=== PATIENT | male | born 1955 | race Caucasian/White ===

== ENCOUNTER 2016-03-06 17:35 | Emergency (ER) | payer MEDICAID ==
[~2016-03-06] VITALS: Ht 172.7 cm; Wt 59.0 kg
[2016-03-06 17:36] VITALS: BP 147/91
== END 2016-03-06 22:10 | disposition left against medical advice (07) ==
LOC: EDBD 17:35 → ER 17:44
DX: M79.605 Pain in left leg (principal); S80.812A Abrasion, left lower leg, initial encounter; S80.811A Abrasion, right lower leg, initial encounter; Y93.39 Activity, other involving climbing, rappelling and jumping off; Y93.89 Activity, other specified; Y99.9 Unspecified external cause status; Y92.89 Other specified places as the place of occurrence of the external cause

== ENCOUNTER 2017-12-16 10:04 | Emergency (ER) | payer MEDICAID ==
[~2017-12-16] VITALS: Ht 170.2 cm; Wt 56.7 kg
[2017-12-16 10:16] VITALS: BP 133/72
[2017-12-16] MEDS ORDERED: LIDOCAINE 1%HCL (LOCAL ANESTH) 10 ML MDV ONE (12:15)
[2017-12-16] MEDS ORDERED: LIDOCAINE 1% HCL (LOCAL ANESTH.) INJ 20ML MDV IJ ONE (12:15)
[2017-12-16] MEDS ORDERED: BACITRACIN TOP OINT 1 UD PKG TOP ONE (12:15)
== END 2017-12-16 12:26 | disposition home or self-care (01) ==
LOC: ER 10:04
DX: L02.414 Cutaneous abscess of left upper limb (principal); F17.210 Nicotine dependence, cigarettes, uncomplicated; F15.90 Other stimulant use, unspecified, uncomplicated; Z59.0 Homelessness
CPT/HCPCS: 10060; 99283; C1887; J2001

== ENCOUNTER 2018-04-11 23:24 | Emergency (ER) | payer MEDICAID ==
[~2018-04-11] VITALS: Ht 170.2 cm; Wt 54.4 kg
[2018-04-12 00:08] VITALS: BP 125/85
== END 2018-04-12 01:37 | disposition left against medical advice (07) ==
LOC: ER 23:24
DX: M79.642 Pain in left hand (principal); M79.641 Pain in right hand; Z53.21 Procedure and treatment not carried out due to patient leaving prior to being seen by health care provider

== ENCOUNTER 2019-06-19 16:41 | Emergency (ER) | payer MEDICAID ==
[~2019-06-19] VITALS: Ht 170.2 cm; Wt 63.5 kg
[2019-06-19 18:02] LABS: Hematocrit 44.1 % (41.0-53.0); Hemoglobin 14.7 g/dL (13.5-17.5); Mean Corpuscular Hemoglobin 29.1 pg (28.0-32.0); Mean Corpuscular Hgb Conc. 33.4 g/dL (32.0-36.0); Mean Corpuscular Volume 87.1 fL (80.0-100.0); Platelet Count (auto) 220 10^3/uL (140-450); Red Blood Cells 5.07 10^6/uL (4.5-5.90); Red Cell Distribution Width 14.8 % (11.8-14.3); White Blood Cell 6.7 10^3/uL (4.4-10.8)
[2019-06-19 18:04] LABS: Band Neutrophils % (manual) 0; Basophils % (manual) 0 (0.0-2.0); Blast Cells 0; Metamyelocytes % 0; Myelocytes % 0; Promyelocytes % 0; Reactive Lymphocytes 0
[2019-06-19 18:14] LABS: Albumin 3.4 g/dL (3.4-5.0); Calcium 8.8 mg/dL (8.5-10.1)
[2019-06-19 18:17] LABS: BUN/Creatinine Ratio 21.7; Bilirubin, Total 0.9 mg/dL (0.2-1.0); Total Protein 7.5 g/dL (6.4-8.2)
[2019-06-19] MEDS ORDERED: SODIUM CHLORIDE 0.9% 1,000 ML IVB ONE (18:27)
[2019-06-19 18:50] LABS: Eosinophils % (manual) 33 (0-7); Lymphocytes % (manual) 22 (10.0-50.0); Monocytes % (manual) 5 (0-12)
[2019-06-19 19:38] LABS: Magnesium 1.9 mg/dL (1.6-2.6)
[2019-06-19 21:00] VITALS: BP 130/80
[2019-06-19 21:18] LABS: Urine Bacteria NONE SEEN /hpf (None Seen); Urine Blood Negative /uL (Negative); Urine Specific Gravity 1.006 (1.001-1.035); Urine WBC 1 /hpf (0 - 3)
== END 2019-06-19 21:35 | disposition home or self-care (01) ==
LOC: ER 16:41
DX: R10.84 Generalized abdominal pain (principal); R19.7 Diarrhea, unspecified; F17.210 Nicotine dependence, cigarettes, uncomplicated
CPT/HCPCS: 36415; 71045; 74176; 80053; 81001; 83690; 83735; 85007; 85027; 93005; 96360; 99285; J7030

== ENCOUNTER 2019-07-28 16:54 | Emergency (ER) | payer MEDICAID ==
[~2019-07-28] VITALS: Ht 172.7 cm; Wt 54.4 kg
[2019-07-28 17:08] VITALS: BP 120/70
== END 2019-07-28 19:01 | disposition home or self-care (01) ==
LOC: ER 16:54 → EDBD 16:54 → ER 19:01
DX: L55.9 Sunburn, unspecified (principal); R51 Headache; M19.90 Unspecified osteoarthritis, unspecified site; F17.210 Nicotine dependence, cigarettes, uncomplicated

== ENCOUNTER 2020-08-10 17:42 | Emergency (ER) | payer MEDICARE, MEDICAID ==
[~2020-08-10] VITALS: Ht 170.2 cm; Wt 51.3 kg
[2020-08-10 17:59] VITALS: BP 154/94
[2020-08-10 18:54] LABS: Basophils # (auto) 0.1 10 ^3/uL (0-0.2); Basophils % (auto) 1.3 % (0.0-2.0); Eosinophils # (auto) 0.1 10 ^3/uL (0-0.8); Eosinophils % (auto) 2.5 % (0.0-7.0); Hematocrit 41.5 % (41.0-53.0); Hemoglobin 14.7 g/dL (13.5-17.5); Lymphocytes # (auto) 1.2 10 ^3/uL (0.4-5.4); Lymphocytes % (auto) 24.8 % (10.0-50.0); Mean Corpuscular Hemoglobin 31.1 pg (28.0-32.0); Mean Corpuscular Hgb Conc. 35.4 g/dL (32.0-36.0); Mean Corpuscular Volume 87.9 fL (80.0-100.0); Monocytes # (auto) 0.4 10 ^3/uL (0-1.3); Monocytes % (auto) 8.6 % (0.0-12.0); Neutrophils # (auto) 2.9 10 ^3/uL (1.6-8.6); Neutrophils % (auto) 62.8 % (37.0-80.0); Nucleated Red Blood Cells % 0.1 %; Platelet Count (auto) 271 10^3/uL (140-450); Red Blood Cells 4.72 10^6/uL (4.5-5.90); Red Cell Distribution Width 13.5 % (11.8-14.3); White Blood Cell 4.7 10^3/uL (4.4-10.8)
[2020-08-10 19:08] LABS: Albumin 3.2 g/dL (3.4-5.0); BUN/Creatinine Ratio 13.1
[2020-08-10 19:10] LABS: Bilirubin, Total 0.9 mg/dL (0.2-1.0); Total Protein 7.2 g/dL (6.4-8.2)
== END 2020-08-10 20:36 | disposition home or self-care (01) ==
LOC: ER 17:42 → EDUNIT# 17:42 → EDBD 17:42 → ER 20:36
DX: R10.84 Generalized abdominal pain (principal); F15.10 Other stimulant abuse, uncomplicated; F17.210 Nicotine dependence, cigarettes, uncomplicated; Z59.0 Homelessness
CPT/HCPCS: 36415; 80053; 83690; 85025; 93005

== ENCOUNTER → 2021-01-21 | Emergency (ER) | payer MEDICARE, MEDICAID ==
[~2021-01-21] VITALS: Ht 170.2 cm; Wt 54.0 kg
[2021-01-21 23:53] VITALS: BP 160/94
[2021-01-22 02:26] LABS: Basophils # (auto) 0.1 10 ^3/uL (0-0.2); Eosinophils # (auto) 0.1 10 ^3/uL (0-0.8); Hematocrit 47.5 % (41.0-53.0); Hemoglobin 16.2 g/dL (13.5-17.5); Lymphocytes # (auto) 1.1 10 ^3/uL (0.4-5.4); Lymphocytes % (auto) 16.3 % (10.0-50.0); Mean Corpuscular Hemoglobin 30.7 pg (28.0-32.0); Mean Corpuscular Hgb Conc. 34.2 g/dL (32.0-36.0); Mean Corpuscular Volume 89.8 fL (80.0-100.0); Monocytes # (auto) 0.6 10 ^3/uL (0-1.3); Monocytes % (auto) 9.1 % (0.0-12.0); Neutrophils # (auto) 4.9 10 ^3/uL (1.6-8.6); Neutrophils % (auto) 72.6 % (37.0-80.0); Nucleated Red Blood Cells % 0.5 %; Red Blood Cells 5.29 10^6/uL (4.5-5.90); Red Cell Distribution Width 13.3 % (11.8-14.3); White Blood Cell 6.7 10^3/uL (4.4-10.8)
[2021-01-22 02:38] LABS: INR 0.98 (0.9-1.15); Partial Thromboplastin Time 21.7 sec (23.6-33.0)
== END | disposition left against medical advice (07) ==
LOC: EDUNIT# 23:38 → ER 23:50 → EDBD 23:50
DX: R07.89 Other chest pain (principal); Z53.21 Procedure and treatment not carried out due to patient leaving prior to being seen by health care provider
CPT/HCPCS: 36415; 80053; 83735; 83880; 84443; 84484; 85025; 85610; 85730; 93005

== ENCOUNTER 2021-02-02 14:44 | Emergency (ER) | payer MEDICARE, MEDICAID ==
[~2021-02-02] VITALS: Ht 170.2 cm; Wt 53.5 kg
[2021-02-02 14:50] VITALS: BP 168/89
[2021-02-03] MEDS ORDERED: AMOX500C2 PO (08:37)
[2021-02-03] MEDS ORDERED: ACET-1080 PO (08:38)
== END 2021-02-02 18:20 | disposition home or self-care (01) ==
LOC: ER 14:44
DX: R51.9 Headache, unspecified (principal); F17.210 Nicotine dependence, cigarettes, uncomplicated; Z88.5 Allergy status to narcotic agent
CPT/HCPCS: 70450

== ENCOUNTER 2021-02-03 07:17 | Emergency (ER) | payer MEDICARE, MEDICAID ==
[~2021-02-03] VITALS: Ht 170.2 cm; Wt 53.5 kg
[2021-02-03 07:55] VITALS: BP 116/70
[2021-02-03] MEDS ORDERED: AMOX500C2 PO (08:37)
[2021-02-03] MEDS ORDERED: ACET-1080 PO (08:38)
== END 2021-02-03 09:07 | disposition home or self-care (01) ==
LOC: ER 07:17
DX: H61.21 Impacted cerumen, right ear (principal); H66.91 Otitis media, unspecified, right ear; F17.210 Nicotine dependence, cigarettes, uncomplicated; Z59.00 Homelessness unspecified; Z79.2 Long term (current) use of antibiotics; Z79.899 Other long term (current) drug therapy; Z88.5 Allergy status to narcotic agent
CPT/HCPCS: 69209

== ENCOUNTER 2021-11-22 06:00 | Emergency (ER) | payer MEDICARE, MEDICAID ==
[~2021-11-22] VITALS: Ht 177.8 cm; Wt 56.0 kg
[2021-11-22 06:00] VITALS: BP 148/93
[~2021-11-22 06:00] MED LIST: ACET-1080 PO; AMOX500C2 PO
[2021-11-22] MEDS ORDERED: METR500T PO (09:15)
== END 2021-11-22 22:00 | disposition home or self-care (01) ==
LOC: ER 06:00
DX: K52.9 Noninfective gastroenteritis and colitis, unspecified (principal); F17.210 Nicotine dependence, cigarettes, uncomplicated; F12.10 Cannabis abuse, uncomplicated; F15.10 Other stimulant abuse, uncomplicated; Z59.00 Homelessness unspecified; Z88.6 Allergy status to analgesic agent

== ENCOUNTER 2024-03-03 02:34 | Emergency (ER) | payer MEDICARE, MEDICAID ==
[~2024-03-03] VITALS: Ht 170.2 cm; Wt 61.6 kg
[~2024-03-03 02:34] MED LIST changes: +METR500T PO
[2024-03-03 02:46] VITALS: BP 161/105; PULSE 106; RESP 16; O2SAT 97
--- NOTE | 2024-03-03 03:42 | ED.PDOC ---
History of Present Illness HPI Comments 69-year-old male came to emergency room due to sore throat. Patient is homeless and has history of methamphetamine abuse. States that for the past few months he has been having difficulty swallowing, pain in swallowing solid food. Feels like something is blocking throat makes him like throwing up. Denies any abdominal pain Chief Complaint: Sore Throat Time Seen by MD: 03:41 Primary Care Provider: DENIES Reviewed Notes: Nurses Notes Allergies: Coded Allergies: Codeine (Verified Allergy, Severe, 02/02/21) Home Meds Active Scripts Metronidazole (Flagyl) 500 Mg Tab, 500 MG PO TID for 7 Days, #21 TAB Prov:KADY TORRE MD 11/22/21 Acetaminophen (Tylenol 8 Hour Arthritis) 650 Mg Tab, 650 MG PO TID for 8 Days, #24 TAB Prov:DIMITRI SOLOMON 02/03/21 Amoxicillin Trihydrate (Amoxicillin) 500 Mg Cap, 500 MG PO TID for 10 Days, #30 CAP Prov:DIMITRI SOLOMON 02/03/21 Information Source: Patient Mode of Arrival: Ambulatory Severity: Moderate Timing: Months Duration: Intermittent Prehospital treatment: None Review of Systems REVIEW OF SYSTEMS: No fever, no chills, or fatigue HEENT: (+) sore throat, no earache, no congestion, no neck pain. Cardiac: No chest pain. No palpitations. Lungs: No shortness of breath, no cough. GI: No nausea, no vomiting, no diarrhea, no constipation, no abdominal pain : No dysuria, frequency, or urgency. No hematuria. Musculoskeletal: No joint pain , no joint swelling, no extremity edema. Skin: No rash, no itching. Neuro: No headache, no dizziness, no weakness Vital Signs Vital Signs Date Time Temp Pulse Resp B/P (MAP) Pulse Ox O2 Delivery O2 Flow Rate FiO2 03/03/24 02:46 97.9 106 16 161/105 (123) 97 Physical Exam General: Awake, alert and oriented. No acute distress. Skin: Skin in warm, dry and intact. Appropriate color for ethnicity. Nailbeds pink with no cyanosis. HEENT: The head is normocephalic and atraumatic. Conjunctivae are clear without exudates or hemorrhage. Sclera is non-icteric. EOM are intact. No signs of nystagmus. Eyelids are normal in appearance without swelling or lesions. Oral mucosa is pink and moist Neck: The neck is supple with normal range of motion. No JVD. Cardiac: Heart rate and rhythm are normal. No murmurs, gallops, or rubs are auscultated. Respiratory: No signs of respiratory distress. Lung sounds are clear in all lobes bilaterally without rales, ronchi, or wheezes. Abdominal: Abdomen is soft, non-tender without distention. Bowel sounds are present and normoactive in all four quadrants. Extremities: Upper and lower extremities are atraumatic in appearance without deformity or edema. Neurological: The patient is awake, alert and oriented to person, place, and time with normal speech. Speech is clear. There is no facial asymmetry. Psychiatric: Appropriate mood and affect. Good judgement and insight. No visual or auditory hallucinations. Past Medical History PAST MEDICAL HISTORY: Anxiety, Arthritis Surgical History: Denies all surgeries Family History Family History: Family hx of Cancer Social History Smoker: Cigarettes, Greater Than 1 Pack/Day Alcohol: Occasionally Drugs: Methamphetamine Lives In: Homeless Was a procedure done? Was a procedure done?: No Differential Dx Considerations may include: Pharyngitis. Laryngitis. Epiglottitis. Dehydration. Substance abuse X-Ray, Labs, Meds, VS Vital Signs Date Time Temp Pulse Resp B/P (MAP) Pulse Ox O2 Delivery O2 Flow Rate FiO2 03/03/24 02:46 97.9 106 16 161/105 (123) 97 Lab Test 03/03/24 03:52 Range/Units White Blood Count 6.6 4.4-10.8 10^3/uL Red Blood Count 4.65 4.5-5.90 10^6/uL Hemoglobin 14.2 13.5-17.5 g/dL Hematocrit 41.3 41.0-53.0 % Mean Corpuscular Volume 88.8 80.0-100.0 fL Mean Corpuscular Hemoglobin 30.6 28.0-32.0 pg Mean Corpuscular Hemoglobin Concent 34.5 32.0-36.0 g/dL Red Cell Distribution Width 13.2 11.8-14.3 % Platelet Count 343 140-450 10^3/uL Mean Platelet Volume 7.4 6.9-10.8 fL Neutrophils (%) (Auto) 65.0 37.0-80.0 % Lymphocytes (%) (Auto) 23.6 10.0-50.0 % Monocytes (%) (Auto) 8.4 0.0-12.0 % Eosinophils (%) (Auto) 2.0 0.0-7.0 % Basophils (%) (Auto) 1.0 0.0-2.0 % Neutrophils # (Auto) 4.3 1.6-8.6 10 ^3/uL Lymphocytes # (Auto) 1.6 0.4-5.4 10 ^3/uL Monocytes # (Auto) 0.6 0-1.3 10 ^3/uL Eosinophils # (Auto) 0.1 0-0.8 10 ^3/uL Basophils # (Auto) 0.1 0-0.2 10 ^3/uL Nucleated Red Blood Cells 0.2 % Sodium Level 139 136-145 mmol/L Potassium Level 4.3 3.5-5.1 mmol/L Chloride Level 106 98-107 mmol/L Carbon Dioxide Level 26 20-31 mmol/L Anion Gap 7 5-15 Blood Urea Nitrogen 18 9-23 mg/dL Creatinine 1.42 H 0.700-1.30 mg/dL Glomerular Filtration Rate Calc 53 >90 mL/min BUN/Creatinine Ratio 12.7 10.0-20.0 Serum Glucose 115 H 74-106 mg/dL Calcium Level 13.6 *H 8.7-10.4 mg/dL Magnesium Level 2.1 1.6-2.6 mg/dL Total Bilirubin 1.0 0.2-1.0 mg/dL Aspartate Amino Transferase (AST) 41 H 13-40 U/L Alanine Aminotransferase (ALT) 41 H 7-40 U/L Alkaline Phosphatase 89 46-116 U/L Total Protein 7.4 5.7-8.2 g/dL Albumin 4.3 3.2-4.8 g/dL Time of 1ST Reevaluation: 03:36 Reevaluation 1ST: Unchanged Patient Education/Counseling: Diagnosis, Treatment Family Education/Counseling: No Family Present Departure 1 Departure Time of Disposition: 04:49 Impression: Primary Impression: Dysphagia Disposition: 09 ADMITTED INPATIENT Condition: Stable Comments 69-year-old male with dysphagia to solids ongoing times 10 months, worsening. Patient admitted for further treatment, GI evaluation, and monitoring. Critical Care Note Critical Care Time?: No Stability Stability form required: No Heart Score Heart Score: Heart Score Response (Comments) Value History N/A 0 EKG N/A 0 Age N/A 0 Risk Factors N/A 0 Troponin N/A 0 Total 0 I personally scribed for MARVEL MANN MD ([email or web address]) on 03/03/24 at 03:42. Electronically submitted by Dank Florez ([employer]). I personally scribed for MARVEL MANN MD ([email or web address]) on 03/03/24 at 03:43. Electronically submitted by Dank Florez ([employer]). MARVEL MANN MD Mar 03, 2024 03:42
[2024-03-03 04:23] LABS: Basophils # (auto) 0.1 10 ^3/uL (0-0.2); Eosinophils # (auto) 0.1 10 ^3/uL (0-0.8); Hematocrit 41.3 % (41.0-53.0); Hemoglobin 14.2 g/dL (13.5-17.5); Lymphocytes # (auto) 1.6 10 ^3/uL (0.4-5.4); Lymphocytes % (auto) 23.6 % (10.0-50.0); Mean Corpuscular Hemoglobin 30.6 pg (28.0-32.0); Mean Corpuscular Hgb Conc. 34.5 g/dL (32.0-36.0); Mean Corpuscular Volume 88.8 fL (80.0-100.0); Monocytes # (auto) 0.6 10 ^3/uL (0-1.3); Monocytes % (auto) 8.4 % (0.0-12.0); Neutrophils # (auto) 4.3 10 ^3/uL (1.6-8.6); Nucleated Red Blood Cells % 0.2 %; Platelet Count (auto) 343 10^3/uL (140-450); Red Blood Cells 4.65 10^6/uL (4.5-5.90); Red Cell Distribution Width 13.2 % (11.8-14.3); White Blood Cell 6.6 10^3/uL (4.4-10.8)
[2024-03-03 04:49] LABS: Albumin 4.3 g/dL (3.2-4.8); Alkaline Phosphatase 89 U/L (46-116); Anion Gap 7 (5-15); BUN/Creatinine Ratio 12.7 (10.0-20.0); Blood Urea Nitrogen 18 mg/dL (9-23); Carbon Dioxide 26 mmol/L (20-31); Chloride 106 mmol/L (98-107); Magnesium 2.1 mg/dL (1.6-2.6); Potassium 4.3 mmol/L (3.5-5.1); Sodium 139 mmol/L (136-145)
[2024-03-03 04:50] LABS: Total Protein 7.4 g/dL (5.7-8.2)
[2024-03-03 04:51] LABS: Alanine Aminotransferase 41 U/L (7-40); Aspartate Aminotransferase 41 U/L (13-40); Glucose 115 mg/dL (74-106)
[2024-03-03 04:54] LABS: Calcium 13.6 mg/dL (8.7-10.4)
[2024-03-03] MEDS: IOHEXOL 300 MG/ML 100ML BOTTLE IJ ONE (05:11)
--- NOTE | 2024-03-03 05:23 | DVH ---
EXAM: XY CHEST XRAY 1 VIEW Indication: Dysphagia Technique: Single frontal view of the chest was obtained Comparison: CHEST PORTABLE on DOS: 06/19/19, CHEST PORTABLE on DOS: 04/01/19 FINDINGS: Lines and Tubes: None Lungs: No focal consolidation. Pleura: No effusion. No pneumothorax. Cardiomediastinal contours: Unremarkable Bones: No acute osseous abnormality. IMPRESSION: No acute cardiopulmonary disease.
--- NOTE | 2024-03-03 05:52 | DVH ---
Exam: CT CT AB PEL WITH IV CON ONLY History: Abdominal pain, dysphagia Comparison Study: None available at time of dictation. TECHNIQUE: Multidetector CT of the abdomen was performed from lung bases to pubic symphysis. Imaging was performed without IV contrast. Axial, coronal and sagittal multiplanar reformats were obtained fr om the axial data set by the technologist. Radiation Dose : 1. Abdomen/Pelvis: CTDIvol 5.3 mGy, DLP 309.9 mGy*cm. FINDINGS: Evaluation of solid organs is limited due to lack of intravenous contrast use. Findings: Lung Bases: No acute or significant lung base finding. Normal heart size. No pleural or pericardial effusion. Liver: The liver is normal in size. No focal lesions. Gallbladder and Biliary Tree: Unremarkable Spleen: Unremarkable Pancreas: The pancreas is grossly normal in appearance. Adrenal Glands: Unremarkable Kidneys: Kidneys are grossly normal without calculi or hydronephrosis. Bladder: Grossly unremarkable for degree of distention. Bowel: Large hiatal hernia. Gastric collateral vessels are visualized. Gastric wall thickening. Promi nent perigastric /paraesophageal lymph nodes and nodularity. For example there is a 8 mm prominent pa raesophageal lymph node. Small bowel and colon are normal in caliber and distribution. The appendix is not visualized; however, no secondary findings of acute appendicitis identified. Ascites: Absent Lymphadenopathy: No mesenteric, retroperitoneal or periportal lymphadenopathy. Abdominal Wall and Mesentery: Unremarkable. Vasculature: The visualized abdominal aorta is normal in size and caliber. Evaluation of abdominal a nd pelvic vessels is limited due to lack of intravenous contrast. Pelvic Organs: Unremarkable Musculoskeletal: No aggressive focal bony lesions, acute fractures or dislocation. Soft tissues: Unremarkable IMPRESSION: Large hiatal hernia with irregular proximal gastric wall thickening. Prominent perigastric lymph node s and nodularity. Recommend correlation with endoscopy as findings are concerning for malignancy. Radiation optimization: All CT scans at this facility use at least one of these dose optimization lyndsay hniques: automated exposure control mA and/or kV adjustment per patient size (includes targeted exam s where dose is matched to clinical indication) or iterative reconstruction.
== END 2024-03-03 06:35 | disposition left against medical advice (07) ==
LOC: ER 02:34
DX: R13.10 Dysphagia, unspecified (principal); F17.210 Nicotine dependence, cigarettes, uncomplicated; M19.90 Unspecified osteoarthritis, unspecified site; F41.9 Anxiety disorder, unspecified; Z59.00 Homelessness unspecified; Z88.5 Allergy status to narcotic agent
CPT/HCPCS: 36415; 71045; 74177; 80053; 83735; 85025

== ENCOUNTER 2024-03-05 16:51 | Inpatient (IN) | payer MEDICARE, MEDICAID ==
[~2024-03-05] VITALS: Ht 170.2 cm; Wt 61.7 kg
--- NOTE | 2024-03-05 18:41 | ED.PDOC ---
Eye-HPI HPI Comments 69-year-old male presents to ER with complaints of difficulty swallowing x 10 months. Patient is homeless with PMH of hiatal hernia and methamphetamine use reporting that he has been experiencing difficult and painful swallowing x 10 months. Patient was going to be admitted here 2 days ago for need for GI consult/need for endoscopy but signed out AMA. He reports 9/10 pain with swallowing, denying any other pain. Reports he does experience intermittent episodes of nausea/vomiting when attempting to swallow solid foods. Denies fever, night sweats, fatigue, weight loss, abdominal pain or any further symptoms/complaints Chief Complaint: Sore Throat Time Seen by MD: 18:10 Primary Care Provider: NONE Reviewed Notes: Nurses Notes, Medications, Allergies Allergies: Coded Allergies: Codeine (Verified Allergy, Severe, 02/02/21) Home Meds Active Scripts Metronidazole (Flagyl) 500 Mg Tab, 500 MG PO TID for 7 Days, #21 TAB Prov:KADY TORRE MD 11/22/21 Acetaminophen (Tylenol 8 Hour Arthritis) 650 Mg Tab, 650 MG PO TID for 8 Days, #24 TAB Prov:DIMITRI SOLOMON 02/03/21 Amoxicillin Trihydrate (Amoxicillin) 500 Mg Cap, 500 MG PO TID for 10 Days, #30 CAP Prov:DIMITRI SOLOMON 02/03/21 Information Source: Patient Mode of Arrival: Wheelchair Past Medical History Past Medical History (Other): Hital Hernia Surgical History: Denies all surgeries Family History Family History: Unknown Social History Smoker: Cigarettes, Greater Than 1 Pack/Day Alcohol: Occasionally Drugs: Methamphetamine Lives In: Homeless Constitutional: denies: chills, diaphoresis, fatigue, fever, malaise, sweats, weakness, others EENTM: reports: others ( STATED IN HPI) Respiratory: denies: cough, hemoptysis, orthopnea, SOB at rest, shortness of breath, SOB with excertion, stridor, wheezing, others Cardiovascular: denies: chest pain, dizzy spells, diaphoresis, Dyspnea on exertion, edema, irregular heart beat, left arm pain, lightheadedness, palpitations, PND, syncope, others Gastrointestinal: denies: abdomen distended, abdominal pain, blood streaked bowels, constipated, diarrhea, dysphagia, difficulty swallowing, hematemesis, melena, nausea, poor appetite, poor fluid intake, rectal bleeding, rectal pain, vomiting, others Genitourinary: denies: burning, dysuria, flank pain, frequency, hematuria, incontinence, penile discharge, penile sore, pain, testicle pain, testicle swelling, urgency, others Neurological: denies: dizziness, fainting, headache, left sided numbness, left sided weakness, numbness, paresthesia, pre-existing deficit, right sided numbn ess, right sided weakness, seizure, speech problems, tingling, tremors, weakness, others Musculoskeletal: denies: back pain, gout, joint pain, joint swelling, muscle pain, muscle stiffness, neck pain, others Integumetry: denies: bruises, change in color, change in hair/nails, dryness, laceration, lesions, lumps, rash, wounds, others Allergic/Immunocompromised: denies: Difficulty Healing, Frequent Infections, Hives, Itching, others Hematologic/Lymphatic: denies: anemia, blood clots, easy bleeding, easy bruising, swollen glands, others Endocrine: denies: excessive hunger, excessive sweating, excessive thirst, excessive urination, flushing, intolerance to cold, intolerance to heat, unexplained weight gain, unexplained weight loss, others Psychiatric: denies: anxiety, bipolar disorder, depression, hopeless, panic disorder, schizophrenia, sleepless, suicidal, others Physical Exam General Appearance: No Apparent Distress HEENT: Normal ENT Inspection, PERRL/EOMI, Pharynx Normal, TMs Normal Neck: Full Range of Motion, Non-Tender, Normal Respiratory: Chest Non-Tender, Lungs Clear, No Accessory Muscle Use, No Respiratory Distress, Normal Breath Sounds Cardiovascular: No Murmur, No Gallop, Regular Rate/Rhythm Breast Exam: Deferred Gastrointestinal: Epigastric (TTP to epigastric region noted), No Organomegaly, No Pulsatile Mass, Normal Bowel Sounds, Soft Genitalia: Deferred Pelvic: Deferred Rectal: Deferred Extremities: Normal capillary refill, Normal range of motion Neurologic: Alert, No Motor Deficits, Normal Affect, Normal Mood, No Sensory Deficits Cerebellar Function: Normal Reflexes: Normal Skin: Dry, Normal Color, Warm Lymphatic: No Adenopathy Was a procedure done? Was a procedure done?: No EENT DIFF Eye: N/A Sore Throat: Epiglottitis, Peritonsillar Abscess, Other (mass) X-Ray, Labs, Meds, VS Vital Signs Date Time Temp Pulse Resp B/P (MAP) Pulse Ox O2 Delivery O2 Flow Rate FiO2 03/05/24 18:33 88 18 98 Room Air 03/05/24 18:33 98.0 88 18 133/88 (103) 98 98.0 03/05/24 17:25 97.9 84 18 130/81 (97) 97 Lab Test 03/05/24 19:07 Range/Units White Blood Count 5.3 4.4-10.8 10^3/uL Red Blood Count 4.84 4.5-5.90 10^6/uL Hemoglobin 14.5 13.5-17.5 g/dL Hematocrit 43.2 41.0-53.0 % Mean Corpuscular Volume 89.1 80.0-100.0 fL Mean Corpuscular Hemoglobin 30.0 28.0-32.0 pg Mean Corpuscular Hemoglobin Concent 33.6 32.0-36.0 g/dL Red Cell Distribution Width 13.4 11.8-14.3 % Platelet Count 338 140-450 10^3/uL Mean Platelet Volume 7.3 6.9-10.8 fL Neutrophils (%) (Auto) 65.9 37.0-80.0 % Lymphocytes (%) (Auto) 21.2 10.0-50.0 % Monocytes (%) (Auto) 9.5 0.0-12.0 % Eosinophils (%) (Auto) 2.7 0.0-7.0 % Basophils (%) (Auto) 0.7 0.0-2.0 % Neutrophils # (Auto) 3.5 1.6-8.6 10 ^3/uL Lymphocytes # (Auto) 1.1 0.4-5.4 10 ^3/uL Monocytes # (Auto) 0.5 0-1.3 10 ^3/uL Eosinophils # (Auto) 0.1 0-0.8 10 ^3/uL Basophils # (Auto) 0 0-0.2 10 ^3/uL Nucleated Red Blood Cells 0.1 % Sodium Level 138 136-145 mmol/L Potassium Level 4.3 3.5-5.1 mmol/L Chloride Level 105 98-107 mmol/L Carbon Dioxide Level 28 20-31 mmol/L Anion Gap 5 5-15 Blood Urea Nitrogen 15 9-23 mg/dL Creatinine 1.07 0.700-1.30 mg/dL Glomerular Filtration Rate Calc 75 >90 mL/min BUN/Creatinine Ratio 14.0 10.0-20.0 Serum Glucose 107 H 74-106 mg/dL Calcium Level 10.7 H 8.7-10.4 mg/dL Total Bilirubin 0.7 0.2-1.0 mg/dL Direct Bilirubin 0.2 <0.3 mg/dL Aspartate Amino Transferase (AST) 43 H 13-40 U/L Alanine Aminotransferase (ALT) 45 H 7-40 U/L Alkaline Phosphatase 91 46-116 U/L Total Protein 6.9 5.7-8.2 g/dL Albumin 4.1 3.2-4.8 g/dL Current Medications Medications (Trade) Dose Ordered Sig/Sarah Route Start Time Stop Time Status Last Admin Pantoprazole Sodium (Protonix) 40 mg ONCE ONCE IV 03/05/24 19:15 03/05/24 19:16 DC 03/06/24 02:08 PATIENT: DAMION BOWMAN ACCT: [id number] UNIT: [id number] : 1955 LOC: ER ROOM / BED: / AGE / SEX: 69 / M ADM STATUS: REG ER SERVICE [id number] ORDERING PHYSICIAN: MARVEL MANN MD PROCEDURE(s): ABPLIV - CT AB PEL WITH IV CON ONLY REASON: Abdominal pain, dysphagia ORDER NUMBER(s): [id number], ACCESSION NUMBER(s): [id number] Exam: CT CT AB PEL WITH IV CON ONLY History: Abdominal pain, dysphagia Comparison Study: None available at time of dictation. TECHNIQUE: Multidetector CT of the abdomen was performed from lung bases to pubic symphysis. Imaging was performed without IV contrast. Axial, coronal and sagittal multiplanar reformats were obtained from the axial data set by the technologist. Radiation Dose : 1. Abdomen/Pelvis: CTDIvol 5.3 mGy, DLP 309.9 mGy*cm. FINDINGS: Evaluation of solid organs is limited due to lack of intravenous contrast use. Findings: Lung Bases: No acute or significant lung base finding. Normal heart size. No pleural or pericardial effusion. Liver: The liver is normal in size. No focal lesions. Gallbladder and Biliary Tree: Unremarkable Spleen: Unremarkable Pancreas: The pancreas is grossly normal in appearance. Adrenal Glands: Unremarkable Kidneys: Kidneys are grossly normal without calculi or hydronephrosis. Bladder: Grossly unremarkable for degree of distention. Bowel: Large hiatal hernia. Gastric collateral vessels are visualized. Gastric wall thickening. Prominent perigastric /paraesophageal lymph nodes and nodularity. For example there is a 8 mm prominent paraesophageal lymph node. Small bowel and colon are normal in caliber and distribution. The appendix is not visualized; however, no secondary findings of acute appendicitis identified. Ascites: Absent Lymphadenopathy: No mesenteric, retroperitoneal or periportal lymphadenopathy. Abdominal Wall and Mesentery: Unremarkable. Vasculature: The visualized abdominal aorta is normal in size and caliber. Evaluation of abdominal and pelvic vessels is limited due to lack of intravenous contrast. Pelvic Organs: Unremarkable Musculoskeletal: No aggressive focal bony lesions, acute fractures or dislocati on. Soft tissues: Unremarkable IMPRESSION: Large hiatal hernia with irregular proximal gastric wall thickening. Prominent perigastric lymph nodes and nodularity. Recommend correlation with endoscopy as findings are concerning for malignancy. Radiation optimization: All CT scans at this facility use at least one of these dose optimization techniques: automated exposure control mA and/or kV adjustment per patient size (includes targeted exams where dose is matched to clinical indication) or iterative reconstruction. ATED BY: JENNY ASHBY MD DICTATED DATE/TIME: 03/03/24 0550 SIGNED BY: JENNY ASHBY MD SIGNED DATE/TIME: 03/03/24 0550 CC: PATIENT: DAMION BOWMAN ACCT: [id number] UNIT: [id number] : 1955 LOC: ER ROOM / BED: / AGE / SEX: 69 / M ADM STATUS: REG ER SERVICE 4 ORDERING PHYSICIAN: MARVEL MANN MD PROCEDURE(s): CXR1 - CHEST XRAY 1 VIEW REASON: Dysphagia ORDER NUMBER(s): [id number], ACCESSION NUMBER(s): [id number] EXAM: XY CHEST XRAY 1 VIEW Indication: Dysphagia Technique: Single frontal view of the chest was obtained Comparison: CHEST PORTABLE on DOS: 06/19/19, CHEST PORTABLE on DOS: 04/01/19 FINDINGS: Lines and Tubes: None Lungs: No focal consolidation. Pleura: No effusion. No pneumothorax. Cardiomediastinal contours: Unremarkable Bones: No acute osseous abnormality. IMPRESSION: No acute cardiopulmonary disease. ATED BY: JENNY ASHBY MD DICTATED DATE/TIME: 03/03/24519 SIGNED BY: JENNY ASHBY MD SIGNED DATE/TIME: 03/03/24519 CC: PATIENT: DAMION BOWMAN ACCT: [id number] UNIT: [id number] : 1955 LOC: ER ROOM / BED: / AGE / SEX: 69 / M ADM STATUS: REG ER SERVICE 52 ORDERING PHYSICIAN: MARYAN GUILLEN PROCEDURE(s): CS2 - CERVICAL WITHOUT CONTRAST REASON: DYSPHAGIA X 10 MONTHS ORDER NUMBER(s): [id number], ACCESSION NUMBER(s): [id number] EXAM: CT CERVICAL WITHOUT CONTRAST INDICATION: DYSPHAGIA X 10 MONTHS EXAM DATE: 03/05/2024 08:29 PM COMPARISON: None TECHNIQUE: Multiple axial CT images of the cervical spine were obtained using bone algorithm. Axial and coronal reformatting was done. Bone and soft tissue windows were reviewed. Radiation Dose Information: CT Dose: CTDI volume is 19.64 mGy. Dose-length product is 498.24 mGy*cm FINDINGS: The cervical alignment is intact. No acute cervical spine fracture is identified. The vertebral body heights are intact. No suspicious osseous lesions are identified. Mucosal thickening of the right maxillary sinus. Grade 1 retrolisthesis of C3 at C4 is noted with a grade 1 anterior spondylolisthesis at C4-5 and C5-6. Bony spondylosis and degenerative disc changes are noted at C6-7. No significant degenerative changes are identified. There is no prevertebral soft tissue swelling. IMPRESSION: 1. No evidence of acute cervical spine fracture or traumatic malalignment. 2. Grade 1 retrolisthesis at C3-4 3. Grade 1 anterior spondylolisthesis at C4-5 and C5-6. 4. Bony spondylosis and degenerative disc changes at C6-7. All CT scans at this medical facility are performed using dose modulation techniques as appropriate to a performed exam including the following: Automated exposure control was utilized; adjustment of the MA and/or KV according to patient size; and use of iterative reconstruction technique. HS:Y ATED BY: NATHALIE RAMÍREZ Jr., DO DICTATED DATE/TIME: 03/05/242055 SIGNED BY: NATHALIE RAMÍREZ Jr., SIGNED DATE/TIME: 03/05/242055 CC: CBC and BMP reviewed without any significant abnormalities Neck x-ray reviewed CT cervical without contrast reviewed CT abdomen/pelvis w/o contrast reviewed from 03/03/23 Chest x-ray reviewed from 03/03/23 HEP LOCK IV ordered NS 1 L IV ordered Protonix 40 mg IV ordered Previous ER chart reviewed Patient verbalized understanding and agreeable with current plan of care. Stating he is not going to sign out AMA Patient put up for admission orders for dysphagia/need for GI consult Time of 1ST Reevaluation: 18:12 Reevaluation 1ST: N/A Patient Education/Counseling: Diagnosis, Treatment, Prognosis, Need For Follow Up Family Education/Counseling: No Family Present Departure 1 Departure Time of Disposition: 18:32 Impression: Primary Impression: Dysphagia Qualified Codes: R13.10 - Dysphagia, unspecified Additional Impressions: Hiatal hernia Methamphetamine abuse Disposition: ADMITTED INPATIENT Condition: Stable Critical Care Note Critical Care Time?: No Stability Stability form required: No Heart Score Heart Score: Heart Score Response (Comments) Value History N/A 0 EKG N/A 0 Age N/A 0 Risk Factors N/A 0 Troponin N/A 0 Total 0 MARYAN GUILLEN Mar 05, 2024 18:41
--- NOTE | 2024-03-05 19:36 | DVH ---
CLINICAL INDICATION: dysphagia TECHNIQUE: 2 radiographic views of the cervical spine were obtained. Comparison: None FINDINGS/IMPRESSION: There is increased cervical lordotic curve with mild compression posterior aspect of C4. Degenerative disc changes are noted throughout. Prevertebral soft tissues are within normal limits. The visualized joint space is well maintained. The alignment is anatomical. There is no radiopaque foreign body. HS:Y
[2024-03-05 19:45] LABS: Basophils # (auto) 0 10 ^3/uL (0-0.2); Basophils % (auto) 0.7 % (0.0-2.0); Eosinophils # (auto) 0.1 10 ^3/uL (0-0.8); Eosinophils % (auto) 2.7 % (0.0-7.0); Hematocrit 43.2 % (41.0-53.0); Hemoglobin 14.5 g/dL (13.5-17.5); Lymphocytes # (auto) 1.1 10 ^3/uL (0.4-5.4); Lymphocytes % (auto) 21.2 % (10.0-50.0); Mean Corpuscular Hgb Conc. 33.6 g/dL (32.0-36.0); Mean Corpuscular Volume 89.1 fL (80.0-100.0); Monocytes # (auto) 0.5 10 ^3/uL (0-1.3); Monocytes % (auto) 9.5 % (0.0-12.0); Neutrophils # (auto) 3.5 10 ^3/uL (1.6-8.6); Neutrophils % (auto) 65.9 % (37.0-80.0); Nucleated Red Blood Cells % 0.1 %; Platelet Count (auto) 338 10^3/uL (140-450); Red Blood Cells 4.84 10^6/uL (4.5-5.90); Red Cell Distribution Width 13.4 % (11.8-14.3); White Blood Cell 5.3 10^3/uL (4.4-10.8)
[2024-03-05 20:07] LABS: Chloride 105 mmol/L (98-107); Potassium 4.3 mmol/L (3.5-5.1); Sodium 138 mmol/L (136-145)
[2024-03-05 20:08] LABS: Anion Gap 5 (5-15); Carbon Dioxide 28 mmol/L (20-31)
[2024-03-05 20:13] LABS: Blood Urea Nitrogen 15 mg/dL (9-23)
[2024-03-05 20:25] LABS: Calcium 10.7 mg/dL (8.7-10.4); Glucose 107 mg/dL (74-106)
--- NOTE | 2024-03-05 20:59 | DVH ---
EXAM: CT CERVICAL WITHOUT CONTRAST INDICATION: DYSPHAGIA X 10 MONTHS EXAM DATE: 03/05/2024 08:29 PM COMPARISON: None TECHNIQUE: Multiple axial CT images of the cervical spine were obtained using bone algorithm. Axial a nd coronal reformatting was done. Bone and soft tissue windows were reviewed. Radiation Dose Information: CT Dose: CTDI volume is 19.64 mGy. Dose-length product is 498.24 mGy*cm FINDINGS: The cervical alignment is intact. No acute cervical spine fracture is identified. The vertebral body heights are intact. No suspicious osseous lesions are identified. Mucosal thickening of the right maxillary sinus. Grade 1 retrolisthesis of C3 at C4 is noted with a grade 1 anterior spondylolisthesis at C4-5 and C5- 6. Bony spondylosis and degenerative disc changes are noted at C6-7. No significant degenerative changes are identified. There is no prevertebral soft tissue swelling. IMPRESSION: 1. No evidence of acute cervical spine fracture or traumatic malalignment. 2. Grade 1 retrolisthesis at C3-4 3. Grade 1 anterior spondylolisthesis at C4-5 and C5-6. 4. Bony spondylosis and degenerative disc changes at C6-7. All CT scans at this medical facility are performed using dose modulation techniques as appropriate t o a performed exam including the following: Automated exposure control was utilized; adjustment of th e MA and/or KV according to patient size; and use of iterative reconstruction technique. HS:Y
[2024-03-05] MEDS ORDERED: ACETAMINOPHEN 325 MG TAB PO PRN (23:30)
--- NOTE | 2024-03-05 23:30 | DVHHPRES ---
History of Present Illness Resident Creating Document: ADRIAN MOFFETT RESDIENT History of Present Illness This is a 69-year-old male with history of hepatitis-C, came to the hospital because of difficulty swallowing. Patient states that he has difficulty swallowing solid food since 10 months which has gradually worsened, but he can take fluid without any problem.. He also complained of mild epigastric discomfort, weakness, cough and shortness of breaths. Patient denies nausea, vomiting, chest pain, fever, night sweats or any recent changes in bowel and bladder habits. The patient was came to the hospital on 03/03/2024 because of dysphagia, CT scan was performed and showed, large hiatal hernia with irregular proximal gastric wall thickening. Prominent perigastric lymph nodes and nodularity. EGD was planned, but patient left AMA. PMHx: Hepatitis-C PSHx: Noncontributory Family history: Not significant Social history: Per patient, he lives with his friend, current smoker (150 pack year history), drank alcohol, uses methamphetamine. Home medication: Taking no medication at home Allergic history: Codeine Review of Systems Review of Systems General: Reports weakness, decreased oral intake and recent weight loss HEENT: No headaches, visiual changes, hearing loss, tinnitus, nasal congestion and discharge, and sore throat. Cardiovascular: Denies chest pain, palpitations, dyspnea on exertion, orthopnea, or claudication. Respiratory: Reports mild cough and shortness of Breath Gastrointestinal: Reports difficulty swallowing and abdominal pain Genitourinary: No dysuria, hematuria, discharge, frequency, urgency, nocturia, incontinence, and urinary retention. Endocrine: No heat or cold intolerance, polydipsia, polyuria, and polyphagia. Neurological: No dizziness, extremity weakness and numbness, tremors, gait disturbance, seizures, and memory impairment. Psychiatric: Denies depression, anxiety,or insomnia. Musculoskeletal: Denies neck pain, stiffness and swelling, back pain, muscle weakness, joint pain, stiffness, swelling, or limited range of motion. Skin: No rashes, itching, skin lesion, changes in hair, nail, skin texture and breast. Hematologic/Lymphatic: Denies easy bruising, bleeding tendencies, or lymph node enlargement. Allergies: Coded Allergies: Codeine (Verified Allergy, Severe, 02/02/21) Exam Vital Signs Vital Signs Date Time Temp Pulse Resp B/P (MAP) Pulse Ox O2 Delivery O2 Flow Rate FiO2 03/05/24 18:33 88 18 98 Room Air 03/05/24 18:33 98.0 133/88 (103) 98.0 Exam General Appearance: Alert, Oriented X3, Cooperative, No acute distress HEENT: Atraumatic, PERRLA, EOMI, Mucous membrane moist/pink Respiratory: Clear to auscultation, Normal air movement Cardiovascular: Regular rate, Normal S1, Normal S2, No murmurs, no chest wall tenderness Abdominal: Normal bowel sounds, Soft, No tenderness, No hepatospenomegaly, No masses Extremities: No clubbing, No cyanosis, No edema, Normal pulses, No tenderness/swelling Skin: No rashes, No breakdown, No significant lesion Neuro: Normal gait, Normal speech, Strength at 5/5 X4 ext, Normal tone, Sensation intact, Cranial nerves 3-12 NL, Reflexes 2+ Psych/Mental Status: Mental status NL, Mood NL Labs/Xrays Labs Test 03/05/24 19:07 Range/Units White Blood Count 5.3 4.4-10.8 10^3/uL Red Blood Count 4.84 4.5-5.90 10^6/uL Hemoglobin 14.5 13.5-17.5 g/dL Hematocrit 43.2 41.0-53.0 % Mean Corpuscular Volume 89.1 80.0-100.0 fL Mean Corpuscular Hemoglobin 30.0 28.0-32.0 pg Mean Corpuscular Hemoglobin Concent 33.6 32.0-36.0 g/dL Red Cell Distribution Width 13.4 11.8-14.3 % Platelet Count 338 140-450 10^3/uL Mean Platelet Volume 7.3 6.9-10.8 fL Neutrophils (%) (Auto) 65.9 37.0-80.0 % Lymphocytes (%) (Auto) 21.2 10.0-50.0 % Monocytes (%) (Auto) 9.5 0.0-12.0 % Eosinophils (%) (Auto) 2.7 0.0-7.0 % Basophils (%) (Auto) 0.7 0.0-2.0 % Neutrophils # (Auto) 3.5 1.6-8.6 10 ^3/uL Lymphocytes # (Auto) 1.1 0.4-5.4 10 ^3/uL Monocytes # (Auto) 0.5 0-1.3 10 ^3/uL Eosinophils # (Auto) 0.1 0-0.8 10 ^3/uL Basophils # (Auto) 0 0-0.2 10 ^3/uL Nucleated Red Blood Cells 0.1 % Sodium Level 138 136-145 mmol/L Potassium Level 4.3 3.5-5.1 mmol/L Chloride Level 105 98-107 mmol/L Carbon Dioxide Level 28 20-31 mmol/L Anion Gap 5 5-15 Blood Urea Nitrogen 15 9-23 mg/dL Creatinine 1.07 0.700-1.30 mg/dL Glomerular Filtration Rate Calc 75 >90 mL/min BUN/Creatinine Ratio 14.0 10.0-20.0 Serum Glucose 107 H 74-106 mg/dL Calcium Level 10.7 H 8.7-10.4 mg/dL Assessment/Plan Assessment/Plan Possible stomach cancer Possible gastritis Hiatal hernia Abdominal CT scan from 03/03/2024, shows, large hiatal hernia with irregular proximal gastric wall thickening. Prominent perigastric lymph nodes and nodularity. Consulted GI NPO Protonix 40 mg b.i.d. [place] p.r.n. IV fluid Cervical spine spondylosis Cervical spine spondylolisthesis Neck is CT scan shows, grade 1 retrolisthesis at C3-4, grade 1 anterior spondylolisthesis at C4-5 and C5-6 and bony spondylosis and degenerative disc changes at C6-7 Friend p.r.n. Follow up on outpatient basis Methamphetamine use disorder Check UDS Patient consulted for methamphetamine cessation for more than 18 minutes Current smoker Patient consulted for smoking cessation for more than 23 minutes History of hepatitis-C Alcohol use disorder Transaminitis, likely due to alcohol use disorder Patient was consulted for alcohol cessation for more than 18 minutes Asymptomatic hypercalcemia Monitoring DIET: NPO, for possible EGD DVT PROPHYLAXIS: Patient is mobile, no indication for anticoagulant GI PROPHYLAXIS:: Protonix DISPOSITION: Med/surge Patient's status discussed with the patient. Case discussed with Dr. Flaherty Plan discussed with: Patient, Other (RN) My Orders Orders - ADRIAN MOFFETT RESDIENT Procedure Category Date Status Time Admit ADMIT 03/05/24 Transmitted 23:20 Notify Of Changes HANSA 03/05/24 In Process From Base 23:20 * Gi Dvh Map Drafter CONS 03/05/24 Verified 23:26 Npo After Midnight DIET 03/06/24 Verified Breakfast Urinalysis LAB 03/05/24 Verified 23:26 Drug Screen LAB 03/05/24 Verified 23:26 Hepatic Panel LAB 03/05/24 Verified 23:26 Hydrocodone-Acet PHA 03/05/24 Verified 5/325mg Tab (Friend 23:30 Hydrocodone-Acet PHA 03/05/24 Verified 5/325mg Tab (Friend 23:30 Acetaminophen Tablet PHA 03/05/24 Verified (Tylenol Tablet) 23:30 D5w/Sod Chlo 0.9% Ns PHA 03/05/24 Verified 23:30 Date of Service: Mar 05, 2024 Billing Provider: SHAYLEE FLAHERTY MD Common Visit Codes: [id number] INP/OBS CARE (HIGH) ADRIAN MOFFETT RESDIENT Mar 05, 2024 23:30 SHAYLEE FLAHERTY MD Mar 06, 2024 08:24
[2024-03-05 23:59] LABS: Albumin 4.1 g/dL (3.2-4.8); Bilirubin, Direct 0.2 mg/dL (<0.3); Bilirubin, Total 0.7 mg/dL (0.2-1.0); Total Protein 6.9 g/dL (5.7-8.2)
[2024-03-06] VITALS (9 sets, daily range): BP systolic 134–166; BP diastolic 74–93; PULSE 71–82; RESP 16–20; TEMP 97.5–98.5; O2SAT 71–100
[2024-03-06] MEDS: SODIUM CHLORIDE 0.9% 1,000 ML IV ONE (01:58)
[2024-03-06] MEDS: HYDROcodone-ACET 5/325MG TAB PO ONE (02:06)
[2024-03-06] MEDS: PANTOPRAZOLE 40 MG/10 ML VIAL INJ IV ONE (02:08)
[2024-03-06] MEDS: D5W/SOD CHLO 0.9% 1,000 ML IV ONE (02:12)
[2024-03-06 09:45] LABS: Basophils # (auto) 0 10 ^3/uL (0-0.2); Basophils % (auto) 0.9 % (0.0-2.0); Eosinophils # (auto) 0.2 10 ^3/uL (0-0.8); Eosinophils % (auto) 3.4 % (0.0-7.0); Hematocrit 43.1 % (41.0-53.0); Hemoglobin 14.4 g/dL (13.5-17.5); Lymphocytes # (auto) 1.7 10 ^3/uL (0.4-5.4); Lymphocytes % (auto) 35.7 % (10.0-50.0); Mean Corpuscular Hemoglobin 30.3 pg (28.0-32.0); Mean Corpuscular Hgb Conc. 33.4 g/dL (32.0-36.0); Mean Corpuscular Volume 90.5 fL (80.0-100.0); Monocytes # (auto) 0.6 10 ^3/uL (0-1.3); Monocytes % (auto) 13.1 % (0.0-12.0); Neutrophils # (auto) 2.2 10 ^3/uL (1.6-8.6); Neutrophils % (auto) 46.9 % (37.0-80.0); Nucleated Red Blood Cells % 0.1 %; Platelet Count (auto) 286 10^3/uL (140-450); Red Blood Cells 4.76 10^6/uL (4.5-5.90); Red Cell Distribution Width 13.4 % (11.8-14.3); White Blood Cell 4.7 10^3/uL (4.4-10.8)
--- NOTE | 2024-03-06 09:58 | DVHINCON2 ---
GI Consult Consult Note GI consult note Date of Consultation: 03/06/2024 Chief Complaint: irregular proximal gastric wall thickening Referring Physician: Dr. Willard H&P: 69-year-old male presented to ER with symptoms of difficulty swallowing Patient admits to symptoms on and off for the past 10 months, mostly with solid foods and sandwiches. No problem swallowing with liquids Patient admits to GERD symptoms. Mild epigastric abdominal pain No nausea or vomiting. No hematemesis. No melena or red blood in stool No weight loss. No EGD or colonoscopy in past Patient has history of Hepatitis-C has not been treated for this per patient Past Medical History: Hepatitis-C Past Surgical History: Denies Social History: Per patient, he lives with his friend, current smoker (150 pack year history), drank alcohol, uses methamphetamine. Family History: Noncontributory Review of Systems: Constitutional: no fever, chill, weight loss HEENT: no eye pain, no hearing loss, no oral lesion, no scleral icterus Heart: no chest pain, no chest pressure Lung: no cough, no dyspnea with exertion Abdomen: see HPI Physical exam: General: NAD, AAOX3 Chest: lung rae clear to auscultation Heart: RRR, no murmur Abdomen: non-distended, no tenderness to palpation, +BS Labs: Labs Test 03/06/24 09:04 03/05/24 19:07 Range/Units Eosinophils (%) (Auto) 2.7 0.0-7.0 % Eosinophils # (Auto) 0.1 0-0.8 10 ^3/uL Basophils # (Auto) 0 0-0.2 10 ^3/uL Nucleated Red Blood Cells 0.1 % Direct Bilirubin 0.2 <0.3 mg/dL Labs Test 03/05/24 19:07 Range/Units White Blood Count 5.3 4.4-10.8 10^3/uL Red Blood Count 4.84 4.5-5.90 10^6/uL Hemoglobin 14.5 13.5-17.5 g/dL Hematocrit 43.2 41.0-53.0 % Mean Corpuscular Volume 89.1 80.0-100.0 fL Mean Corpuscular Hemoglobin 30.0 28.0-32.0 pg Mean Corpuscular Hemoglobin Concent 33.6 32.0-36.0 g/dL Red Cell Distribution Width 13.4 11.8-14.3 % Platelet Count 338 140-450 10^3/uL Mean Platelet Volume 7.3 6.9-10.8 fL Neutrophils (%) (Auto) 65.9 37.0-80.0 % Lymphocytes (%) (Auto) 21.2 10.0-50.0 % Monocytes (%) (Auto) 9.5 0.0-12.0 % Eosinophils (%) (Auto) 2.7 0.0-7.0 % Basophils (%) (Auto) 0.7 0.0-2.0 % Neutrophils # (Auto) 3.5 1.6-8.6 10 ^3/uL Lymphocytes # (Auto) 1.1 0.4-5.4 10 ^3/uL Monocytes # (Auto) 0.5 0-1.3 10 ^3/uL Eosinophils # (Auto) 0.1 0-0.8 10 ^3/uL Basophils # (Auto) 0 0-0.2 10 ^3/uL Nucleated Red Blood Cells 0.1 % Sodium Level 138 136-145 mmol/L Potassium Level 4.3 3.5-5.1 mmol/L Chloride Level 105 98-107 mmol/L Carbon Dioxide Level 28 20-31 mmol/L Anion Gap 5 5-15 Blood Urea Nitrogen 15 9-23 mg/dL Creatinine 1.07 0.700-1.30 mg/dL Glomerular Filtration Rate Calc 75 >90 mL/min BUN/Creatinine Ratio 14.0 10.0-20.0 Serum Glucose 107 H 74-106 mg/dL Calcium Level 10.7 H 8.7-10.4 mg/dL Imaging: CT abdomen pelvis 03/03/2024 IMPRESSION: Large hiatal hernia with irregular proximal gastric wall thickening. Prominent perigastric lymph nodes and nodularity. Recommend correlation with endoscopy as findings are concerning for malignancy. Assessment: Dysphagia GERD Hiatal hernia Abnormal CT results Methamphetamine use History of Hepatitis-C Plan: Discussed with Dr. Giles - Pt will be scheduled for an EGD on Monday03/08/2024. Pt was informed of the risks (bleeding, infection, perforation, reaction to sedation medications and cardiopulmonary arrest) and benefit and is agreeable to undergo the procedures. Clear liquid diet, advance to full liquid if tolerating Protonix Monitor labs Discussed plan with patient and RN Thank you for this consult Date of Service: Mar 06, 2024 Billing Provider: ADELINA AUSTIN Common Visit Codes: CONSULT ONLY Consultation Codes: [id number] CONSULT <45MIN ADELINA AUSTIN Mar 06, 2024 09:58
[2024-03-06 09:59] LABS: Alanine Aminotransferase 39 U/L (7-40); Albumin 3.9 g/dL (3.2-4.8); Alkaline Phosphatase 86 U/L (46-116); Anion Gap 6 (5-15); Aspartate Aminotransferase 34 U/L (13-40); BUN/Creatinine Ratio 13.3 (10.0-20.0); Blood Urea Nitrogen 15 mg/dL (9-23); Calcium 9.9 mg/dL (8.7-10.4); Carbon Dioxide 25 mmol/L (20-31); Glucose 90 mg/dL (74-106); Potassium 4.1 mmol/L (3.5-5.1); Sodium 138 mmol/L (136-145)
[2024-03-06 10:00] LABS: Total Protein 6.6 g/dL (5.7-8.2)
[2024-03-06 10:10] LABS: Chloride 107 mmol/L (98-107)
[2024-03-06] MEDS: PANTOPRAZOLE 40 MG/10 ML VIAL INJ IV SCH (12:30)
[2024-03-06] MEDS: HYDROcodone-ACET 5/325MG TAB PO PRN (15:46)
--- NOTE | 2024-03-06 17:10 | DVHPNRES ---
Progress Note Date Seen: Mar 06, 2024 Resident Creating Document: JOEY CHEUNG RESIDENT Medical Necessity Reason Pt with a Central, PICC or Fol: No Medical Necessity Reason Dysphagia to solids food Subjective Review of Systems This is a 69-year-old male with history of hepatitis-C, methamphetamine abuse presented ED with the chief complaints of swallowing difficulties. Patient states that he has difficulty swallowing solid food since 10 months which has gradually worsened, but he can take fluid without any problem.. He also complained of mild epigastric discomfort, weakness, cough and shortness of breaths. Patient denies nausea, vomiting, chest pain, fever, night sweats or any recent changes in bowel and bladder habits. Vital shows Temp: 97.7 BP: 130/93, HR: 79, RR:16. Lab work was grossly unremarkable. CT of the neck revealved an increased cervical lordotic curve with mild compression posterior aspect of C4. Degenerative disc changes are noted throughout. Prevertebral soft tissues are within normal limits. The visualized joint space is well maintained. The alignment is anatomical.There is no radiopaque foreign body. Of note patient was came to the hospital on 03/03/2024 because of dysphagia, CT scan was performed and showed, large hiatal hernia with irregular proximal gastric wall thickening. Prominent perigastric lymph nodes and nodularity. EGD was planned, but patient left AMA. PMHx: Hepatitis-C PSHx: Noncontributory Family history: Not significant Social history: Per patient, he lives with his friend, current smoker (150 pack year history), drank alcohol, uses methamphetamine. Home medication: Taking no medication at home Allergic history: Codeine Constitutional: Denies fever no chills no feeling of malaise HEENT: Denies headache, ear pain, ear discharges, conjunctivitis, nasal discharge throat pain Cardiovascular: Denies chest pain, palpitation, orthopnea, PND, or pedal edema Respiratory: Denies shortness of breath, cough cough, sputum production, hemoptysis, GI: Denies abdominal pain, nausea, vomiting, diarrhea, hematemesis, hematochezia, : Denies frequency, urgency, hematuria, Endocrine: Denies unintentional weight gain or weight loss, feeling of hot flashes, Pablo: Denies easy bruising, bleeding disorders, epistaxis Musculoskeletal: Denies joint pains, muscle aches Psych: No evidence of depression, rene, suicidal ideation Objective vital signs Vital Sign Date Time Temp Pulse Resp B/P (MAP) Pulse Ox O2 Delivery O2 Flow Rate FiO2 03/06/24 15:01 97.9 75 17 143/85 (104) 98 97.9 03/06/24 02:17 Room Air* 0 21 medications Current Medications Medications Dose Ordered Sig/Sarah Route Start Time Stop Time Status Last Admin Dose Admin Acetaminophen/ Hydrocodone Bitart 1 tab Q4HPRN PRN PO 03/05/24 23:30 03/06/24 15:46 1 TAB Acetaminophen 650 mg Q6HP PRN PO 03/05/24 23:30 Pantoprazole Sodium 40 mg BID IV 03/06/24 10:00 03/06/24 12:30 40 MG Examination General Appearance: Alert, Oriented X3, Cooperative, No acute distress, smallish in structure, very poor dentition HEENT: Atraumatic, PERRLA, EOMI, Mucous membrane moist/pink Respiratory: Clear to auscultation, Normal air movement Cardiovascular: Regular rate, Normal S1, Normal S2, No murmurs, no chest wall tenderness Abdominal: NO distention, no tenderness, bowel sounds present, no scars noted Extremities: No clubbing, No cyanosis, No edema, Normal pulses, No tenderness/swelling Skin: No rashes, No breakdown, No significant lesion Neuro: Normal gait, Normal speech, Strength at 5/5 X4 ext, Normal tone, Sensation intact, Cranial nerves 3-12 NL, Reflexes 2+ Psych/Mental Status: Mental status NL, Mood NL laboratory and microbiology Laboratory Tests 03/06/24 09:04 Test 03/06/24 09:04 Range/Units Serum Glucose 90 74-106 mg/dL Problem List/Assessment/Plan Problem List/Assessment/Plan Dysphagia rule out Esophageal cancer Possible stomach cancer, Possible gastritis Hiatal hernia --> Abdominal CT scan from 03/03/2024, shows, large hiatal hernia with irregular proximal gastric wall thickening. Prominent perigastric lymph nodes and nodularity. --> GI following --> full liquid diet --> Protonix 40 mg b.i.d. --> [place] p.r.n. --> IV fluid Cervical spine spondylosis Cervical spine spondylolisthesis --> Neck is CT scan shows, grade 1 retrolisthesis at C3-4, grade 1 anterior spondylolisthesis at C4-5 and C5-6 and bony spondylosis and degenerative disc changes at C6-7 --> [place] p.r.n. --> Orthopedic outpatient follow up Methamphetamine use disorder --> Check UDS --> pending --> Patient counseled for methamphetamine cessation for more than 18 minutes Alcohol use disorder Transaminitis, likely due to alcohol use disorder Patient was counseled for alcohol cessation for more than 18 minutes Asymptomatic hypercalcemia Monitoring Copd exacerbation --> Current smoker -->Patient counseled about smoking cessation for more than 23 minutes --> CT lung with contrast Malnutrition History of hepatitis-C DIET: NPO on midnight, for possible EGD on DVT PROPHYLAXIS: Patient is mobile, no indication for anticoagulant GI PROPHYLAXIS: Protonix DISPOSITION: Med/surge Care discussed for more than 35 minute Case and plan discussed with Dr. Cuadra Plan discussed with: Patient My Orders My Orders Orders - JOEY CHEUNG Procedure Category Date Status Time Communication Order ORDERS 03/06/24 Transmitted 10:51 Drug Screen LAB 03/06/24 Logged 10:51 Full Liq Diet DIET 03/06/24 Transmitted Lunch Date of Service: Mar 06, 2024 Billing Provider: ELINA CUADRA MD Common Visit Codes: [id number] INP/OBS CARE(HIGH) JOEY CHEUNG Mar 06, 2024 17:10 ELINA CUADRA MD Mar 06, 2024 22:03
[2024-03-06] MEDS ORDERED: IOHEXOL 300 MG/ML 100ML BOTTLE IJ ONE (17:14)
--- NOTE | 2024-03-06 18:02 | DVH ---
EXAM: CT CHEST WITH CONTRAST History: rule out lung malignancy Comparison Study: None available TECHNIQUE: A digital warp preparer image was obtained. During the uneventful, intravenous administration of c ontrast material, multislice data acquisition was obtained through the chest. The data set was subseq uently reconstructed into axial, coronal, and sagittal images. Radiation Dose : CTDI vol 7.33 mGy, DLP 294.28 mGy*cm. Findings: Lungs: The lungs are clear. Pleura: Unremarkable Heart/Great vessels: The visualized heart is unremarkable. No cardiomegaly or pericardial effusion. Mediastinum: Unremarkable Soft tissues/Bones: Unremarkable No abnormal enhancement. The partially visualized upper abdomen is within normal limits. Impression: 1. No acute cardiopulmonary disease. 2. No mass or abnormal enhancement.
[2024-03-07] VITALS (9 sets, daily range): BP systolic 109–166; BP diastolic 50–94; PULSE 69–100; RESP 15–20; TEMP 97.9–99.4; O2SAT 95–98
[2024-03-07] MEDS: amLODIPine BESYLATE 5 MG TAB PO ONE (00:16)
[2024-03-07] MEDS: amLODIPine BESYLATE 5 MG TAB PO SCH (10:00)
[2024-03-07 13:45] LABS: INR 0.96 (0.9-1.15); Prothrombin Time 10.2 sec (9.3-11.8)
--- NOTE | 2024-03-07 21:21 | DVHPNRES ---
Progress Note Date Seen: Mar 07, 2024 Resident Creating Document: JOEY CHEUNG RESIDENT Medical Necessity Reason Pt with a Central, PICC or Fol: No Medical Necessity Reason Dysphagia to solids rule out esophageal malignancy Subjective Review of Systems Patient is seen and examined today in bed. Initially patient went to smoke his smokes to leave AMA. Saw patient not in any distress waiting for the EGD tomorrow to be done he has no new complaint. He is currently on soft diet/puree diet. Patient made NPO tonight for EGD tomorrow. Objective vital signs Vital Sign Date Time Temp Pulse Resp B/P (MAP) Pulse Ox O2 Delivery O2 Flow Rate FiO2 03/07/24 21:00 97.9 84 17 109/50 (69) 95 97.9 03/07/24 07:30 Room Air* 0 21 Total Intake and Output 03/06/24 03/06/24 03/07/24 15:00 23:00 07:00 Intake Total 900 ml 0 ml Output Total 0 ml Balance 900 ml 0 ml medications Current Medications Medications Dose Ordered Sig/Sarah Route Start Time Stop Time Status Last Admin Dose Admin Acetaminophen/ Hydrocodone Bitart 1 tab Q4HPRN PRN PO 03/05/24 23:30 03/07/24 17:45 1 TAB Acetaminophen 650 mg Q6HP PRN PO 03/05/24 23:30 Pantoprazole Sodium 40 mg BID IV 03/06/24 10:00 03/06/24 21:10 40 MG Amlodipine Besylate 5 mg DAILY PO 03/07/24 10:00 Examination General Appearance: Alert, Oriented X3, Cooperative, No acute distress, smallish in structure, very poor dentition HEENT: Atraumatic, PERRLA, EOMI, Mucous membrane moist/pink Respiratory: Clear to auscultation, Normal air movement Cardiovascular: Regular rate, Normal S1, Normal S2, No murmurs, no chest wall tenderness Abdominal: NO distention, no tenderness, bowel sounds present, no scars noted Extremities: No clubbing, No cyanosis, No edema, Normal pulses, No tenderness/swelling Skin: No rashes, No breakdown, No significant lesion Neuro: Normal gait, Normal speech, Strength at 5/5 X4 ext, Normal tone, Sensation intact, Cranial nerves 3-12 NL, Reflexes 2+ Psych/Mental Status: Mental status NL, Mood NL laboratory and microbiology Laboratory Tests 03/06/24 09:04 Test 03/06/24 09:04 Range/Units Serum Glucose 90 74-106 mg/dL Problem List/Assessment/Plan Problem List/Assessment/Plan Dysphagia rule out Esophageal cancer Possible stomach cancer, Possible gastritis Hiatal hernia --> Abdominal CT scan from 03/03/2024, shows, large hiatal hernia with irregular proximal gastric wall thickening. Prominent perigastric lymph nodes and nodularity. --> GI following --> full liquid diet --> Protonix 40 mg b.i.d. --> [place] p.r.n. -->For EGD tomorrow, NPO tonight Cervical spine spondylosis Cervical spine spondylolisthesis --> Neck is CT scan shows, grade 1 retrolisthesis at C3-4, grade 1 anterior spondylolisthesis at C4-5 and C5-6 and bony spondylosis and degenerative disc changes at C6-7 --> [place] p.r.n. --> Orthopedic outpatient follow up Methamphetamine use disorder --> Check UDS --> pending --> Patient counseled for methamphetamine cessation for more than 18 minutes Alcohol use disorder Transaminitis, likely due to alcohol use disorder Patient was counseled for alcohol cessation for more than 18 minutes Asymptomatic hypercalcemia Monitoring Copd exacerbation --> Current smoker -->Patient counseled about smoking cessation for more than 23 minutes --> CT lung with contrast Malnutrition History of hepatitis-C DIET: NPO on midnight, for possible EGD on 03/08/2024 DVT PROPHYLAXIS: Patient is mobile, no indication for anticoagulant GI PROPHYLAXIS: Protonix DISPOSITION: Med/surge Care discussed for more than 25 minute Case and plan discussed with Dr. Cuadra Plan discussed with: Patient Date of Service: Mar 07, 2024 Billing Provider: ELINA CUADRA MD Common Visit Codes: [id number] INP/OBS CARE(HIGH) JOEY CHEUNG RESIDENT Mar 07, 2024 21:21 ELINA CUADRA MD Mar 07, 2024 21:38
--- NOTE | 2024-03-07 22:04 | DVHPN2 ---
Progress Note - Dictate Date Seen: Mar 07, 2024 Medical Necessity Reason Pt with a Central, PICC or Fol: No Subjective Patient seen at bedside Patient is tolerating a diet and asking for a 2nd tray I was asked to evaluate him for possible endoscopy because of abnormal finding GI tract imaging and dysphagia Patient states both his parents diet from lung cancer in his father from throat cancer, they were smokers vital signs Vital Sign Date Time Temp Pulse Resp B/P (MAP) Pulse Ox O2 Delivery O2 Flow Rate FiO2 03/07/24 21:00 97.9 84 17 109/50 (69) 95 97.9 03/07/24 07:30 Room Air* 0 21 Total Intake and Output 03/06/24 03/06/24 03/07/24 15:00 23:00 07:00 Intake Total 900 ml 0 ml Output Total 0 ml Balance 900 ml 0 ml medications Current Medications Medications Dose Ordered Sig/Sarah Route Start Time Stop Time Status Last Admin Dose Admin Acetaminophen/ Hydrocodone Bitart 1 tab Q4HPRN PRN PO 03/05/24 23:30 03/07/24 17:45 1 TAB Acetaminophen 650 mg Q6HP PRN PO 03/05/24 23:30 Pantoprazole Sodium 40 mg BID IV 03/06/24 10:00 03/07/24 21:56 40 MG Amlodipine Besylate 5 mg DAILY PO 03/07/24 10:00 objective General: NAD, AAOX3 Chest: lung rae clear to auscultation Heart: RRR, no murmur Abdomen: non-distended, no tenderness to palpation, +BS laboratory and microbiology Laboratory Tests 03/06/24 09:04 Test 03/06/24 09:04 Range/Units Serum Glucose 90 74-106 mg/dL Problems(with codes): (1) Methamphetamine abuse (2) Dysphagia (3) Hiatal hernia (4) Abdominal pain Prognosis Plan IV Protonix 40 mg q.12 hours Carafate suspension 1 g 4 times a day Patient will be scheduled for an endoscopy on 03/08/2024 Further recommendations will be made after the above Patient was encouraged to be compliant with his treatment Plan discussed with: Patient, Other (Litzy Manzano) SATYA ALMEIDA MD Mar 07, 2024 22:04
[2024-03-07 22:36] LABS: Basophils # (auto) 0 10 ^3/uL (0-0.2); Basophils % (auto) 0.8 % (0.0-2.0); Eosinophils # (auto) 0.1 10 ^3/uL (0-0.8); Eosinophils % (auto) 3.7 % (0.0-7.0); Hemoglobin 13.7 g/dL (13.5-17.5); Lymphocytes # (auto) 0.9 10 ^3/uL (0.4-5.4); Lymphocytes % (auto) 27.6 % (10.0-50.0); Mean Corpuscular Hemoglobin 30.1 pg (28.0-32.0); Mean Corpuscular Hgb Conc. 33.5 g/dL (32.0-36.0); Mean Corpuscular Volume 89.7 fL (80.0-100.0); Monocytes # (auto) 0.5 10 ^3/uL (0-1.3); Monocytes % (auto) 15.3 % (0.0-12.0); Neutrophils # (auto) 1.7 10 ^3/uL (1.6-8.6); Neutrophils % (auto) 52.6 % (37.0-80.0); Nucleated Red Blood Cells % 0.2 %; Platelet Count (auto) 258 10^3/uL (140-450); Red Blood Cells 4.57 10^6/uL (4.5-5.90); Red Cell Distribution Width 13.2 % (11.8-14.3); White Blood Cell 3.2 10^3/uL (4.4-10.8)
[2024-03-07 22:43] LABS: Potassium 4.2 mmol/L (3.5-5.1); Sodium 139 mmol/L (136-145)
[2024-03-07 22:44] LABS: Anion Gap 3 (5-15); Carbon Dioxide 26 mmol/L (20-31)
[2024-03-07 22:45] LABS: Calcium 9.8 mg/dL (8.7-10.4)
[2024-03-07 22:49] LABS: BUN/Creatinine Ratio 11.6 (10.0-20.0); Blood Urea Nitrogen 13 mg/dL (9-23); Glucose 100 mg/dL (74-106)
[2024-03-07 22:54] LABS: Chloride 110 mmol/L (98-107)
[2024-03-08] VITALS (8 sets, daily range): BP systolic 130–146; BP diastolic 68–83; PULSE 64–83; RESP 11–18; TEMP 97.7–98.4; O2SAT 94–100
[2024-03-08] MEDS ORDERED: LIDOCAINE 2% (LOCAL ANESTH.) PF 5ml SDV ONE (09:20)
[2024-03-08] MEDS ORDERED: PROPOFOL 10 MG/ML 20 ML IV ONE (09:20)
--- NOTE | 2024-03-08 10:04 | DVHOP2 ---
Operative Report DATE OF OPERATION: 03/08/24 PROCEDURE: Upper Endoscopy with biopsy. PREOPERATIVE INDICATION: The patient is a 69 -year-old male undergoing endoscopy for oropharyngeal dysphagia and abnormal finding GI tract imaging POSTOPERATIVE DIAGNOSES: 1. 3-4 cm sliding-type hiatal hernia with grade B erosive esophagitis at the GE junction 2. Mild tertiary contractions of the distal esophagus 3. Mild gastritis PROCEDURE PERFORMED BY: Satya Giles GI NURSE: Neda SCOPE: Olympus videoendoscope. ASA CLASS: 2. PREOPERATIVE MEDICATIONS: Mac sedation, Lionel Kate PROCEDURE IN DETAIL: After obtaining an informed consent, the patient was placed on left lateral decubitus position. The patient was then sedated with the above medications. A bite block was placed between his teeth. The endoscope was then passed through the oropharynx, into the esophagus, and through the stomach and pylorus up to the second and third part of the duodenum. The endoscope was then withdrawn. The 2nd and 3rd part of the duodenum and the duodenal bulb were normal. Duodenal biopsies were obtained. The pre-pyloric area antrum and body showed mild gastritis with minimal hyperem ia and linear inflammatory changes. Gastric biopsies were obtained. On retroflexion the fundus and cardia and angularis were normal. A hiatal hernia was noted. The endoscope was then withdrawn into the distal esophagus where the patient had a 3-4 cm sliding-type hiatal hernia There was acute grade a to B erosive esophagitis at the GE junction from which biopsies were obtained. There was no obstruction or masses. Patient had slight tortuosity of the distal esophagus due to the hiatal hernia and tertiary contractions of the esophagus. The patient tolerated the procedure well without difficulty. COMPLICATIONS : None SPECIMENS: Duodenal biopsies Gastric biopsies GE junction biopsies DISPOSITION: Transfer back to the floor Stable PLAN: 1. Await for biopsy result 2. Will place pt on Protonix 40 mg bid 3. Carafate 1 g p.o. twice a day 4. Soft mechanical diet, chew food well and drink warm liquids with his meals 5. Patient is stable for discharge from GI point of view, outpatient follow up with me in 4-6 weeks or as needed SATYA GILES MD Mar 08, 2024 10:04
--- NOTE | 2024-03-08 14:42 | DVHDSRES ---
Discharge Summary Date of Admission Resident Creating Document: JOEY CHEUNG RESIDENT Mar 05, 2024 at 23:20 Date of Discharge: Mar 08, 2024 Admitting Diagnosis Dysphagia Labs/Diagnostic Data: PATIENT: DAMION BOWMAN ACCT: [id number] UNIT: [id number] : 1955 LOC: OVERFLOW ROOM / BED: 1032-ER / A AGE / SEX: 69 / M ADM STATUS: ADM IN SERVICE 1706 ORDERING PHYSICIAN: JOEY CHEUNG PROCEDURE(s): CXICT - CHEST WITH CONTRAST REASON: rule out lung malignancy ORDER NUMBER(s): [id number], ACCESSION NUMBER(s): [id number] EXAM: CT CHEST WITH CONTRAST History: rule out lung malignancy Comparison Study: None available TECHNIQUE: A digital promotion writer image was obtained. During the uneventful, intravenous administration of contrast material, multislice data acquisition was obtained through the chest. The data set was subsequently reconstructed into axial, coronal, and sagittal images. Radiation Dose : CTDI vol 7.33 mGy, DLP 294.28 mGy*cm. Findings: Lungs: The lungs are clear. Pleura: Unremarkable Heart/Great vessels: The visualized heart is unremarkable. No cardiomegaly or pericardial effusion. Mediastinum: Unremarkable Soft tissues/Bones: Unremarkable No abnormal enhancement. The partially visualized upper abdomen is within normal limits. Impression: 1. No acute cardiopulmonary disease. 2. No mass or abnormal enhancement. ATED BY: PRISCILLA MANNING DO DICTATED DATE/TIME: 03/06/24 1800 PATIENT: DAMION BOWMAN ACCT: [id number] UNIT: [id number] : 1955 LOC: ER ROOM / BED: / AGE / SEX: 69 / M ADM STATUS: REG ER SERVICE 52 ORDERING PHYSICIAN: MARYAN GUILLEN PROCEDURE(s): CS2 - CERVICAL WITHOUT CONTRAST REASON: DYSPHAGIA X 10 MONTHS ORDER NUMBER(s): [id number], ACCESSION NUMBER(s): [id number] EXAM: CT CERVICAL WITHOUT CONTRAST INDICATION: DYSPHAGIA X 10 MONTHS EXAM DATE: 03/05/2024 08:29 PM COMPARISON: None TECHNIQUE: Multiple axial CT images of the cervical spine were obtained using bone algorithm. Axial and coronal reformatting was done. Bone and soft tissue windows were reviewed. Radiation Dose Information: CT Dose: CTDI volume is 19.64 mGy. Dose-length product is 498.24 mGy*cm FINDINGS: The cervical alignment is intact. No acute cervical spine fracture is identified. The vertebral body heights are intact. No suspicious osseous lesions are identified. Mucosal thickening of the right maxillary sinus. Grade 1 retrolisthesis of C3 at C4 is noted with a grade 1 anterior spondylolisthesis at C4-5 and C5-6. Bony spondylosis and degenerative disc changes are noted at C6-7. No significant degenerative changes are identified. There is no prevertebral soft tissue swelling. IMPRESSION: 1. No evidence of acute cervical spine fracture or traumatic malalignment. 2. Grade 1 retrolisthesis at C3-4 3. Grade 1 anterior spondylolisthesis at C4-5 and C5-6. 4. Bony spondylosis and degenerative disc changes at C6-7. All CT scans at this medical facility are performed using dose modulation techniques as appropriate to a performed exam including the following: Automated exposure control was utilized; adjustment of the MA and/or KV according to patient size; and use of iterative reconstruction technique. HS:Y ENT: DAMION BOWMAN ACCT: [id number] UNIT: [id number] : 1955 LOC: ER ROOM / BED: / AGE / SEX: 69 / M ADM STATUS: REG ER SERVICE 23 ORDERING PHYSICIAN: MARYAN GUILLEN PROCEDURE(s): NECK - NECK FOR SOFT TISSUE REASON: dysphagia ORDER NUMBER(s): [id number], ACCESSION NUMBER(s): [id number] CLINICAL INDICATION: dysphagia TECHNIQUE: 2 radiographic views of the cervical spine were obtained. Comparison: None FINDINGS/IMPRESSION: There is increased cervical lordotic curve with mild compression posterior aspect of C4. Degenerative disc changes are noted throughout. Prevertebral soft tissues are within normal limits. The visualized joint space is well maintained. The alignment is anatomical. There is no radiopaque foreign body. HS:Y ATED BY: NATHALIE RAMÍREZ Jr., DO DICTATED DATE/TIME: 03/05/241932 Laboratory Results Test 03/07/24 22:23 03/07/24 13:10 03/06/24 09:04 03/05/24 19:07 White Blood Count 3.2 10^3/uL (4.4-10.8) Red Blood Count 4.57 10^6/uL (4.5-5.90) Hemoglobin 13.7 g/dL (13.5-17.5) Hematocrit 41.0 % (41.0-53.0) Mean Corpuscular Volume 89.7 fL (80.0-100.0) Mean Corpuscular Hemoglobin 30.1 pg (28.0-32.0) Mean Corpuscular Hemoglobin Concent 33.5 g/dL (32.0-36.0) Red Cell Distribution Width 13.2 % (11.8-14.3) Platelet Count 258 10^3/uL (140-450) Mean Platelet Volume 7.1 fL (6.9-10.8) Neutrophils (%) (Auto) 52.6 % (37.0-80.0) Lymphocytes (%) (Auto) 27.6 % (10.0-50.0) Monocytes (%) (Auto) 15.3 % (0.0-12.0) Eosinophils (%) (Auto) 3.7 % (0.0-7.0) Basophils (%) (Auto) 0.8 % (0.0-2.0) Neutrophils # (Auto) 1.7 10 ^3/uL (1.6-8.6) Lymphocytes # (Auto) 0.9 10 ^3/uL (0.4-5.4) Monocytes # (Auto) 0.5 10 ^3/uL (0-1.3) Eosinophils # (Auto) 0.1 10 ^3/uL (0-0.8) Basophils # (Auto) 0 10 ^3/uL (0-0.2) Nucleated Red Blood Cells 0.2 % Sodium Level 139 mmol/L (136-145) Potassium Level 4.2 mmol/L (3.5-5.1) Chloride Level 110 mmol/L (98-107) Carbon Dioxide Level 26 mmol/L (20-31) Anion Gap 3 (5-15) Blood Urea Nitrogen 13 mg/dL (9-23) Creatinine 1.12 mg/dL (0.700-1.30) Glomerular Filtration Rate Calc 71 mL/min (>90) BUN/Creatinine Ratio 11.6 (10.0-20.0) Serum Glucose 100 mg/dL (74-106) Calcium Level 9.8 mg/dL (8.7-10.4) Prothrombin Time 10.2 sec (9.3-11.8) Prothrombin Time INR 0.96 (0.9-1.15) Total Bilirubin 1.0 mg/dL (0.2-1.0) Aspartate Amino Transferase (AST) 34 U/L (13-40) Alanine Aminotransferase (ALT) 39 U/L (7-40) Alkaline Phosphatase 86 U/L (46-116) Total Protein 6.6 g/dL (5.7-8.2) Albumin 3.9 g/dL (3.2-4.8) Direct Bilirubin 0.2 mg/dL (<0.3) Other Laboratory Tests 03/07/24 22:23 Brief Hx & Hospital Course: Hospital course This is a 69-year-old male with history of hepatitis-C, methamphetamine abuse, hypertension and 20 pack years presented ED with a chief complaints of swallowing difficulties. Patient stated that he has difficulty swallowing solid food since for the past 10 months and has been gradual. He is able to drink taking puree anything liquid however anything solid patient has difficulty with it. He said food gets stuck in his throat and he has to cough it out or drink water to make it soft in order to swallow. He also complained of mild epigastric discomfort, weakness, persistent cough with shortness of breaths. Patient denies nausea, vomiting, chest pain, fever, night sweats or any recent changes in bowel and bladder habits. Initial vital showed Temp: 97.7 BP: 130/93, HR: 79, RR:16. Lab work was grossly unremarkable. CT of the neck revealed an increased cervical lordotic curve with mild compression posterior aspect of C4. Degenerative disc changes are noted throughout. Of note, patient came to the hospital on 03/03/2024 because of same issue. CT scan was performed and showed, large hiatal hernia with irregular proximal gastric wall thickening. Prominent perigastric lymph nodes and nodularity. GI consulted and patient had EGD today. EGD report revealed 3-4 cm sliding-type hiatal hernia with grade B erosive esophagitis at the GE junction, Mild tertiary contractions of the distal esophagus and Mild gastritis. Biopsies were taken during EGD and sent for pathology. Patient is asked to follow up at the GI clinic to go over the pathology report and for any further management. While in the hospital, patient was noted to have elevated blood pressure. He started on antihypertensive medication which controlled his blood pressure. Overall patient is stable and cleared for discharge. We advised the patient to follow up in 7 days at the discharge Clinic and also follow up GI for further plans. We will discharge the patient home with medications listed under discharge plans. Examination General Appearance: Alert, Oriented X3, Cooperative, No acute distress, smallish in structure, very poor dentition HEENT: Atraumatic, PERRLA, EOMI, Mucous membrane moist/pink Respiratory: Clear to auscultation, Normal air movement Cardiovascular: Regular rate, Normal S1, Normal S2, No murmurs, no chest wall tenderness Abdominal: NO distention, no tenderness, bowel sounds present, no scars noted Extremities: No clubbing, No cyanosis, No edema, Normal pulses, No tenderness/swelling Skin: No rashes, No breakdown, No significant lesion Neuro: Normal gait, Normal speech, Strength at 5/5 X4 ext, Normal tone, Sensation intact, Cranial nerves 3-12 NL, Reflexes 2+ Psych/Mental Status: Mental status NL, Mood NL Diagnoses Hiatal hernia Dysphagia secondary to Mild tertiary contractions of the distal esophagus Possible gastritis Abdominal pain Cervical spine spondylosis Cervical spine spondylolisthesis Methamphetamine use disorder Alcohol use disorder Transaminitis, likely due to alcohol use disorder Asymptomatic hypercalcemia Copd exacerbation Mild Malnutrition History of hepatitis-C Discharge plans Protonix 40 mg bid Carafate 1 g p.o. twice a day Soft mechanical diet, chew food well and drink warm liquids with his meals Continue antihypertensive medication Discharge follow up in 7 days Follow with GI for biopsy report and further management Follow up with pulmonology advised to return to the ER if he does not feel any better Case and discharge plan discussed with Dr. Gonzalez Consults/Reason for consult GI: Dysphagia Operations or Procedures Patient: DAMION BOWMAN Acct: [id number] : 1955 Loc: [facility] Age/Sex: 69/M Room: 0276 / Bed: B Attending Phy: JOEY CHEUNG RESIDENT Operative Report DATE OF OPERATION: 03/08/24 PROCEDURE: Upper Endoscopy with biopsy. PREOPERATIVE INDICATION: The patient is a 69 -year-old male undergoing endoscopy for oropharyngeal dysphagia and abnormal finding GI tract imaging POSTOPERATIVE DIAGNOSES: 1. 3-4 cm sliding-type hiatal hernia with grade B erosive esophagitis at the GE junction 2. Mild tertiary contractions of the distal esophagus 3. Mild gastritis PROCEDURE PERFORMED BY: Satya Almeida GI NURSE: Neda SCOPE: Olympus videoendoscope. ASA CLASS: 2. PREOPERATIVE MEDICATIONS: Mac sedation, Lionel Kate PROCEDURE IN DETAIL: After obtaining an informed consent, the patient was placed on left lateral decubitus position. The patient was then sedated with the above medications. A bite block was placed between his teeth. The endoscope was then passed through the oropharynx, into the esophagus, and through the stomach and pylorus up to the second and third part of the duodenum. The endoscope was then withdrawn. The 2nd and 3rd part of the duodenum and the duodenal bulb were normal. Duodenal biopsies were obtained. The pre-pyloric area antrum and body showed mild gastritis with minimal hyperemia and linear inflammatory changes. Gastric biopsies were obtained. On retroflexion the fundus and cardia and angularis were normal. A hiatal hernia was noted. The endoscope was then withdrawn into the distal esophagus where the patient had a 3-4 cm sliding-type hiatal hernia There was acute grade a to B erosive esophagitis at the GE junction from which biopsies were obtained. There was no obstruction or masses. Patient had slight tortuosity of the distal esophagus due to the hiatal hernia and tertiary contractions of the esophagus. The patient tolerated the procedure well without difficulty. COMPLICATIONS : None SPECIMENS: Duodenal biopsies Gastric biopsies GE junction biopsies DISPOSITION: Transfer back to the floor Stable PLAN: 1. Await for biopsy result 2. Will place pt on Protonix 40 mg bid 3. Carafate 1 g p.o. twice a day 4. Soft mechanical diet, chew food well and drink warm liquids with his meals 5. Patient is stable for discharge from GI point of view, outpatient follow up with me in 4-6 weeks or as needed SATYA ALMEIDA MD Mar 08, 2024 10:04 Condition at Discharge: Good Final Diagnosis/Problems List Hiatal hernia Dysphagia Possible gastritis Abdominal pain Cervical spine spondylosis Cervical spine spondylolisthesis Methamphetamine use disorder Alcohol use disorder Transaminitis, likely due to alcohol use disorder Asymptomatic hypercalcemia Copd exacerbation Malnutrition History of hepatitis-C Discharge Disposition: Home Discharge Instruct/Medications Diet: See Comment Activity: No Restrictions, As Tolerated Discharge Statement: "Patient was advised to return to the ER or call 911 if any headaches, dizziness, shortness of breath, chest pain, abdominal pain, bleeding, fevers, or worsening of medical condition. Patient was counseled about treatment plan, medications, possible side effects, patientverbalized understanding. All questions were answered to the best of my ability. This discharge took greater then 30 minutes in planning, reviewing documentation, counseling the patient, and discussing with other team members." ASSESSMENT ASSESSMENT Assessment cleared for discharge per Dr. Almeida Date of Service: Mar 08, 2024 Billing Provider: JD GONZALEZ MD Common Visit Codes: 08361-FRN/OBS DISCH DAY >30min JOEY CHEUNG RESIDENT Mar 08, 2024 14:42 JD GONZALEZ MD Mar 08, 2024 18:26
[2024-03-08] MEDS ORDERED: SUCR1SUS26 PO (15:22)
[2024-03-08] MEDS ORDERED: ACET-1882 PO (15:22)
[2024-03-08] MEDS ORDERED: AML5T PO (15:22)
[2024-03-08] MEDS ORDERED: PANT40TA2 PO (15:22)
== END 2024-03-08 16:40 | disposition home or self-care (01) | DRG 381 ==
LOC: ER 16:51 → OVERFLOW 23:20 → WEST WING 03-07 03:46
PROVIDERS: ADMIT Internal Medicine Geriatric Medicine; ATTEND Internal Medicine Geriatric Medicine
PROC: 0DB68ZX Excision of Stomach, Via Natural or Artificial Opening Endoscopic, Diagnostic (ICD-10-PCS; 2024-03-08)
PROC: 0DB48ZX Excision of Esophagogastric Junction, Via Natural or Artificial Opening Endoscopic, Diagnostic (ICD-10-PCS; 2024-03-08)
PROC: 0DB98ZX Excision of Duodenum, Via Natural or Artificial Opening Endoscopic, Diagnostic (ICD-10-PCS; principal; 2024-03-08 09:23)
DX: K22.10 Ulcer of esophagus without bleeding (principal); E44.1 Mild protein-calorie malnutrition; Z59.00 Homelessness unspecified; J44.1 Chronic obstructive pulmonary disease with (acute) exacerbation; K29.70 Gastritis, unspecified, without bleeding; K21.9 Gastro-esophageal reflux disease without esophagitis; F15.10 Other stimulant abuse, uncomplicated; F17.210 Nicotine dependence, cigarettes, uncomplicated; K44.9 Diaphragmatic hernia without obstruction or gangrene; M43.12 Spondylolisthesis, cervical region; M47.812 Spondylosis without myelopathy or radiculopathy, cervical region; E83.52 Hypercalcemia; I10 Essential (primary) hypertension; R13.12 Dysphagia, oropharyngeal phase; Z68.21 Body mass index [BMI] 21.0-21.9, adult; Z88.5 Allergy status to narcotic agent; Z80.1 Family history of malignant neoplasm of trachea, bronchus and lung; Z80.8 Family history of malignant neoplasm of other organs or systems; Z79.899 Other long term (current) drug therapy
CPT/HCPCS: 36415; 70360; 71045; 71260; 72125; 74177; 80048; 80053; 80076; 83735; 85025; 85610; G0378; J2003; J2470; J2704

== ENCOUNTER 2024-03-17 23:45 | Inpatient (IN) | payer MEDICARE, MEDICAID ==
[~2024-03-17] VITALS: Ht 170.2 cm; Wt 63.9 kg
[~2024-03-17 23:45] MED LIST changes: +ACET-1882 PO; +AML5T PO; +PANT40TA2 PO; +SUCR1SUS26 PO
[2024-03-18] VITALS (7 sets, daily range): BP systolic 96–130; BP diastolic 60–72; PULSE 70–96; RESP 16–19; TEMP 98–98.8; O2SAT 96–99
--- NOTE | 2024-03-18 00:08 | ED.PDOC ---
History of Present Illness HPI Comments 69 y/o M is BIBA for c/o epigastric and bilateral upper quadrant abdominal pain and nausea for 1x day, today. Patient is a poor historian and endorses on unprovoked onset onset symptoms that has been progressively worsening since yesterday. He comments on being evaluated and diagnosed with a hiatal hernia se veral days ago at an unknown facility. Patient reports no recent sick contact, spoiled food intake, or other relevant or pertinent information. He denies having any vomiting, diarrhea, chills, fever, or other associated symptoms or modifiers at this time. Vital signs were stable at arrival. Chief Complaint: Abdominal Pain Time Seen by MD: 23:55 Primary Care Provider: NONE Reviewed Notes: Nurses Notes, Foreign Languages Professor Notes, Medications, Allergies Allergies: Coded Allergies: Codeine (Verified Allergy, Severe, 02/02/21) Home Meds Active Scripts Pantoprazole Sodium Sesquihydr (Protonix) 40 Mg Tab, 40 MG PO BID for 30 Days, #60 TAB Prov:JOEY CHEUNG 03/08/24 Sucralfate (CARAFATE SUSP) 1 Gm/10 Ml Ss, 10 ML PO BID for 30 Days, #600 ML 1 Refill Prov:JOEY CHEUNG 03/08/24 Amlodipine Besylate (NORVASC TABLET) 5 Mg Tb, 5 MG PO DAILY for 30 Days, #30 TAB Prov:JOEY CHEUNG 03/08/24 Acetaminophen (Acetaminophen) 325 Mg Tab, 650 MG PO Q6HP PRN for 30 Days, #240 TAB Prov:JOEY CHEUNG 03/08/24 Metronidazole (Flagyl) 500 Mg Tab, 500 MG PO TID for 7 Days, #21 TAB Prov:KADY TORRE MD 11/22/21 Acetaminophen (Tylenol 8 Hour Arthritis) 650 Mg Tab, 650 MG PO TID for 8 Days, #24 TAB Prov:DIMITRI SOLOMON 02/03/21 Amoxicillin Trihydrate (Amoxicillin) 500 Mg Cap, 500 MG PO TID for 10 Days, #30 CAP Prov:DIMITRI SOLOMON 02/03/21 Information Source: Patient, Emergency Med Personnel Mode of Arrival: EMS Severity: Moderate Timing: Days Duration: Since onset Prehospital treatment: 12 Lead EKG, [facility] [place] Past Medical History PAST MEDICAL HISTORY: Denies Past Medical History (Other): hiatal hernia Surgical History: Denies all surgeries Family History Family History: Unknown Social History Smoker: Cigarettes, Greater Than 1 Pack/Day Alcohol: Occasionally Drugs: Methamphetamine Lives In: Homeless Constitutional: denies: chills, diaphoresis, fatigue, fever, malaise, sweats, weakness, others EENTM: denies: blurred vision, double vision, ear bleeding, ear discharge, ear drainage, ear pain, ear ringing, eye pain, eye redness, hearing loss, mouth pain, mouth swelling, nasal discharge, nose bleeding, nose congestion, nose pain, photophobia, tearing, throat pain, throat swelling, voice changes, others Respiratory: denies: cough, hemoptysis, orthopnea, SOB at rest, shortness of breath, SOB with excertion, stridor, wheezing, others Cardiovascular: denies: chest pain, dizzy spells, diaphoresis, Dyspnea on exertion, edema, irregular heart beat, left arm pain, lightheadedness, palpitations, PND, syncope, others Gastrointestinal: reports: abdominal pain, nausea; denies: abdomen distended, blood streaked bowels, constipated, diarrhea, dysphagia, difficulty swallowing, hematemesis, melena, poor appetite, poor fluid intake, rectal bleeding, rectal pain, vomiting, others Genitourinary: denies: burning, dysuria, flank pain, frequency, hematuria, incontinence, penile discharge, penile sore, pain, testicle pain, testicle swelling, urgency, others Neurological: denies: dizziness, fainting, headache, left sided numbness, left sided weakness, numbness, paresthesia, pre-existing deficit, right sided numbnes s, right sided weakness, seizure, speech problems, tingling, tremors, weakness, others Musculoskeletal: denies: back pain, gout, joint pain, joint swelling, muscle pain, muscle stiffness, neck pain, others Integumetry: denies: bruises, change in color, change in hair/nails, dryness, laceration, lesions, lumps, rash, wounds, others Allergic/Immunocompromised: denies: Difficulty Healing, Frequent Infections, Hives, Itching, others Hematologic/Lymphatic: denies: anemia, blood clots, easy bleeding, easy bruising, swollen glands, others Endocrine: denies: excessive hunger, excessive sweating, excessive thirst, excessive urination, flushing, intolerance to cold, intolerance to heat, unexplained weight gain, unexplained weight loss, others Psychiatric: denies: anxiety, bipolar disorder, depression, hopeless, panic disorder, schizophrenia, sleepless, suicidal, others All Other Systems: Reviewed and Negative (negative unless otherwise stated above or in HPI) Physical Exam Exam Comments Patient appears much older than his chronology. Patient may be on an illicit drug. General Appearance: Moderate Distress (Due to abdominal pain concerns.), Normal HEENT: Normal ENT Inspection, Pharynx Normal, TMs Normal Neck: Full Range of Motion, Non-Tender, Normal, Normal Inspection Respiratory: Chest Non-Tender, Lungs Clear, No Accessory Muscle Use, No Respiratory Distress, Normal Breath Sounds Cardiovascular: No Edema, No JVD, No Murmur, No Gallop, Normal Peripheral Pulses, Regular Rate/Rhythm Breast Exam: Deferred Gastrointestinal: Other (Diffuse epigastric tenderness to palpation. No pulsatile masses. Abdomen was mildly rigid. No signs of trauma.) Genitalia: Deferred Pelvic: Deferred Rectal: Deferred Extremities: No calf tenderness, Normal capillary refill, Normal inspection, Normal range of motion, Non-tender, No pedal edema Neurologic: Alert, No Motor Deficits, No Sensory Deficits Cerebellar Function: Normal Reflexes: Normal Skin: Dry, Normal Color, Warm Lymphatic: No Adenopathy Was a procedure done? Was a procedure done?: No Differential Dx Considerations may include: gastritis, gastroenteritis, spoiled food, acute abdomen, GERD, PUD, hernia , sepsis, pancreatitis, hepatic steatosis X-Ray, Labs, Meds, VS Vital Signs Date Time Temp Pulse Resp B/P (MAP) Pulse Ox O2 Delivery O2 Flow Rate FiO2 03/17/24 23:58 70 03/17/24 23:50 98.3 73 14 122/78 (93) 98 Lab Test 03/18/24 01:07 03/18/24 00:09 Range/Units Troponin I High Sensitivity Pending < 3 L </=54 ng/L White Blood Count 13.3 H 4.4-10.8 10^3/uL Red Blood Count 4.90 4.5-5.90 10^6/uL Hemoglobin 14.4 13.5-17.5 g/dL Hematocrit 43.9 41.0-53.0 % Mean Corpuscular Volume 89.5 80.0-100.0 fL Mean Corpuscular Hemoglobin 29.4 28.0-32.0 pg Mean Corpuscular Hemoglobin Concent 32.9 32.0-36.0 g/dL Red Cell Distribution Width 13.0 11.8-14.3 % Platelet Count 347 140-450 10^3/uL Mean Platelet Volume 6.9 6.9-10.8 fL Neutrophils (%) (Auto) 85.7 H 37.0-80.0 % Lymphocytes (%) (Auto) 5.5 L 10.0-50.0 % Monocytes (%) (Auto) 7.8 0.0-12.0 % Eosinophils (%) (Auto) 0.9 0.0-7.0 % Basophils (%) (Auto) 0.1 0.0-2.0 % Neutrophils # (Auto) 11.4 H 1.6-8.6 10 ^3/uL Lymphocytes # (Auto) 0.7 0.4-5.4 10 ^3/uL Monocytes # (Auto) 1.0 0-1.3 10 ^3/uL Eosinophils # (Auto) 0.1 0-0.8 10 ^3/uL Basophils # (Auto) 0 0-0.2 10 ^3/uL Nucleated Red Blood Cells 0.0 % Sodium Level 138 136-145 mmol/L Potassium Level 3.8 3.5-5.1 mmol/L Chloride Level 105 98-107 mmol/L Carbon Dioxide Level 22 20-31 mmol/L Anion Gap 11 5-15 Blood Urea Nitrogen 14 9-23 mg/dL Creatinine 0.78 0.700-1.30 mg/dL Glomerular Filtration Rate Calc 97 >90 mL/min BUN/Creatinine Ratio 17.9 10.0-20.0 Serum Glucose 118 H 74-106 mg/dL Lactic Acid Level 1.0 0.4-2.0 mmol/L Calcium Level 9.1 8.7-10.4 mg/dL Total Bilirubin 0.5 0.2-1.0 mg/dL Aspartate Amino Transferase (AST) 22 13-40 U/L Alanine Aminotransferase (ALT) 27 7-40 U/L Alkaline Phosphatase 84 46-116 U/L Total Protein 6.2 5.7-8.2 g/dL Albumin 3.8 3.2-4.8 g/dL Lipase 31 12-53 U/L X-Ray, Labs, Meds, VS Comment All studies performed the ED were evaluated by me personally. Laboratories were remarkable for a mild leukocytosis without signs of pancreatitis. 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 [place] interval and 138 and a QT interval of 386. CT of the abdomen and pelvis revealed diffuse wall thickening of the distal esophagus concerning for an acute and possibly infectious esophagitis. Patient will be admitted for GI evaluation and possible endoscopy. Patient will be started empirically on antibiotics to address his mild leukocytosis and additionally, patient will require pain management for his intractable abdominal pain concerns. Time of 1ST Reevaluation: :51 Reevaluation 1ST: Improved Consultation: PCP, GI Patient Education/Counseling: Diagnosis, Treatment Family Education/Counseling: Diagnosis, Treatment, No Family Present Departure 1 Departure Time of Disposition: :51 Impression: Primary Impression: Infective esophagitis Disposition: ADMITTED INPATIENT Condition: Stable Discharged With: Self Critical Care Note Critical Care Time?: No Stability Stability form required: No Heart Score Heart Score: Heart Score Response (Comments) Value History Slightly Suspicious 0 EKG Normal 0 Age >65 2 Risk Factors 1 or 2 risk factors 1 Troponin Normal limit 0 Total 3 I personally scribed for NEHEMIAS MARADIAGA PAC ([email or web address]) on 03/18/24 at 00:08. Electronically submitted by Richie Matthews ([email or web address]). NEHEMIAS MARADIAGA PAC Mar 18, 2024 00:08
[2024-03-18 00:21] LABS: Basophils # (auto) 0 10 ^3/uL (0-0.2); Basophils % (auto) 0.1 % (0.0-2.0); Eosinophils # (auto) 0.1 10 ^3/uL (0-0.8); Eosinophils % (auto) 0.9 % (0.0-7.0); Hematocrit 43.9 % (41.0-53.0); Hemoglobin 14.4 g/dL (13.5-17.5); Lymphocytes # (auto) 0.7 10 ^3/uL (0.4-5.4); Lymphocytes % (auto) 5.5 % (10.0-50.0); Mean Corpuscular Hemoglobin 29.4 pg (28.0-32.0); Mean Corpuscular Hgb Conc. 32.9 g/dL (32.0-36.0); Mean Corpuscular Volume 89.5 fL (80.0-100.0); Monocytes % (auto) 7.8 % (0.0-12.0); Neutrophils # (auto) 11.4 10 ^3/uL (1.6-8.6); Neutrophils % (auto) 85.7 % (37.0-80.0); Platelet Count (auto) 347 10^3/uL (140-450); White Blood Cell 13.3 10^3/uL (4.4-10.8)
[2024-03-18 00:39] LABS: Alanine Aminotransferase 27 U/L (7-40); Albumin 3.8 g/dL (3.2-4.8); Alkaline Phosphatase 84 U/L (46-116); Anion Gap 11 (5-15); Aspartate Aminotransferase 22 U/L (13-40); BUN/Creatinine Ratio 17.9 (10.0-20.0); Bilirubin, Total 0.5 mg/dL (0.2-1.0); Blood Urea Nitrogen 14 mg/dL (9-23); Calcium 9.1 mg/dL (8.7-10.4); Carbon Dioxide 22 mmol/L (20-31); Chloride 105 mmol/L (98-107); Lipase 31 U/L (12-53); Potassium 3.8 mmol/L (3.5-5.1); Sodium 138 mmol/L (136-145); Total Protein 6.2 g/dL (5.7-8.2)
[2024-03-18 00:40] LABS: Glucose 118 mg/dL (74-106)
--- NOTE | 2024-03-18 01:51 | DVH ---
Exam: CT CT AB PEL WO CON-NO ORAL OR IV History: Diffuse epigastric pain Comparison Study: None available at time of dictation. Technique: Multidetector spiral CT of the abdomen was performed from lung bases to pubic symphysis. Imaging was performed without IV contrast. Axial, coronal and sagittal multiplanar reformats were ob tained from the axial data set by the technologist. Radiation Dose : 1. Abdomen/Pelvis: CTDIvol 5 mGy, DLP 254 mGy*cm. Findings: Evaluation of solid organs is limited due to lack of intravenous contrast use. Lung Bases: No acute or significant lung base finding. Normal heart size. No pleural or pericardial effusion. Diffuse wall thickening of the distal esophagus. Liver: The liver is normal in size. Subcentimeter hypodensity in the right hepatic lobe. Gallbladder and Biliary Tree: Unremarkable Spleen: Unremarkable Pancreas: The pancreas is grossly normal in appearance. Adrenal Glands: Unremarkable Kidneys: Kidneys are grossly normal without calculi or hydronephrosis. Bladder: Grossly unremarkable for degree of distention. Bowel: The stomach is grossly normal in appearance. Moderate fecal retention throughout the colon. N ormal appendix is visualized in the right lower quadrant without findings of appendicitis. Ascites: Absent Lymphadenopathy: No mesenteric, retroperitoneal or periportal lymphadenopathy. Abdominal Wall and Mesentery: Unremarkable. Vasculature: The visualized abdominal aorta is normal in size and caliber. Evaluation of abdominal a nd pelvic vessels is limited due to lack of intravenous contrast. Pelvic Organs: Unremarkable Musculoskeletal: No aggressive focal bony lesions, acute fractures or dislocation. IMPRESSION: Diffuse wall thickening of the distal esophagus concerning for acute infectious/ inflammatory esophag itis. Ancillary findings as described above. END IMPRESSION:
[2024-03-18] MEDS ORDERED: ZOFR4T PO (01:53)
[2024-03-18] MEDS ORDERED: DICY10CA PO (01:53)
[2024-03-18] MEDS: PANTOPRAZOLE 40 MG/10 ML VIAL INJ IV ONE (03:11)
[2024-03-18] MEDS: ONDANSETRON ODT 4 MG TAB PO ONE (03:12)
[2024-03-18] MEDS: HYDROmorphone HCL 2 MG/ML VL/or syr IM ONE (03:12)
[2024-03-18] MEDS ORDERED: HYDROcodone-ACET 5/325MG TAB PO PRN (03:15)
[2024-03-18] MEDS ORDERED: MORPHINE SULFATE INJ 2 MG/ml SYRG IV PRN (03:15)
[2024-03-18] MEDS: metroNIDAZOLE 500MG/100ML 100 ML IV ONE (03:15)
[2024-03-18] MEDS ORDERED: ONDANSETRON HCL 4 MG/2 ML VIAL IV PRN (03:15)
--- NOTE | 2024-03-18 04:51 | DVHHP2 ---
History of Present Illness Reason for Visit: Abdominal pain History of Present Illness 69-year-old male presents for evaluation of abdominal pain. Patient presents with a one day history of epigastric abdominal pain. He describes the pain as sharp with associated nausea. Denies fever or chills. No diarrhea or constipation. Denies cardiac or respiratory complaints. Past Medical History Hypertension Past Surgical History Denies Family History Noncontributory Smoke: <1 pack per day ALCOHOL: occassional Drugs: Other (Methamphetamine) Review of Systems Review of Systems Review of systems are currently negative otherwise addressed in HPI. Allergies: Coded Allergies: Codeine (Verified Allergy, Severe, 02/02/21) Medications Current Medications Medications Dose Ordered Sig/Sarah Route Start Time Stop Time Status Last Admin Dose Admin Ceftriaxone Sodium 50 ml @ 100 mls/hr DAILY@09 IV 03/18/24 09:00 Metronidazole 100 ml @ 100 mls/hr Q8HR IV 03/18/24 14:00 Pantoprazole Sodium 40 mg DAILY IV 03/18/24 10:00 Acetaminophen/ Hydrocodone Bitart 1 tab Q4HP PRN PO 03/18/24 03:15 Ondansetron HCl 4 mg Q4HP PRN IV 03/18/24 03:15 Morphine Sulfate 2 mg Q6HPRN PRN IV 03/18/24 03:15 Amlodipine Besylate 5 mg DAILY PO 03/18/24 10:00 Exam Vital Signs Vital Signs Date Time Temp Pulse Resp B/P (MAP) Pulse Ox O2 Delivery O2 Flow Rate FiO2 03/18/24 03:42 88 14 132/71 03/18/24 03:21 97 Room Air* 0 21 03/17/24 23:50 98.3 Exam Gen: 69-year-old male in mild distress Skin: Warm, dry, normal color and texture, no rash. HEENT: Normocephalic atraumatic, mucous membranes moist and pink. Neck: Cervical and supraclavicular nodes normal without enlargement, trachea is midline, thyroid gland is normal without masses. Pulmonary: Clear to auscultation and percussion bilaterally. Cardiac: Regular rate and rhythm. No murmur Abdomen: Soft, nontender, nondistended, bowel sounds present all 4 quadrants, no guarding, no rigidity, no organomegaly. Extremities: No cyanosis, clubbing, no edema Neuro: Cranial nerves II through XII grossly intact, normal affect and speech, no focal motor deficits. Labs/Xrays ORDERING PHYSICIAN: NEHEMIAS MARADIAGA PAC PROCEDURE(s): ABPL - CT AB PEL WO CON-NO ORAL OR IV REASON: Diffuse epigastric pain ORDER NUMBER(s): [id number], ACCESSION NUMBER(s): [id number] Exam: CT CT AB PEL WO CON-NO ORAL OR IV History: Diffuse epigastric pain Comparison Study: None available at time of dictation. Technique: Multidetector spiral CT of the abdomen was performed from lung bases to pubic symphysis. Imaging was performed without IV contrast. Axial, coronal and sagittal multiplanar reformats were obtained from the axial data set by the technologist. Radiation Dose : 1. Abdomen/Pelvis: CTDIvol 5 mGy, DLP 254 mGy*cm. Findings: Evaluation of solid organs is limited due to lack of intravenous contrast use. Lung Bases: No acute or significant lung base finding. Normal heart size. No pleural or pericardial effusion. Diffuse wall thickening of the distal esophagus. Liver: The liver is normal in size. Subcentimeter hypodensity in the right hepatic lobe. Gallbladder and Biliary Tree: Unremarkable Spleen: Unremarkable Pancreas: The pancreas is grossly normal in appearance. Adrenal Glands: Unremarkable Kidneys: Kidneys are grossly normal without calculi or hydronephrosis. Bladder: Grossly unremarkable for degree of distention. Bowel: The stomach is grossly normal in appearance. Moderate fecal retention throughout the colon. Normal appendix is visualized in the right lower quadrant without findings of appendicitis. Ascites: Absent Lymphadenopathy: No mesenteric, retroperitoneal or periportal lymphadenopathy. Abdominal Wall and Mesentery: Unremarkable. Vasculature: The visualized abdominal aorta is normal in size and caliber. Evaluation of abdominal and pelvic vessels is limited due to lack of intravenous contrast. Pelvic Organs: Unremarkable Musculoskeletal: No aggressive focal bony lesions, acute fractures or dislocation. IMPRESSION: Diffuse wall thickening of the distal esophagus concerning for acute infectious/ inflammatory esophagitis. Ancillary findings as described above. END IMPRESSION: Labs Test 03/18/24 01:07 03/18/24 00:09 Range/Units Troponin I High Sensitivity 3 L </=54 ng/L White Blood Count 13.3 H 4.4-10.8 10^3/uL Red Blood Count 4.90 4.5-5.90 10^6/uL Hemoglobin 14.4 13.5-17.5 g/dL Hematocrit 43.9 41.0-53.0 % Mean Corpuscular Volume 89.5 80.0-100.0 fL Mean Corpuscular Hemoglobin 29.4 28.0-32.0 pg Mean Corpuscular Hemoglobin Concent 32.9 32.0-36.0 g/dL Red Cell Distribution Width 13.0 11.8-14.3 % Platelet Count 347 140-450 10^3/uL Mean Platelet Volume 6.9 6.9-10.8 fL Neutrophils (%) (Auto) 85.7 H 37.0-80.0 % Lymphocytes (%) (Auto) 5.5 L 10.0-50.0 % Monocytes (%) (Auto) 7.8 0.0-12.0 % Eosinophils (%) (Auto) 0.9 0.0-7.0 % Basophils (%) (Auto) 0.1 0.0-2.0 % Neutrophils # (Auto) 11.4 H 1.6-8.6 10 ^3/uL Lymphocytes # (Auto) 0.7 0.4-5.4 10 ^3/uL Monocytes # (Auto) 1.0 0-1.3 10 ^3/uL Eosinophils # (Auto) 0.1 0-0.8 10 ^3/uL Basophils # (Auto) 0 0-0.2 10 ^3/uL Nucleated Red Blood Cells 0.0 % Sodium Level 138 136-145 mmol/L Potassium Level 3.8 3.5-5.1 mmol/L Chloride Level 105 98-107 mmol/L Carbon Dioxide Level 22 20-31 mmol/L Anion Gap 11 5-15 Blood Urea Nitrogen 14 9-23 mg/dL Creatinine 0.78 0.700-1.30 mg/dL Glomerular Filtration Rate Calc 97 >90 mL/min BUN/Creatinine Ratio 17.9 10.0-20.0 Serum Glucose 118 H 74-106 mg/dL Lactic Acid Level 1.0 0.4-2.0 mmol/L Calcium Level 9.1 8.7-10.4 mg/dL Total Bilirubin 0.5 0.2-1.0 mg/dL Aspartate Amino Transferase (AST) 22 13-40 U/L Alanine Aminotransferase (ALT) 27 7-40 U/L Alkaline Phosphatase 84 46-116 U/L Total Protein 6.2 5.7-8.2 g/dL Albumin 3.8 3.2-4.8 g/dL Lipase 31 12-53 U/L Assessment/Plan Assessment/Plan Assessment Acute abdominal pain Acute esophagitis Leukocytosis Hypertension Plan Admit the patient to Med surge to the hospitalist Rocephin/Flagyl Clear liquid diet GI consultation Continue treatment per orders Plan discussed with: Patient My Orders Orders - MARÍA ELENA ORDOÑEZ Procedure Category Date Status Time Ceftriaxone 1gm/50ml PHA 03/18/24 In Process D5w (Rocephin) 09:00 Metronidazole PHA 03/18/24 In Process 500mg/100ml (Flagyl 14:00 Pantoprazole PHA 03/18/24 In Process (Protonix) 10:00 * Gi Dvh Twister Hand CONS 03/18/24 Transmitted 03:09 Basic Metabolic Panel LAB 03/19/24 Verified 04:00 Admit ADMIT 03/18/24 Transmitted 03:09 Hydrocodone-Acet PHA 03/18/24 In Process 5/325mg Tab ([place] 03:15 Ondansetron Hcl PHA 03/18/24 In Process (Zofran) 03:15 Complete Blood Count LAB 03/19/24 Verified 04:00 Condition: Stable HANSA 03/18/24 In Process 03:09 Clear Liq Diet DIET 03/18/24 Transmitted Breakfast Bedrest With Bathroom HANSA 03/18/24 In Process Privileg 03:09 Morphine Sulfate PHA 03/18/24 In Process Injection 03:15 Amlodipine Tablet PHA 03/18/24 In Process (Norvasc Tablet) 10:00 Date of Service: Mar 18, 2024 Billing Provider: MARÍA ELENA ORDOÑEZ Common Visit Codes: [id number] INP/OBS CARE (MOD) MARÍA ELENA ORDOÑEZ Mar 18, 2024 04:51
[2024-03-18] MEDS: amLODIPine BESYLATE 5 MG TAB PO SCH (09:41)
[2024-03-18] MEDS: PANTOPRAZOLE 40 MG/10 ML VIAL INJ IV SCH (09:41)
[2024-03-18] MEDS: cefTRIAXone 1GM/50ML D5W 50 ML IV SCH (09:41)
--- NOTE | 2024-03-18 10:26 | DVHCONRES ---
Date Seen: Mar 18, 2024 Resident Creating Document: EJSSI JACK RESIDENT History of Present Illness This is a 69-year-old male patient who presented to the ER with a chief complaint of epigastric pain. Patient was admitted in this facility for the same complaint and underwent EGD which showed sliding hiatal hernia and gastritis for which he was prescribed pantoprazole and Carafate. According to patient, he never received his prescription or followed up with GI outpatient. He came back to the ER with the same complaints. Patient seen and examined in the holding area. Reports feeling better. Pain resolving. Family History: FH: lung cancer G8 MOTHER FH: throat cancer G8 FATHER Allergies: Coded Allergies: Codeine (Verified Allergy, Severe, 02/02/21) Home Meds Active Scripts Amlodipine Besylate (NORVASC TABLET) 5 Mg Tb, 5 MG PO DAILY for 30 Days, #30 TAB Prov:JOEY CHEUNG RESIDENT 03/08/24 Current Medications Current Medications Medications (Trade) Dose Ordered Sig/Sarah Route PRN Reason Start Time Stop Time Status Last Admin Ceftriaxone Sodium 50 ml @ 100 mls/hr DAILY@09 IV 03/18/24 09:00 03/18/24 09:41 Metronidazole 100 ml @ 100 mls/hr Q8HR IV 03/18/24 14:00 Pantoprazole Sodium (Protonix) 40 mg DAILY IV 03/18/24 10:00 03/18/24 09:41 Acetaminophen/ Hydrocodone Bitart ([place] 5/325MG Tab) 1 tab Q4HP PRN PO MODERATE PAIN (4-6 PAIN SCALE) 03/18/24 03:15 Ondansetron HCl (Zofran) 4 mg Q4HP PRN IV NAUSEA / VOMITING 03/18/24 03:15 Morphine Sulfate 2 mg Q6HPRN PRN IV SEVERE PAIN (7-10 PAIN SCALE) 03/18/24 03:15 Amlodipine Besylate (Norvasc Tablet) 5 mg DAILY PO 03/18/24 10:00 Review of Systems Eyes: No Pain, No Vision change, No Conjunctivae inflammation, No Eyelid inflammation, No Other, No Redness ENT: No Ear pain, No Ear discharge, No Nose pain, No Nose discharge, No Nose congestion, No Mouth pain, No Mouth swelling, No Throat pain, No Throat swelling, No Other Cardiovascular: No Chest Pain, No Palpitations, No Orthopnea, No PND, No Edema, No Lt Headedness, No Other Respiratory: No Cough, No Dry, No Shortness of breath, No SOB with exertion, No Wheezing, No Hemoptysis, No Pleuritic Pain, No Sputum, No Other Gastrointestinal: Epigastric abdominal pain, No Nausea, No Vomiting, No Diarrhea,Constipation, No Hematochezia, No Other Genitourinary: No Dysuria, No Frequency, No Incontinence, No Hematuria, No Retention, No Other Musculoskeletal: No other, No neck pain, No shoulder pain, No arm pain, No back pain, No hand pain, No leg pain, No foot pain Skin: No Rash, No Lesions, No Jaundice, No Bruising, No Other Vital Signs Vital Signs Date Time Temp Pulse Resp B/P (MAP) Pulse Ox O2 Delivery O2 Flow Rate FiO2 03/18/24 09:41 97/60 03/18/24 09:26 98.0 96 16 96 98.0 03/18/24 07:40 Room Air* 0 21 Labs/Diagnostic Data Labs Test 03/18/24 01:07 03/18/24 00:09 Range/Units Troponin I High Sensitivity 3 L </=54 ng/L White Blood Count 13.3 H 4.4-10.8 10^3/uL Red Blood Count 4.90 4.5-5.90 10^6/uL Hemoglobin 14.4 13.5-17.5 g/dL Hematocrit 43.9 41.0-53.0 % Mean Corpuscular Volume 89.5 80.0-100.0 fL Mean Corpuscular Hemoglobin 29.4 28.0-32.0 pg Mean Corpuscular Hemoglobin Concent 32.9 32.0-36.0 g/dL Red Cell Distribution Width 13.0 11.8-14.3 % Platelet Count 347 140-450 10^3/uL Mean Platelet Volume 6.9 6.9-10.8 fL Neutrophils (%) (Auto) 85.7 H 37.0-80.0 % Lymphocytes (%) (Auto) 5.5 L 10.0-50.0 % Monocytes (%) (Auto) 7.8 0.0-12.0 % Eosinophils (%) (Auto) 0.9 0.0-7.0 % Basophils (%) (Auto) 0.1 0.0-2.0 % Neutrophils # (Auto) 11.4 H 1.6-8.6 10 ^3/uL Lymphocytes # (Auto) 0.7 0.4-5.4 10 ^3/uL Monocytes # (Auto) 1.0 0-1.3 10 ^3/uL Eosinophils # (Auto) 0.1 0-0.8 10 ^3/uL Basophils # (Auto) 0 0-0.2 10 ^3/uL Nucleated Red Blood Cells 0.0 % Sodium Level 138 136-145 mmol/L Potassium Level 3.8 3.5-5.1 mmol/L Chloride Level 105 98-107 mmol/L Carbon Dioxide Level 22 20-31 mmol/L Anion Gap 11 5-15 Blood Urea Nitrogen 14 9-23 mg/dL Creatinine 0.78 0.700-1.30 mg/dL Glomerular Filtration Rate Calc 97 >90 mL/min BUN/Creatinine Ratio 17.9 10.0-20.0 Serum Glucose 118 H 74-106 mg/dL Lactic Acid Level 1.0 0.4-2.0 mmol/L Calcium Level 9.1 8.7-10.4 mg/dL Total Bilirubin 0.5 0.2-1.0 mg/dL Aspartate Amino Transferase (AST) 22 13-40 U/L Alanine Aminotransferase (ALT) 27 7-40 U/L Alkaline Phosphatase 84 46-116 U/L Total Protein 6.2 5.7-8.2 g/dL Albumin 3.8 3.2-4.8 g/dL Lipase 31 12-53 U/L Assessment Assessment: Abdominal pain secondary to Acute esophagitis with focal epithelial atypia Sliding hiatal hernia Grade B erosive esophagitis Mild gastritis History of hep C Nicotine dependence Methamphetamine use dependence Plan: EGD 03/08/2024 Continue pantoprazole 40 mg b.i.d. Continue Carafate 1 g q.i.d. MiraLax 17 g p.o. daily Advanced diet as tolerated Continue antibiotics as per primary team Follow up outpatient with GI Counseled patient regarding medication compliance and the need of continuous outpatient follow up. Plan discussed with Dr. Giles. Plan discussed with: Patient, Other (Nurse) JESSI JACK RESIDENT Mar 18, 2024 10:26
[2024-03-18] MEDS: SUCRALFATE 1 GM TAB PO SCH (11:34)
[2024-03-18] MEDS: metroNIDAZOLE 500MG/100ML 100 ML IV SCH (13:25)
[2024-03-18] MEDS ORDERED: POLYETHYLENE GLYCOL 17 GM PWDR PO PRN (14:30)
[2024-03-18] MEDS: PANTOPRAZOLE 40 MG TAB PO SCH (17:04)
[2024-03-18] MEDS: POLYETHYLENE GLYCOL 17 GM PWDR PO ONE (17:04)
[2024-03-18] MEDS: MAALOX PLUS or MAALOX 30 ML PO SCH (17:04)
[2024-03-18 17:05] LABS: Amphetamine Screen, Urine Pos (NEGATIVE)
[2024-03-18 17:06] LABS: Cannabinoid Screen, Urine Pos (NEGATIVE); Opiate Scree,Urine Neg (NEGATIVE)
[2024-03-18 17:11] LABS: Barbiturate Scree,Urine Neg (NEGATIVE); Benzodiazephine Screen, Urine Neg (NEGATIVE); Cocaine Screen, Urine Neg (NEGATIVE); Phencyclidine Screen, Urine Neg (NEGATIVE)
--- NOTE | 2024-03-18 17:14 | ECG ---
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
--- NOTE | 2024-03-18 17:39 | DVHPNRES ---
Progress Note Date Seen: Mar 18, 2024 Resident Creating Document: ELDON IGNACIOPARISH RESIDENT Medical Necessity Reason Pt with a Central, PICC or Fol: No Subjective Review of Systems Patient is a 69-year-old male with a past medical history of hepatitis-C came to the ED with a chief complaint of abdominal pain and vomiting. Patient was admitted to the hospital about 2 weeks ago when he came with a chief complaint of difficulty swallowing and abdominal pain following with GI was consulted and the patient underwent EGD showing 3-4 cm sliding-type hiatal hernia with esophagitis of the GE junction and the patient was advised to continue on soft mechanical diet and prescribed Protonix 40 mg b.i.d., Carafate 1 g p.o. b.i.d.. Patient reports that he was out of money and was only able to get 1 with the medications from the pharmacy which she took but a few days after being discharged his abdominal pain started to come back and he was not feeling well. Patient reported he had an episode of vomiting yesterday before coming to the hospital. CT abdomen pelvis was done which showed diffuse wall thickening of the distal esophagus. On admission patient had elevated WBC count with left shift. Patient denied chest pain, shortness of breath, palpitation. Past medical history: Hepatitis-C Past surgical history: None Social history: Patient lives in [facility], methamphetamine smoker but currently denies smoking, alcohol or other drug usage Review of Systems At present patient denied abdominal pain. Reports that the last bowel movement was 4-5 days ago. Patient was tolerating clear liquid diet well without nausea or vomiting Objective vital signs Vital Sign Date Time Temp Pulse Resp B/P (MAP) Pulse Ox O2 Delivery O2 Flow Rate FiO2 03/18/24 12:30 98.3 76 18 96/65 (75) 97 98.3 03/18/24 07:40 Room Air* 0 21 Total Intake and Output 03/17/24 03/17/24 03/18/24 14:59 22:59 06:59 Intake Total 100 ml Balance 100 ml medications Current Medications Medications Dose Ordered Sig/Sarah Route Start Time Stop Time Status Last Admin Dose Admin Ceftriaxone Sodium 50 ml @ 100 mls/hr DAILY@09 IV 03/18/24 09:00 Future Hold 03/18/24 09:41 100 MLS/HR Metronidazole 100 ml @ 100 mls/hr Q8HR IV 03/18/24 14:00 Future Hold 03/18/24 13:25 100 MLS/HR Acetaminophen/ Hydrocodone Bitart 1 tab Q4HP PRN PO 03/18/24 03:15 Ondansetron HCl 4 mg Q4HP PRN IV 03/18/24 03:15 Morphine Sulfate 2 mg Q6HPRN PRN IV 03/18/24 03:15 Amlodipine Besylate 5 mg DAILY PO 03/18/24 10:00 Sucralfate 1 gm QIDACHS PO 03/18/24 11:30 03/18/24 17:04 1 GM Polyethylene Glycol 17 gm DAILYPRN PRN PO 03/18/24 14:30 Al Hydrox/Mg Hydrox/Simethicone 30 ml Q6HR PO 03/18/24 18:00 03/18/24 17:04 30 ML Pantoprazole Sodium 40 mg BID@0600,1700 PO 03/18/24 17:00 03/18/24 17:04 40 MG Examination Physical Examination Constitutional: Patient was alert and oriented to time, place and person, is agitated and denies to be in acute distress. Gen - no pallor, no icterus, no cyanosis, no clubbing, no LAD, no edema . Skin - Patients skin is warm and dry. HEENT - normocephalic, atraumatic, moist mucous membranes. Neck - full ROM, no LAD, no JVD Pulmonary - B/L vesicular breath sounds. no crackles , no wheezing cardiovascular - normal S1,S2 heard. no murmurs heard. GI - soft abdomen without tenderness to palpation. no hepatospleenomegaly. Bowel sounds normoactive Neurological - Bilateral upper extremity strength 5/5, bilateral lower extremity strength 5/5, no facial droop, normal speech, no tremor, no sensory deficiets. laboratory and microbiology Laboratory Tests 03/18/24 00:09 Test 03/18/24 00:09 Range/Units Serum Glucose 118 H 74-106 mg/dL Problem List/Assessment/Plan Problem List/Assessment/Plan Assessment Acute abdominal pain likely due to esophagitis, gastritis Sliding hiatal hernia Dyspepsia Constipation Methamphetamine dependence H/o Hepatitis C CT abdomen pelvis without contrast showed diffuse wall thickening of the distal esophagus acute infection/ inflammatory esophagitis. Upper endoscopy with biopsy done 03/08/24 shows 1. 3-4 cm sliding-type hiatal hernia with grade B erosive esophagitis at the GE junction 2. Mild tertiary contractions of the distal esophagus 3. Mild gastritis Plan - patient tolerating clear liquid diet well, diet advanced to full liquids, we will advanced to mechanical soft in the morning. - Protonix 40 mg p.o. b.i.d. - sucralfate 1 g p.o. q.i.d. - Maalox 30 mL p.o. q.6 hours - MiraLax for constipation - IV antibiotics held Goals of care discussed with the patient for over 21 minutes. Full code Plan discussed with Plan discussed with: Patient My Orders My Orders Orders - LUIS IGNACIO Procedure Category Date Status Time Pantoprazole Tablet PHA 03/18/24 In Process (Protonix Tablet) 17:00 Date of Service: Mar 18, 2024 Billing Provider: EZE MCKENZIE MD Common Visit Codes: [id number] INP/OBS CARE(MOD) LUIS IGNACIO Mar 18, 2024 17:39 EZE MCKENZIE MD Mar 20, 2024 09:52
[2024-03-18] MEDS ORDERED: MAALOX PLUS or MAALOX 30 ML PO SCH (18:00)
[2024-03-18] MEDS ORDERED: PANTOPRAZOLE 40 MG/10 ML VIAL INJ IV SCH (22:00)
[2024-03-19] VITALS (7 sets, daily range): BP systolic 105–122; BP diastolic 62–71; PULSE 67–95; RESP 18–20; TEMP 97.8–99.1; O2SAT 94–99
[2024-03-19 08:23] LABS: Basophils # (auto) 0 10 ^3/uL (0-0.2); Basophils % (auto) 0.4 % (0.0-2.0); Eosinophils # (auto) 0.3 10 ^3/uL (0-0.8); Eosinophils % (auto) 4.5 % (0.0-7.0); Hematocrit 35.8 % (41.0-53.0); Hemoglobin 12.2 g/dL (13.5-17.5); Lymphocytes # (auto) 1.6 10 ^3/uL (0.4-5.4); Lymphocytes % (auto) 22.5 % (10.0-50.0); Mean Corpuscular Hemoglobin 29.7 pg (28.0-32.0); Mean Corpuscular Hgb Conc. 34.2 g/dL (32.0-36.0); Mean Corpuscular Volume 86.8 fL (80.0-100.0); Monocytes # (auto) 0.5 10 ^3/uL (0-1.3); Monocytes % (auto) 7.2 % (0.0-12.0); Neutrophils # (auto) 4.7 10 ^3/uL (1.6-8.6); Neutrophils % (auto) 65.4 % (37.0-80.0); Platelet Count (auto) 351 10^3/uL (140-450); Red Blood Cells 4.12 10^6/uL (4.5-5.90); Red Cell Distribution Width 13.2 % (11.8-14.3); White Blood Cell 7.2 10^3/uL (4.4-10.8)
--- NOTE | 2024-03-19 10:14 | DVHPN2 ---
Progress Note Date Seen: Mar 19, 2024 Resident Creating Document: JESSI JAKC Medical Necessity Reason Pt with a Central, PICC or Fol: No Objective vital signs Vital Sign Date Time Temp Pulse Resp B/P (MAP) Pulse Ox O2 Delivery O2 Flow Rate FiO2 03/19/24 09:17 121/62 03/19/24 09:00 97.8 69 20 94 97.8 03/18/24 20:00 Room Air* 0 21 Total Intake and Output 03/18/24 03/18/24 03/19/24 15:00 23:00 07:00 Intake Total 50 ml 350 ml 300 ml Balance 50 ml 350 ml 300 ml medications Current Medications Medications Dose Ordered Sig/Sarah Route Start Time Stop Time Status Last Admin Dose Admin Acetaminophen/ Hydrocodone Bitart 1 tab Q4HP PRN PO 03/18/24 03:15 Ondansetron HCl 4 mg Q4HP PRN IV 03/18/24 03:15 Morphine Sulfate 2 mg Q6HPRN PRN IV 03/18/24 03:15 Amlodipine Besylate 5 mg DAILY PO 03/18/24 10:00 03/19/24 09:17 5 MG Sucralfate 1 gm QIDACHS PO 03/18/24 11:30 03/19/24 07:05 1 GM Polyethylene Glycol 17 gm DAILYPRN PRN PO 03/18/24 14:30 Al Hydrox/Mg Hydrox/Simethicone 30 ml Q6HR PO 03/18/24 18:00 03/19/24 05:06 30 ML Pantoprazole Sodium 40 mg BID@0600,1700 PO 03/18/24 17:00 03/19/24 05:06 40 MG laboratory and microbiology Laboratory Tests 03/19/24 07:35 03/18/24 00:09 Test 03/18/24 00:09 Range/Units Serum Glucose 118 H 74-106 mg/dL My Orders My Orders Orders - JESSI JACK Procedure Category Date Status Time Kate; Direct LAB 03/18/24 In Process 10:16 Sucralfate Tab PHA 03/18/24 In Process (Carafate Tab) 11:30 Polyethylene Glycol PHA 03/18/24 In Process 17g Powder (Miralax 14:30 Advance Diet As HANSA 03/18/24 In Process Tolerated 14:32 JESSI JACK Mar 19, 2024 10:14
[2024-03-19] MEDS ORDERED: PANT40TA2 PO (15:06)
[2024-03-19] MEDS ORDERED: SUCR1SUS5 PO (15:06)
--- NOTE | 2024-03-19 17:23 | DVHPN2 ---
Progress Note Date Seen: Mar 19, 2024 Resident Creating Document: JESSI JACK RESIDENT Medical Necessity Reason Pt with a Central, PICC or Fol: No Subjective Review of Systems This is a 69-year-old male patient who presented to the ER with a chief complaint of epigastric pain. Patient was admitted in this facility for the same complaint and underwent EGD which showed sliding hiatal hernia and gastritis for which he was prescribed pantoprazole and Carafate. According to patient, he never received his prescription or followed up with GI outpatient. He came back to the ER with the same complaints. Patient seen and examined in the holding area. Reports feeling better. No acute complaint. Objective vital signs Vital Sign Date Time Temp Pulse Resp B/P (MAP) Pulse Ox O2 Delivery O2 Flow Rate FiO2 03/19/24 09:17 121/62 03/19/24 09:00 97.8 69 20 94 97.8 03/19/24 08:00 Room Air* 0 21 Total Intake and Output 03/18/24 03/18/24 03/19/24 15:00 23:00 07:00 Intake Total 50 ml 350 ml 300 ml Balance 50 ml 350 ml 300 ml medications Current Medications Medications Dose Ordered Sig/Sarah Route Start Time Stop Time Status Last Admin Dose Admin Ondansetron HCl 4 mg Q4HP PRN IV 03/18/24 03:15 Amlodipine Besylate 5 mg DAILY PO 03/18/24 10:00 03/19/24 09:17 5 MG Sucralfate 1 gm QIDACHS PO 03/18/24 11:30 03/19/24 16:16 1 GM Polyethylene Glycol 17 gm DAILYPRN PRN PO 03/18/24 14:30 Al Hydrox/Mg Hydrox/Simethicone 30 ml Q6HR PO 03/18/24 18:00 03/19/24 11:46 30 ML Pantoprazole Sodium 40 mg BID@0600,1700 PO 03/18/24 17:00 03/19/24 16:16 40 MG Examination Patient lying in bed, in no acute distress General: Well-built, afebrile, palor, mucosae are moist Cardiovascular: Regular S1 and S2. No murmurs, gallops or rubs. No JVD elevation. No pedal edema Respiratory: Normal B/L air entry on room air. Clear lung sounds on auscultation Abdomen: Soft, nontender, nondistended, normoactive bowel sounds, no rebound tenderness, no organomegaly, no masses Genitourinary: Deferred MSK/skin: Mobilizes 4 limbs. Skin is dry and warm Neurological: No motor, no sensitive deficits, normal speech. Pupils are isocoric and reactive. Psych/Mental Status: A/Ox3 laboratory and microbiology Laboratory Tests 03/19/24 07:35 03/18/24 00:09 Test 03/18/24 00:09 Range/Units Serum Glucose 118 H 74-106 mg/dL Microbiology Date/Time Source Procedure Growth Status 03/18/24 09:50 Nose MRSA Screen - Final Complete Labs and/or images reviewed: Labs reviewed by me, Image(s) reviewed by me Problem List/Assessment/Plan Problem List/Assessment/Plan Assessment: Abdominal pain secondary to Acute esophagitis with focal epithelial atypia Sliding hiatal hernia Grade B erosive esophagitis Mild gastritis History of hep C Nicotine dependence Methamphetamine use dependence Plan: EGD 03/08/2024 Continue pantoprazole 40 mg b.i.d., 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 MiraLax 17 g p.o. daily Started lactulose 30 mL b.i.d. Advanced diet as tolerated Counseled patient regarding the need of outpatient GI follow up and medication compliance, patient agreed to the plan. Plan discussed with Dr. Giles. Plan discussed with: Patient JESSI JACK RESIDENT Mar 19, 2024 17:23
[2024-03-19] MEDS: LACTULOSE 20Gm/30ML SOLN PO SCH (17:50)
--- NOTE | 2024-03-19 19:29 | DVHPNRES ---
Progress Note Date Seen: Mar 19, 2024 Resident Creating Document: ELDON IGNACIOPARISH RESIDENT Medical Necessity Reason Pt with a Central, PICC or Fol: No Subjective Review of Systems At present patient denied abdominal pain. still has not had a bowel movement, will be started on 2 laxatives. Patient was tolerating mechanical soft diet without nausea or vomiting Objective vital signs Vital Sign Date Time Temp Pulse Resp B/P (MAP) Pulse Ox O2 Delivery O2 Flow Rate FiO2 03/19/24 17:00 99.1 77 20 109/65 (80) 97 99.1 03/19/24 08:00 Room Air* 0 21 Total Intake and Output 03/18/24 03/18/24 03/19/24 14:59 22:59 06:59 Intake Total 50 ml 350 ml 300 ml Balance 50 ml 350 ml 300 ml medications Current Medications Medications Dose Ordered Sig/Sarah Route Start Time Stop Time Status Last Admin Dose Admin Ondansetron HCl 4 mg Q4HP PRN IV 03/18/24 03:15 Amlodipine Besylate 5 mg DAILY PO 03/18/24 10:00 03/19/24 09:17 5 MG Sucralfate 1 gm QIDACHS PO 03/18/24 11:30 03/19/24 16:16 1 GM Polyethylene Glycol 17 gm DAILYPRN PRN PO 03/18/24 14:30 Al Hydrox/Mg Hydrox/Simethicone 30 ml Q6HR PO 03/18/24 18:00 03/19/24 17:50 30 ML Pantoprazole Sodium 40 mg BID@0600,1700 PO 03/18/24 17:00 03/19/24 16:16 40 MG Lactulose 30 ml BID PO 03/19/24 17:30 03/19/24 17:50 30 ML Examination Constitutional: Patient was alert and oriented to time, place and person, is agitated and denies to be in acute distress. Gen - no pallor, no icterus, no cyanosis, no clubbing, no LAD, no edema . Skin - Patients skin is warm and dry. HEENT - normocephalic, atraumatic, moist mucous membranes. Neck - full ROM, no LAD, no JVD Pulmonary - B/L vesicular breath sounds. no crackles , no wheezing cardiovascular - normal S1,S2 heard. no murmurs heard. GI - soft abdomen without tenderness to palpation. no hepatospleenomegaly. Bowel sounds normoactive Neurological - Bilateral upper extremity strength 5/5, bilateral lower extremity strength 5/5, no facial droop, normal speech, no tremor, no sensory deficiets. laboratory and microbiology Laboratory Tests 03/19/24 07:35 03/18/24 00:09 Test 03/18/24 00:09 Range/Units Serum Glucose 118 H 74-106 mg/dL Microbiology Date/Time Source Procedure Growth Status 03/18/24 09:50 Nose MRSA Screen - Final Complete Problem List/Assessment/Plan Problem List/Assessment/Plan Assessment Acute abdominal pain likely due to esophagitis, gastritis Sliding hiatal hernia Dyspepsia Constipation Methamphetamine dependence H/o Hepatitis C CT abdomen pelvis without contrast showed diffuse wall thickening of the distal esophagus acute infection/ inflammatory esophagitis. Upper endoscopy with biopsy done 03/08/24 shows 1. 3-4 cm sliding-type hiatal hernia with grade B erosive esophagitis at the GE junction 2. Mild tertiary contractions of the distal esophagus 3. Mild gastritis Plan - patient tolerating clear liquid diet well, diet advanced to full liquids, we will advanced to mechanical soft in the morning. - Protonix 40 mg p.o. b.i.d. - sucralfate 1 g p.o. q.i.d. - Maalox 30 mL p.o. q.6 hours - MiraLax and lactulose for constipation - IV antibiotics held Goals of care discussed with the patient for over 21 minutes. Full code Plan discussed with Plan discussed with: Patient My Orders My Orders Orders - LUIS IGNACIO Procedure Category Date Status Time Mechanical Soft Diet DIET 03/19/24 Transmitted Breakfast Date of Service: Mar 19, 2024 Billing Provider: EZE MCKENZIE MD Common Visit Codes: [id number] INP/OBS CARE(MOD) LUIS IGNACIO RESIDENT Mar 19, 2024 19:29 EZE MCKENZIE MD Mar 20, 2024 09:53
[2024-03-20 01:00] VITALS: BP 112/68; PULSE 69; RESP 20; TEMP 97.9; O2SAT 90
[2024-03-20 06:40] LABS: Basophils # (auto) 0.1 10 ^3/uL (0-0.2); Basophils % (auto) 1.1 % (0.0-2.0); Eosinophils # (auto) 0.3 10 ^3/uL (0-0.8); Eosinophils % (auto) 4.3 % (0.0-7.0); Hematocrit 37.3 % (41.0-53.0); Hemoglobin 12.8 g/dL (13.5-17.5); Lymphocytes # (auto) 2.1 10 ^3/uL (0.4-5.4); Lymphocytes % (auto) 30.5 % (10.0-50.0); Mean Corpuscular Hemoglobin 29.8 pg (28.0-32.0); Mean Corpuscular Hgb Conc. 34.2 g/dL (32.0-36.0); Mean Corpuscular Volume 87.2 fL (80.0-100.0); Monocytes # (auto) 0.6 10 ^3/uL (0-1.3); Monocytes % (auto) 9.3 % (0.0-12.0); Neutrophils # (auto) 3.8 10 ^3/uL (1.6-8.6); Neutrophils % (auto) 54.8 % (37.0-80.0); Platelet Count (auto) 373 10^3/uL (140-450); Red Blood Cells 4.28 10^6/uL (4.5-5.90); Red Cell Distribution Width 13.1 % (11.8-14.3); White Blood Cell 6.9 10^3/uL (4.4-10.8)
[2024-03-20 08:00] VITALS: PULSE 69; RESP 16; O2SAT 98
[2024-03-20 09:00] VITALS: BP 132/93; PULSE 69; RESP 16; TEMP 98.1; O2SAT 98
[2024-03-20 14:00] VITALS: BP 110/68; PULSE 66; RESP 16; TEMP 97.8; O2SAT 96
[2024-03-20 14:33] VITALS: BP 132/93; PULSE 88; RESP 20; TEMP 98.3; O2SAT 98
--- NOTE | 2024-03-20 20:01 | DVHDSRES ---
Discharge Summary Date of Admission Resident Creating Document: LUIS IGNACIO RESIDENT Mar 18, 2024 at 03:09 Date of Discharge: Mar 20, 2024 Admitting Diagnosis Acute abdominal pain Acute esophagitis Leukocytosis Hypertension Wounds: none Labs/Diagnostic Data: Laboratory Results Test 03/20/24 06:10 03/18/24 15:44 03/18/24 11:34 03/18/24 01:07 White Blood Count 6.9 10^3/uL (4.4-10.8) Red Blood Count 4.28 10^6/uL (4.5-5.90) Hemoglobin 12.8 g/dL (13.5-17.5) Hematocrit 37.3 % (41.0-53.0) Mean Corpuscular Volume 87.2 fL (80.0-100.0) Mean Corpuscular Hemoglobin 29.8 pg (28.0-32.0) Mean Corpuscular Hemoglobin Concent 34.2 g/dL (32.0-36.0) Red Cell Distribution Width 13.1 % (11.8-14.3) Platelet Count 373 10^3/uL (140-450) Mean Platelet Volume 7.2 fL (6.9-10.8) Neutrophils (%) (Auto) 54.8 % (37.0-80.0) Lymphocytes (%) (Auto) 30.5 % (10.0-50.0) Monocytes (%) (Auto) 9.3 % (0.0-12.0) Eosinophils (%) (Auto) 4.3 % (0.0-7.0) Basophils (%) (Auto) 1.1 % (0.0-2.0) Neutrophils # (Auto) 3.8 10 ^3/uL (1.6-8.6) Lymphocytes # (Auto) 2.1 10 ^3/uL (0.4-5.4) Monocytes # (Auto) 0.6 10 ^3/uL (0-1.3) Eosinophils # (Auto) 0.3 10 ^3/uL (0-0.8) Basophils # (Auto) 0.1 10 ^3/uL (0-0.2) Nucleated Red Blood Cells 0.0 % Urine Opiates Screen Neg (NEGATIVE) Urine Fentanyl Screen Neg (NEGATIVE) Urine Barbiturates Screen Neg (NEGATIVE) Urine Phencyclidine Screen Neg (NEGATIVE) Urine Amphetamines Screen Pos (NEGATIVE) Urine Benzodiazepines Screen Neg (NEGATIVE) Urine Cocaine Screen Neg (NEGATIVE) Urine Cannabinoids Screen Pos (NEGATIVE) Anti-Nuclear Antibody Screen Negative (Negative) HIV (1&2) Antibody Negative (Negative) Troponin I High Sensitivity 3 ng/L (</=54) Test 03/18/24 00:09 Sodium Level 138 mmol/L (136-145) Potassium Level 3.8 mmol/L (3.5-5.1) Chloride Level 105 mmol/L (98-107) Carbon Dioxide Level 22 mmol/L (20-31) Anion Gap 11 (5-15) Blood Urea Nitrogen 14 mg/dL (9-23) Creatinine 0.78 mg/dL (0.700-1.30) Glomerular Filtration Rate Calc 97 mL/min (>90) BUN/Creatinine Ratio 17.9 (10.0-20.0) Serum Glucose 118 mg/dL (74-106) Lactic Acid Level 1.0 mmol/L (0.4-2.0) Calcium Level 9.1 mg/dL (8.7-10.4) Total Bilirubin 0.5 mg/dL (0.2-1.0) Aspartate Amino Transferase (AST) 22 U/L (13-40) Alanine Aminotransferase (ALT) 27 U/L (7-40) Alkaline Phosphatase 84 U/L (46-116) Total Protein 6.2 g/dL (5.7-8.2) Albumin 3.8 g/dL (3.2-4.8) Lipase 31 U/L (12-53) Other Laboratory Tests 03/20/24 06:10 03/18/24 00:09 Brief Hx & Hospital Course: Patient is a 69-year-old male with a past medical history of hepatitis-C came to the ED with a chief complaint of abdominal pain and vomiting. Patient was admitted to the hospital about 2 weeks ago when he came with a chief complaint of difficulty swallowing and abdominal pain following with GI was consulted and the patient underwent EGD showing 3-4 cm sliding-type hiatal hernia with esophagitis of the GE junction and the patient was advised to continue on soft mechanical diet and prescribed Protonix 40 mg b.i.d., Carafate 1 g p.o. b.i.d.. Patient reports that he was out of money and was only able to get 1 with the medications from the pharmacy which she took but a few days after being discharged his abdominal pain started to come back and he was not feeling well. Patient reported he had an episode of vomiting yesterday before coming to the hospital. CT abdomen pelvis was done which showed diffuse wall thickening of the distal esophagus. On admission patient had elevated WBC count with left shift. Patient denied chest pain, shortness of breath, palpitation. Past medical history: Hepatitis-C Past surgical history: None Social history: Patient lives in [facility], methamphetamine smoker but currently denies smoking, alcohol or other drug usage Brief hospital course Patient was admitted to the hospital with the abdominal pain and vomiting. On reviewing the records patient had undergone EGD about 10 days ago which showed esophagitis and hiatal hernia. Patient reported that he was not able to get his medications and thus when eating food he started to have abdominal pain and had episodes of vomiting following which she came to the hospital. While in the hospital CT abdomen pelvis without contrast was done which showed diffuse esophageal wall thickening of the distal esophagus. Patient was initially started on clear liquid diet which she tolerated well and gradually progressed to mechanical soft diet which he tolerated without nausea or vomiting. Simultaneously patient was started on Protonix b.i.d. along with Carafate b.i.d.. Patient reported of constipation for which laxatives were given. Patient discharged in stable condition to home. Discharge plan Follow up in the discharge clinic in 1 week. Medications: Prescription sent to 6 pharmacy and medication delivered to bedside before patient left the hospital. On Protonix 40 mg b.i.d. and Carafate 1 g b.i.d. Diet: Patient was advised to continue on mechanical soft diet. Consults/Reason for consult GI consultation for abdominal pain and difficulty swallowing Operations or Procedures CT abd/pelvis without IV contrast Findings: Evaluation of solid organs is limited due to lack of intravenous contrast use. Lung Bases: No acute or significant lung base finding. Normal heart size. No pleural or pericardial effusion. Diffuse wall thickening of the distal esophagus. Liver: The liver is normal in size. Subcentimeter hypodensity in the right hepatic lobe. Gallbladder and Biliary Tree: Unremarkable Spleen: Unremarkable Pancreas: The pancreas is grossly normal in appearance. Adrenal Glands: Unremarkable Kidneys: Kidneys are grossly normal without calculi or hydronephrosis. Bladder: Grossly unremarkable for degree of distention Bowel: The stomach is grossly normal in appearance. Moderate fecal retention throughout the colon. Normal appendix is visualized in the right lower quadrant without findings of appendicitis. Ascites: Absent Lymphadenopathy: No mesenteric, retroperitoneal or periportal lymphadenopathy. Abdominal Wall and Mesentery: Unremarkable. Vasculature: The visualized abdominal aorta is normal in size and caliber. Evaluation of abdominal and pelvic vessels is limited due to lack of intravenous contrast. Pelvic Organs: Unremarkable Musculoskeletal: No aggressive focal bony lesions, acute fractures or dislocation. IMPRESSION: Diffuse wall thickening of the distal esophagus concerning for acute infectious/ inflammatory esophagitis. Ancillary findings as described above. Condition at Discharge: Good Final Diagnosis/Problems List Acute abdominal pain likely due to esophagitis, gastritis Sliding hiatal hernia Dyspepsia Constipation Methamphetamine dependence H/o Hepatitis C Discharge Disposition: Home Discharge Instruct/Medications Diet: See Comment Diet comment: mechanical soft diet avoid caffiene, smoking, NSAIDs, spicy foods Activity: No Restrictions, As Tolerated Follow Up/Referral: Follow up in the discharge clinic in one week Medications: as per EMR Discharge Statement: "Patient was advised to return to the ER or call 911 if any headaches, dizziness, shortness of breath, chest pain, abdominal pain, bleeding, fevers, or worsening of medical condition. Patient was counseled about treatment plan, medications, possible side effects, patientverbalized understanding. All questions were answered to the best of my ability. This discharge took greater then 30 minutes in planning, reviewing documentation, counseling the patient, and discussing with other team members." ASSESSMENT ASSESSMENT Assessment Acute abdominal pain likely due to esophagitis, gastritis Sliding hiatal hernia Dyspepsia Constipation Methamphetamine dependence H/o Hepatitis C Date of Service: Mar 20, 2024 Billing Provider: EZE MCKENZIE MD Common Visit Codes: [id number] DISCH DAY >30min LUIS IGNACIO RESIDENT Mar 20, 2024 20:01 EZE MCKENZIE MD Mar 25, 2024 08:31
== END 2024-03-20 15:30 | disposition home or self-care (01) | DRG 381 ==
LOC: ER 23:45 → EDBD 23:45 → OVERFLOW 03-18 03:09 → EAST 03-18 16:13
PROVIDERS: ADMIT Student in an Organized Health Care Education/Training Program; ATTEND Student in an Organized Health Care Education/Training Program
DX: K22.10 Ulcer of esophagus without bleeding (principal); F15.20 Other stimulant dependence, uncomplicated; Z59.00 Homelessness unspecified; K29.70 Gastritis, unspecified, without bleeding; K44.9 Diaphragmatic hernia without obstruction or gangrene; D72.829 Elevated white blood cell count, unspecified; I10 Essential (primary) hypertension; F17.210 Nicotine dependence, cigarettes, uncomplicated; K59.00 Constipation, unspecified; Z88.5 Allergy status to narcotic agent
CPT/HCPCS: 36415; 74176; 80053; 80307; 83605; 83690; 84484; 85025; 86038; 86703; 87081; 93005; G0378; J2470; J3490; Q0162

== ENCOUNTER 2024-06-29 15:56 | Inpatient (IN) | payer MEDICARE, MEDICAID ==
[~2024-06-29] VITALS: Ht 167.6 cm; Wt 63.2 kg
[~2024-06-29 15:56] MED LIST changes: -ACET-1080 PO; -ACET-1882 PO; -AMOX500C2 PO; -METR500T PO; -SUCR1SUS26 PO; +SUCR1SUS5 PO
--- NOTE | 2024-06-29 16:18 | ECG ---
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
[2024-06-29 16:45] VITALS: PULSE 105; RESP 18; O2SAT 96
[2024-06-29 16:46] LABS: Basophils # (auto) 0 10 ^3/uL (0-0.2); Basophils % (auto) 0.7 % (0.0-2.0); Eosinophils # (auto) 0.1 10 ^3/uL (0-0.8); Eosinophils % (auto) 1.6 % (0.0-7.0); Hematocrit 41.9 % (41.0-53.0); Hemoglobin 14.2 g/dL (13.5-17.5); Lymphocytes # (auto) 0.2 10 ^3/uL (0.4-5.4); Mean Corpuscular Hemoglobin 28.3 pg (28.0-32.0); Mean Corpuscular Hgb Conc. 33.8 g/dL (32.0-36.0); Mean Corpuscular Volume 83.5 fL (80.0-100.0); Monocytes # (auto) 0.2 10 ^3/uL (0-1.3); Monocytes % (auto) 5.9 % (0.0-12.0); Neutrophils # (auto) 2.9 10 ^3/uL (1.6-8.6); Neutrophils % (auto) 85.8 % (37.0-80.0); Platelet Count (auto) 249 10^3/uL (140-450); Red Blood Cells 5.01 10^6/uL (4.5-5.90); Red Cell Distribution Width 14.3 % (11.8-14.3); White Blood Cell 3.4 10^3/uL (4.4-10.8)
[2024-06-29] MEDS: ACETAMINOPHEN 325 MG TAB PO ONE (16:53)
--- NOTE | 2024-06-29 16:55 | ED.PDOC ---
History of Present Illness HPI Comments This patient is a homeless 69-year-old male who arrives the ED today for evaluation of generalized weakness and falls for the past few weeks. Patient states that because of weakness he has been falling multiple times. Patient appears to be in poor overall health and not well kempt. Patient states possible subjective fever. At arrival, patient was febrile, tachycardic and hypertensive. Chief Complaint: General Weakness Time Seen by MD: 16:15 Primary Care Provider: NONE Reviewed Notes: Nurses Notes, Medications, Allergies Allergies: Coded Allergies: Codeine (Verified Allergy, Severe, 02/02/21) Home Meds Active Scripts Sucralfate (Carafate) 1 Gm/10 Ml Loli, 1 GM PO BID for 30 Days, #600 ML 0 Refills Prov:LUIS IGNACIO RESIDENT 03/19/24 Pantoprazole Sodium Sesquihydr (Protonix) 40 Mg Tab, 40 MG PO BID for 30 Days, #60 TAB 0 Refills Prov:LUIS IGNACIO RESIDENT 03/19/24 Amlodipine Besylate (NORVASC TABLET) 5 Mg Tb, 5 MG PO DAILY for 30 Days, #30 TAB Prov:JOEY CHEUNG RESIDENT 03/08/24 Information Source: Patient Mode of Arrival: Ambulatory Severity: Moderate Timing: Weeks Duration: Since onset Prehospital treatment: None Past Medical History PAST MEDICAL HISTORY: Denies Past Medical History (Other): Umbilical Hernia Surgical History: Denies all surgeries Family History Family History: Reviewed,noncontributory to illness, Unknown Social History Smoker: Non-Smoker Alcohol: Denies ETOH Use Drugs: Denies Drug Use Lives In: Homeless Constitutional: reports: fatigue, malaise, weakness; denies: chills, diaphoresis, fever, sweats, others EENTM: denies: blurred vision, double vision, ear bleeding, ear discharge, ear drainage, ear pain, ear ringing, eye pain, eye redness, hearing loss, mouth pain , mouth swelling, nasal discharge, nose bleeding, nose congestion, nose pain, photophobia, tearing, throat pain, throat swelling, voice changes, others Respiratory: reports: cough; denies: hemoptysis, orthopnea, SOB at rest, shortness of breath, SOB with excertion, stridor, wheezing, others Cardiovascular: denies: chest pain, dizzy spells, diaphoresis, Dyspnea on exertion, edema, irregular heart beat, left arm pain, lightheadedness, palpitations, PND, syncope, others Gastrointestinal: reports: vomiting; denies: abdomen distended, abdominal pain, blood streaked bowels, constipated, diarrhea, dysphagia, difficulty swallowing, hematemesis, melena, nausea, poor appetite, poor fluid intake, rectal bleeding, rectal pain, others Genitourinary: denies: burning, dysuria, flank pain, frequency, hematuria, incontinence, penile discharge, penile sore, pain, testicle pain, testicle swelling, urgency, others Neurological: denies: dizziness, fainting, headache, left sided numbness, left sided weakness, numbness, paresthesia, pre-existing deficit, right sided numbness, right sided weakness, seizure, speech problems, tingling, tremors, weakness, others Musculoskeletal: denies: back pain, gout, joint pain, joint swelling, muscle pain, muscle stiffness, neck pain, others Integumetry: denies: bruises, change in color, change in hair/nails, dryness, laceration, lesions, lumps, rash, wounds, others Allergic/Immunocompromised: denies: Difficulty Healing, Frequent Infections, Hives, Itching, others Hematologic/Lymphatic: denies: anemia, blood clots, easy bleeding, easy bruising, swollen glands, others Endocrine: denies: excessive hunger, excessive sweating, excessive thirst, excessive urination, flushing, intolerance to cold, intolerance to heat, unexplained weight gain, unexplained weight loss, others Psychiatric: denies: anxiety, bipolar disorder, depression, hopeless, panic disorder, schizophrenia, sleepless, suicidal, others All Other Systems: Reviewed and Negative Physical Exam General Appearance: Moderate Distress (Patient is in [id number] distress due to his fall and general weakness complaints. Patient appears to be in poor overall health.), Normal HEENT: Normal ENT Inspection, Pharynx Normal, TMs Normal Neck: Full Range of Motion, Non-Tender, Normal, Normal Inspection Respiratory: Chest Non-Tender, No Accessory Muscle Use, No Respiratory Distress, Wheezing (Mild wheeze appreciated right middle and right lower lobe. No accessory muscle use.) Cardiovascular: No Edema, No JVD, No Murmur, No Gallop, Normal Peripheral Pulses, Regular Rate/Rhythm Breast Exam: Deferred Gastrointestinal: No Organomegaly, Non Tender, No Pulsatile Mass, Normal Bowel Sounds, Soft Genitalia: Deferred Pelvic: Deferred Rectal: Deferred Extremities: No calf tenderness, Normal capillary refill, Normal inspection, Normal range of motion, Non-tender, No pedal edema Musculoskeletal : Apperance: Normal Neurologic: Alert, No Motor Deficits, Normal Affect, Normal Mood, No Sensory Deficits Cerebellar Function: Normal Reflexes: Normal Skin: Dry, Normal Color, Warm Lymphatic: No Adenopathy Was a procedure done? Was a procedure done?: No Differential Dx Considerations may include: Sepsis, electrolyte abnormality, pneumonia, viral upper respiratory illness, viral illness, COVID, influenza X-Ray, Labs, Meds, VS Vital Signs Date Time Temp Pulse Resp B/P (MAP) Pulse Ox O2 Delivery O2 Flow Rate FiO2 06/29/24 16:45 98.0 105 20 148/70 (96) 98 98.0 06/29/24 16:45 105 18 96 Room Air* 0 21 06/29/24 16:38 102.1 116 18 143/87 (105) 96 102.1 06/29/24 16:14 111 Lab Test 06/29/24 17:29 06/29/24 17:05 06/29/24 16:39 Range/Units Troponin I High Sensitivity 3 L 3 L </=54 ng/L Influenza Type A Antigen Negative Negative Influenza Type B Antigen Negative Negative SARS-CoV-2 Antigen (Rapid) Positive *A NEGATIVE White Blood Count 3.4 L 4.4-10.8 10^3/uL Red Blood Count 5.01 4.5-5.90 10^6/uL Hemoglobin 14.2 13.5-17.5 g/dL Hematocrit 41.9 41.0-53.0 % Mean Corpuscular Volume 83.5 80.0-100.0 fL Mean Corpuscular Hemoglobin 28.3 28.0-32.0 pg Mean Corpuscular Hemoglobin Concent 33.8 32.0-36.0 g/dL Red Cell Distribution Width 14.3 11.8-14.3 % Platelet Count 249 140-450 10^3/uL Mean Platelet Volume 7.5 6.9-10.8 fL Neutrophils (%) (Auto) 85.8 H 37.0-80.0 % Lymphocytes (%) (Auto) 6.0 L 10.0-50.0 % Monocytes (%) (Auto) 5.9 0.0-12.0 % Eosinophils (%) (Auto) 1.6 0.0-7.0 % Basophils (%) (Auto) 0.7 0.0-2.0 % Neutrophils # (Auto) 2.9 1.6-8.6 10 ^3/uL Lymphocytes # (Auto) 0.2 L 0.4-5.4 10 ^3/uL Monocytes # (Auto) 0.2 0-1.3 10 ^3/uL Eosinophils # (Auto) 0.1 0-0.8 10 ^3/uL Basophils # (Auto) 0 0-0.2 10 ^3/uL Nucleated Red Blood Cells 0.0 % Sodium Level 136 136-145 mmol/L Potassium Level 3.9 3.5-5.1 mmol/L Chloride Level 103 98-107 mmol/L Carbon Dioxide Level 23 20-31 mmol/L Anion Gap 10 5-15 Blood Urea Nitrogen 11 9-23 mg/dL Creatinine 0.88 0.700-1.30 mg/dL Glomerular Filtration Rate Calc 93 >90 mL/min BUN/Creatinine Ratio 12.5 10.0-20.0 Serum Glucose 100 74-106 mg/dL Lactic Acid Level 1.2 0.4-2.0 mmol/L Calcium Level 9.1 8.7-10.4 mg/dL Total Bilirubin 0.8 0.2-1.0 mg/dL Aspartate Amino Transferase (AST) 17 13-40 U/L Alanine Aminotransferase (ALT) 20 7-40 U/L Alkaline Phosphatase 98 46-116 U/L Total Protein 6.8 5.7-8.2 g/dL Albumin 4.2 3.2-4.8 g/dL Lipase 24 12-53 U/L Current Medications Medications (Trade) Dose Ordered Sig/Sarah Route Start Time Stop Time Status Last Admin Acetaminophen (Tylenol Tablet) 1,000 mg ONCE ONCE PO 06/29/24 16:30 06/29/24 16:31 DC 06/29/24 16:53 X-Ray, Labs, Meds, VS Comment All studies performed the ED were evaluated by me personally. Serum laboratories were relatively unremarkable, but swabs studies confirmed a COVID- 19 diagnosis. Chest x-ray was remarkable for some pulmonary vascular congestion which may be related to his COVID diagnosis. This patient is homeless and will not be able to manage himself on the street nor can he secure limiting transmission and therefore, patient will be admitted for management. Time of 1ST Reevaluation: 18:52 Reevaluation 1ST: Improved Consultation: PCP Patient Education/Counseling: Diagnosis, Treatment, Prognosis Family Education/Counseling: Diagnosis, Treatment, No Family Present Departure 1 Departure Time of Disposition: 18:53 Impression: Primary Impression: COVID-19 Disposition: 09 ADMITTED INPATIENT Condition: Fair Discharged With: Self Critical Care Note Critical Care Time?: No Stability Stability form required: No Heart Score Heart Score: Heart Score Response (Comments) Value History Slightly Suspicious 0 EKG Repolarization Disturb 1 Age >65 2 Risk Factors 1 or 2 risk factors 1 Troponin Normal limit 0 Total 4 I personally scribed for NEHEMIAS MARADIAGA PAC ([email or web address]) on 06/29/24 at 16:55. Electronically submitted by Joni Cristina ([email or web address]). NEHEMIAS MARADIAGA PAC June 29, 2024 16:55
--- NOTE | 2024-06-29 17:02 | DVH ---
CHEST RADIOGRAPH Indication: Cough Technique: Single frontal view of the chest was obtained COMPARISON: XY CHEST PORTABLE on DOS: 06/08/24, XY CHEST XRAY 1 VIEW on DOS: 03/03/24, CHEST PORTABLE o n DOS: 06/19/19, CHEST PORTABLE on DOS: 04/01/19 FINDINGS: Lines and Tubes: None Lungs: Increased interstitial prominence Pleura: No effusion. No pneumothorax. Cardiomediastinal contours: Unremarkable Bones: Unremarkable IMPRESSION: Pulmonary vascular congestion or viral pneumonias
[2024-06-29 17:05] LABS: Albumin 4.2 g/dL (3.2-4.8); Alkaline Phosphatase 98 U/L (46-116); Anion Gap 10 (5-15); BUN/Creatinine Ratio 12.5 (10.0-20.0); Blood Urea Nitrogen 11 mg/dL (9-23); Calcium 9.1 mg/dL (8.7-10.4); Carbon Dioxide 23 mmol/L (20-31); Chloride 103 mmol/L (98-107); Glucose 100 mg/dL (74-106); Lipase 24 U/L (12-53); Potassium 3.9 mmol/L (3.5-5.1); Sodium 136 mmol/L (136-145); Total Protein 6.8 g/dL (5.7-8.2)
[2024-06-29 17:06] LABS: Bilirubin, Total 0.8 mg/dL (0.2-1.0)
--- NOTE | 2024-06-29 17:18 | DVH ---
EXAM: CT HEAD WITHOUT CONTRAST INDICATION: Falling events TECHNIQUE: CT of the head without intravenous contrast. Radiation Dose : 1. Head: CT Dose: CTDI volume is 53.89 mGy. Dose-length product is 971.88 mGy*cm The dose indicators for CT are the volume Computed Tomography (CT) Dose Index (CTDIvol) and the Dose Length Product (DLP), and are measured in units of mGy and mGy-cm, respectively. These indicators are not patient dose, but values generated from the CT scanner acquisition factors. The report includes radiation exposure data for exposures received during this examination. COMPARISON: HEAD WITHOUT CONTRAST on DOS: 02/02/21 FINDINGS: There is no evidence of acute intracranial hemorrhage, extra-axial collection, mass effect, midline s hift, herniation or hydrocephalus. Right cerebellar encephalomalacia. The ventricles, sulci and cisterns are age appropriate. The delacruz-white differentiation is intact. Patchy periventricular and subcortical white matter hypoattenuation is nonspecific but may be related to small vessel ischemic disease. The visualized paranasal sinuses and mastoid air cells are clear. The surrounding soft tissues and osseous structures are unremarkable. IMPRESSION: No acute intracranial abnormality. Radiation optimization: All CT scans at this facility use at least one of these dose optimization lyndsay hniques: automated exposure control mA and/or kV adjustment per patient size (includes targeted exam s where dose is matched to clinical indication) or iterative reconstruction.
[2024-06-29 17:19] LABS: Alanine Aminotransferase 20 U/L (7-40); Aspartate Aminotransferase 17 U/L (13-40)
[2024-06-29 18:09] LABS: Rapid Influenza A Negative (Negative); Rapid Influenza B Negative (Negative)
[2024-06-29 18:12] LABS: COVID19 ANTIGEN SOFIA FIA POSITIVE (NEGATIVE)
[2024-06-29] MEDS ORDERED: SODIUM CHLORIDE 0.9% 1,000 ML IV ONE (19:00)
[2024-06-29 19:30] VITALS: PULSE 86; RESP 15; O2SAT 94
[2024-06-29] MEDS ORDERED: ACETAMINOPHEN 500 MG TAB or CAP PO PRN (20:15)
[2024-06-29] MEDS ORDERED: NITROGLYCERIN 0.4 MG SL TAB SL PRN (20:15)
[2024-06-29] MEDS ORDERED: MORPHINE SULFATE INJ 2 MG/ml SYRG IV PRN (20:15)
[2024-06-29] MEDS ORDERED: ONDANSETRON HCL 4 MG/2 ML VIAL IV PRN (20:15)
[2024-06-29] MEDS ORDERED: DOCUSATE SOD 100 MG CAP PO PRN (20:15)
[2024-06-29] MEDS: SODIUM CHLORIDE 0.9% 1,000 ML IV SCH (20:45)
--- NOTE | 2024-06-29 20:45 | DVHHP2 ---
History of Present Illness Reason for Visit: weakness History of Present Illness 69-year-old male with no known past medical history and a remote history of hernia surgery who presents from the street reporting progressive bilateral leg pain, generalized weakness, and recurrent falls over the past few weeks. He is unhoused and states that his worsening lower extremity pain has made it increasingly difficult for him to ambulate. He also reports chills but denies any chest pain or shortness of breath. On ED evaluation, he was found to be febrile and tachycardic, prompting infectious workup. COVID-19 testing was positive. Tylenol was administered with symptomatic improvement. CT scan of the brain was unremarkable. Chest X-ray showed perihilar congestion, possibly viral in origin. Labs showed leukopenia (WBC 3.4) and otherwise unremarkable CMP and troponins. will admit for further workup and covid treatment, pt is poor historian not able to get more information Past Medical History see hpi above Past Surgical History see hpi above Family History Reviewed, non-contributory to the management of this case. Past Social History The patient lives at home, denies smoking, alcohol or illicit drugs abuse. Review of Systems Constitutional: Yes: Fever, Weakness, Malaise; No: Chills, Sweats, Other Eyes: No: Pain, Vision change, Conjunctivae inflammation, Eyelid inflammation, Other, Redness ENT: No: Ear pain, Ear discharge, Nose pain, Nose discharge, Nose congestion, Mouth pain, Mouth swelling, Throat pain, Throat swelling, Other Respiratory: No: Cough, Dry, Shortness of breath, SOB with excertion, Wheezing, Hemoptysis, Pleuritic Pain, Sputum, Wheezing, Other Cardiovascular: No: Chest Pain, Palpitations, Orthopnea, Paroxysmal Noc. Dyspnea, Edema, Lt Headedness, Other Gastrointestinal: No: Nausea, Vomiting, Abdominal Pain, Diarrhea, Constipation, Melena, Hematochezia, Other Genitourinary: No Dysuria, No Frequency, No Incontinence, No Hematuria, No Retention, No Other Musculoskeletal: No: other, neck pain, shoulder pain, arm pain, back pain, hand pain, leg pain, foot pain Skin: No: Rash, Lesions, Jaundice, Bruising, Other Neurological: Weakness, Other (Falls); No: Numbness, Incoordination, Change in speech, Confusion, Seizures Allergies: Coded Allergies: Codeine (Verified Allergy, Severe, 12/14/21) Exam Vital Signs Vital Signs Date Time Temp Pulse Resp B/P (MAP) Pulse Ox O2 Delivery O2 Flow Rate FiO2 06/29/24 19:30 86 15 94 Room Air* 0 21 06/29/24 19:30 99.7 107/63 (78) 99.7 General Appearance: Alert, Oriented X3, Cooperative, No acute distress, Other (un kept in appearance) HEENT: Atraumatic, PERRLA, Mucous membr. moist/pink Respiratory: Clear to auscultation Cardiovascular: Regular rate, Normal S1, Normal S2, No murmurs Abdominal: Normal bowel sounds, Soft, No tenderness, No hepatospenomegaly, No masses Extremities: No clubbing, No cyanosis, No edema, Normal pulses, No tenderness/swelling Skin: No rashes, No breakdown, No significant lesion Neuro: Other (Neuro nonfocal) Psych/Mental Status: Mental status NL, Mood NL Labs/Xrays CT scan of the brain unremarkable Chest x-ray shows vascular congestion versus viral illness I reviewed labs, imaging CT scan abdomen pelvis, EKG and all diagnostic studies on this patient from ED records and the medical chart Labs Test 06/29/24 17:29 06/29/24 17:05 06/29/24 16:39 Range/Units Troponin I High Sensitivity 3 L </=54 ng/L Influenza Type A Antigen Negative Negative Influenza Type B Antigen Negative Negative SARS-CoV-2 Antigen (Rapid) Positive *A NEGATIVE White Blood Count 3.4 L 4.4-10.8 10^3/uL Red Blood Count 5.01 4.5-5.90 10^6/uL Hemoglobin 14.2 13.5-17.5 g/dL Hematocrit 41.9 41.0-53.0 % Mean Corpuscular Volume 83.5 80.0-100.0 fL Mean Corpuscular Hemoglobin 28.3 28.0-32.0 pg Mean Corpuscular Hemoglobin Concent 33.8 32.0-36.0 g/dL Red Cell Distribution Width 14.3 11.8-14.3 % Platelet Count 249 140-450 10^3/uL Mean Platelet Volume 7.5 6.9-10.8 fL Neutrophils (%) (Auto) 85.8 H 37.0-80.0 % Lymphocytes (%) (Auto) 6.0 L 10.0-50.0 % Monocytes (%) (Auto) 5.9 0.0-12.0 % Eosinophils (%) (Auto) 1.6 0.0-7.0 % Basophils (%) (Auto) 0.7 0.0-2.0 % Neutrophils # (Auto) 2.9 1.6-8.6 10 ^3/uL Lymphocytes # (Auto) 0.2 L 0.4-5.4 10 ^3/uL Monocytes # (Auto) 0.2 0-1.3 10 ^3/uL Eosinophils # (Auto) 0.1 0-0.8 10 ^3/uL Basophils # (Auto) 0 0-0.2 10 ^3/uL Nucleated Red Blood Cells 0.0 % Sodium Level 136 136-145 mmol/L Potassium Level 3.9 3.5-5.1 mmol/L Chloride Level 103 98-107 mmol/L Carbon Dioxide Level 23 20-31 mmol/L Anion Gap 10 5-15 Blood Urea Nitrogen 11 9-23 mg/dL Creatinine 0.88 0.700-1.30 mg/dL Glomerular Filtration Rate Calc 93 >90 mL/min BUN/Creatinine Ratio 12.5 10.0-20.0 Serum Glucose 100 74-106 mg/dL Lactic Acid Level 1.2 0.4-2.0 mmol/L Calcium Level 9.1 8.7-10.4 mg/dL Total Bilirubin 0.8 0.2-1.0 mg/dL Aspartate Amino Transferase (AST) 17 13-40 U/L Alanine Aminotransferase (ALT) 20 7-40 U/L Alkaline Phosphatase 98 46-116 U/L Total Protein 6.8 5.7-8.2 g/dL Albumin 4.2 3.2-4.8 g/dL Lipase 24 12-53 U/L Assessment/Plan Assessment/Plan 69 yr old male Symptomatic COVID-19 illness in an unhoused patient with generalized weakness, fall risk, and functional decline admitted for medical optimization and discharge planning. ASSESSMENT & PLAN Acute COVID-19 viral illness symptomatic Positive COVID-19 test in ED with fever, chills, weakness Chest X-ray: perihilar congestion without focal infiltrate Leukopenia (WBC 3.4) Plan: Supportive care: Tylenol for fever, monitor respiratory status Monitor oxygen saturation; no oxygen required at this time COVID isolation precautions Consider remdesivir if hypoxia develops Generalized weakness with recurrent falls Functional decline over weeks, unable to ambulate Concerning for deconditioning vs viral myositis vs neuropathy Plan: Physical therapy and occupational therapy evaluation Fall precautions Monitor for further neurological signs ordered CK, TSH can order b 12 if weakness persists Homelessness unsafe discharge environment Unhoused with no access to care or safe recovery setting Plan: Social work consult for placement, recuperative care, or SNF FEN / PPx: Fluids: IV hydration with normal saline Electrolytes: Monitor BMP; replete K+ and Mg++ PRN Nutrition: Regular diet as tolerated; ensure adequate caloric intake DVT Prophylaxis: SCDs while afebrile and ambulatory;heparin GI Prophylaxis: Pantoprazole 40 mg iv daily DISPOSITION: Admit to Med-Surg floor for supportive care and discharge planning. Patient is medically appropriate for inpatient admission based on symptomatic COVID-19 illness with functional decline, inability to ambulate safely, and housing insecurity. Social work to assist with placement or longterm coordination. Plan discussed with: Patient Date of Service: June 29, 2024 Billing Provider: MORENO SINGH DNP Common Visit Codes: [id number] INP/OBS CARE (HIGH) MORENO SINGH DNP June 29, 2024 20:45
[2024-06-29 21:07] LABS: Thyroid Stimulating Hormone 0.41 uIU/mL (0.55-4.78)
[2024-06-29] MEDS: DOXYCYCLINE 100MG/100ML 100 ML IV ONE (21:13)
[2024-06-29 21:27] LABS: Basophils # (auto) 0 10 ^3/uL (0-0.2); Basophils % (auto) 0.6 % (0.0-2.0); Eosinophils # (auto) 0 10 ^3/uL (0-0.8); Eosinophils % (auto) 1.2 % (0.0-7.0); Hematocrit 40.3 % (41.0-53.0); Hemoglobin 13.5 g/dL (13.5-17.5); Lymphocytes # (auto) 0.3 10 ^3/uL (0.4-5.4); Lymphocytes % (auto) 7.3 % (10.0-50.0); Mean Corpuscular Hemoglobin 28.2 pg (28.0-32.0); Mean Corpuscular Hgb Conc. 33.4 g/dL (32.0-36.0); Mean Corpuscular Volume 84.3 fL (80.0-100.0); Monocytes # (auto) 0.5 10 ^3/uL (0-1.3); Monocytes % (auto) 13.2 % (0.0-12.0); Neutrophils # (auto) 2.8 10 ^3/uL (1.6-8.6); Neutrophils % (auto) 77.7 % (37.0-80.0); Nucleated Red Blood Cells % 0.2 %; Platelet Count (auto) 223 10^3/uL (140-450); Red Blood Cells 4.78 10^6/uL (4.5-5.90); Red Cell Distribution Width 14.4 % (11.8-14.3); White Blood Cell 3.6 10^3/uL (4.4-10.8)
[2024-06-29 21:40] LABS: Alanine Aminotransferase 18 U/L (7-40); Alkaline Phosphatase 90 U/L (46-116); Anion Gap 8 (5-15); Aspartate Aminotransferase 16 U/L (13-40); BUN/Creatinine Ratio 10.4 (10.0-20.0); Bilirubin, Total 0.7 mg/dL (0.2-1.0); Blood Urea Nitrogen 11 mg/dL (9-23); CRP High Sensitivity 0.13 mg/dL (<1.0); Calcium 9.6 mg/dL (8.7-10.4); Carbon Dioxide 24 mmol/L (20-31); Chloride 106 mmol/L (98-107); Magnesium 1.8 mg/dL (1.6-2.6); Potassium 3.9 mmol/L (3.5-5.1); Sodium 138 mmol/L (136-145); Total Protein 6.6 g/dL (5.7-8.2)
[2024-06-29 21:42] LABS: Glucose 107 mg/dL (74-106)
[2024-06-29 21:49] LABS: Urine Bacteria FEW /hpf (None Seen); Urine Blood Negative /uL (Negative); Urine Clarity Clear (Clear); Urine Color Light-Yellow (Yellow); Urine Protein, UAD Negative (Negative); Urine Squamous Epithelial Cell FEW /hpf (<5); Urine Urobilinogen Normal (Negative); Urine WBC < 1 /HPF (0-3)
[2024-06-29 22:00] LABS: Cannabinoid Screen, Urine Neg (NEGATIVE)
[2024-06-29 22:09] LABS: Amphetamine Screen, Urine Pos (NEGATIVE); Barbiturate Scree,Urine Neg (NEGATIVE); Benzodiazephine Screen, Urine Neg (NEGATIVE); Cocaine Screen, Urine Neg (NEGATIVE); Opiate Scree,Urine Neg (NEGATIVE); Phencyclidine Screen, Urine Neg (NEGATIVE)
[2024-06-29 22:47] VITALS: BP 152/83; PULSE 67; PULSE 81; RESP 16; RESP 17; RESP 18; TEMP 97.9; TEMP 98.3; O2SAT 97
[2024-06-29 23:16] VITALS: BP 116/67; PULSE 81; RESP 14; TEMP 99.6; O2SAT 97
[2024-06-30] VITALS (11 sets, daily range): BP systolic 125–151; BP diastolic 68–89; PULSE 58–83; RESP 16–20; TEMP 96.4–102; O2SAT 94–98
[2024-06-30 06:46] LABS: Basophils # (auto) 0 10 ^3/uL (0-0.2); Basophils % (auto) 0.5 % (0.0-2.0); Eosinophils # (auto) 0 10 ^3/uL (0-0.8); Eosinophils % (auto) 0.6 % (0.0-7.0); Hematocrit 38.3 % (41.0-53.0); Hemoglobin 12.9 g/dL (13.5-17.5); Lymphocytes # (auto) 0.4 10 ^3/uL (0.4-5.4); Lymphocytes % (auto) 16.2 % (10.0-50.0); Mean Corpuscular Hemoglobin 28.2 pg (28.0-32.0); Mean Corpuscular Hgb Conc. 33.7 g/dL (32.0-36.0); Mean Corpuscular Volume 83.7 fL (80.0-100.0); Monocytes # (auto) 0.5 10 ^3/uL (0-1.3); Monocytes % (auto) 16.8 % (0.0-12.0); Neutrophils # (auto) 1.8 10 ^3/uL (1.6-8.6); Neutrophils % (auto) 65.9 % (37.0-80.0); Nucleated Red Blood Cells % 0.2 %; Platelet Count (auto) 215 10^3/uL (140-450); Red Blood Cells 4.57 10^6/uL (4.5-5.90); Red Cell Distribution Width 14.7 % (11.8-14.3); White Blood Cell 2.8 10^3/uL (4.4-10.8)
[2024-06-30 07:02] LABS: Alanine Aminotransferase 17 U/L (7-40); Albumin 3.9 g/dL (3.2-4.8); Alkaline Phosphatase 82 U/L (46-116); Anion Gap 8 (5-15); Aspartate Aminotransferase 18 U/L (13-40); BUN/Creatinine Ratio 14.1 (10.0-20.0); Bilirubin, Total 0.5 mg/dL (0.2-1.0); Blood Urea Nitrogen 14 mg/dL (9-23); Carbon Dioxide 26 mmol/L (20-31); Chloride 103 mmol/L (98-107); Potassium 3.9 mmol/L (3.5-5.1); Sodium 137 mmol/L (136-145); Total Protein 6.3 g/dL (5.7-8.2)
[2024-06-30 07:04] LABS: Glucose 111 mg/dL (74-106)
[2024-06-30] MEDS: BUDESONIDE (INHALATION) 180 MCG IH IN SCH (09:02)
[2024-06-30] MEDS: ALBUTEROL SULF HFA 90MCG INH 200DOSE IN PRN (09:02)
[2024-06-30] MEDS: ZINC SULFATE 220mg CAP or TAB PO SCH (10:03)
[2024-06-30] MEDS: DOXYCYCLINE 100MG/100ML 100 ML IV SCH (10:04)
[2024-06-30] MEDS: DexAMETHasone SOD PHOS 10MG/1ML VIAL INJ IV SCH (10:04)
[2024-06-30] MEDS: ENOXAPARIN SOD 40 MG/0.4 ML SYRINGE SC SCH (10:05)
[2024-06-30] MEDS ORDERED: ZINC SULFATE 220mg CAP or TAB PO ONE (12:15)
--- NOTE | 2024-06-30 12:20 | DVHPN2 ---
Reviewed: Care Plan, H&P, Labs, Medications, Previous Orders, Radiology Changes from previous H/P or p: No Changes Eyes: No Pain, No Vision change, No Conjunctivae inflammation, No Eyelid inflammation, No Other, No Redness ENT: No Ear pain, No Ear discharge, No Nose pain, No Nose discharge, No Nose congestion, No Mouth pain, No Mouth swelling, No Throat pain, No Throat swelling, No Other Cardiovascular: No Chest Pain, No Palpitations, No Orthopnea, No Paroxysmal Noc. Dyspnea, No Edema, No Lt Headedness, No Other Respiratory: No Cough, No Dry, No Shortness of breath, No SOB with excertion, No Wheezing, No Hemoptysis, No Pleuritic Pain, No Sputum, No Other Gastrointestinal: No Nausea, No Vomiting, No Abdominal Pain, No Diarrhea, No Constipation, No Melena, No Hematochezia, No Other Genitourinary: No Dysuria, No Frequency, No Incontinence, No Hematuria, No Retention, No Other Musculoskeletal: No other, No neck pain, No shoulder pain, No arm pain, No back pain, No hand pain, No leg pain, No foot pain Skin: No Rash, No Lesions, No Jaundice, No Bruising, No Other Objective Vitals Vital Signs Date Time Temp Pulse Resp B/P (MAP) Pulse Ox O2 Delivery O2 Flow Rate FiO2 06/30/24 09:00 98.1 70 17 125/89 (101) 96 98.1 06/29/24 22:47 Room Air* 0 21 Intake/Output Intake and Output 06/30/24 07:00 Intake Total 1196 ml Balance 1196 ml Intake Oral 236 ml IV Total 960 ml # Voids 5 Medications Current Medications Medications Dose Ordered Sig/Sarah Route Start Time Stop Time Status Last Admin Dose Admin Sodium Chloride 1,000 ml @ 120 mls/hr Q8H20M IV 06/29/24 20:15 06/30/24 04:35 120 MLS/HR Ondansetron HCl 4 mg Q4HP PRN IV 06/29/24 20:15 Docusate Sodium 100 mg BIDPRN PRN PO 06/29/24 20:15 Morphine Sulfate 2 mg Q4HPRN PRN IV 06/29/24 20:15 Nitroglycerin 0.4 mg Q5MINP PRN SL 06/29/24 20:15 Acetaminophen 1,000 mg Q8HP PRN PO 06/29/24 20:15 Zinc Sulfate 220 mg DAILY PO 06/30/24 10:00 06/30/24 10:03 220 MG Albuterol 180 mcg TIDPRN PRN IN 06/29/24 20:15 06/30/24 09:02 180 MCG Budesonide 360 mcg BID IN 06/29/24 22:00 Dexamethasone Sodium Phosphate 6 mg DAILY IV 06/30/24 10:00 07/10/24 09:59 06/30/24 10:04 6 MG Enoxaparin Sodium 40 mg DAILY SC 06/30/24 10:00 06/30/24 10:05 40 MG Doxycycline Hyclate 100 ml @ 50 mls/hr Q12H IV 06/30/24 09:00 06/30/24 10:04 50 MLS/HR Ascorbic Acid 500 mg BID PO 06/30/24 22:00 UNV Zinc Sulfate 220 mg DAILY PO 07/01/24 10:00 UNV Cholecalciferol 4,000 unit DAILY PO 07/01/24 10:00 UNV Laboratory Results Laboratory Tests 06/30/24 06:10 Chemistry Test 06/29/24 16:39 06/29/24 20:51 06/30/24 06:10 Albumin 4.2 g/dL (3.2-4.8) 4.0 g/dL (3.2-4.8) 3.9 g/dL (3.2-4.8) Calcium Level 9.1 mg/dL (8.7-10.4) 9.6 mg/dL (8.7-10.4) 9.0 mg/dL (8.7-10.4) Total Protein 6.8 g/dL (5.7-8.2) 6.6 g/dL (5.7-8.2) 6.3 g/dL (5.7-8.2) Magnesium Level 1.8 mg/dL (1.6-2.6) Coagulation Test 06/29/24 16:39 D-Dimer, Quantitative 2.27 mg/L FEU (0.0-0.49) H Lipid panel Test 06/29/24 16:39 Lipase 24 U/L (12-53) LFT Test 06/29/24 16:39 06/29/24 20:51 06/30/24 06:10 Alanine Aminotransferase (ALT) 20 U/L (7-40) 18 U/L (7-40) 17 U/L (7-40) Alkaline Phosphatase 98 U/L (46-116) 90 U/L (46-116) 82 U/L (46-116) Aspartate Amino Transferase (AST) 17 U/L (13-40) 16 U/L (13-40) 18 U/L (13-40) Total Bilirubin 0.8 mg/dL (0.2-1.0) 0.7 mg/dL (0.2-1.0) 0.5 mg/dL (0.2-1.0) HgA1c, TSH Test 06/29/24 16:39 06/29/24 17:29 Hemoglobin A1c 5.3 % A1C (<5.7) Thyroid Stimulating Hormone (TSH) 0.41 uIU/mL (0.55-4.78) L Urinalysis Test 06/29/24 21:30 Urine Color Light-yellow (Yellow) Urine Clarity Clear (Clear) Urine pH 6.0 (5.0-9.0) Urine Specific [place] 1.010 (1.001-1.035) Urine Protein Negative (Negative) Urine Ketones Negative (Negative) Urine Blood Negative /uL (Negative) Urine Nitrite Negative (Negative) Urine Bilirubin Negative (Negative) Urine Urobilinogen Normal mg/dL (Negative) Urine Leukocyte Esterase Negative /uL (Negative) Urine RBC <1 /hpf (0 - 3) Urine Microscopic WBC < 1 /HPF (0-3) Urine Squamous Epithelial Cells Few /hpf (<5) Urine Bacteria Few /hpf (None Seen) H Urine Glucose Normal mg/dL (Normal) Labs and/or images reviewed: Labs reviewed by me, Image(s) reviewed by me Assessment/Plan Assessment/Plan COVID Positive pneumonia: Doxycycline albuterol med nebs, Pulmicort med neb, Decadron, vitamin-C, zinc, vitamin D3 Acute generalized weakness Severe malnutrition: Boost Cachexia Homeless Recurrent falls: CT head neg Amphetamine abuse : Counseled Social service consult Elevated D-dimer 2.[address] chest angiogram Time spent 65 minutes Advanced care planning time 20 minutes Patient is full code Plan discussed with: Patient My Orders Orders - BARB AUSTIN MD Procedure Category Date Status Time Head Without Contrast CT 06/30/24 Logged 11:34 Ascorbic Acid Tablet PHA 06/30/24 Logged (Vitamin C Tablet) 22:00 Zinc Sulfate PHA 06/30/24 Logged 12:15 Zinc Sulfate PHA 07/01/24 Logged 10:00 Cholecalciferol PHA 06/30/24 Logged Tablet (Vitamin D3 12:15 Cholecalciferol PHA 07/01/24 Logged Tablet (Vitamin D3 10:00 Date of Service: June 30, 2024 Billing Provider: BARB AUSTIN MD Common Visit Codes: [id number] CARE 30-74 MIN BARB AUSTIN MD June 30, 2024 12:20
[2024-06-30] MEDS: CHOLECALCIFEROL (VITD3) 1,000UNIT=25mCg TAB PO ONE (13:30)
[2024-06-30] MEDS ORDERED: IOHEXOL 350 MG/ML 100ML IJ ONE (13:57)
--- NOTE | 2024-06-30 14:27 | DVH ---
Bilateral lower extremity venous duplex Clinical History: Rule out DVT , edema Comparison: None Findings: Duplex Doppler evaluation of the deep venous systems of both lower extremities from the common femora l veins to the popliteal veins including color Doppler and spectral/pulsed waveform analysis was perf ormed. RIGHT SIDE: The common femoral vein demonstrates appropriate compressibility and waveform variability. GSV not seen The femoral vein demonstrates appropriate compressibility and waveform variability. The deep femoral vein demonstrates appropriate compressibility and waveform variability. The popliteal vein demonstrates appropriate compressibility and waveform variability. There is normal compressibility at the tibioperoneal trunk. LEFT SIDE: The common femoral vein demonstrates appropriate compressibility and waveform variability. There is compressibility/patency of the great saphenous vein at the proximal thigh. The femoral vein demonstrates appropriate compressibility and waveform variability. The deep femoral vein demonstrates appropriate compressibility and waveform variability. The popliteal vein demonstrates appropriate compressibility and waveform variability. There is normal compressibility at the tibioperoneal trunk. IMPRESSION: No right or left femoropopliteal venous thrombosis. If clinical concern/symptoms persist or worsen, short-interval follow-up study is suggested. END IMPRESSION:
--- NOTE | 2024-06-30 14:33 | DVH ---
EXAM: CT HEAD WITHOUT CONTRAST INDICATION: patient fall, hit head TECHNIQUE: CT of the head without intravenous contrast. Radiation Dose Information: CT Dose: CTDI volume is 60.15 mGy. Dose-length product is 1084.44 mGy*cm The dose indicators for CT are the volume Computed Tomography (CT) Dose Index (CTDIvol) and the Dose Length Product (DLP), and are measured in units of mGy and mGy-cm, respectively. These indicators are not patient dose, but values generated from the CT scanner acquisition factors. The report includes radiation exposure data for exposures received during this examination. COMPARISON: CT HEAD WITHOUT CONTRAST on DOS: 06/29/24, HEAD WITHOUT CONTRAST on DOS: 02/02/21 FINDINGS: There is no evidence of acute intracranial hemorrhage, extra-axial collection, mass effect, midline s hift, herniation or hydrocephalus. The ventricles, sulci and cisterns are age appropriate. The delacruz-white differentiation is intact. Patchy periventricular and subcortical white matter hypoattenuation is nonspecific but may be related to small vessel ischemic disease. The visualized paranasal sinuses and mastoid air cells are clear. The surrounding soft tissues and osseous structures are unremarkable. IMPRESSION: No acute intracranial abnormality.
--- NOTE | 2024-06-30 14:35 | DVH ---
Procedure: CT CT ANGIO CHEST CONTRAST Reason for study/Clinical History: Rule out pulmonary embolism Comparison Study: None Exam Date: 06/30/2024 01:58 PM Radiation Dose Information: CT Dose: CTDI volume is 8.88 mGy. Dose-length product is 421.04 mGy*cm C TECHNIQUE: After the uneventful administration of intravenous contrast intravenously, CT imaging was performed through the chest. Coronal and sagittal reformations were performed by the technologist. FINDINGS: Lower Neck: Visualized portions of the thyroid gland are unremarkable. Aorta and Vasculature: Normal caliber of thoracic aorta. Lymph Nodes: No enlarged intrathoracic lymph nodes. Mediastinum: Heart size is normal. There is no pericardial effusion. The esophagus is unremarkable. Lungs: No focal consolidation, pleural effusion or significant pneumothorax. No suspicious pulmonary nodule or mass. Musculoskeletal: No acute osseous abnormality. Upper abdomen: Limited portions of the upper abdomen are unremarkable. IMPRESSION: No evidence of acute intrathoracic abnormality identified. All CT scans at this medical facility are performed using dose modulation techniques as appropriate t o a performed exam including the following: Automated exposure control was utilized; adjustment of th e MA and/or KV according to patient size; and use of iterative reconstruction technique.
[2024-06-30] MEDS: ASCORBIC ACID 500 MG TAB PO SCH (20:49)
[2024-07-01] VITALS (9 sets, daily range): BP systolic 127–152; BP diastolic 77–85; PULSE 52–94; RESP 15–18; TEMP 97.8–98.7; O2SAT 94–100
--- NOTE | 2024-07-01 08:44 | DVHPN2 ---
Reviewed: Care Plan, H&P, Labs, Medications, Previous Orders, Radiology Changes from previous H/P or p: No Changes Eyes: No Pain, No Vision change, No Conjunctivae inflammation, No Eyelid inflammation, No Other, No Redness ENT: No Ear pain, No Ear discharge, No Nose pain, No Nose discharge, No Nose congestion, No Mouth pain, No Mouth swelling, No Throat pain, No Throat swelling, No Other Cardiovascular: No Chest Pain, No Palpitations, No Orthopnea, No Paroxysmal Noc. Dyspnea, No Edema, No Lt Headedness, No Other Respiratory: No Cough, No Dry, No Shortness of breath, No SOB with excertion, No Wheezing, No Hemoptysis, No Pleuritic Pain, No Sputum, No Other Gastrointestinal: No Nausea, No Vomiting, No Abdominal Pain, No Diarrhea, No Constipation, No Melena, No Hematochezia, No Other Genitourinary: No Dysuria, No Frequency, No Incontinence, No Hematuria, No Retention, No Other Musculoskeletal: No other, No neck pain, No shoulder pain, No arm pain, No back pain, No hand pain, No leg pain, No foot pain Skin: No Rash, No Lesions, No Jaundice, No Bruising, No Other Objective Vitals Vital Signs Date Time Temp Pulse Resp B/P (MAP) Pulse Ox O2 Delivery O2 Flow Rate FiO2 07/01/24 08:05 Room Air* 0 21 07/01/24 05:00 98.0 52 18 146/85 (105) 97 98.0 Intake/Output Intake and Output 07/01/24 07:00 Intake Total 1980 ml Output Total 300 ml Balance 1680 ml Intake Oral 1020 ml IV Total 960 ml Output Urine Total 300 ml # Voids 4 Medications Current Medications Medications Dose Ordered Sig/Sarah Route Start Time Stop Time Status Last Admin Dose Admin Sodium Chloride 1,000 ml @ 120 mls/hr Q8H20M IV 06/29/24 20:15 07/01/24 05:31 120 MLS/HR Ondansetron HCl 4 mg Q4HP PRN IV 06/29/24 20:15 Docusate Sodium 100 mg BIDPRN PRN PO 06/29/24 20:15 Morphine Sulfate 2 mg Q4HPRN PRN IV 06/29/24 20:15 Nitroglycerin 0.4 mg Q5MINP PRN SL 06/29/24 20:15 Acetaminophen 1,000 mg Q8HP PRN PO 06/29/24 20:15 Albuterol 180 mcg TIDPRN PRN IN 06/29/24 20:15 06/30/24 19:38 180 MCG Budesonide 360 mcg BID IN 06/29/24 22:00 06/30/24 19:38 360 MCG Dexamethasone Sodium Phosphate 6 mg DAILY IV 06/30/24 10:00 07/10/24 09:59 06/30/24 10:04 6 MG Enoxaparin Sodium 40 mg DAILY SC 06/30/24 10:00 06/30/24 10:05 40 MG Doxycycline Hyclate 100 ml @ 50 mls/hr Q12H IV 06/30/24 09:00 06/30/24 20:49 50 MLS/HR Ascorbic Acid 500 mg BID PO 06/30/24 22:00 06/30/24 20:49 500 MG Zinc Sulfate 220 mg DAILY PO 07/01/24 10:00 Cholecalciferol 4,000 unit DAILY PO 07/01/24 10:00 Laboratory Results Laboratory Tests 06/30/24 06:10 Urinalysis Test 06/29/24 21:30 Urine Color Light-yellow (Yellow) Urine Clarity Clear (Clear) Urine pH 6.0 (5.0-9.0) Urine Specific [place] 1.010 (1.001-1.035) Urine Protein Negative (Negative) Urine Ketones Negative (Negative) Urine Blood Negative /uL (Negative) Urine Nitrite Negative (Negative) Urine Bilirubin Negative (Negative) Urine Urobilinogen Normal mg/dL (Negative) Urine Leukocyte Esterase Negative /uL (Negative) Urine RBC <1 /hpf (0 - 3) Urine Microscopic WBC < 1 /HPF (0-3) Urine Squamous Epithelial Cells Few /hpf (<5) Urine Bacteria Few /hpf (None Seen) H Urine Glucose Normal mg/dL (Normal) Labs and/or images reviewed: Labs reviewed by me, Image(s) reviewed by me Assessment/Plan Assessment/Plan COVID Positive pneumonia: Doxycycline albuterol med nebs, Pulmicort med neb, Decadron, vitamin-C, zinc, vitamin D3 Acute generalized weakness Recurrent falls Gait instability Severe malnutrition: Boost Cachexia Homeless Recurrent falls: CT head neg Amphetamine abuse : Counseled Social service consult Elevated D-dimer 2.[address] chest angiogram Time spent 45 minutes Advanced care planning time 20 minutes Patient is full code Plan discussed with: Patient My Orders Orders - BARB AUSTIN MD Procedure Category Date Status Time Head Without Contrast CT 06/30/24 Resulted 11:34 Ascorbic Acid Tablet PHA 06/30/24 In Process (Vitamin C Tablet) 22:00 Zinc Sulfate PHA 07/01/24 In Process 10:00 Cholecalciferol PHA 07/01/24 In Process Tablet (Vitamin D3 10:00 Bilat Lower Dvt US 06/30/24 Resulted 12:[address] 06/30/24 Resulted Contrast 12:21 Date of Service: July 01, 2024 Billing Provider: BARB AUSTIN MD Common Visit Codes: [id number] INP/OBS CARE(HIGH) BARB AUSTIN MD July 01, 2024 08:44
[2024-07-01] MEDS: ZINC SULFATE 220mg CAP or TAB PO SCH (09:03)
[2024-07-01] MEDS: CHOLECALCIFEROL (VITD3) 1,000UNIT=25mCg TAB PO SCH (09:04)
[2024-07-01 12:23] LABS: Hepatitis B Surface Antigen Negative (Negative)
[2024-07-01 12:27] LABS: Hepatitis C Antibody Positive (Negative)
[2024-07-01] MEDS: FOLIC ACID 1 MG, MULTIPLE VITAMIN 10 ML, MAGNESIUM SULF SDV 50% 8 MEQ, THIAMINE INJ 100... INJ SCH (18:44)
[2024-07-02] VITALS (10 sets, daily range): BP systolic 120–164; BP diastolic 77–93; PULSE 45–71; RESP 16–17; TEMP 97.8–98.4; O2SAT 94–98
--- NOTE | 2024-07-02 09:17 | DVHPN2 ---
Reviewed: Care Plan, H&P, Labs, Medications, Previous Orders, Radiology Changes from previous H/P or p: No Changes Eyes: No Pain, No Vision change, No Conjunctivae inflammation, No Eyelid inflammation, No Other, No Redness ENT: No Ear pain, No Ear discharge, No Nose pain, No Nose discharge, No Nose congestion, No Mouth pain, No Mouth swelling, No Throat pain, No Throat swelling, No Other Cardiovascular: No Chest Pain, No Palpitations, No Orthopnea, No Paroxysmal Noc. Dyspnea, No Edema, No Lt Headedness, No Other Respiratory: No Cough, No Dry, No Shortness of breath, No SOB with excertion, No Wheezing, No Hemoptysis, No Pleuritic Pain, No Sputum, No Other Gastrointestinal: No Nausea, No Vomiting, No Abdominal Pain, No Diarrhea, No Constipation, No Melena, No Hematochezia, No Other Genitourinary: No Dysuria, No Frequency, No Incontinence, No Hematuria, No Retention, No Other Musculoskeletal: No other, No neck pain, No shoulder pain, No arm pain, No back pain, No hand pain, No leg pain, No foot pain Skin: No Rash, No Lesions, No Jaundice, No Bruising, No Other Objective Vitals Vital Signs Date Time Temp Pulse Resp B/P (MAP) Pulse Ox O2 Delivery O2 Flow Rate FiO2 07/02/24 08:57 98.4 59 16 164/93 (116) 94 98.4 07/01/24 22:19 Room Air 0.0 07/01/24 22:19 21 Intake/Output Intake and Output 07/02/24 07:00 Intake Total 3713.2 ml Output Total 2730 ml Balance 983.2 ml Intake Oral 1600 ml IV Total 2113.2 ml Output Urine Total 2730 ml # Voids 9 Medications Current Medications Medications Dose Ordered Sig/Sarah Route Start Time Stop Time Status Last Admin Dose Admin Sodium Chloride 1,000 ml @ 120 mls/hr Q8H20M IV 06/29/24 20:15 07/02/24 05:25 120 MLS/HR Ondansetron HCl 4 mg Q4HP PRN IV 06/29/24 20:15 Docusate Sodium 100 mg BIDPRN PRN PO 06/29/24 20:15 Morphine Sulfate 2 mg Q4HPRN PRN IV 06/29/24 20:15 Nitroglycerin 0.4 mg Q5MINP PRN SL 06/29/24 20:15 Acetaminophen 1,000 mg Q8HP PRN PO 06/29/24 20:15 Albuterol 180 mcg TIDPRN PRN IN 06/29/24 20:15 07/01/24 10:30 180 MCG Budesonide 360 mcg BID IN 06/29/24 22:00 07/01/24 10:27 360 MCG Dexamethasone Sodium Phosphate 6 mg DAILY IV 06/30/24 10:00 07/10/24 09:59 07/01/24 09:05 6 MG Enoxaparin Sodium 40 mg DAILY SC 06/30/24 10:00 07/01/24 09:05 40 MG Doxycycline Hyclate 100 ml @ 50 mls/hr Q12H IV 06/30/24 09:00 07/01/24 21:47 50 MLS/HR Ascorbic Acid 500 mg BID PO 06/30/24 22:00 07/01/24 21:47 500 MG Zinc Sulfate 220 mg DAILY PO 07/01/24 10:00 07/01/24 09:03 220 MG Cholecalciferol 4,000 unit DAILY PO 07/01/24 10:00 07/01/24 09:04 4,000 UNIT Folic Acid 1 mg/ Multivitamins 10 ml/Magnesium Sulfate 8 meq/ Thiamine HCl 100 mg/Dextrose 1,013.2 ml @ 125.001 mls/hr DAILY@1800 INJ 07/01/24 18:00 07/01/24 18:44 125.001 MLS/HR Laboratory Results Laboratory Tests 06/30/24 06:10 Urinalysis Test 06/29/24 21:30 Urine Color Light-yellow (Yellow) Urine Clarity Clear (Clear) Urine pH 6.0 (5.0-9.0) Urine Specific [place] 1.010 (1.001-1.035) Urine Protein Negative (Negative) Urine Ketones Negative (Negative) Urine Blood Negative /uL (Negative) Urine Nitrite Negative (Negative) Urine Bilirubin Negative (Negative) Urine Urobilinogen Normal mg/dL (Negative) Urine Leukocyte Esterase Negative /uL (Negative) Urine RBC <1 /hpf (0 - 3) Urine Microscopic WBC < 1 /HPF (0-3) Urine Squamous Epithelial Cells Few /hpf (<5) Urine Bacteria Few /hpf (None Seen) H Urine Glucose Normal mg/dL (Normal) Labs and/or images reviewed: Labs reviewed by me, Image(s) reviewed by me Assessment/Plan Assessment/Plan COVID Positive pneumonia: Doxycycline albuterol med nebs, Pulmicort med neb, Decadron, vitamin-C, zinc, vitamin D3 Acute generalized weakness Recurrent falls Gait instability Severe malnutrition: Boost Cachexia Homeless Gait instability secondary to possibly alcohol abuse: Physical therapy Recurrent falls: CT head neg Amphetamine abuse : Counseled Chronic current alcohol abuse: Banana bag Social service consult Elevated D-dimer 2.27 DVT ruled out PE ruled out Time spent 45 minutes Advanced care planning time 20 minutes Patient is full code Plan discussed with: Patient Date of Service: July 02, 2024 Billing Provider: BARB AUSTIN MD Common Visit Codes: [id number] INP/OBS CARE(HIGH) BARB AUSTIN MD July 02, 2024 09:17
--- NOTE | 2024-07-02 10:52 | DVHPN2 ---
Reviewed: Care Plan, H&P, Labs, Medications, Previous Orders, Radiology Changes from previous H/P or p: No Changes Eyes: No Pain, No Vision change, No Conjunctivae inflammation, No Eyelid inflammation, No Other, No Redness ENT: No Ear pain, No Ear discharge, No Nose pain, No Nose discharge, No Nose congestion, No Mouth pain, No Mouth swelling, No Throat pain, No Throat swelling, No Other Cardiovascular: No Chest Pain, No Palpitations, No Orthopnea, No Paroxysmal Noc. Dyspnea, No Edema, No Lt Headedness, No Other Respiratory: No Cough, No Dry, No Shortness of breath, No SOB with excertion, No Wheezing, No Hemoptysis, No Pleuritic Pain, No Sputum, No Other Gastrointestinal: No Nausea, No Vomiting, No Abdominal Pain, No Diarrhea, No Constipation, No Melena, No Hematochezia, No Other Genitourinary: No Dysuria, No Frequency, No Incontinence, No Hematuria, No Retention, No Other Musculoskeletal: No other, No neck pain, No shoulder pain, No arm pain, No back pain, No hand pain, No leg pain, No foot pain Skin: No Rash, No Lesions, No Jaundice, No Bruising, No Other Objective Vitals Vital Signs Date Time Temp Pulse Resp B/P (MAP) Pulse Ox O2 Delivery O2 Flow Rate FiO2 07/02/24 08:57 98.4 59 16 164/93 (116) 94 98.4 07/01/24 22:19 Room Air 0.0 07/01/24 22:19 21 Intake/Output Intake and Output 07/02/24 07:00 Intake Total 3713.2 ml Output Total 2730 ml Balance 983.2 ml Intake Oral 1600 ml IV Total 2113.2 ml Output Urine Total 2730 ml # Voids 9 Medications Current Medications Medications Dose Ordered Sig/Sarah Route Start Time Stop Time Status Last Admin Dose Admin Sodium Chloride 1,000 ml @ 120 mls/hr Q8H20M IV 06/29/24 20:15 07/02/24 05:25 120 MLS/HR Ondansetron HCl 4 mg Q4HP PRN IV 06/29/24 20:15 Docusate Sodium 100 mg BIDPRN PRN PO 06/29/24 20:15 Morphine Sulfate 2 mg Q4HPRN PRN IV 06/29/24 20:15 Nitroglycerin 0.4 mg Q5MINP PRN SL 06/29/24 20:15 Acetaminophen 1,000 mg Q8HP PRN PO 06/29/24 20:15 Albuterol 180 mcg TIDPRN PRN IN 06/29/24 20:15 07/01/24 10:30 180 MCG Budesonide 360 mcg BID IN 06/29/24 22:00 07/01/24 10:27 360 MCG Dexamethasone Sodium Phosphate 6 mg DAILY IV 06/30/24 10:00 07/10/24 09:59 07/01/24 09:05 6 MG Enoxaparin Sodium 40 mg DAILY SC 06/30/24 10:00 07/01/24 09:05 40 MG Doxycycline Hyclate 100 ml @ 50 mls/hr Q12H IV 06/30/24 09:00 07/01/24 21:47 50 MLS/HR Ascorbic Acid 500 mg BID PO 06/30/24 22:00 07/01/24 21:47 500 MG Zinc Sulfate 220 mg DAILY PO 07/01/24 10:00 07/01/24 09:03 220 MG Cholecalciferol 4,000 unit DAILY PO 07/01/24 10:00 07/01/24 09:04 4,000 UNIT Folic Acid 1 mg/ Multivitamins 10 ml/Magnesium Sulfate 8 meq/ Thiamine HCl 100 mg/Dextrose 1,013.2 ml @ 125.001 mls/hr DAILY@1800 INJ 07/01/24 18:00 07/01/24 18:44 125.001 MLS/HR Laboratory Results Laboratory Tests 06/30/24 06:10 Urinalysis Test 06/29/24 21:30 Urine Color Light-yellow (Yellow) Urine Clarity Clear (Clear) Urine pH 6.0 (5.0-9.0) Urine Specific [place] 1.010 (1.001-1.035) Urine Protein Negative (Negative) Urine Ketones Negative (Negative) Urine Blood Negative /uL (Negative) Urine Nitrite Negative (Negative) Urine Bilirubin Negative (Negative) Urine Urobilinogen Normal mg/dL (Negative) Urine Leukocyte Esterase Negative /uL (Negative) Urine RBC <1 /hpf (0 - 3) Urine Microscopic WBC < 1 /HPF (0-3) Urine Squamous Epithelial Cells Few /hpf (<5) Urine Bacteria Few /hpf (None Seen) H Urine Glucose Normal mg/dL (Normal) Labs and/or images reviewed: Labs reviewed by me, Image(s) reviewed by me Assessment/Plan Assessment/Plan COVID Positive pneumonia: Doxycycline albuterol med nebs, Pulmicort med neb, Decadron, vitamin-C, zinc, vitamin D3 Acute generalized weakness Recurrent falls CT head neg Frequent admissions Gait instability Severe malnutrition: Boost Cachexia Homeless Amphetamine abuse : Counseled Social service consult Elevated D-dimer 2.[address] chest angiogram Time spent 45 minutes Advanced care planning time 20 minutes Patient is full code Plan discussed with: Patient Date of Service: July 02, 2024 Billing Provider: BARB AUSTIN MD Common Visit Codes: [id number] INP/OBS CARE(HIGH) BARB AUSTIN MD July 02, 2024 10:52
[2024-07-02] MEDS: Ensure HIGH Protein Chocolate 8oz Bottle PO SCH (12:00)
[2024-07-02] MEDS: FOLIC ACID 1 MG TAB PO ONE (13:42)
[2024-07-02] MEDS: THIAMINE HCL 100 MG TAB PO ONE (13:42)
[2024-07-02] MEDS: MAGNESIUM OXIDE 400 MG TAB PO ONE (13:43)
[2024-07-02] MEDS: MULTIPLE VITAMIN TAB PO ONE (13:43)
[2024-07-03 01:00] VITALS: BP 143/86; PULSE 58; RESP 16; TEMP 97.7; O2SAT 96
[2024-07-03 04:56] VITALS: BP 140/80; PULSE 62; RESP 16; TEMP 97.7; O2SAT 98
[2024-07-03 06:50] VITALS: O2SAT 98
[2024-07-03 08:00] VITALS: PULSE 60; RESP 18; O2SAT 98
--- NOTE | 2024-07-03 08:14 | DVHPN2 ---
Reviewed: Care Plan, H&P, Labs, Medications, Previous Orders, Radiology Changes from previous H/P or p: No Changes Eyes: No Pain, No Vision change, No Conjunctivae inflammation, No Eyelid inflammation, No Other, No Redness ENT: No Ear pain, No Ear discharge, No Nose pain, No Nose discharge, No Nose congestion, No Mouth pain, No Mouth swelling, No Throat pain, No Throat swelling, No Other Cardiovascular: No Chest Pain, No Palpitations, No Orthopnea, No Paroxysmal Noc. Dyspnea, No Edema, No Lt Headedness, No Other Respiratory: No Cough, No Dry, No Shortness of breath, No SOB with excertion, No Wheezing, No Hemoptysis, No Pleuritic Pain, No Sputum, No Other Gastrointestinal: No Nausea, No Vomiting, No Abdominal Pain, No Diarrhea, No Constipation, No Melena, No Hematochezia, No Other Genitourinary: No Dysuria, No Frequency, No Incontinence, No Hematuria, No Retention, No Other Musculoskeletal: No other, No neck pain, No shoulder pain, No arm pain, No back pain, No hand pain, No leg pain, No foot pain Skin: No Rash, No Lesions, No Jaundice, No Bruising, No Other Objective Vitals Vital Signs Date Time Temp Pulse Resp B/P (MAP) Pulse Ox O2 Delivery O2 Flow Rate FiO2 07/03/24 04:56 97.7 62 16 140/80 (100) 98 97.7 07/02/24 22:50 21 07/02/24 20:00 Room Air* 0 Intake/Output Intake and Output 07/03/24 07:00 Intake Total 2050 ml Output Total 300 ml Balance 1750 ml Intake Oral 2050 ml Output Urine Total 300 ml # Voids 8 Medications Current Medications Medications Dose Ordered Sig/Sarah Route Start Time Stop Time Status Last Admin Dose Admin Sodium Chloride 1,000 ml @ 120 mls/hr Q8H20M IV 06/29/24 20:15 07/02/24 14:55 120 MLS/HR Ondansetron HCl 4 mg Q4HP PRN IV 06/29/24 20:15 Docusate Sodium 100 mg BIDPRN PRN PO 06/29/24 20:15 Morphine Sulfate 2 mg Q4HPRN PRN IV 06/29/24 20:15 Nitroglycerin 0.4 mg Q5MINP PRN SL 06/29/24 20:15 Acetaminophen 1,000 mg Q8HP PRN PO 06/29/24 20:15 Albuterol 180 mcg TIDPRN PRN IN 06/29/24 20:15 07/01/24 10:30 180 MCG Budesonide 360 mcg BID IN 06/29/24 22:00 07/01/24 10:27 360 MCG Dexamethasone Sodium Phosphate 6 mg DAILY IV 06/30/24 10:00 07/10/24 09:59 07/02/24 10:08 6 MG Enoxaparin Sodium 40 mg DAILY SC 06/30/24 10:00 07/02/24 10:09 40 MG Doxycycline Hyclate 100 ml @ 50 mls/hr Q12H IV 06/30/24 09:00 07/02/24 10:08 50 MLS/HR Ascorbic Acid 500 mg BID PO 06/30/24 22:00 07/02/24 10:09 500 MG Zinc Sulfate 220 mg DAILY PO 07/01/24 10:00 07/02/24 10:08 220 MG Cholecalciferol 4,000 unit DAILY PO 07/01/24 10:00 07/02/24 10:08 4,000 UNIT Enteral Nutritional Formula 240 ml TIDWM PO 07/02/24 12:00 07/02/24 18:26 240 ML Folic Acid 1 mg DAILY PO 07/03/24 10:00 Multivitamins 1 tab DAILY PO 07/03/24 10:00 Magnesium Oxide 400 mg DAILY PO 07/03/24 10:00 Thiamine HCl 100 mg DAILY PO 07/03/24 10:00 Laboratory Results Laboratory Tests 06/30/24 06:10 Urinalysis Test 06/29/24 21:30 Urine Color Light-yellow (Yellow) Urine Clarity Clear (Clear) Urine pH 6.0 (5.0-9.0) Urine Specific [place] 1.010 (1.001-1.035) Urine Protein Negative (Negative) Urine Ketones Negative (Negative) Urine Blood Negative /uL (Negative) Urine Nitrite Negative (Negative) Urine Bilirubin Negative (Negative) Urine Urobilinogen Normal mg/dL (Negative) Urine Leukocyte Esterase Negative /uL (Negative) Urine RBC <1 /hpf (0 - 3) Urine Microscopic WBC < 1 /HPF (0-3) Urine Squamous Epithelial Cells Few /hpf (<5) Urine Bacteria Few /hpf (None Seen) H Urine Glucose Normal mg/dL (Normal) Labs and/or images reviewed: Labs reviewed by me, Image(s) reviewed by me Assessment/Plan Assessment/Plan COVID Positive pneumonia: Doxycycline albuterol med neb, Pulmicort med neb, Decadron, vitamin-C, zinc, vitamin D3 Acute generalized weakness Recurrent falls CT head neg Frequent admissions Gait instability secondary to alcohol abuse, CT head negative Severe malnutrition: Boost Cachexia Homeless History of hep C for many years, patient not interested in pursuing any treatment Amphetamine abuse : Counseled Social service consult Elevated D-dimer 2.27 DVT ruled out PE ruled out Possible alcoholic withdrawal: Librium Time spent 45 minutes Advanced care planning time 20 minutes Patient is full code Physical therapy ordered Plan discussed with: Patient My Orders Orders - BARB AUSTIN MD Procedure Category Date Status Time Pt Request For Service PT 07/02/24 Logged 09:16 Nutritional PHA 07/02/24 In Process Supplements (Ensure 12:00 Folic Acid Tablet PHA 07/03/24 In Process 10:00 Multiple Vitamin PHA 07/03/24 In Process Tablet (Mvi Tab) 10:00 Magnesium Oxide PHA 07/03/24 In Process Tablet (Mag-Ox Tablet) 10:00 Thiamine Tab PHA 07/03/24 In Process 10:00 Date of Service: July 03, 2024 Billing Provider: BARB AUSTIN MD Common Visit Codes: [id number] INP/OBS CARE(HIGH) BARB AUSTIN MD July 03, 2024 08:14
[2024-07-03] MEDS: MAGNESIUM OXIDE 400 MG TAB PO SCH (08:48)
[2024-07-03] MEDS: THIAMINE HCL 100 MG TAB PO SCH (08:49)
[2024-07-03] MEDS: FOLIC ACID 1 MG TAB PO SCH (08:50)
[2024-07-03] MEDS: MULTIPLE VITAMIN TAB PO SCH (08:50)
[2024-07-03] MEDS: chlordiazePOXIDE HCL 25 MG CAP PO SCH (09:06)
--- NOTE | 2024-07-04 08:04 | DVHDS2 ---
Discharge Summary Date of Admission June 29, 2024 at 20:15 Date of Discharge: July 03, 2024 Admitting Diagnosis Generalized weakness and recurrent falls Wounds: None Labs/Diagnostic Data: Laboratory Results Test 06/30/24 06:10 06/29/24 21:30 06/29/24 20:51 06/29/24 17:29 White Blood Count 2.8 10^3/uL (4.4-10.8) Red Blood Count 4.57 10^6/uL (4.5-5.90) Hemoglobin 12.9 g/dL (13.5-17.5) Hematocrit 38.3 % (41.0-53.0) Mean Corpuscular Volume 83.7 fL (80.0-100.0) Mean Corpuscular Hemoglobin 28.2 pg (28.0-32.0) Mean Corpuscular Hemoglobin Concent 33.7 g/dL (32.0-36.0) Red Cell Distribution Width 14.7 % (11.8-14.3) Platelet Count 215 10^3/uL (140-450) Mean Platelet Volume 7.5 fL (6.9-10.8) Neutrophils (%) (Auto) 65.9 % (37.0-80.0) Lymphocytes (%) (Auto) 16.2 % (10.0-50.0) Monocytes (%) (Auto) 16.8 % (0.0-12.0) Eosinophils (%) (Auto) 0.6 % (0.0-7.0) Basophils (%) (Auto) 0.5 % (0.0-2.0) Neutrophils # (Auto) 1.8 10 ^3/uL (1.6-8.6) Lymphocytes # (Auto) 0.4 10 ^3/uL (0.4-5.4) Monocytes # (Auto) 0.5 10 ^3/uL (0-1.3) Eosinophils # (Auto) 0 10 ^3/uL (0-0.8) Basophils # (Auto) 0 10 ^3/uL (0-0.2) Nucleated Red Blood Cells 0.2 % Sodium Level 137 mmol/L (136-145) Potassium Level 3.9 mmol/L (3.5-5.1) Chloride Level 103 mmol/L (98-107) Carbon Dioxide Level 26 mmol/L (20-31) Anion Gap 8 (5-15) Blood Urea Nitrogen 14 mg/dL (9-23) Creatinine 0.99 mg/dL (0.700-1.30) Glomerular Filtration Rate Calc 82 mL/min (>90) BUN/Creatinine Ratio 14.1 (10.0-20.0) Serum Glucose 111 mg/dL (74-106) Calcium Level 9.0 mg/dL (8.7-10.4) Total Bilirubin 0.5 mg/dL (0.2-1.0) Aspartate Amino Transferase (AST) 18 U/L (13-40) Alanine Aminotransferase (ALT) 17 U/L (7-40) Alkaline Phosphatase 82 U/L (46-116) Total Protein 6.3 g/dL (5.7-8.2) Albumin 3.9 g/dL (3.2-4.8) Hepatitis B Surface Antigen Negative (Negative) Hepatitis C Antibody Positive (Negative) Urine Color Light-yellow (Yellow) Urine Clarity Clear (Clear) Urine pH 6.0 (5.0-9.0) Urine Specific [place] 1.010 (1.001-1.035) Urine Protein Negative (Negative) Urine Ketones Negative (Negative) Urine Blood Negative /uL (Negative) Urine Nitrite Negative (Negative) Urine Bilirubin Negative (Negative) Urine Urobilinogen Normal mg/dL (Negative) Urine Leukocyte Esterase Negative /uL (Negative) Urine RBC <1 /hpf (0 - 3) Urine Microscopic WBC < 1 /HPF (0-3) Urine Squamous Epithelial Cells Few /hpf (<5) Urine Bacteria Few /hpf (None Seen) Urine Glucose Normal mg/dL (Normal) Urine Opiates Screen Neg (NEGATIVE) Urine Fentanyl Screen Neg (NEGATIVE) Urine Barbiturates Screen Neg (NEGATIVE) Urine Phencyclidine Screen Neg (NEGATIVE) Urine Amphetamines Screen Pos (NEGATIVE) Urine Benzodiazepines Screen Neg (NEGATIVE) Urine Cocaine Screen Neg (NEGATIVE) Urine Cannabinoids Screen Neg (NEGATIVE) Lactic Acid Level 1.1 mmol/L (0.4-2.0) Magnesium Level 1.8 mg/dL (1.6-2.6) Ferritin 61.1 ng/mL (22-322) Creatine Kinase 137 U/L (46-171) C-Reactive Protein High Sensitivity 0.13 mg/dL (<1.0) Lactate Dehydrogenase 361 U/L (120-246) Troponin I High Sensitivity 3 ng/L (</=54) Thyroid Stimulating Hormone (TSH) 0.41 uIU/mL (0.55-4.78) Test 06/29/24 17:05 06/29/24 16:39 Influenza Type A Antigen Negative (Negative) Influenza Type B Antigen Negative (Negative) SARS-CoV-2 Antigen (Rapid) Positive (NEGATIVE) D-Dimer, Quantitative 2.27 mg/L FEU (0.0-0.49) Hemoglobin A1c 5.3 % A1C (<5.7) Lipase 24 U/L (12-53) Other Laboratory Tests 06/30/24 06:10 Brief Hx & Hospital Course: 69-year-old male chronic current current alcohol abuse methamphetamine abuse homeless history of hep C for many years not interested in pursuing any treatment amphetamine came in for generalized weakness and recurrent falls. CT head was negative found to have COVID positive pneumonia treated with the doxycycline albuterol med neb Pulmicort med neb Decadron vitamin-C zinc vitamin D3 patient had gait instability physical therapy was ordered patient is severely cachectic boost was ordered. D-dimer was elevated 2.27 DVT ruled out PE ruled out placed on Librium for possible alcohol withdrawal. While awaiting further stabilization patient decided to leave AMA and left AMA. Possible consequences and complications including explained to the patient and he verbalized understanding. General condition satisfactory at the time of leaving AMA per nurse's notes Consults/Reason for consult None Operations or Procedures CT head Condition at Discharge: Fair Final Diagnosis/Problems List COVID Positive pneumonia: Doxycycline albuterol med neb, Pulmicort med neb, Decadron, vitamin-C, zinc, vitamin D3 Acute generalized weakness Recurrent falls CT head neg Frequent admissions Gait instability secondary to alcohol abuse, CT head negative Severe malnutrition: Boost Cachexia Homeless History of hep C for many years, patient not interested in pursuing any treatment Amphetamine abuse : Counseled Social service consult Elevated D-dimer 2.27 DVT ruled out PE ruled out Possible alcoholic withdrawal: Librium Discharge Disposition: AMA Discharge Instruct/Medications Diet comment: Not applicable Patient left AMA Activity comment: Not applicable patient left AMA Follow Up/Referral: Not applicable Patient left AMA Medications: Not applicable Patient left AMA 35 (Time taken for discharge summary 35 minutes) Discharge Statement: "Patient was advised to return to the ER or call 911 if any headaches, dizziness, shortness of breath, chest pain, abdominal pain, bleeding, fevers, or worsening of medical condition. Patient was counseled about treatment plan, medications, possible side effects, patientverbalized understanding. All questions were answered to the best of my ability. This discharge took greater then 30 minutes in planning, reviewing documentation, counseling the patient, and discussing with other team members." ASSESSMENT ASSESSMENT Hospital Course Left AMA Assessment Date of Service: July 04, 2024 Billing Provider: BARB AUSTIN MD Common Visit Codes: 33273-KEG/OBS DISCH DAY >30min BARB AUSTIN MD July 04, 2024 08:04
[2024-07-04] MEDS ORDERED: chlordiazePOXIDE HCL 25 MG CAP PO SCH (10:00)
[2024-07-05] MEDS ORDERED: chlordiazePOXIDE HCL 25 MG CAP PO SCH (10:00)
[2024-07-06] MEDS ORDERED: chlordiazePOXIDE HCL 25 MG CAP PO SCH (07:00)
== END 2024-07-03 11:36 | disposition left against medical advice (07) | DRG 177 ==
LOC: ER 15:56 → OVERFLOW 20:15 → TELE-EAST 22:48
PROVIDERS: ADMIT Family Medicine; ATTEND Family Medicine
DX: U07.1 COVID-19 (principal); E43 Unspecified severe protein-calorie malnutrition; J12.82 Pneumonia due to coronavirus disease 2019; Z59.00 Homelessness unspecified; F10.239 Alcohol dependence with withdrawal, unspecified; R64 Cachexia; F15.10 Other stimulant abuse, uncomplicated; R29.6 Repeated falls; Z53.29 Procedure and treatment not carried out because of patient's decision for other reasons; M79.605 Pain in left leg; M79.604 Pain in right leg; Z86.19 Personal history of other infectious and parasitic diseases; Z68.22 Body mass index [BMI] 22.0-22.9, adult; Z91.81 History of falling; Z88.5 Allergy status to narcotic agent
CPT/HCPCS: 36415; 70450; 71045; 71275; 80053; 80307; 81001; 82550; 82728; 83036; 83605; 83615; 83690; 83735; 84443; 84484; 85025; 85379; 86141; 86803; 87340; 87426; 87804; 93005; 93970; 94640; 96365; 97163; G0378; J1100

== ENCOUNTER 2024-08-08 23:23 | Emergency (ER) | payer MEDICARE, MEDICAID ==
[~2024-08-08] VITALS: Ht 172.7 cm; Wt 59.0 kg
[2024-08-08 23:31] VITALS: BP 164/84; PULSE 72; RESP 20; TEMP 98; O2SAT 95
[2024-08-08] MEDS ORDERED: ONDANSETRON ODT 4 MG TAB PO ONE (23:45)
[2024-08-08] MEDS ORDERED: ACETAMINOPHEN 500 MG TAB or CAP PO ONE (23:45)
[2024-08-08] MEDS ORDERED: KETOROLAC TROMETH 30 MG/ML 1ML VIAL IM ONE (23:45)
--- NOTE | 2024-08-08 23:45 | ED.PDOC ---
GI ASSESSMENT HPI Comments 69-year-old male who came to ER via EMS for abdominal pain. Patient is homeless, has history of hepatitis-C, alcoholism and methamphetamine abuse. Has been seen and admitted here multiple times for abdominal pain. Was at the fast food earlier today, refusing to leave, as the fast food was about to close. Patient became belligerent and aggressive, and police was about to be called. However patient started complaining of epigastric abdominal pain and insisted that he be brought to the ER. Chief Complaint: Abdominal Pain Time Seen by MD: 23:44 Primary Care Provider: NONE Reviewed Notes: Customer Service Analyst Notes Allergies: Coded Allergies: Codeine (Verified Allergy, Severe, 02/02/21) Home Meds Active Scripts Sucralfate (Carafate) 1 Gm/10 Ml Loli, 1 GM PO BID for 30 Days, #600 ML 0 Refills Prov:LUIS IGNACIO RESIDENT 03/19/24 Pantoprazole Sodium Sesquihydr (Protonix) 40 Mg Tab, 40 MG PO BID for 30 Days, #60 TAB 0 Refills Prov:LUIS IGNACIO RESIDENT 03/19/24 Amlodipine Besylate (NORVASC TABLET) 5 Mg Tb, 5 MG PO DAILY for 30 Days, #30 TAB Prov:JOEY CHEUNG RESIDENT 03/08/24 Information Source: Patient, Emergency Med Personnel Mode of Arrival: EMS Timing: Minutes Duration: Since onset Prehospital treatment: None Quality: Sharp Vomitus: None Stool: Normal Severity: Moderate Recent: Ingestion of ETOH Recent Hx of: Liver Disease Pain Location: Epigastric Associated sign and symptoms: Abdominal Pain Review of Systems REVIEW OF SYSTEMS: No fever, no chills, or fatigue HEENT: No sore throat, no earache, no congestion, no neck pain. Cardiac: No chest pain. No palpitations. Lungs: No shortness of breath, no cough. GI: No nausea, no vomiting, no diarrhea, no constipation, (+) abdominal pain : No dysuria, frequency, or urgency. No hematuria. Musculoskeletal: No joint pain , no joint swelling, no extremity edema. Skin: No rash, no itching. Neuro: No headache, no dizziness, no weakness Vital Signs Vital Signs Date Time Temp Pulse Resp B/P (MAP) Pulse Ox O2 Delivery O2 Flow Rate FiO2 6/19/25 23:31 98.0 72 20 164/84 (110) 95 98.0 Physical Exam General: Awake, alert and oriented. No acute distress. Skin: Skin in warm, dry and intact. Appropriate color for ethnicity. Nailbeds pink with no cyanosis. HEENT: The head is normocephalic and atraumatic. Conjunctivae are clear without exudates or hemorrhage. Sclera is non-icteric. EOM are intact. No signs of nystagmus. Eyelids are normal in appearance without swelling or lesions. Oral mucosa is pink and moist Neck: The neck is supple with normal range of motion. No JVD. Cardiac: Heart rate and rhythm are normal. No murmurs, gallops, or rubs are auscultated. Respiratory: No signs of respiratory distress. Lung sounds are clear in all lobes bilaterally without rales, rhonchi, or wheezes. Abdominal: Abdomen is soft, non-tender without distention. Bowel sounds are present and normoactive in all four quadrants. Extremities: Upper and lower extremities are atraumatic in appearance without deformity or edema. Neurological: The patient is awake, alert and oriented to person, place, and time with normal speech. Speech is clear. There is no facial asymmetry. Psychiatric: Appropriate mood and affect. Good judgement and insight. No visual or auditory hallucinations. Past Medical History Past Medical History (Other): Esophagitis, hepatitis-C Surgical History: Denies all surgeries Family History Family History: Reviewed,noncontributory to illness Social History Smoker: Non-Smoker Alcohol: Heavy Drugs: Denies Drug Use, Methamphetamine Lives In: Homeless Was a procedure done? Was a procedure done?: No GI differential Dx Differential Diagnosis: Diverticular disease, Gastritis/PUD, Gastroenteritis, UTI, Urolithiasis X-Ray, Labs, Meds, VS Vital Signs Date Time Temp Pulse Resp B/P (MAP) Pulse Ox O2 Delivery O2 Flow Rate FiO2 08/08/24 23:31 98.0 72 20 164/84 (110) 95 98.0 08/08/24 23:25 63 Time of 1ST Reevaluation: 23:40 Reevaluation 1ST: Unchanged Patient Education/Counseling: Prognosis Family Education/Counseling: No Family Present SEPSIS Sepsis Screen Date sepsis recognized/suspect: Aug 08, 2024 Time Sepsis recognized/suspect: 2325 Recent Procedure: No On Antibiotic Therapy: No Respiratory Rate >20: No Heart Rate >90: No Temp<36 C (96.8 F) or >38.3 C: No SBP <90 or MAP <65 mmHG: No New Acute Mental Status Change: No Is the patient on CPAP, BIPAP,: No Physician Orders Electrocardigram (08/08/24 23:30) Urinalysis (08/08/24 23:32) Drug Screen (08/08/24 23:32) Vital Signs Date Time Temp Pulse Resp B/P (MAP) Pulse Ox O2 Delivery O2 Flow Rate FiO2 08/08/24 23:31 98.0 72 20 164/84 (110) 95 98.0 08/08/24 23:25 63 Departure 1 Departure Time of Disposition: 23:50 Impression: Primary Impression: Abdominal pain of unknown etiology Additional Impression: Left against medical advice Disposition: 07 LEFT AGAINST MEDICAL ADVICE Condition: Stable Additional Instructions: ED DISCHARGE INSTRUCTIONS Instructions: Please read all instructions provided in this packet carefully. YOU DECLINED FURTHER EVALUATION AGAINST MEDICAL ADVICE TODAY. You have been informed of the benefits of further evaluation such as further diagnosis and treatment of possible serious cause of your symptoms, and the risks of leaving such as , chronic pain, permanent disability or other serious adverse events which might be attributed to leaving. You may return here at any time if you change their mind or need to further concerns. It is very important that you follow up with your primary care provider for follow up as soon as possible. Although you have been discharged from the Emergency Department, this does not mean that you have a "clean bill of health". No definitive diagnosis for your symptoms has been made today. It is possible that you are in the process of developing a serious illness. This is why you must return to the ED without fail if any new or worsening symptoms (especially if your symptoms include chest pain, trouble breathing, abdominal pain, fever, headache, confusion, trouble seeing, or trouble walking) It is also very important that you see a primary care doctor within the next 3-5 days to follow up. If you are unable to get an appointment, return to the ED for re-evaluation. Abdominal Pain: Care Instructions Overview Abdominal pain has many possible causes. Some aren't serious and get better on their own in a few days. Others need more testing and treatment. If your pain continues or gets worse, you need to be rechecked and may need more tests to find out what is wrong. You may need surgery to correct the problem. Don't ignore new symptoms, such as fever, nausea and vomiting, urination p roblems, pain that gets worse, and dizziness. These may be signs of a more serious problem. If you are not getting better, you may need more tests or treatment. The doctor has checked you carefully, but problems can develop later. If you notice any problems or new symptoms, get medical treatment right away. Follow-up care is a ness part of your treatment and safety. Be sure to make and go to all appointments, and call your doctor if you are having problems. It's also a good idea to know your test results and keep a list of the medicines you take. How can you care for yourself at home? Rest until you feel better. To prevent dehydration, drink plenty of fluids. Choose water and other clear liquids until you feel better. If you have kidney, heart, or liver disease and have to limit fluids, talk with your doctor before you increase the amount of fluids you drink. When you feel like eating, start with small amounts. Do not have alcohol, caffeine, or spicy, hot, or high-fat foods for a day or two. Avoid anti-inflammatory medicines such as aspirin, ibuprofen (Advil, Motrin), and naproxen (Aleve). These can cause stomach upset. Talk to your doctor if you take daily aspirin for another health problem. When should you call for help? Call 911 anytime you think you may need emergency care. For example, call if: You passed out (lost consciousness). You pass maroon or very bloody stools. You vomit blood or what looks like coffee grounds. You have severe belly pain. Call your doctor now or seek immediate medical care if: Your pain gets worse, especially if it becomes focused in one area of your belly. You have a new or higher fever. Your stools are black and look like tar, or they have streaks of blood. You have unexpected vaginal bleeding. You have symptoms of a urinary tract infection. These may include: Pain when you urinate. Urinating more often than usual. Blood in your urine. You are dizzy or lightheaded, or you feel like you may faint. Watch closely for changes in your health, and be sure to contact your doctor if: You are not getting better as expected. Credits for Abdominal Pain: Care Instructions Current as of: December 08, 2022 Author: [employer] Staff Clinical Review Board All [employer] education is reviewed by a team that includes physicians, nurses, advanced practitioners, registered dieticians, and other healthcare professionals. Comments Patient arrived to the emergency department via EMS, he was seen and evaluated on arrival to the ED. Patient is reporting severe abdominal pain he is refusing all workup, requesting only pain medication. Despite our efforts, patient has decided to refused evaluation against medical advice. The patient has a normal mental status and full decisional capacity. Patient has been informed of the benefits of staying such as further diagnosis and treatment of possible serious etiology of the symptoms, and the risks of leaving such as , chronic pain, permanent disability or other serious adverse events which might be attributed to leaving. The patient displays clear understanding of these benefits and risks and chooses to leave. The patient is been informed also that they may return here at any time if they change their mind or need to further concerns or questions has been referred to their local medical physician for follow up MAYNOR. Critical Care Note Critical Care Time?: No Stability Stability form required: No Heart Score Heart Score: Heart Score Response (Comments) Value History N/A 0 EKG N/A 0 Age N/A 0 Risk Factors N/A 0 Troponin N/A 0 Total 0 I personally scribed for MARVEL MANN MD ([email or web address]) on 08/08/24 at 23:45. Electronically submitted by Dank Florez ([email or web address]). MARVEL MANN MD Aug 08, 2024 23:45
--- NOTE | 2024-08-12 12:16 | ECG ---
[facility] Test Date: 2024-08-08 Test Time: 23:25:21 Pat Name: DAMION BOWMAN Department: ED Room: Gender: M Activities Specialist: : [id number] Requested By: MARVEL MANN Order Number: [id number] Reading MD: Olaf Matute Measurements Intervals [place] Rate: 63 P: 35 ND: 147 QRS: -24 QRSD: 99 T: 46 QT: 437 QTc: 448 Interpretive Statements Sinus rhythm Borderline left axis deviation Electronically Signed On 08-13-2024 22:32:44 PDT by Olaf Matute Please click the below link to view image of tracing.
== END 2024-08-08 23:49 | disposition left against medical advice (07) ==
LOC: ER 23:23 → EDBD 23:23 → ER 23:49
DX: R10.13 Epigastric pain (principal); Z79.899 Other long term (current) drug therapy; Z86.19 Personal history of other infectious and parasitic diseases; Z88.5 Allergy status to narcotic agent
CPT/HCPCS: 93005

== ENCOUNTER 2024-10-04 13:54 | Inpatient (IN) | payer MEDICARE, MEDICAID ==
[~2024-10-04] VITALS: Ht 170.2 cm; Wt 58.0 kg
[2024-10-04 14:10] VITALS: PULSE 68; RESP 12; O2SAT 96
--- NOTE | 2024-10-04 14:33 | ED.PDOC ---
GI ASSESSMENT HPI Comments 69-year-old male with history of esophagitis, Hepatitis C, PNA, recurrent falls, frequent admissions, polysubstance abuse (alcohol and amphetamines), brought in by EMS complaining of abdominal pain, nausea and vomiting for the past 6 days. Patient reports he has been out of his Carafate and Protonix for the past 6 days. He denies any fever, diarrhea, constipation or dysuria. Chief Complaint: Nausea/Vomiting Time Seen by MD: 15:20 Primary Care Provider: NONE Reviewed Notes: Nurses Notes, Event Planning Manager Notes, Medications, Allergies Allergies: Coded Allergies: Codeine (Verified Allergy, Severe, 02/02/21) Home Meds Active Scripts Sucralfate (Carafate) 1 Gm/10 Ml Loli, 1 GM PO BID for 30 Days, #600 ML 0 Refills Prov:LUIS IGNACIO RESIDENT 03/19/24 Pantoprazole Sodium Sesquihydr (Protonix) 40 Mg Tab, 40 MG PO BID for 30 Days, #60 TAB 0 Refills Prov:LUIS IGNACIO RESIDENT 03/19/24 Amlodipine Besylate (NORVASC TABLET) 5 Mg Tb, 5 MG PO DAILY for 30 Days, #30 TAB Prov:JOEY CHEUNG RESIDENT 03/08/24 Information Source: Patient, Emergency Med Personnel Mode of Arrival: EMS Prehospital treatment: 12 Lead EKG, Accucheck, Content Strategy Lead Past Medical History Past Medical History (Other): Esophagitis Hepatitis C Covid19 PNA Recurrent falls Surgical History: Denies all surgeries Family History Family History: Reviewed,noncontributory to illness Social History Smoker: Non-Smoker Alcohol: Heavy Drugs: Methamphetamine Lives In: Homeless All Other Systems: Reviewed and Negative (Comprehensive systems review obtained and negative except for what is stated in the HPI.) Physical Exam General Appearance: Mild Distress HEENT: Other (Pupils and face symmetric. Moist mucous membranes.) Neck: Full Range of Motion, Normal Inspection Respiratory: Lungs Clear, No Accessory Muscle Use, No Respiratory Distress, Normal Breath Sounds Cardiovascular: No Edema, No JVD, Regular Rate/Rhythm Breast Exam: Deferred Gastrointestinal: Epigastric, LUQ, RUQ, Soft, Tenderness Genitalia: Deferred Pelvic: Deferred Rectal: Deferred Extremities: Normal inspection, Normal range of motion, Non-tender, No pedal edema Neurologic: Alert (Oriented x4), Normal Affect, Normal Mood, Other (Ambulatory) Cerebellar Function: NOT DONE Reflexes: NOT DONE Skin: Dry, Normal Color, Warm Lymphatic: NOT DONE EKG EKG : Comments Sinus rhythm, rate 62, normal intervals, left axis deviation, possible old anteroseptal infarct, nonspecific T change. Was a procedure done? Was a procedure done?: No GI differential Dx Differential Diagnosis: Gastritis/PUD, Gastroenteritis, UTI, Dehydration, Drug toxicity, Electrolyte Imbalance, Food Poisoning, Bacterial, Viral, Renal Failure, Stress Ulcer, Other (Esophagitis, among others) X-Ray, Labs, Meds, VS Vital Signs Date Time Temp Pulse Resp B/P (MAP) Pulse Ox O2 Delivery O2 Flow Rate FiO2 10/04/24 21:30 63 16 161/98 10/04/24 16:00 98.8 65 12 145/87 (106) 96 98.8 10/04/24 14:10 68 12 132/71 (91) 96 10/04/24 14:10 68 12 96 Room Air* 0 21 10/04/24 13:56 62 10/04/24 13:55 98.1 73 16 140/83 98 98.1 Lab Test 10/04/24 20:45 10/04/24 18:47 10/04/24 17:49 10/04/24 14:20 Range/Units Sodium Level 139 136-145 mmol/L Potassium Level 4.8 3.5-5.1 mmol/L Chloride Level 102 98-107 mmol/L Carbon Dioxide Level 28 20-31 mmol/L Anion Gap 9 5-15 Blood Urea Nitrogen 18 9-23 mg/dL Creatinine 0.85 0.700-1.30 mg/dL Glomerular Filtration Rate Calc 94 >90 mL/min BUN/Creatinine Ratio 21.2 H 10.0-20.0 Serum Glucose 82 74-106 mg/dL Calcium Level 9.1 8.7-10.4 mg/dL Total Bilirubin 1.2 H 0.2-1.0 mg/dL Aspartate Amino Transferase (AST) 17 13-40 U/L Alanine Aminotransferase (ALT) 15 7-40 U/L Alkaline Phosphatase 90 46-116 U/L Troponin I High Sensitivity < 3 L < 3 L < 3 L </=54 ng/L Total Protein 6.7 5.7-8.2 g/dL Albumin 4.2 3.2-4.8 g/dL Lipase 29 12-53 U/L Lactic Acid Level 1.8 0.4-2.0 mmol/L White Blood Count 9.2 4.4-10.8 10^3/uL Red Blood Count 5.31 4.5-5.90 10^6/uL Hemoglobin 15.5 13.5-17.5 g/dL Hematocrit 45.1 41.0-53.0 % Mean Corpuscular Volume 85.0 80.0-100.0 fL Mean Corpuscular Hemoglobin 29.2 28.0-32.0 pg Mean Corpuscular Hemoglobin Concent 34.3 32.0-36.0 g/dL Red Cell Distribution Width 14.9 H 11.8-14.3 % Platelet Count 282 140-450 10^3/uL Mean Platelet Volume 8.2 6.9-10.8 fL Neutrophils (%) (Auto) 79.8 37.0-80.0 % Lymphocytes (%) (Auto) 13.7 10.0-50.0 % Monocytes (%) (Auto) 5.5 0.0-12.0 % Eosinophils (%) (Auto) 0.7 0.0-7.0 % Basophils (%) (Auto) 0.3 0.0-2.0 % Neutrophils # (Auto) 7.3 1.6-8.6 10 ^3/uL Lymphocytes # (Auto) 1.3 0.4-5.4 10 ^3/uL Monocytes # (Auto) 0.5 0-1.3 10 ^3/uL Eosinophils # (Auto) 0.1 0-0.8 10 ^3/uL Basophils # (Auto) 0 0-0.2 10 ^3/uL Nucleated Red Blood Cells 0.2 % Urine Color Yellow Yellow Urine Clarity Clear Clear Urine pH 6.0 5.0-9.0 Urine Specific [place] 1.026 1.001-1.035 Urine Protein Trace H Negative Urine Ketones Trace Negative Urine Blood Negative Negative /uL Urine Nitrite Negative Negative Urine Bilirubin Negative Negative Urine Urobilinogen 2 H Negative mg/dL Urine Leukocyte Esterase Negative Negative /uL Urine RBC 1 0 - 3 /hpf Urine Microscopic WBC 1 0-3 /HPF Urine Squamous Epithelial Cells Few <5 /hpf Urine Bacteria None seen None Seen /hpf Urine Mucus Few None Seen Urine Glucose Normal Normal mg/dL Current Medications Medications (Trade) Dose Ordered Sig/Sarah Route Start Time Stop Time Status Last Admin Sodium Chloride 1,000 ml @ 1,000 mls/hr Q1H ONCE IV 10/04/24 15:30 10/04/24 16:29 DC 10/04/24 18:05 Sucralfate (Carafate Susp) 1 gm ONCE ONCE PO 10/04/24 17:00 10/04/24 17:01 DC 10/04/24 17:05 Pantoprazole Sodium (Protonix Tablet) 40 mg ONCE ONCE PO 10/04/24 17:00 10/04/24 17:01 DC 10/04/24 17:05 Morphine Sulfate 4 mg ONCE ONCE IV 10/04/24 21:30 10/04/24 21:31 DC 10/04/24 21:30 Ondansetron HCl (Zofran) 4 mg ONCE ONCE IV 10/04/24 21:30 10/04/24 21:31 DC 10/04/24 21:30 [place] [id number] Ph: [phone] DIAGNOSTIC IMAGING Diagnostic Imaging Report : [id number] Signed PATIENT: DAMION BOWMAN ACCT: [id number] UNIT: [id number] : 1955 LOC: ER ROOM / BED: / AGE / SEX: 69 / M ADM STATUS: REG ER SERVICE 1525 ORDERING PHYSICIAN: ALIREZA QUEVEDO MD PROCEDURE(s): ABPL - CT AB PEL WO CON-NO ORAL OR IV REASON: abd pain n/v ORDER NUMBER(s): [id number], ACCESSION NUMBER(s): [id number] Exam: CT CT AB PEL WO CON-NO ORAL OR IV History: abd pain n/v Comparison Study: CT CT AB PEL WO CON-NO ORAL OR IV on DOS: 03/18/24, CT ABD PELVIS WO CONTRAST on DOS: 06/19/19 TECHNIQUE: Multidetector CT of the abdomen was performed from lung bases to pubic symphysis. Imaging was performed without IV contrast. Axial, coronal and sagittal multiplanar reformats were obtained from the axial data set by the technologist. Radiation Dose Information: CT Dose: CTDI volume is 7.51 mGy. Dose-length product is 8.36 mGy*cm FINDINGS: Evaluation of solid organs is limited due to lack of intravenous contrast use. Findings: Lung Bases: No acute or significant lung base finding. Normal heart size. No pleural or pericardial effusion. Liver: The liver is normal in size. No focal lesions. Gallbladder and Biliary Tree: Unremarkable Spleen: Unremarkable Pancreas: The pancreas is grossly normal in appearance. Adrenal Glands: Unremarkable Kidneys: Kidneys are grossly normal without calculi or hydronephrosis. Bladder: Grossly unremarkable for degree of distention. Bowel: The stomach is grossly normal in appearance. Mucosal thickening distal esophagus small hiatal hernia. Small bowel and colon are normal in caliber and distribution. The appendix is not visualized; however, no secondary findings of acute appendicitis identified. Ascites: Absent Lymphadenopathy: No mesenteric, retroperitoneal or periportal lymphadenopathy. Abdominal Wall and Mesentery: Unremarkable. Vasculature: The visualized abdominal aorta is normal in size and caliber. Evaluation of abdominal and pelvic vessels is limited due to lack of intravenous contrast. Pelvic Organs: Unremarkable Musculoskeletal: No aggressive focal bony lesions, acute fractures or dislocation. Soft tissues: Unremarkable IMPRESSION: 1. No findings of bowel obstruction 2. No free air or free fluid. 3. No calcified gallstones 4. No nephrolithiasis or hydronephrosis Radiation optimization: All CT scans at this facility use at least one of these dose optimization techniques: automated exposure control mA and/or kV adjustment per patient size (includes targeted exams where dose is matched to clinical indication) or iterative reconstruction. HS:Y ATED BY: NATHALIE RAMÍREZ Jr., DO DICTATED DATE/TIME: 10/04/241620 SIGNED BY: NATHALIE RAMÍREZ Jr., SIGNED DATE/TIME: 10/04/241620 CC: X-Ray, Labs, Meds, VS Comment 69-year-old male with history of esophagitis, Hepatitis C, PNA, recurrent falls, frequent admissions, polysubstance abuse (alcohol and amphetamines), brought in by EMS complaining of abdominal pain, nausea and vomiting for the past 6 days Vitals unremarkable Exam remarkable for epigastric and bilateral upper quadrant tenderness to palpation Rhythm strip independently interpreted by me: Sinus rhythm, rate 83, no ectopy. CT abdomen and pelvis IMPRESSION: 1. No findings of bowel obstruction 2. No free air or free fluid. 3. No calcified gallstones 4. No nephrolithiasis or hydronephrosis CBC remarkable, CMP and lipase unremarkable, lactate normal, troponin negative, UA pending. Patient treated with the following in the ED: There was difficulty establishing IV access, so patient initially received Carafate 1 g p.o. and Protonix 40 mg p.o. After IV access was established after many tries, patient received 1 L 0.9 normal saline IV bolus, morphine 4 mg IV, Zofran 4 mg IV On re-evaluation, patient states pain has not improved. Second dose of morphine was ordered. Vitals were stable. Plan is to admit the patient for pain control and GI evaluation. Time of 1ST Reevaluation: 15:50 Reevaluation 1ST: Unchanged Patient Education/Counseling: Diagnosis, Treatment Family Education/Counseling: No Family Present SEPSIS Sepsis Screen Physician Orders Troponin-I Hs (10/05/24 00:00) Troponin-I Hs (10/05/24 03:00) Ct Ab Pel Wo Con-No Oral Or Iv (10/04/24 15:25) Pantoprazole (Protonix) (10/04/24 22:00) Hydralazine Injection (Apresoline Inject (10/04/24 21:15) Allergies (10/04/24 21:05) Code Status (10/04/24 21:05) Sodium Chloride 0.9% (10/04/24 21:15) Oxygen Per Hour (10/04/24 21:05) Ondansetron Hcl (Zofran) (10/04/24 21:15) Docusate Sodium Capsule (Colace Capsule) (10/04/24 21:15) Complete Blood Count (10/05/24 04:00) Comprehensive Metabolic Panel (10/05/24 04:00) Condition: Serious (10/04/24 21:05) Acetaminophen Tablet (Tylenol Tablet) (10/04/24 21:15) Clear Liq Diet (10/05/24 Breakfast) Bedrest With Bathroom Privileg (10/04/24 21:05) Morphine Sulfate Injection (10/04/24 21:15) Sequential Compression Device (10/04/24 ) Amlodipine Tablet (Norvasc Tablet) (10/05/24 10:00) Admit (10/04/24 22:03) Nitroglycerin Sublingual (Ntrostat Subli (10/04/24 22:15) Morphine Sulfate Injection (10/04/24 22:15) Notify Of Changes From Base (10/04/24 22:03) Emergency Dysrhythmia Protocol (10/04/24 22:03) Oxygen By Nasal Cannula (10/04/24 22:03) Vital Signs Date Time Temp Pulse Resp B/P (MAP) Pulse Ox O2 Delivery O2 Flow Rate FiO2 10/04/24 21:30 63 16 161/98 10/04/24 16:00 98.8 65 12 145/87 (106) 96 98.8 10/04/24 14:10 68 12 132/71 (91) 96 10/04/24 14:10 68 12 96 Room Air* 0 21 10/04/24 13:56 62 10/04/24 13:55 98.1 73 16 140/83 98 98.1 Laboratory Tests Test 10/04/24 17:49 10/04/24 18:47 White Blood Count 9.2 10^3/uL (4.4-10.8) Lactic Acid Level 1.8 mmol/L (0.4-2.0) Medications Medications Dose Ordered Sig/Sarah Route Start Time Stop Time Status Last Admin Dose Admin Morphine Sulfate 4 mg ONCE ONCE IV 10/04/24 21:30 10/04/24 21:31 DC 10/04/24 21:30 Ondansetron HCl 4 mg ONCE ONCE IV 10/04/24 21:30 10/04/24 21:31 DC 10/04/24 21:30 Pantoprazole Sodium 40 mg ONCE ONCE PO 10/04/24 17:00 10/04/24 17:01 DC 10/04/24 17:05 Sodium Chloride 1,000 ml @ 1,000 mls/hr Q1H ONCE IV 10/04/24 15:30 10/04/24 16:29 DC 10/04/24 18:05 Sucralfate 1 gm ONCE ONCE PO 10/04/24 17:00 10/04/24 17:01 DC 10/04/24 17:05 Departure 1 Departure Time of Disposition: 19:30 Impression: Primary Impression: Intractable abdominal pain Disposition: 09 ADMITTED INPATIENT Admit to: Med Surg Condition: Guarded Critical Care Note Critical Care Time?: No Stability Stability form required: No Heart Score Heart Score: Heart Score Response (Comments) Value History N/A 0 EKG N/A 0 Age N/A 0 Risk Factors N/A 0 Troponin N/A 0 Total 0 I personally scribed for ALIREZA QUEVEDO MD ([email or web address]) on 10/04/24 at 14:33. Electronically submitted by Richie Matthews ([email or web address]). I personally scribed for ALIREZA QUEVEDO MD ([email or web address]) on 10/04/24 at 17:49. Electronically submitted by Richie Matthews [email or web address]). ALIREZA QUEVEDO MD Oct 04, 2024 14:33
--- NOTE | 2024-10-04 16:23 | DVH ---
Exam: CT CT AB PEL WO CON-NO ORAL OR IV History: abd pain n/v Comparison Study: CT CT AB PEL WO CON-NO ORAL OR IV on DOS: 03/18/24, CT ABD PELVIS WO CONTRAST on DOS : 06/19/19 TECHNIQUE: Multidetector CT of the abdomen was performed from lung bases to pubic symphysis. Imaging was performed without IV contrast. Axial, coronal and sagittal multiplanar reformats were obtained fr om the axial data set by the technologist. Radiation Dose Information: CT Dose: CTDI volume is 7.51 mGy. Dose-length product is 8.36 mGy*cm FINDINGS: Evaluation of solid organs is limited due to lack of intravenous contrast use. Findings: Lung Bases: No acute or significant lung base finding. Normal heart size. No pleural or pericardial effusion. Liver: The liver is normal in size. No focal lesions. Gallbladder and Biliary Tree: Unremarkable Spleen: Unremarkable Pancreas: The pancreas is grossly normal in appearance. Adrenal Glands: Unremarkable Kidneys: Kidneys are grossly normal without calculi or hydronephrosis. Bladder: Grossly unremarkable for degree of distention. Bowel: The stomach is grossly normal in appearance. Mucosal thickening distal esophagus small hiatal hernia. Small bowel and colon are normal in caliber and distribution. The appendix is not visualized ; however, no secondary findings of acute appendicitis identified. Ascites: Absent Lymphadenopathy: No mesenteric, retroperitoneal or periportal lymphadenopathy. Abdominal Wall and Mesentery: Unremarkable. Vasculature: The visualized abdominal aorta is normal in size and caliber. Evaluation of abdominal a nd pelvic vessels is limited due to lack of intravenous contrast. Pelvic Organs: Unremarkable Musculoskeletal: No aggressive focal bony lesions, acute fractures or dislocation. Soft tissues: Unremarkable IMPRESSION: 1. No findings of bowel obstruction 2. No free air or free fluid. 3. No calcified gallstones 4. No nephrolithiasis or hydronephrosis Radiation optimization: All CT scans at this facility use at least one of these dose optimization lyndsay hniques: automated exposure control mA and/or kV adjustment per patient size (includes targeted exam s where dose is matched to clinical indication) or iterative reconstruction. HS:Y
[2024-10-04] MEDS: PANTOPRAZOLE 40 MG TAB PO ONE (17:05)
[2024-10-04] MEDS: SUCRALFATE 1 GM/10 ML ORAL SUSP PO ONE (17:05)
[2024-10-04 17:35] LABS: Urine Protein, UAD TRACE (Negative)
[2024-10-04] MEDS: SODIUM CHLORIDE 0.9% 1,000 ML IV ONE (18:05)
[2024-10-04] MEDS: PANTOPRAZOLE 40 MG/10 ML VIAL INJ IV ONE (18:06)
[2024-10-04] MEDS: MORPHINE SULFATE 4 MG/ML SYR/VIAL IV ONE ×2 (18:06→21:30)
[2024-10-04] MEDS: ONDANSETRON HCL 4 MG/2 ML VIAL IV ONE ×2 (18:06→21:30)
[2024-10-04 18:31] LABS: Hematocrit 45.1 % (41.0-53.0); Hemoglobin 15.5 g/dL (13.5-17.5); Mean Corpuscular Hemoglobin 29.2 pg (28.0-32.0); Mean Corpuscular Volume 85.0 fL (80.0-100.0); Nucleated Red Blood Cells % 0.2 %
[2024-10-04 19:30] VITALS: PULSE 84; RESP 14; O2SAT 95
--- NOTE | 2024-10-04 19:44 | ECG ---
[facility] Test Date: 2024-10-04 Test Time: 13:56:26 Pat Name: DAMION BOWMAN Department: ED Room: 0240 Gender: M [employer]: BETSY : 1955 Requested By: ALIREZA SELLERS Order Number: [id number] Reading MD: Olaf Matute Measurements Intervals [place] Rate: 62 P: 50 WV: 134 QRS: -31 QRSD: 99 T: -5 QT: 432 QTc: 439 Interpretive Statements Sinus rhythm Left axis deviation Anterior infarct, old Minimal ST elevation, lateral leads Baseline wander in lead(s) II,III,aVR,aVL,aVF,V4,V5,V6 Electronically Signed On 10-07-2024 22:50:28 PDT by Olaf Matute Please click the below link to view image of tracing.
[2024-10-04] MEDS ORDERED: ONDANSETRON HCL 4 MG/2 ML VIAL IV PRN (21:15)
[2024-10-04] MEDS ORDERED: DOCUSATE SOD 100 MG CAP PO PRN (21:15)
[2024-10-04] MEDS: SODIUM CHLORIDE 0.9% 1,000 ML IV SCH (21:15)
[2024-10-04] MEDS ORDERED: hydrALAZINE HCL 20 MG/ML VL IV PRN (21:15)
[2024-10-04 21:53] LABS: Alanine Aminotransferase 15 U/L (7-40); Albumin 4.2 g/dL (3.2-4.8); Alkaline Phosphatase 90 U/L (46-116); Anion Gap 9 (5-15); BUN/Creatinine Ratio 21.2 (10.0-20.0); Bilirubin, Total 1.2 mg/dL (0.2-1.0); Blood Urea Nitrogen 18 mg/dL (9-23); Calcium 9.1 mg/dL (8.7-10.4); Carbon Dioxide 28 mmol/L (20-31); Chloride 102 mmol/L (98-107); Glucose 82 mg/dL (74-106); Lipase 29 U/L (12-53); Potassium 4.8 mmol/L (3.5-5.1); Sodium 139 mmol/L (136-145); Total Protein 6.7 g/dL (5.7-8.2)
[2024-10-04] MEDS: PANTOPRAZOLE 40 MG/10 ML VIAL INJ IV SCH (22:00)
--- NOTE | 2024-10-04 22:06 | DVHHP2 ---
History of Present Illness Reason for Visit: Intractable abdominal pain History of Present Illness The patient is a 69-year-old male with past medical history of polysubstance abuse, hypertension, esophagitis, hepatitis-C, and recurrent falls who presented to [facility] ED with complaint of abdominal pain. Patient reports he has been experiencing abdominal pain, associated with nausea and vomiting for the past 6 days, getting worse today that prompted this visit. Patient was seen and evaluated in the ED, laboratory data shows WBC 9.2, platelets 282, sodium 139, potassium 4.8, BUN 18, creatinine 0.85, glucose 82, lipase 29, troponin < 3, total bilirubin 1.2, blood pressure 145/87, heart rate 65, temperature 98.8 F, O2 saturation 96% on room air. Abdomen/pelvis CT showed no bowel obstruction, no free free fluid, no calcified gallstones. Please see medication orders section in the computer. On my assessment, patient denied chest pain, no heada barbara, no dizziness, no abdominal pain, diarrhea, nausea or vomiting at this moment, no fever, no chills. Patient was admitted for further evaluation and medical management. Past Medical History Hypertension, Polysubstance abuse, Esophagitis, Hepatitis C Covid19 PNA, Recurrent falls Past Surgical History Denies all surgeries Family History Reviewed, noncontributory to the management of this case. Past Social History The patient is homeless, denies smoking, drinks alcohol heavily, uses methamphetamine. Review of Systems Constitutional: No: Fever, Chills, Sweats, Weakness, Malaise, Other Eyes: No: Pain, Vision change, Conjunctivae inflammation, Eyelid inflammation, Other, Redness ENT: No: Ear pain, Ear discharge, Nose pain, Nose discharge, Nose congestion, Mouth pain, Mouth swelling, Throat pain, Throat swelling, Other Respiratory: No: Cough, Dry, Shortness of breath, SOB with excertion, Wheezing, Hemoptysis, Pleuritic Pain, Sputum, Wheezing, Other Cardiovascular: No: Chest Pain, Palpitations, Orthopnea, Paroxysmal Noc. Dyspnea, Edema, Lt Headedness, Other Gastrointestinal: Nausea, Vomiting, Abdominal Pain, Diarrhea; No: Constipation, Melena, Hematochezia, Other Genitourinary: No Dysuria, No Frequency, No Incontinence, No Hematuria, No Retention, No Other Musculoskeletal: No: other, neck pain, shoulder pain, arm pain, back pain, hand pain, leg pain, foot pain Skin: No: Rash, Lesions, Jaundice, Bruising, Other Neurological: No: Weakness, Numbness, Incoordination, Change in speech, Confusion, Seizures, Other Allergies: Coded Allergies: Codeine (Verified Allergy, Severe, 02/02/21) Medications Current Medications Medications Dose Ordered Sig/Sarah Route Start Time Stop Time Status Last Admin Dose Admin Pantoprazole Sodium 40 mg BID IV 10/04/24 22:00 Amlodipine Besylate 5 mg DAILY PO 10/05/24 10:00 Hydralazine HCl 10 mg Q6HP PRN IV 10/04/24 21:15 Sodium Chloride 1,000 ml @ 60 mls/hr [id number] IV 10/04/24 21:15 Ondansetron HCl 4 mg Q4HP PRN IV 10/04/24 21:15 Docusate Sodium 100 mg BIDPRN PRN PO 10/04/24 21:15 Acetaminophen 650 mg Q6HP PRN PO 10/04/24 21:15 Morphine Sulfate 2 mg Q4HPRN PRN IV 10/04/24 21:15 Exam Vital Signs Vital Signs Date Time Temp Pulse Resp B/P (MAP) Pulse Ox O2 Delivery O2 Flow Rate FiO2 10/04/24 21:30 63 16 161/98 10/04/24 16:00 98.8 96 98.8 10/04/24 14:10 Room Air* 0 21 General Appearance: Alert, Oriented X3, Cooperative, No acute distress HEENT: Atraumatic, PERRLA, EOMI, Mucous membr. moist/pink Respiratory: Clear to auscultation, Normal air movement Cardiovascular: Regular rate, Normal S1, Normal S2, No murmurs Abdominal: Normal bowel sounds, Soft, No hepatospenomegaly, No masses, Other (Reports tenderness) Extremities: No clubbing, No cyanosis, No edema, Normal pulses, No tenderness/swelling Skin: No rashes, No breakdown, No significant lesion Neuro: Normal gait, Normal speech, Strength at 5/5 X4 ext, Normal tone, Sensation intact, Cranial nerves 3-12 NL, Reflexes 2+ Psych/Mental Status: Mental status NL, Mood NL Labs/Xrays Labs Test 10/04/24 20:45 10/04/24 18:47 10/04/24 17:49 10/04/24 14:20 Range/Units Sodium Level 139 136-145 mmol/L Potassium Level 4.8 3.5-5.1 mmol/L Chloride Level 102 98-107 mmol/L Carbon Dioxide Level 28 20-31 mmol/L Anion Gap 9 5-15 Blood Urea Nitrogen 18 9-23 mg/dL Creatinine 0.85 0.700-1.30 mg/dL Glomerular Filtration Rate Calc 94 >90 mL/min BUN/Creatinine Ratio 21.2 H 10.0-20.0 Serum Glucose 82 74-106 mg/dL Calcium Level 9.1 8.7-10.4 mg/dL Total Bilirubin 1.2 H 0.2-1.0 mg/dL Aspartate Amino Transferase (AST) 17 13-40 U/L Alanine Aminotransferase (ALT) 15 7-40 U/L Alkaline Phosphatase 90 46-116 U/L Troponin I High Sensitivity < 3 L </=54 ng/L Total Protein 6.7 5.7-8.2 g/dL Albumin 4.2 3.2-4.8 g/dL Lipase 29 12-53 U/L Lactic Acid Level 1.8 0.4-2.0 mmol/L White Blood Count 9.2 4.4-10.8 10^3/uL Red Blood Count 5.31 4.5-5.90 10^6/uL Hemoglobin 15.5 13.5-17.5 g/dL Hematocrit 45.1 41.0-53.0 % Mean Corpuscular Volume 85.0 80.0-100.0 fL Mean Corpuscular Hemoglobin 29.2 28.0-32.0 pg Mean Corpuscular Hemoglobin Concent 34.3 32.0-36.0 g/dL Red Cell Distribution Width 14.9 H 11.8-14.3 % Platelet Count 282 140-450 10^3/uL Mean Platelet Volume 8.2 6.9-10.8 fL Neutrophils (%) (Auto) 79.8 37.0-80.0 % Lymphocytes (%) (Auto) 13.7 10.0-50.0 % Monocytes (%) (Auto) 5.5 0.0-12.0 % Eosinophils (%) (Auto) 0.7 0.0-7.0 % Basophils (%) (Auto) 0.3 0.0-2.0 % Neutrophils # (Auto) 7.3 1.6-8.6 10 ^3/uL Lymphocytes # (Auto) 1.3 0.4-5.4 10 ^3/uL Monocytes # (Auto) 0.5 0-1.3 10 ^3/uL Eosinophils # (Auto) 0.1 0-0.8 10 ^3/uL Basophils # (Auto) 0 0-0.2 10 ^3/uL Nucleated Red Blood Cells 0.2 % Urine Color Yellow Yellow Urine Clarity Clear Clear Urine pH 6.0 5.0-9.0 Urine Specific [place] 1.026 1.001-1.035 Urine Protein Trace H Negative Urine Ketones Trace Negative Urine Blood Negative Negative /uL Urine Nitrite Negative Negative Urine Bilirubin Negative Negative Urine Urobilinogen 2 H Negative mg/dL Urine Leukocyte Esterase Negative Negative /uL Urine RBC 1 0 - 3 /hpf Urine Microscopic WBC 1 0-3 /HPF Urine Squamous Epithelial Cells Few <5 /hpf Urine Bacteria None seen None Seen /hpf Urine Mucus Few None Seen Urine Glucose Normal Normal mg/dL PATIENT: DAMION BOWMAN ACCT: [id number] UNIT: [id number] : 1955 LOC: ER ROOM / BED: / AGE / SEX: 69 / M ADM STATUS: REG ER SERVICE 1525 ORDERING PHYSICIAN: ALIREZA QUEVEDO MD PROCEDURE(s): ABPL - CT AB PEL WO CON-NO ORAL OR IV REASON: abd pain n/v ORDER NUMBER(s): [id number], ACCESSION NUMBER(s): [id number] Exam: CT CT AB PEL WO CON-NO ORAL OR IV History: abd pain n/v Comparison Study: CT CT AB PEL WO CON-NO ORAL OR IV on DOS: 03/18/24, CT ABD PELVIS WO CONTRAST on DOS: 06/19/19 TECHNIQUE: Multidetector CT of the abdomen was performed from lung bases to pubic symphysis. Imaging was performed without IV contrast. Axial, coronal and sagittal multiplanar reformats were obtained from the axial data set by the technologist. Radiation Dose Information: CT Dose: CTDI volume is 7.51 mGy. Dose-length product is 8.36 mGy*cm FINDINGS: Evaluation of solid organs is limited due to lack of intravenous contrast use. Findings: Lung Bases: No acute or significant lung base finding. Normal heart size. No pleural or pericardial effusion. Liver: The liver is normal in size. No focal lesions. Gallbladder and Biliary Tree: Unremarkable Spleen: Unremarkable Pancreas: The pancreas is grossly normal in appearance. Adrenal Glands: Unremarkable Kidneys: Kidneys are grossly normal without calculi or hydronephrosis. Bladder: Grossly unremarkable for degree of distention. Bowel: The stomach is grossly normal in appearance. Mucosal thickening distal esophagus small hiatal hernia. Small bowel and colon are normal in caliber and distribution. The appendix is not visualized; however, no secondary findings of acute appendicitis identified. Ascites: Absent Lymphadenopathy: No mesenteric, retroperitoneal or periportal lymphadenopathy. Abdominal Wall and Mesentery: Unremarkable. Vasculature: The visualized abdominal aorta is normal in size and caliber. Evaluation of abdominal and pelvic vessels is limited due to lack of intravenous contrast. Pelvic Organs: Unremarkable Musculoskeletal: No aggressive focal bony lesions, acute fractures or dislocation. Soft tissues: Unremarkable IMPRESSION: 1. No findings of bowel obstruction 2. No free air or free fluid. 3. No calcified gallstones 4. No nephrolithiasis or hydronephrosis SEPSIS Sepsis Screen Date sepsis recognized/suspect: Oct 04, 2024 Time Sepsis recognized/suspect: 0 Recent Procedure: No On Antibiotic Therapy: No Respiratory Rate >20: No Heart Rate >90: No Temp<36 C (96.8 F) or >38.3 C: No SBP <90 or MAP <65 mmHG: No New Acute Mental Status Change: No Is the patient on CPAP, BIPAP,: No Physician Orders Troponin-I Hs (10/05/24 00:00) Troponin-I Hs (10/05/24 03:00) Ct Ab Pel Wo Con-No Oral Or Iv (10/04/24 15:25) Pantoprazole (Protonix) (10/04/24 22:00) Hydralazine Injection (Apresoline Inject (10/04/24 21:15) Allergies (10/04/24 21:05) Code Status (10/04/24 21:05) Sodium Chloride 0.9% (10/04/24 21:15) Oxygen Per Hour (10/04/24 21:05) Ondansetron Hcl (Zofran) (10/04/24 21:15) Docusate Sodium Capsule (Colace Capsule) (10/04/24 21:15) Complete Blood Count (10/05/24 04:00) Comprehensive Metabolic Panel (10/05/24 04:00) Condition: Serious (10/04/24 21:05) Acetaminophen Tablet (Tylenol Tablet) (10/04/24 21:15) Clear Liq Diet (10/05/24 Breakfast) Bedrest With Bathroom Privileg (10/04/24 21:05) Morphine Sulfate Injection (10/04/24 21:15) Sequential Compression Device (10/04/24 ) Amlodipine Tablet (Norvasc Tablet) (10/05/24 10:00) Vital Signs Date Time Temp Pulse Resp B/P (MAP) Pulse Ox O2 Delivery O2 Flow Rate FiO2 10/04/24 21:30 63 16 161/98 10/04/24 16:00 98.8 65 12 145/87 (106) 96 98.8 10/04/24 14:10 68 12 132/71 (91) 96 10/04/24 14:10 68 12 96 Room Air* 0 21 Laboratory Tests Test 10/04/24 17:49 10/04/24 18:47 White Blood Count 9.2 10^3/uL (4.4-10.8) Lactic Acid Level 1.8 mmol/L (0.4-2.0) Medications Medications Dose Ordered Sig/Sarah Route Start Time Stop Time Status Last Admin Dose Admin Morphine Sulfate 4 mg ONCE ONCE IV 10/04/24 21:30 10/04/24 21:31 DC 10/04/24 21:30 4 MG Pantoprazole Sodium 40 mg ONCE ONCE PO 10/04/24 17:00 10/04/24 17:01 DC 10/04/24 17:05 40 MG Sodium Chloride 1,000 ml @ 1,000 mls/hr Q1H ONCE IV 10/04/24 15:30 10/04/24 16:29 DC 10/04/24 18:05 1,000 MLS/HR Sucralfate 1 gm ONCE ONCE PO 10/04/24 17:00 10/04/24 17:01 DC 10/04/24 17:05 1 GM Assessment/Plan Assessment/Plan Intractable abdominal pain Methamphetamine abuse Intractable nausea and vomiting Plan 1. Admit to med surge unit 2. Breathing treatment 3. Pain control management 4. Management of fluids and electrolytes 5. Consultation for hospitalist 6. Diagnostic tests abdomen/pelvis CT 7. DVT prophylaxis on SCDs 8. Repeat labs CBC, CMP in a.m. 9. Continue with current medical management 10. Treatment plan discussed with patient and RN. Patient verbalized understanding. Plan discussed with: Patient, Other (RN) My Orders Orders - WILL ALAS DNP Procedure Category Date Status Time Pantoprazole PHA 10/04/24 In Process (Protonix) 22:00 Hydralazine Injection PHA 10/04/24 In Process (Apresoline Inject 21:15 Allergies HANSA 10/04/24 In Process 21:05 Code Status CODE 10/04/24 Transmitted 21:05 Sodium Chloride 0.9% PHA 10/04/24 In Process 21:15 Oxygen Per Hour RT 10/04/24 Transmitted 21:05 Ondansetron Hcl PHA 10/04/24 In Process (Zofran) 21:15 Docusate Sodium PHA 10/04/24 In Process Capsule (Colace 21:15 Complete Blood Count LAB 10/05/24 Verified 04:00 Comprehensive LAB 10/05/24 Verified Metabolic Panel 04:00 Condition: Serious HANSA 10/04/24 In Process 21:05 Acetaminophen Tablet PHA 10/04/24 In Process (Tylenol Tablet) 21:15 Clear Liq Diet DIET 10/05/24 Transmitted Breakfast Bedrest With Bathroom HANSA 10/04/24 In Process Privileg 21:05 Morphine Sulfate PHA 10/04/24 In Process Injection 21:15 Sequential HANSA 10/04/24 In Process Compression Device Amlodipine Tablet PHA 10/05/24 In Process (Norvasc Tablet) 10:00 Problem List: (1) Intractable abdominal pain (2) Methamphetamine abuse (3) Intractable nausea and vomiting Date of Service: Oct 04, 2024 Billing Provider: WILL ALAS DNP Common Visit Codes: [id number] INP/OBS CARE (HIGH) WILL ALAS DNP Oct 04, 2024 22:06
[2024-10-04] MEDS ORDERED: NITROGLYCERIN 0.4 MG SL TAB SL PRN (22:15)
[2024-10-04] MEDS ORDERED: MORPHINE SULFATE INJ 2 MG/ml SYRG IV PRN (22:15)
[2024-10-05] VITALS (7 sets, daily range): BP systolic 120–150; BP diastolic 74–95; PULSE 68–92; RESP 17–20; TEMP 97.8–98.4; O2SAT 95–97
[2024-10-05] MEDS: MORPHINE SULFATE INJ 2 MG/ml SYRG IV PRN (00:08)
[2024-10-05 03:10] LABS: Hematocrit 47.0 % (41.0-53.0); Hemoglobin 16.0 g/dL (13.5-17.5); Mean Corpuscular Hemoglobin 29.0 pg (28.0-32.0); Mean Corpuscular Volume 85.5 fL (80.0-100.0); Nucleated Red Blood Cells % 0.2 %
[2024-10-05 03:30] LABS: Alanine Aminotransferase 18 U/L (7-40); Albumin 3.9 g/dL (3.2-4.8); Alkaline Phosphatase 91 U/L (46-116); Anion Gap 10 (5-15); BUN/Creatinine Ratio 22.2 (10.0-20.0); Blood Urea Nitrogen 20 mg/dL (9-23); Calcium 8.8 mg/dL (8.7-10.4); Carbon Dioxide 21 mmol/L (20-31); Chloride 105 mmol/L (98-107); Glucose 76 mg/dL (74-106); Potassium 4.9 mmol/L (3.5-5.1); Sodium 136 mmol/L (136-145); Total Protein 6.2 g/dL (5.7-8.2)
[2024-10-05 03:33] LABS: Bilirubin, Total 1.6 mg/dL (0.2-1.0)
--- NOTE | 2024-10-05 10:58 | DVHPN2 ---
Reviewed: Care Plan, H&P, Labs, Medications, Previous Orders, Radiology Changes from previous H/P or p: No Changes Eyes: No Pain, No Vision change, No Conjunctivae inflammation, No Eyelid inflammation, No Other, No Redness ENT: No Ear pain, No Ear discharge, No Nose pain, No Nose discharge, No Nose congestion, No Mouth pain, No Mouth swelling, No Throat pain, No Throat swelling, No Other Cardiovascular: No Chest Pain, No Palpitations, No Orthopnea, No Paroxysmal Noc. Dyspnea, No Edema, No Lt Headedness, No Other Respiratory: No Cough, No Dry, No Shortness of breath, No SOB with excertion, No Wheezing, No Hemoptysis, No Pleuritic Pain, No Sputum, No Other Gastrointestinal: Nausea, Vomiting, Abdominal Pain, Diarrhea; No Constipation, No Melena, No Hematochezia, No Other Genitourinary: No Dysuria, No Frequency, No Incontinence, No Hematuria, No Retention, No Other Musculoskeletal: No other, No neck pain, No shoulder pain, No arm pain, No back pain, No hand pain, No leg pain, No foot pain Skin: No Rash, No Lesions, No Jaundice, No Bruising, No Other Objective Vitals Vital Signs Date Time Temp Pulse Resp B/P (MAP) Pulse Ox O2 Delivery O2 Flow Rate FiO2 10/05/24 09:08 130/89 10/05/24 08:30 97.8 75 17 96 97.8 10/05/24 00:43 Room Air* 0 21 Intake/Output Intake and Output 10/05/24 07:00 Intake Total 1000 ml Balance 1000 ml Intake Oral 0 ml IV Total 1000 ml # Voids 1 Medications Current Medications Medications Dose Ordered Sig/Sarah Route Start Time Stop Time Status Last Admin Dose Admin Pantoprazole Sodium 40 mg BID IV 10/04/24 22:00 10/05/24 09:04 40 MG Amlodipine Besylate 5 mg DAILY PO 10/05/24 10:00 10/05/24 09:08 5 MG Hydralazine HCl 10 mg Q6HP PRN IV 10/04/24 21:15 Sodium Chloride 1,000 ml @ 60 mls/hr [id number] IV 10/04/24 21:15 10/04/24 21:15 60 MLS/HR Ondansetron HCl 4 mg Q4HP PRN IV 10/04/24 21:15 Docusate Sodium 100 mg BIDPRN PRN PO 10/04/24 21:15 Acetaminophen 650 mg Q6HP PRN PO 10/04/24 21:15 Morphine Sulfate 2 mg Q4HPRN PRN IV 10/04/24 21:15 10/05/24 00:08 2 MG Nitroglycerin 0.4 mg Q5MINP PRN SL 10/04/24 22:15 Morphine Sulfate 2 mg Q30M PRN IV 10/04/24 22:15 Laboratory Results Laboratory Tests 10/05/24 02:58 Chemistry Test 10/04/24 20:45 10/05/24 02:58 Albumin 4.2 g/dL (3.2-4.8) 3.9 g/dL (3.2-4.8) Calcium Level 9.1 mg/dL (8.7-10.4) 8.8 mg/dL (8.7-10.4) Total Protein 6.7 g/dL (5.7-8.2) 6.2 g/dL (5.7-8.2) Lipid panel Test 10/04/24 20:45 Lipase 29 U/L (12-53) LFT Test 10/04/24 20:45 10/05/24 02:58 Alanine Aminotransferase (ALT) 15 U/L (7-40) 18 U/L (7-40) Alkaline Phosphatase 90 U/L (46-116) 91 U/L (46-116) Aspartate Amino Transferase (AST) 17 U/L (13-40) 30 U/L (13-40) Total Bilirubin 1.2 mg/dL (0.2-1.0) H 1.6 mg/dL (0.2-1.0) H Urinalysis Test 10/04/24 14:20 Urine Color Yellow (Yellow) Urine Clarity Clear (Clear) Urine pH 6.0 (5.0-9.0) Urine Specific [place] 1.026 (1.001-1.035) Urine Protein Trace (Negative) H Urine Ketones Trace (Negative) Urine Blood Negative /uL (Negative) Urine Nitrite Negative (Negative) Urine Bilirubin Negative (Negative) Urine Urobilinogen 2 mg/dL (Negative) H Urine Leukocyte Esterase Negative /uL (Negative) Urine RBC 1 /hpf (0 - 3) Urine Microscopic WBC 1 /HPF (0-3) Urine Squamous Epithelial Cells Few /hpf (<5) Urine Bacteria None seen /hpf (None Seen) Urine Mucus Few (None Seen) Urine Glucose Normal mg/dL (Normal) Labs and/or images reviewed: Labs reviewed by me, Image(s) reviewed by me Assessment/Plan Assessment/Plan Acute abdominal pain: CT abdomen pelvis without contrast negative, we will check lipase Abdominal Pain: CT abdomen pelvis without contrast negative, GI consult by Dr. Osbaldo Giles Acute generalized weakness Recurrent falls Frequent admissions Gait instability secondary to alcohol abuse, Severe malnutrition: Cachexia Homeless History of hep C for many years, patient not interested in pursuing any treatment Amphetamine abuse : Counseled urine drug screen ordered blood alcohol level ordered Time spent 70 minutes Advanced care planning time 20 minutes Patient is full code Plan discussed with: Patient Date of Service: Oct 05, 2024 Billing Provider: BARB AUSTIN MD Common Visit Codes: [id number] INP/OBS CARE(HIGH) BARB AUSTIN MD Oct 05, 2024 10:58
[2024-10-05 14:11] LABS: Lipase 23 U/L (12-53)
[2024-10-06 09:00] VITALS: BP 115/85; PULSE 66; RESP 20; TEMP 97.8; O2SAT 98
--- NOTE | 2024-10-06 10:31 | DVHPN2 ---
Reviewed: Care Plan, H&P, Labs, Medications, Previous Orders, Radiology Changes from previous H/P or p: No Changes Eyes: No Pain, No Vision change, No Conjunctivae inflammation, No Eyelid inflammation, No Other, No Redness ENT: No Ear pain, No Ear discharge, No Nose pain, No Nose discharge, No Nose congestion, No Mouth pain, No Mouth swelling, No Throat pain, No Throat swelling, No Other Cardiovascular: No Chest Pain, No Palpitations, No Orthopnea, No Paroxysmal Noc. Dyspnea, No Edema, No Lt Headedness, No Other Respiratory: No Cough, No Dry, No Shortness of breath, No SOB with excertion, No Wheezing, No Hemoptysis, No Pleuritic Pain, No Sputum, No Other Gastrointestinal: Nausea, Vomiting, Abdominal Pain, Diarrhea; No Constipation, No Melena, No Hematochezia, No Other Genitourinary: No Dysuria, No Frequency, No Incontinence, No Hematuria, No Retention, No Other Musculoskeletal: No other, No neck pain, No shoulder pain, No arm pain, No back pain, No hand pain, No leg pain, No foot pain Skin: No Rash, No Lesions, No Jaundice, No Bruising, No Other Objective Vitals Vital Signs Date Time Temp Pulse Resp B/P (MAP) Pulse Ox O2 Delivery O2 Flow Rate FiO2 10/06/24 09:00 97.8 66 20 115/85 (95) 98 97.8 10/05/24 20:30 Room Air* 0 21 Intake/Output Intake and Output 10/06/24 07:00 Intake Total 1320 ml Balance 1320 ml Intake Oral 1320 ml # Voids 4 # Bowel Movements 1 Medications Current Medications Medications Dose Ordered Sig/Sarah Route Start Time Stop Time Status Last Admin Dose Admin Pantoprazole Sodium 40 mg BID IV 10/04/24 22:00 10/05/24 21:23 40 MG Amlodipine Besylate 5 mg DAILY PO 10/05/24 10:00 10/05/24 09:08 5 MG Hydralazine HCl 10 mg Q6HP PRN IV 10/04/24 21:15 Sodium Chloride 1,000 ml @ 60 mls/hr [id number] IV 10/04/24 21:15 10/05/24 13:43 60 MLS/HR Ondansetron HCl 4 mg Q4HP PRN IV 10/04/24 21:15 Docusate Sodium 100 mg BIDPRN PRN PO 10/04/24 21:15 Acetaminophen 650 mg Q6HP PRN PO 10/04/24 21:15 Morphine Sulfate 2 mg Q4HPRN PRN IV 10/04/24 21:15 10/05/24 13:39 2 MG Nitroglycerin 0.4 mg Q5MINP PRN SL 10/04/24 22:15 Morphine Sulfate 2 mg Q30M PRN IV 10/04/24 22:15 Laboratory Results Laboratory Tests 10/05/24 02:58 Lipid panel Test 10/05/24 13:34 Lipase 23 U/L (12-53) Urinalysis Test 10/04/24 14:20 Urine Color Yellow (Yellow) Urine Clarity Clear (Clear) Urine pH 6.0 (5.0-9.0) Urine Specific [place] 1.026 (1.001-1.035) Urine Protein Trace (Negative) H Urine Ketones Trace (Negative) Urine Blood Negative /uL (Negative) Urine Nitrite Negative (Negative) Urine Bilirubin Negative (Negative) Urine Urobilinogen 2 mg/dL (Negative) H Urine Leukocyte Esterase Negative /uL (Negative) Urine RBC 1 /hpf (0 - 3) Urine Microscopic WBC 1 /HPF (0-3) Urine Squamous Epithelial Cells Few /hpf (<5) Urine Bacteria None seen /hpf (None Seen) Urine Mucus Few (None Seen) Urine Glucose Normal mg/dL (Normal) Labs and/or images reviewed: Labs reviewed by me, Image(s) reviewed by me Assessment/Plan Assessment/Plan Acute abdominal Pain: CT abdomen pelvis without contrast negative, GI consult by Dr. Osbaldo Giles lipase normal Acute generalized weakness Recurrent falls Frequent admissions Gait instability secondary to alcohol abuse, Severe malnutrition: Cachexia Homeless social service consult History of hep C for many years, patient not interested in pursuing any treatment Amphetamine abuse : Counseled urine drug screen ordered blood alcohol level ordered Time spent 50 minutes Advanced care planning time 20 minutes Patient is full code Physical therapy ordered Plan discussed with: Patient My Orders Orders - BARB AUSTIN MD Procedure Category Date Status Time Drug Screen LAB 10/05/24 Logged 11:00 * [facility] Pest Control Service Technician CONS 10/05/24 Transmitted 11:15 Date of Service: Oct 06, 2024 Billing Provider: BARB AUSTIN MD Common Visit Codes: [id number] INP/OBS CARE(HIGH) BARB AUSTIN MD Oct 06, 2024 10:31
[2024-10-06 12:05] LABS: Amphetamine Screen, Urine Pos (NEGATIVE); Barbiturate Scree,Urine Neg (NEGATIVE); Benzodiazephine Screen, Urine Neg (NEGATIVE); Cannabinoid Screen, Urine Pos (NEGATIVE); Cocaine Screen, Urine Neg (NEGATIVE); Opiate Scree,Urine Neg (NEGATIVE); Phencyclidine Screen, Urine Neg (NEGATIVE)
[2024-10-06 13:00] VITALS: BP 101/58; PULSE 69; RESP 18; TEMP 97.9; O2SAT 99
--- NOTE | 2024-10-06 14:41 | DVHINCON2 ---
Date of service: Oct 06, [address] Aristeo Manzano Reason for Consultation Abdominal pain History of Present Illness The patient is a 69-year-old male with past medical history of polysubstance abuse, hypertension, esophagitis, hepatitis-C, and recurrent falls who presented to [facility] ED with complaint of abdominal pain. Patient reports he has been experiencing abdominal pain, associated with nausea and vomiting for the past 6 days, getting worse today that prompted this visit. Patient believes this is related to his hiatal hernia. Abdomen/pelvis CT showed no bowel obstruction, no free free fluid, no calcified gallstones. Patient stated he has had a previous EGD. He stated all he needs is a 2 month supply of pain medication and a wheelchair I performed an EGD for him in February 2024 Operative Report DATE OF OPERATION: 03/08/24 PROCEDURE: Upper Endoscopy with biopsy. PREOPERATIVE INDICATION: The patient is a 69 -year-old male undergoing endoscopy for oropharyngeal dysphagia and abnormal finding GI tract imaging POSTOPERATIVE DIAGNOSES: 1. 3-4 cm sliding-type hiatal hernia with grade B erosive esophagitis at the GE junction 2. Mild tertiary contractions of the distal esophagus 3. Mild gastritis PROCEDURE PERFORMED BY: Satya Giles Past Medical History Past Medical History Hypertension, Polysubstance abuse, Esophagitis, Hepatitis C Covid19 PNA, Recurrent falls Past Surgical History Past Surgical History Denies all surgeries Family History: FH: lung cancer G8 MOTHER FH: throat cancer G8 FATHER Allergies: Coded Allergies: Codeine (Verified Allergy, Severe, 02/02/21) Home Meds Active Scripts Sucralfate (Carafate) 1 Gm/10 Ml Loli, 1 GM PO BID for 30 Days, #600 ML 0 Refills Prov:LUIS IGNACIO RESIDENT 03/19/24 Pantoprazole Sodium Sesquihydr (Protonix) 40 Mg Tab, 40 MG PO BID for 30 Days, #60 TAB 0 Refills Prov:LUIS IGNACIO RESIDENT 03/19/24 Amlodipine Besylate (NORVASC TABLET) 5 Mg Tb, 5 MG PO DAILY for 30 Days, #30 TAB Prov:JOEY CHEUNG RESIDENT 03/08/24 Current Medications Current Medications Medications (Trade) Dose Ordered Sig/Sarah Route PRN Reason Start Time Stop Time Status Last Admin Folic Acid 1 mg/ Multivitamins 10 ml/Magnesium Sulfate 8 meq/ Thiamine HCl 100 mg/Dextrose 1,013.2 ml @ 125.001 mls/hr DAILY@1800 INJ 10/06/24 18:00 Vital Signs Vital Signs Date Time Temp Pulse Resp B/P (MAP) Pulse Ox O2 Delivery O2 Flow Rate FiO2 10/06/24 09:00 97.8 66 20 115/85 (95) 98 97.8 10/05/24 20:30 Room Air* 0 21 Physical Exam General Appearance: Alert, Oriented X3, Cooperative, No acute distress HEENT: Atraumatic, PERRLA, EOMI, Mucous membr. moist/pink Respiratory: Clear to auscultation, Normal air movement Cardiovascular: Regular rate, Normal S1, Normal S2, No murmurs Abdominal: Normal bowel sounds, Soft, No hepatospenomegaly, No masses, Other (Reports tenderness) Extremities: No clubbing, No cyanosis, No edema, Normal pulses, No tender ness/swelling Skin: No rashes, No breakdown, No significant lesion Neuro: Normal gait, Normal speech, Strength at 5/5 X4 ext, Normal tone, Sensation intact, Cranial nerves 3-12 NL, Reflexes 2+ Psych/Mental Status: Mental status NL, Mood NL Labs/Diagnostic Data Was then nurse Labs Test 10/06/24 11:30 10/05/24 13:34 10/05/24 02:58 10/04/24 18:47 Range/Units Urine Opiates Screen Neg NEGATIVE Urine Fentanyl Screen Neg NEGATIVE Urine Barbiturates Screen Neg NEGATIVE Urine Phencyclidine Screen Neg NEGATIVE Urine Amphetamines Screen Pos NEGATIVE Urine Benzodiazepines Screen Neg NEGATIVE Urine Cocaine Screen Neg NEGATIVE Urine Cannabinoids Screen Pos NEGATIVE Lipase 23 12-53 U/L Plasma/Serum Blood Alcohol < 3.0 <10 mg/dL White Blood Count 8.0 4.4-10.8 10^3/uL Red Blood Count 5.50 4.5-5.90 10^6/uL Hemoglobin 16.0 13.5-17.5 g/dL Hematocrit 47.0 41.0-53.0 % Mean Corpuscular Volume 85.5 80.0-100.0 fL Mean Corpuscular Hemoglobin 29.0 28.0-32.0 pg Mean Corpuscular Hemoglobin Concent 33.9 32.0-36.0 g/dL Red Cell Distribution Width 14.5 H 11.8-14.3 % Platelet Count 261 140-450 10^3/uL Mean Platelet Volume 7.5 6.9-10.8 fL Neutrophils (%) (Auto) 72.1 37.0-80.0 % Lymphocytes (%) (Auto) 17.8 10.0-50.0 % Monocytes (%) (Auto) 9.1 0.0-12.0 % Eosinophils (%) (Auto) 0.3 0.0-7.0 % Basophils (%) (Auto) 0.7 0.0-2.0 % Neutrophils # (Auto) 5.8 1.6-8.6 10 ^3/uL Lymphocytes # (Auto) 1.4 0.4-5.4 10 ^3/uL Monocytes # (Auto) 0.7 0-1.3 10 ^3/uL Eosinophils # (Auto) 0 0-0.8 10 ^3/uL Basophils # (Auto) 0.1 0-0.2 10 ^3/uL Nucleated Red Blood Cells 0.2 % Sodium Level 136 136-145 mmol/L Potassium Level 4.9 3.5-5.1 mmol/L Chloride Level 105 98-107 mmol/L Carbon Dioxide Level 21 20-31 mmol/L Anion Gap 10 5-15 Blood Urea Nitrogen 20 9-23 mg/dL Creatinine 0.90 0.700-1.30 mg/dL Glomerular Filtration Rate Calc 92 >90 mL/min BUN/Creatinine Ratio 22.2 H 10.0-20.0 Serum Glucose 76 74-106 mg/dL Calcium Level 8.8 8.7-10.4 mg/dL Total Bilirubin 1.6 H 0.2-1.0 mg/dL Aspartate Amino Transferase (AST) 30 13-40 U/L Alanine Aminotransferase (ALT) 18 7-40 U/L Alkaline Phosphatase 91 46-116 U/L Troponin I High Sensitivity < 3 L </=54 ng/L Total Protein 6.2 5.7-8.2 g/dL Albumin 3.9 3.2-4.8 g/dL Lactic Acid Level 1.8 0.4-2.0 mmol/L Test 10/04/24 14:20 Range/Units Urine Color Yellow Yellow Urine Clarity Clear Clear Urine pH 6.0 5.0-9.0 Urine Specific [place] 1.026 1.001-1.035 Urine Protein Trace H Negative Urine Ketones Trace Negative Urine Blood Negative Negative /uL Urine Nitrite Negative Negative Urine Bilirubin Negative Negative Urine Urobilinogen 2 H Negative mg/dL Urine Leukocyte Esterase Negative Negative /uL Urine RBC 1 0 - 3 /hpf Urine Microscopic WBC 1 0-3 /HPF Urine Squamous Epithelial Cells Few <5 /hpf Urine Bacteria None seen None Seen /hpf Urine Mucus Few None Seen Urine Glucose Normal Normal mg/dL ABD PELVIC CT SCAN IMPRESSION: 1. No findings of bowel obstruction 2. No free air or free fluid. 3. No calcified gallstones 4. No nephrolithiasis or hydronephrosis Problems(with codes): (1) Erosive gastroesophageal reflux disease (2) Intractable nausea and vomiting (3) Intractable abdominal pain (4) Hiatal hernia Plan/Recommendation Plan Supportive care from GI point of view Protonix 40 mg p.o. twice a day Carafate 1 g p.o. twice a day Lifestyle and dietary modifications for GERD Discharge planning as per hospitalist Outpatient follow up with GI Services for elective screening colonoscopy Plan discussed with: Patient, Other (Nurse and Dr Stevie Manzano) SATYA GILES MD Oct 06, 2024 14:41
[2024-10-06 17:00] VITALS: BP 158/88; PULSE 64; RESP 18; TEMP 98.1; O2SAT 100
[2024-10-06] MEDS ORDERED: FOLIC ACID 1 MG, MULTIPLE VITAMIN 10 ML, MAGNESIUM SULF SDV 50% 8 MEQ, THIAMINE INJ 100... INJ SCH (18:00)
[2024-10-06] MEDS: ACETAMINOPHEN 325 MG TAB PO PRN (20:16)
[2024-10-06 20:30] VITALS: PULSE 66; RESP 20; O2SAT 99
[2024-10-06 21:00] VITALS: BP 119/84; PULSE 66; RESP 20; TEMP 98.5; O2SAT 99
[2024-10-06] MEDS: THIAMINE HCL 100 MG TAB PO ONE (21:01)
[2024-10-06] MEDS: MULTIPLE VITAMIN TAB PO ONE (21:01)
[2024-10-06] MEDS: MAGNESIUM OXIDE 400 MG TAB PO ONE (21:02)
[2024-10-06] MEDS: FOLIC ACID 1 MG TAB PO ONE (21:02)
[2024-10-07 01:00] VITALS: BP 117/70; PULSE 60; RESP 18; TEMP 97.8; O2SAT 99
[2024-10-07] MEDS ORDERED: MELATONIN 5 MG TAB PO PRN (01:00)
[2024-10-07 05:00] VITALS: BP 127/77; PULSE 57; RESP 19; TEMP 98; O2SAT 97
[2024-10-07 09:00] VITALS: BP 135/85; PULSE 58; RESP 16; TEMP 97.6; O2SAT 98
--- NOTE | 2024-10-07 10:12 | DVHPN2 ---
Reviewed: Care Plan, H&P, Labs, Medications, Previous Orders, Radiology Changes from previous H/P or p: No Changes Eyes: No Pain, No Vision change, No Conjunctivae inflammation, No Eyelid inflammation, No Other, No Redness ENT: No Ear pain, No Ear discharge, No Nose pain, No Nose discharge, No Nose congestion, No Mouth pain, No Mouth swelling, No Throat pain, No Throat swelling, No Other Cardiovascular: No Chest Pain, No Palpitations, No Orthopnea, No Paroxysmal Noc. Dyspnea, No Edema, No Lt Headedness, No Other Respiratory: No Cough, No Dry, No Shortness of breath, No SOB with excertion, No Wheezing, No Hemoptysis, No Pleuritic Pain, No Sputum, No Other Gastrointestinal: Nausea, Vomiting, Abdominal Pain, Diarrhea; No Constipation, No Melena, No Hematochezia, No Other Genitourinary: No Dysuria, No Frequency, No Incontinence, No Hematuria, No Retention, No Other Musculoskeletal: No other, No neck pain, No shoulder pain, No arm pain, No back pain, No hand pain, No leg pain, No foot pain Skin: No Rash, No Lesions, No Jaundice, No Bruising, No Other Objective Vitals Vital Signs Date Time Temp Pulse Resp B/P (MAP) Pulse Ox O2 Delivery O2 Flow Rate FiO2 10/07/24 09:00 97.6 58 16 135/85 (102) 98 97.6 10/06/24 20:30 Room Air* 0 21 Intake/Output Intake and Output 10/07/24 07:00 Intake Total 933 ml Balance 933 ml Intake Oral 933 ml # Voids 8 # Bowel Movements 1 Medications Current Medications Medications Dose Ordered Sig/Sarah Route Start Time Stop Time Status Last Admin Dose Admin Pantoprazole Sodium 40 mg BID IV 10/04/24 22:00 10/06/24 21:01 40 MG Amlodipine Besylate 5 mg DAILY PO 10/05/24 10:00 10/05/24 09:08 5 MG Hydralazine HCl 10 mg Q6HP PRN IV 10/04/24 21:15 Sodium Chloride 1,000 ml @ 60 mls/hr [id number] IV 10/04/24 21:15 10/05/24 13:43 60 MLS/HR Ondansetron HCl 4 mg Q4HP PRN IV 10/04/24 21:15 Docusate Sodium 100 mg BIDPRN PRN PO 10/04/24 21:15 Acetaminophen 650 mg Q6HP PRN PO 10/04/24 21:15 10/06/24 20:16 650 MG Morphine Sulfate 2 mg Q4HPRN PRN IV 10/04/24 21:15 10/05/24 13:39 2 MG Nitroglycerin 0.4 mg Q5MINP PRN SL 10/04/24 22:15 Morphine Sulfate 2 mg Q30M PRN IV 10/04/24 22:15 Folic Acid 1 mg DAILY PO 10/07/24 10:00 Multivitamins 1 tab DAILY PO 10/07/24 10:00 Magnesium Oxide 400 mg DAILY PO 10/07/24 10:00 Thiamine HCl 100 mg DAILY PO 10/07/24 10:00 Melatonin 10 mg HS PRN PO 10/07/24 01:00 Laboratory Results Laboratory Tests 10/05/24 02:58 Urinalysis Test 10/04/24 14:20 Urine Color Yellow (Yellow) Urine Clarity Clear (Clear) Urine pH 6.0 (5.0-9.0) Urine Specific [place] 1.026 (1.001-1.035) Urine Protein Trace (Negative) H Urine Ketones Trace (Negative) Urine Blood Negative /uL (Negative) Urine Nitrite Negative (Negative) Urine Bilirubin Negative (Negative) Urine Urobilinogen 2 mg/dL (Negative) H Urine Leukocyte Esterase Negative /uL (Negative) Urine RBC 1 /hpf (0 - 3) Urine Microscopic WBC 1 /HPF (0-3) Urine Squamous Epithelial Cells Few /hpf (<5) Urine Bacteria None seen /hpf (None Seen) Urine Mucus Few (None Seen) Urine Glucose Normal mg/dL (Normal) Labs and/or images reviewed: Labs reviewed by me, Image(s) reviewed by me Assessment/Plan Assessment/Plan Acute abdominal Pain: CT abdomen pelvis without contrast negative, GI consult by Dr. 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 marijuana Time spent 50 minutes Advanced care planning time 20 minutes Patient is full code Physical therapy recommended SNF placement for rehab Plan discussed with: Patient My Orders Orders - BARB AUSTIN MD Procedure Category Date Status Time Pt Request For Service PT 10/06/24 Logged 10:31 Covid19 Antigen [facility] 10/06/24 Logged Folic Acid Tablet PHA 10/07/24 In Process 10:00 Multiple Vitamin PHA 10/07/24 In Process Tablet (Mvi Tab) 10:00 Magnesium Oxide PHA 10/07/24 In Process Tablet (Mag-Ox Tablet) 10:00 Thiamine Tab PHA 10/07/24 In Process 10:00 Date of Service: Oct 07, 2024 Billing Provider: BARB AUSTIN MD Common Visit Codes: [id number] INP/OBS CARE(HIGH) BARB AUSTIN MD Oct 07, 2024 10:12
[2024-10-07] MEDS: MAGNESIUM OXIDE 400 MG TAB PO SCH (10:16)
[2024-10-07] MEDS: FOLIC ACID 1 MG TAB PO SCH (10:16)
[2024-10-07] MEDS: MULTIPLE VITAMIN TAB PO SCH (10:17)
[2024-10-07] MEDS: THIAMINE HCL 100 MG TAB PO SCH (10:17)
--- NOTE | 2024-10-07 11:27 | DVHDS2 ---
Discharge Summary Date of Admission Oct 04, 2024 at 22:03 Date of Discharge: Oct 07, 2024 Admitting Diagnosis Generalized weakness and gait instability Wounds: None Labs/Diagnostic Data: Laboratory Results Test 10/06/24 11:30 10/05/24 13:34 10/05/24 02:58 10/04/24 18:47 Urine Opiates Screen Neg (NEGATIVE) Urine Fentanyl Screen Neg (NEGATIVE) Urine Barbiturates Screen Neg (NEGATIVE) Urine Phencyclidine Screen Neg (NEGATIVE) Urine Amphetamines Screen Pos (NEGATIVE) Urine Benzodiazepines Screen Neg (NEGATIVE) Urine Cocaine Screen Neg (NEGATIVE) Urine Cannabinoids Screen Pos (NEGATIVE) Lipase 23 U/L (12-53) Plasma/Serum Blood Alcohol < 3.0 mg/dL (<10) White Blood Count 8.0 10^3/uL (4.4-10.8) Red Blood Count 5.50 10^6/uL (4.5-5.90) Hemoglobin 16.0 g/dL (13.5-17.5) Hematocrit 47.0 % (41.0-53.0) Mean Corpuscular Volume 85.5 fL (80.0-100.0) Mean Corpuscular Hemoglobin 29.0 pg (28.0-32.0) Mean Corpuscular Hemoglobin Concent 33.9 g/dL (32.0-36.0) Red Cell Distribution Width 14.5 % (11.8-14.3) Platelet Count 261 10^3/uL (140-450) Mean Platelet Volume 7.5 fL (6.9-10.8) Neutrophils (%) (Auto) 72.1 % (37.0-80.0) Lymphocytes (%) (Auto) 17.8 % (10.0-50.0) Monocytes (%) (Auto) 9.1 % (0.0-12.0) Eosinophils (%) (Auto) 0.3 % (0.0-7.0) Basophils (%) (Auto) 0.7 % (0.0-2.0) Neutrophils # (Auto) 5.8 10 ^3/uL (1.6-8.6) Lymphocytes # (Auto) 1.4 10 ^3/uL (0.4-5.4) Monocytes # (Auto) 0.7 10 ^3/uL (0-1.3) Eosinophils # (Auto) 0 10 ^3/uL (0-0.8) Basophils # (Auto) 0.1 10 ^3/uL (0-0.2) Nucleated Red Blood Cells 0.2 % Sodium Level 136 mmol/L (136-145) Potassium Level 4.9 mmol/L (3.5-5.1) Chloride Level 105 mmol/L (98-107) Carbon Dioxide Level 21 mmol/L (20-31) Anion Gap 10 (5-15) Blood Urea Nitrogen 20 mg/dL (9-23) Creatinine 0.90 mg/dL (0.700-1.30) Glomerular Filtration Rate Calc 92 mL/min (>90) BUN/Creatinine Ratio 22.2 (10.0-20.0) Serum Glucose 76 mg/dL (74-106) Calcium Level 8.8 mg/dL (8.7-10.4) Total Bilirubin 1.6 mg/dL (0.2-1.0) Aspartate Amino Transferase (AST) 30 U/L (13-40) Alanine Aminotransferase (ALT) 18 U/L (7-40) Alkaline Phosphatase 91 U/L (46-116) Troponin I High Sensitivity < 3 ng/L (</=54) Total Protein 6.2 g/dL (5.7-8.2) Albumin 3.9 g/dL (3.2-4.8) Lactic Acid Level 1.8 mmol/L (0.4-2.0) Test 10/04/24 14:20 Urine Color Yellow (Yellow) Urine Clarity Clear (Clear) Urine pH 6.0 (5.0-9.0) Urine Specific [place] 1.026 (1.001-1.035) Urine Protein Trace (Negative) Urine Ketones Trace (Negative) Urine Blood Negative /uL (Negative) Urine Nitrite Negative (Negative) Urine Bilirubin Negative (Negative) Urine Urobilinogen 2 mg/dL (Negative) Urine Leukocyte Esterase Negative /uL (Negative) Urine RBC 1 /hpf (0 - 3) Urine Microscopic WBC 1 /HPF (0-3) Urine Squamous Epithelial Cells Few /hpf (<5) Urine Bacteria None seen /hpf (None Seen) Urine Mucus Few (None Seen) Urine Glucose Normal mg/dL (Normal) Other Laboratory Tests 10/05/24 02:58 Brief Hx & Hospital Course: 9-year-old male with a history of alcohol abuse methamphetamine abuse came in for generalized weakness recurrent falls and pain in the abdomen. CT abdomen pelvis without contrast was negative GI consult by Dr. Osbaldo Giles appreciated lipase is normal patient has gait instability secondary to alcohol abuse and also severe malnutrition history of hep C for many years patient does not want any treatment urine drug screen came positive for amphetamine and marijuana patient was counseled. Physical therapy evaluated the patient advised long-term placement for rehab for gait instability for physical therapy medication management. The patient agrees for rehab [facility] Consults/Reason for consult None Operations or Procedures CT head Condition at Discharge: Fair Final Diagnosis/Problems List Acute abdominal Pain: CT abdomen pelvis without contrast negative, GI consult by Dr. 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 marijuana [facility]position[facility] Discharge Instruct/Medications Diet: Cardiac 2g Na,low cholest Activity: Light activity Follow Up/Referral: Follow up with the long-term Medications: see list Scheduled Amlodipine Besylate (Norvasc Tablet), 5 MG PO DAILY Pantoprazole Sodium Sesquihydr (Protonix), 40 MG PO BID Sucralfate (Carafate), 1 GM PO BID 35 (Time taken For discharge summary 35 minutes) Discharge Statement: "Patient was advised to return to the ER or call 911 if any headaches, dizziness, shortness of breath, chest pain, abdominal pain, bleeding, fevers, or worsening of medical condition. Patient was counseled about treatment plan, medications, possible side effects, patientverbalized understanding. All questions were answered to the best of my ability. This discharge took greater then 30 minutes in planning, reviewing documentation, counseling the patient, and discussing with other team members." ASSESSMENT ASSESSMENT Assessment Acute abdominal Pain: CT abdomen pelvis without contrast negative, GI consult by Dr. 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
[2024-10-07 13:00] VITALS: BP 153/93; PULSE 84; RESP 20; TEMP 98.2; O2SAT 98
[2024-10-07 13:53] VITALS: BP 130/89; PULSE 62; RESP 16; TEMP 36.4; O2SAT 98
== END 2024-10-07 14:30 | DRG 391 ==
LOC: EDBD 13:54 → ER 13:54 → OVERFLOW 22:03 → EAST 23:50
PROVIDERS: ADMIT Family Medicine; ATTEND Family Medicine
DX: K29.70 Gastritis, unspecified, without bleeding (principal); E43 Unspecified severe protein-calorie malnutrition; R64 Cachexia; Z59.00 Homelessness unspecified; K44.9 Diaphragmatic hernia without obstruction or gangrene; K21.9 Gastro-esophageal reflux disease without esophagitis; F15.10 Other stimulant abuse, uncomplicated; F10.10 Alcohol abuse, uncomplicated; R26.89 Other abnormalities of gait and mobility; Z86.16 Personal history of COVID-19; Z80.8 Family history of malignant neoplasm of other organs or systems; Z80.1 Family history of malignant neoplasm of trachea, bronchus and lung; Z87.01 Personal history of pneumonia (recurrent); Z88.5 Allergy status to narcotic agent; Z79.899 Other long term (current) drug therapy; Z68.21 Body mass index [BMI] 21.0-21.9, adult; Y90.9 Presence of alcohol in blood, level not specified
CPT/HCPCS: 36415; 74176; 80053; 80307; 80320; 81001; 83605; 83690; 84484; 85025; 93005; 96361; 96374; 96375; 97110; 97116; 97163; 97530; G0378; J2405; J2470

== ENCOUNTER 2024-11-25 15:48 | Emergency (ER) | payer MEDICARE, MEDICAID ==
[~2024-11-25] VITALS: Ht 172.7 cm; Wt 56.9 kg
--- NOTE | 2024-11-25 16:31 | ED.PDOC ---
GI ASSESSMENT HPI Comments This is a 69 year old male presenting to the ED with chief complaint of abdominal pain. Patient reports that he has been experiencing abdominal pain with associated nausea and vomiting for the past 5 days since running out of his Protonix. Patient relays that he needs a refill as he is fine when taking it. Patient denies any diarrhea, fever, chills, hematemesis, or melena. Chief Complaint: Abdominal Pain Time Seen by MD: 16:30 Primary Care Provider: NONE Reviewed Notes: Nurses Notes, Medications, Allergies Home Meds Active Scripts Sucralfate (Carafate) 1 Gm/10 Ml Loli, 1 GM PO BID for 30 Days, #600 ML 0 Refills Prov:LUIS IGNACIO RESIDENT 03/19/24 Pantoprazole Sodium Sesquihydr (Protonix) 40 Mg Tab, 40 MG PO BID for 30 Days, #60 TAB 0 Refills Prov:LUIS IGNACIO RESIDENT 03/19/24 Amlodipine Besylate (NORVASC TABLET) 5 Mg Tb, 5 MG PO DAILY for 30 Days, #30 TAB Prov:JOEY CHEUNG RESIDENT 03/08/24 Information Source: Patient Mode of Arrival: Ambulatory Timing: Days Duration: Since onset Prehospital treatment: None Quality: Aching Vomitus: Watery Stool: Normal Severity: Moderate Recent: None Recent Hx of: None Pain Location: Diffuse Past Medical History PAST MEDICAL HISTORY: Denies Surgical History: Denies all surgeries Family History Family History: Reviewed,noncontributory to illness Social History Smoker: Cigarettes Alcohol: Heavy Drugs: Methamphetamine Lives In: Homeless Constitutional: denies: chills, diaphoresis, fatigue, fever, malaise, sweats, weakness, others EENTM: denies: blurred vision, double vision, ear bleeding, ear discharge, ear drainage, ear pain, ear ringing, eye pain, eye redness, hearing loss, mouth pain, mouth swelling, nasal discharge, nose bleeding, nose congestion, nose pain, photophobia, tearing, throat pain, throat swelling, voice changes, others Respiratory: denies: cough, hemoptysis, orthopnea, SOB at rest, shortness of breath, SOB with excertion, stridor, wheezing, others Cardiovascular: denies: chest pain, dizzy spells, diaphoresis, Dyspnea on exertion, edema, irregular heart beat, left arm pain, lightheadedness, palpitations, PND, syncope, others Gastrointestinal: reports: abdominal pain, nausea, vomiting; denies: abdomen distended, blood streaked bowels, constipated, diarrhea, dysphagia, difficulty swallowing, hematemesis, melena, poor appetite, poor fluid intake, rectal bleeding, rectal pain, others Genitourinary: denies: burning, dysuria, flank pain, frequency, hematuria, incontinence, penile discharge, penile sore, pain, testicle pain, testicle swelling, urgency, others Neurological: denies: dizziness, fainting, headache, left sided numbness, left sided weakness, numbness, paresthesia, pre-existing deficit, right sided numbness, right sided weakness, seizure, speech problems, tingling, tremors, weakness, others Musculoskeletal: denies: back pain, gout, joint pain, joint swelling, muscle pain, muscle stiffness, neck pain, others Integumetry: denies: bruises, change in color, change in hair/nails, dryness, laceration, lesions, lumps, rash, wounds, others Allergic/Immunocompromised: denies: Difficulty Healing, Frequent Infections, Hives, Itching, others Hematologic/Lymphatic: denies: anemia, blood clots, easy bleeding, easy bruising, swollen glands, others Endocrine: denies: excessive hunger, excessive sweating, excessive thirst, excessive urination, flushing, intolerance to cold, intolerance to heat, unexplained weight gain, unexplained weight loss, others Psychiatric: denies: anxiety, bipolar disorder, depression, hopeless, panic disorder, schizophrenia, sleepless, suicidal, others All Other Systems: Reviewed and Negative Physical Exam General Appearance: No Apparent Distress, Normal HEENT: Normal ENT Inspection, Pharynx Normal, TMs Normal Neck: Full Range of Motion, Non-Tender, Normal, Normal Inspection Respiratory: Chest Non-Tender, Lungs Clear, No Accessory Muscle Use, No Respiratory Distress, Normal Breath Sounds Cardiovascular: No Edema, No JVD, No Murmur, No Gallop, Normal Peripheral Pulses, Regular Rate/Rhythm Breast Exam: Deferred Gastrointestinal: No Organomegaly, Non Tender, No Pulsatile Mass, Normal Bowel Sounds, Soft Genitalia: Deferred Pelvic: Deferred Rectal: Deferred Extremities: No calf tenderness, Normal capillary refill, Normal inspection, Normal range of motion, Non-tender, No pedal edema Musculoskeletal : Apperance: Normal Neurologic: Alert, eyelet operator II-XII nml as Tested, No Motor Deficits, Normal Affect, Normal Mood, No Sensory Deficits Cerebellar Function: Normal Reflexes: Normal Skin: Dry, Normal Color, Warm Lymphatic: No Adenopathy Was a procedure done? Was a procedure done?: No GI differential Dx Differential Diagnosis: Gastritis/PUD, Gastroenteritis, Hernia, Pancreatitis X-Ray, Labs, Meds, VS Vital Signs Date Time Temp Pulse Resp B/P (MAP) Pulse Ox O2 Delivery O2 Flow Rate FiO2 11/25/24 15:50 97.8 102 16 128/79 95 97.8 Time of 1ST Reevaluation: 17:29 Reevaluation 1ST: Unchanged Patient Education/Counseling: Diagnosis, Treatment Family Education/Counseling: No Family Present Additional Information Reviewed patient's previous visit(s): 10/04/24 for abdominal pain, 08/08/24 for abdominal pain, 03/18/24 for abdominal pain, 03/05/24 for dysphagia, 12/21/23 for abdominal pain. The following tests were ordered, and results were reviewed by me: None Additional information was gathered from interviewing the following independent historian: None I reviewed and agreed with the following test results read by other provider: None I discussed treatments and results with medical personnel and: PATIENT Comprehensive systems review obtained and negative except for what is stated in the HPI. SEPSIS Sepsis Screen Date sepsis recognized/suspect: Nov 25, 2024 Time Sepsis recognized/suspect: 1553 Recent Procedure: No On Antibiotic Therapy: No Respiratory Rate >20: No Heart Rate >90: Yes Temp<36 C (96.8 F) or >38.3 C: No SBP <90 or MAP <65 mmHG: No New Acute Mental Status Change: No Is the patient on CPAP, BIPAP,: No Vital Signs Date Time Temp Pulse Resp B/P (MAP) Pulse Ox O2 Delivery O2 Flow Rate FiO2 11/25/24 15:50 97.8 102 16 128/79 95 97.8 Departure 1 Departure Time of Disposition: 16:45 Impression: Primary Impression: Medication refill Disposition: HOME / SELF CARE / HOMELESS Condition: Good e-Prescriptions Pantoprazole Sodium Sesquihydr (Protonix) 40 Mg Tab 40 MG PO DAILY, #30 TAB Prov: JAMI SANTIAGO MD 11/25/24 Discharged With: Self Critical Care Note Critical Care Time?: No Stability Stability form required: No Heart Score Heart Score: Heart Score Response (Comments) Value History N/A 0 EKG N/A 0 Age N/A 0 Risk Factors N/A 0 Troponin N/A 0 Total 0 I personally scribed for JAMI SANTIAGO MD ([email or web address]) on 11/25/24 at 16:31. Electronically submitted by Florencio Cheney ([email or web address]). I personally scribed for JAMI SANTIAGO MD ([email or web address]) on 11/25/24 at 16:33. Electronically submitted by Florencio Cheney ([email or web address]). JAMI SANTIAGO MD Nov 25, 2024 16:31
[2024-11-25] MEDS ORDERED: PANT40TA2 PO (16:46)
[2024-11-25 17:23] VITALS: BP 115/75; PULSE 79; RESP 18; TEMP 98.3; O2SAT 95
== END 2024-11-25 17:53 | disposition home or self-care (01) ==
LOC: ER 15:51
DX: R10.84 Generalized abdominal pain (principal); F17.210 Nicotine dependence, cigarettes, uncomplicated; F19.90 Other psychoactive substance use, unspecified, uncomplicated; Z76.0 Encounter for issue of repeat prescription; Z79.899 Other long term (current) drug therapy; Z59.00 Homelessness unspecified

== ENCOUNTER 2024-12-07 16:39 | Emergency (ER) | payer MEDICARE, MEDICAID ==
[~2024-12-07] VITALS: Ht 172.7 cm; Wt 56.8 kg
[2024-12-07 16:40] VITALS: BP 150/96; PULSE 104; RESP 16; TEMP 98.2; O2SAT 97
[2024-12-07] MEDS ORDERED: PANT40TA2 PO (17:19)
--- NOTE | 2024-12-07 17:21 | ED.PDOC ---
History of Present Illness HPI Comments A 69 YEAR OLD MALE PRESENTS TO THE ED FOR A MEDICATION REFILL ON PROTONIX 40MG. PT STATES HE HAS HX OF GERD AND TAKES PROTONIX MEDICATION AND HE RAN OUT OF HIS PROTONIX MEDICATION TODAY. PATIENT DENIES FEVER, CHILLS, SHORTNESS OF BREATH, CHEST PAIN, ABDOMINAL PAIN, NAUSEA, VOMITING, HEADACHE, OR OTHER COMPLAINTS. NO OTHER SYMPTOMS OR MODIFYING FACTORS AT THIS TIME. PATIENT IS ALERT, ORIENTED X 4, AND HAS STEADY GAIT. Chief Complaint: Medical Clearance Time Seen by MD: 17:16 Primary Care Provider: NONE Reviewed Notes: Nurses Notes, Medications, Allergies Allergies: Coded Allergies: No Known Drug Allergy (Verified Allergy, Unknown, 12/07/24) Home Meds Active Scripts Pantoprazole Sodium Sesquihydr (Protonix) 40 Mg Tab, 40 MG PO BID for 30 Days, #60 TAB 0 Refills Prov:DIMITRI SOLOMON 12/07/24 Pantoprazole Sodium Sesquihydr (Protonix) 40 Mg Tab, 40 MG PO DAILY, #30 TAB Prov:JAMI SANTIAGO MD 11/25/24 Sucralfate (Carafate) 1 Gm/10 Ml Loli, 1 GM PO BID for 30 Days, #600 ML 0 Refills Prov:LUIS IGNACIO RESIDENT 03/19/24 Amlodipine Besylate (NORVASC TABLET) 5 Mg Tb, 5 MG PO DAILY for 30 Days, #30 TAB Prov:JOEY CHEUNG RESIDENT 03/08/24 Information Source: Patient Mode of Arrival: Ambulatory Severity: Mild, None Timing: Hours Duration: Since onset Medication Refill: Ran out of Medication, For: Other (PROTONIX 40MG ) Location: N/A Quality N/A Worsens N/A Improves N/A Associated signs and symptoms N/A Past Medical History PAST MEDICAL HISTORY: GERD Surgical History: Denies all surgeries Family History Family History: Reviewed,noncontributory to illness Social History Smoker: Cigarettes Alcohol: Heavy Drugs: Methamphetamine Lives In: Homeless Constitutional: denies: chills, diaphoresis, fatigue, fever, malaise, sweats, weakness, others EENTM: denies: blurred vision, double vision, ear bleeding, ear discharge, ear drainage, ear pain, ear ringing, eye pain, eye redness, hearing loss, mouth pain, mouth swelling, nasal discharge, nose bleeding, nose congestion, nose pain, photophobia, tearing, throat pain, throat swelling, voice changes, others Respiratory: denies: cough, hemoptysis, orthopnea, SOB at rest, shortness of breath, SOB with excertion, stridor, wheezing, others Cardiovascular: denies: chest pain, dizzy spells, diaphoresis, Dyspnea on exer tion, edema, irregular heart beat, left arm pain, lightheadedness, palpitations, PND, syncope, others Gastrointestinal: denies: abdomen distended, abdominal pain, blood streaked bowels, constipated, diarrhea, dysphagia, difficulty swallowing, hematemesis, melena, nausea, poor appetite, poor fluid intake, rectal bleeding, rectal pain, vomiting, others Genitourinary: denies: burning, dysuria, flank pain, frequency, hematuria, incontinence, penile discharge, penile sore, pain, testicle pain, testicle swelling, urgency, others Neurological: denies: dizziness, fainting, headache, left sided numbness, left sided weakness, numbness, paresthesia, pre-existing deficit, right sided numbness, right sided weakness, seizure, speech problems, tingling, tremors, weakness, others Musculoskeletal: denies: back pain, gout, joint pain, joint swelling, muscle pain, muscle stiffness, neck pain, others Integumetry: denies: bruises, change in color, change in hair/nails, dryness, laceration, lesions, lumps, rash, wounds, others Allergic/Immunocompromised: denies: Difficulty Healing, Frequent Infections, Hives, Itching, others Hematologic/Lymphatic: denies: anemia, blood clots, easy bleeding, easy bruising, swollen glands, others Endocrine: denies: excessive hunger, excessive sweating, excessive thirst, excessive urination, flushing, intolerance to cold, intolerance to heat, unexplained weight gain, unexplained weight loss, others Psychiatric: denies: anxiety, bipolar disorder, depression, hopeless, panic disorder, schizophrenia, sleepless, suicidal, others All Other Systems: Reviewed and Negative Physical Exam General Appearance: No Apparent Distress, Normal HEENT: Normal ENT Inspection, PERRL/EOMI, Pharynx Normal, TMs Normal Neck: Full Range of Motion, Non-Tender, Normal, Normal Inspection Respiratory: Chest Non-Tender, Lungs Clear, No Accessory Muscle Use, No Respiratory Distress, Normal Breath Sounds Cardiovascular: No Edema, No JVD, No Murmur, No Gallop, Normal Peripheral Pulses, Regular Rate/Rhythm Breast Exam: Deferred Gastrointestinal: No Organomegaly, Non Tender, No Pulsatile Mass, Normal Bowel Sounds, Soft Genitalia: Deferred Pelvic: Deferred Rectal: Deferred Extremities: No calf tenderness, Normal capillary refill, Normal inspection, Normal range of motion, Non-tender, No pedal edema Musculoskeletal : Apperance: Normal Neurologic: Alert, conveyor tender II-XII nml as Tested, No Motor Deficits, Normal Affect, Normal Mood, No Sensory Deficits Cerebellar Function: Normal Reflexes: Normal Skin: Dry, Normal Color, Warm Peripheral Pulses: 2+ carotid (R), 2+ carotid (L) Lymphatic: No Adenopathy Was a procedure done? Was a procedure done?: No Differential Dx Considerations may include: MEDICATION REFILL, HX OF GERD X-Ray, Labs, Meds, VS Vital Signs Date Time Temp Pulse Resp B/P (MAP) Pulse Ox O2 Delivery O2 Flow Rate FiO2 12/07/24 16:40 98.2 104 16 150/96 97 98.2 X-Ray, Labs, Meds, VS Comment EXTERNAL MEDICAL RECORDS REVIEWED: [NONE] INDEPENDENT HISTORIANS: [NONE] SOCIAL DETERMINANTS OF HEALTH: [NONE] LABS ORDERED: NONE REVIEWED AND INTERPRETED RESULTS: NONE IMAGING ORDERED: NONE TREATMENTS ORDERED: NONE PROCEDURES PERFORMED: NONE CRITICAL CARE TIME: NONE I HAVE DISCUSSED THE PATIENT WITH THE ATTENDING PHYSICIAN, DR. TORRE, HE AGREES WITH THE PATIENT'S PLAN OF CARE AND DISPOSITION. BASED ON HISTORY OF PRESENT ILLNESS, AND PHYSICAL EXAM, PATIENT WILL BE DISCHARGED HOME. DISCUSSED PLAN FOR DISCHARGE HOME WITH RX PROTONIX 40MG. MEDICATION WARNINGS GIVEN. SHARED DECISION MAKING: DISCUSSED WITH PATIENT THAT THEIR WORKUP WAS NORMAL. PATIENT INSTRUCTED TO FOLLOW UP WITH PRIMARY CARE PROVIDER IN 1-2 DAYS FOR RE- EVALUATION OF SYMPTOMS. PATIENT VERBALIZES UNDERSTANDING TO RETURN TO ED FOR NEW OR WORSENING SYMPTOMS OR IF FOLLOW UP WITH PCP CANNOT BE OBTAINED. PATIENT FEELS COMFORTABLE GOING HOME AT THIS TIME. ALL QUESTIONS ADDRESSED AT TIME OF DISCHARGE. Time of 1ST Reevaluation: 17:36 Reevaluation 1ST: Improved Patient Education/Counseling: Diagnosis, Treatment, Need For Follow Up Family Education/Counseling: Diagnosis, Treatment, No Family Present Medical Screening: No EMC Exist At This Time SEPSIS Sepsis Screen Date sepsis recognized/suspect: Dec 07, 2024 Time Sepsis recognized/suspect: 1642 Recent Procedure: No On Antibiotic Therapy: No Respiratory Rate >20: No Heart Rate >90: No Temp<36 C (96.8 F) or >38.3 C: No SBP <90 or MAP <65 mmHG: No New Acute Mental Status Change: No Is the patient on CPAP, BIPAP,: No Vital Signs Date Time Temp Pulse Resp B/P (MAP) Pulse Ox O2 Delivery O2 Flow Rate FiO2 12/07/24 16:40 98.2 104 16 150/96 97 98.2 Departure 1 Departure Time of Disposition: 17:36 Impression: Primary Impression: Medication refill Additional Impression: Hx of gastroesophageal reflux (GERD) Disposition: HOME / SELF CARE / HOMELESS Condition: Stable Additional Instructions: F/U PCP IN 2 DAYS RECHECK. IF CONDITION BECOME WORSE, RETURN TO ED [facility]. e-Prescriptions Pantoprazole Sodium Sesquihydr (Protonix) 40 Mg Tab 40 MG PO BID for 30 Days, #60 TAB 0 Refills Prov: DIMITRI SOLOMON 12/07/24 Discharged With: Self Critical Care Note Critical Care Time?: No Stability Stability form required: No I personally scribed for DIMITRI SOLOMON ([email or web address]) on 12/07/24 at 17:21. Electronically submitted by Lydia Ayala ([facility]). DIMITRI SOLOMON Dec 07, 2024 17:21
== END 2024-12-07 17:22 | disposition home or self-care (01) ==
LOC: ER 16:39
DX: K21.9 Gastro-esophageal reflux disease without esophagitis (principal); F17.210 Nicotine dependence, cigarettes, uncomplicated; Z76.0 Encounter for issue of repeat prescription; Z79.899 Other long term (current) drug therapy

== ENCOUNTER 2024-12-10 18:48 | Emergency (ER) | payer MEDICARE, MEDICAID ==
[~2024-12-10] VITALS: Ht 172.7 cm; Wt 65.9 kg
--- NOTE | 2024-12-10 19:45 | DVH ---
Exam: CT CT AB PEL WO CON-NO ORAL OR IV History: abd pain Comparison Study: CT CT AB PEL WO CON-NO ORAL OR IV on DOS: 10/04/24, CT CT AB PEL WO CON-NO ORAL OR I V on DOS: 03/18/24, CT CT AB PEL WO CON-NO ORAL OR IV on DOS: 12/21/23, CT ABD PELVIS WO CONTRAST on D OS: 06/19/19 TECHNIQUE: Multidetector CT of the abdomen and pelvis was performed from lung bases to pubic symphysi s. Imaging was performed without IV contrast. Axial, coronal, and sagittal multiplanar reformats were obtained from the axial data set by the technologist. RADIATION DOSE: CTDI vol 5.97 mGy. DLP 289.63 mGy.cm Findings: Limited evaluation of the solid organs in the absence of IV contrast. Evaluation is also degraded by streak artifact about the anterior pelvis. Lungs: Incompletely assessed patchy opacities within the lung bases. Liver: Too small to characterize right hepatic lesion. Nonspecific punctate right hepatic calcificati on. Spleen: Unremarkable. Pancreas: Unremarkable. Gallbladder: Contracted in appearance. Adrenals: Unremarkable Kidneys: Unremarkable. Pelvic Viscera: Unremarkable. Vasculature: Atherosclerotic aortoiliac calcification. Retroperitoneum: Unremarkable. Bowel: No bowel obstruction. Musculoskeletal: Degenerative changes of the thoracolumbar spine. S-shape scoliosis. Soft tissues: Unremarkable Impression: 1. Incompletely assessed patchy opacities within the lung bases may reflect an infectious/inflammator y process in the appropriate clinical setting. 2. Incidental findings as detailed.
[2024-12-10 20:57] LABS: Hematocrit 36.7 % (41.0-53.0); Hemoglobin 12.3 g/dL (13.5-17.5); Mean Corpuscular Hemoglobin 28.7 pg (28.0-32.0); Mean Corpuscular Volume 85.9 fL (80.0-100.0); Nucleated Red Blood Cells % 0.1 %
[2024-12-10 21:14] LABS: Alanine Aminotransferase 26 U/L (7-40); Albumin 3.8 g/dL (3.2-4.8); Alkaline Phosphatase 83 U/L (46-116); Anion Gap 11 (5-15); BUN/Creatinine Ratio 17.7 (10.0-20.0); Blood Urea Nitrogen 17 mg/dL (9-23); Calcium 8.8 mg/dL (8.7-10.4); Carbon Dioxide 24 mmol/L (20-31); Chloride 103 mmol/L (98-107); Lipase 21 U/L (12-53); Potassium 3.9 mmol/L (3.5-5.1); Sodium 138 mmol/L (136-145); Total Protein 6.4 g/dL (5.7-8.2)
[2024-12-10 21:16] LABS: Bilirubin, Total 2.0 mg/dL (0.2-1.0); Glucose 118 mg/dL (74-106)
--- NOTE | 2024-12-10 21:40 | ED.PDOC ---
GI ASSESSMENT HPI Comments HPI: 69 y/o M, presents to the ED for CC of abdominal pain. Patient is poor historian. Patient states, he has been experiencing intermittent abdominal pain [id number]. Patient relays, that he takes medication for his abdominal pain however, is unable to recall the name at this time. Patient reports, methamphetamine usage [id number]. Patient denies nausea, vomiting, diarrhea, fever, or chills. No other symptoms or modifying factors are present at this time. Patient points to epigastric and left mid abdominal region pain that is intermittent nonradiating no alleviating or precipitating factors for the last 14 months. Initial Vitals BP: HR: RR: O2: Temp: Past Medical History: HERNIA, MUSCLE DYSTROPHY Past Surgical History: DENIES ANY Social History: ILLICIT DRUG USAGE, DENIES TOBACCO OR ETOH USAGE Medications: UNKNOWN Allergies: NKA HPI: Poor Historian. REVIEW OF SYSTEMS: CONSTITUTIONAL: Denies acute: fever, diaphoresis, chills, generalized weakness. HEAD: Denies acute: headache, photophobia Eyes: Denies acute: Double vision, vision loss, eye pain, eye discharge. EARS: Denies acute: tinnitus, hearing loss, ear discharge, ear pain, THROAT: Denies acute: sore throat, swelling, difficulty swallowing , pain with swallowing, change in voice. NECK: Denies acute: neck pain, neck swelling, stiff neck. HEART: Denies acute : chest pain, palpitations, LUNGS: Denies acute: SOB, wheezing, cough, hemoptysis ABDOMEN: Denies acute: Nausea, Vomiting, diarrhea, melena , hematemesis, hematochezia SKIN: Denies acute: rash, redness, lesions, itchiness. EXTREMITIES: Denies acute: calf pain, numbness, tingling, weakness, denies pain in extremity. Denies acute: Low back pain. Neuro: Denies acute: focal neurological deficit, motor or sensory focal neurological deficit, tremors, seizure like activity, confusion, dizziness, change in mental status, loss of bowel or bladder function, cauda equina like symptoms. : Denies acute: dysuria, hematuria, flank pain, increase in urinary frequency. PSYCH: Denies acute: hallucination, suicidal ideation, homicidal ideation. PHYSICAL EXAM: General: ---no-----acute distress, awake and alert. Head: normocephalic, atraumatic. Neck: supple, trachea is midline, no swelling. Throat: Normal phonation. Eyes:, no erythema, no purulent discharge, no proptosis, no icterus. Heart: regular rate, regular rhythm, no significant murmur appreciated. Lungs: no apparent respiratory distress, Able to speak in full sentences. No wheezing, no rhonchi, no crackles. No stridors Clear to auscultation bilaterally. Abdomen: non tender to palpation, non distended, soft, no guarding, no rebound, + bowel sounds. Neuro: Awake, Alert, oriented to name, self, situation, follows commands GCS=15. Speech is normal. Skin: no petechia, no purpura, no cyanosis, non-pale, not jaundice. Lower extremities: --no - Pitting edema no deformity, no focal swelling, no calf TTP. Makes eye contact. moves all four extremities. Face: no apparent facial droop. Ambulating in the ED independently. ED COURSE: DISCLAIMER: This medical document was created using an electronic medical record system with voice recognition software and computerized dictation system. Although this document has been carefully reviewed, there might still be some phonetic and typographical errors. Occasional wrong-word or "sound-alike" substitutions may have occurred due to the inherent limitations of voice recognition software. These areas are purely typographical due to imperfections of the software programs and do not reflect any compromise in the patient's medical care. Please read the chart carefully and recognize, using context, where these substitutions have occurred. Chief Complaint: Abdominal Pain Time Seen by MD: 21:30 Primary Care Provider: NONE Reviewed Notes: Nurses Notes, Medications, Allergies Allergies: Coded Allergies: No Known Drug Allergy (Verified Allergy, Unknown, 12/07/24) Home Meds Active Scripts Pantoprazole Sodium Sesquihydr (Protonix) 40 Mg Tab, 40 MG PO BID for 30 Days, #60 TAB 0 Refills Prov:DIMITRI SOLOMON 12/07/24 Pantoprazole Sodium Sesquihydr (Protonix) 40 Mg Tab, 40 MG PO DAILY, #30 TAB Prov:JAMI SANTIAGO MD 11/25/24 Sucralfate (Carafate) 1 Gm/10 Ml Loli, 1 GM PO BID for 30 Days, #600 ML 0 Refills Prov:LUIS IGNACIO RESIDENT 03/19/24 Amlodipine Besylate (NORVASC TABLET) 5 Mg Tb, 5 MG PO DAILY for 30 Days, #30 TAB Prov:JONATANJOEY RESIDENT 03/08/24 Information Source: Patient Mode of Arrival: EMS Timing: Months Duration: Since onset Prehospital treatment: None Vomitus: None Stool: Normal Severity: Moderate Recent: None Recent Hx of: None Pain Location: Diffuse Modifying Factors: Nothing Associated sign and symptoms: Abdominal Pain Was a procedure done? Was a procedure done?: No GI differential Dx Differential Diagnosis: Gastritis/PUD, Gastroenteritis, Hernia, Dehydration, Drug toxicity, Electrolyte Imbalance, Food Poisoning, Bacterial, Viral, Other (DDX include but not limited to diverticulitis, colitis, gastroenteritis, acute abdomen, SBO, enteritis, constipation, volvulus, appendicitis, Gallbladder disease, choledocolithiasis, ascending cholangitis, pancreatitis, intraAbdominal mass/neoplasm, hepatitis, UTI, pylonephritis, kidney stone, aneurysm, dissection, Inflammatory bowel disease, gastroparesis, ischemic bowel.) X-Ray, Labs, Meds, VS Vital Signs Date Time Temp Pulse Resp B/P (MAP) Pulse Ox O2 Delivery O2 Flow Rate FiO2 12/10/24 21:48 99.7 87 16 102/63 (76) 95 99.7 12/10/24 19:24 100.6 88 18 114/67 96 100.6 Lab Test 12/10/24 21:29 12/10/24 20:37 Range/Units Troponin I High Sensitivity 4 4 </=54 ng/L White Blood Count 10.7 4.4-10.8 10^3/uL Red Blood Count 4.28 L 4.5-5.90 10^6/uL Hemoglobin 12.3 L 13.5-17.5 g/dL Hematocrit 36.7 L 41.0-53.0 % Mean Corpuscular Volume 85.9 80.0-100.0 fL Mean Corpuscular Hemoglobin 28.7 28.0-32.0 pg Mean Corpuscular Hemoglobin Concent 33.4 32.0-36.0 g/dL Red Cell Distribution Width 13.6 11.8-14.3 % Platelet Count 208 140-450 10^3/uL Mean Platelet Volume 7.5 6.9-10.8 fL Neutrophils (%) (Auto) 84.5 H 37.0-80.0 % Lymphocytes (%) (Auto) 7.8 L 10.0-50.0 % Monocytes (%) (Auto) 7.3 0.0-12.0 % Eosinophils (%) (Auto) 0.2 0.0-7.0 % Basophils (%) (Auto) 0.2 0.0-2.0 % Neutrophils # (Auto) 9.0 H 1.6-8.6 10 ^3/uL Lymphocytes # (Auto) 0.8 0.4-5.4 10 ^3/uL Monocytes # (Auto) 0.8 0-1.3 10 ^3/uL Eosinophils # (Auto) 0 0-0.8 10 ^3/uL Basophils # (Auto) 0 0-0.2 10 ^3/uL Nucleated Red Blood Cells 0.1 % Sodium Level 138 136-145 mmol/L Potassium Level 3.9 3.5-5.1 mmol/L Chloride Level 103 98-107 mmol/L Carbon Dioxide Level 24 20-31 mmol/L Anion Gap 11 5-15 Blood Urea Nitrogen 17 9-23 mg/dL Creatinine 0.96 0.700-1.30 mg/dL Glomerular Filtration Rate Calc 86 >90 mL/min BUN/Creatinine Ratio 17.7 10.0-20.0 Serum Glucose 118 H 74-106 mg/dL Lactic Acid Level 1.6 0.4-2.0 mmol/L Calcium Level 8.8 8.7-10.4 mg/dL Total Bilirubin 2.0 H 0.2-1.0 mg/dL Aspartate Amino Transferase (AST) 30 13-40 U/L Alanine Aminotransferase (ALT) 26 7-40 U/L Alkaline Phosphatase 83 46-116 U/L Total Protein 6.4 5.7-8.2 g/dL Albumin 3.8 3.2-4.8 g/dL Lipase 21 12-53 U/L [facility] [id number] [place] [id number] Ph: [phone] DIAGNOSTIC IMAGING Diagnostic Imaging Report : [id number] Signed PATIENT: DAMION BOWMAN ACCT: [id number] UNIT: [id number] : 1955 LOC: ER ROOM / BED: / AGE / SEX: 69 / M ADM STATUS: REG ER SERVICE [id number] ORDERING PHYSICIAN: MARIE LARSON DO PROCEDURE(s): ABPL - CT AB PEL WO CON-NO ORAL OR IV REASON: abd pain ORDER NUMBER(s): [id number], ACCESSION NUMBER(s): [id number] Exam: CT CT AB PEL WO CON-NO ORAL OR IV History: abd pain Comparison Study: CT CT AB PEL WO CON-NO ORAL OR IV on DOS: 10/04/24, CT CT AB PEL WO CON-NO ORAL OR IV on DOS: 03/18/24, CT CT AB PEL WO CON-NO ORAL OR IV on DOS: 12/21/23, CT ABD PELVIS WO CONTRAST on DOS: 06/19/19 TECHNIQUE: Multidetector CT of the abdomen and pelvis was performed from lung bases to pubic symphysis. Imaging was performed without IV contrast. Axial, coronal, and sagittal multiplanar reformats were obtained from the axial data set by the technologist. RADIATION DOSE: CTDI vol 5.97 mGy. DLP 289.63 mGy.cm Findings: Limited evaluation of the solid organs in the absence of IV contrast. Evaluation is also degraded by streak artifact about the anterior pelvis. Lungs: Incompletely assessed patchy opacities within the lung bases. Liver: Too small to characterize right hepatic lesion. Nonspecific punctate right hepatic calcification. Spleen: Unremarkable. Pancreas: Unremarkable. Gallbladder: Contracted in appearance. Adrenals: Unremarkable Kidneys: Unremarkable. Pelvic Viscera: Unremarkable. Vasculature: Atherosclerotic aortoiliac calcification. Retroperitoneum: Unremarkable. Bowel: No bowel obstruction. Musculoskeletal: Degenerative changes of the thoracolumbar spine. S-shape scoliosis. Soft tissues: Unremarkable Impression: 1. Incompletely assessed patchy opacities within the lung bases may reflect an infectious/inflammatory process in the appropriate clinical setting. 2. Incidental findings as detailed. ATED BY: ELAIS FRASER MD DICTATED DATE/TIME: 12/10/241942 SIGNED BY: ELIAS FRASER MD SIGNED DATE/TIME: 12/10/241942 CC: Time of 1ST Reevaluation: 22:00 Reevaluation 1ST: Unchanged Patient Education/Counseling: Diagnosis, Treatment Family Education/Counseling: No Family Present Comments MDM: patient presented with the above HPI.----abdominal pain--workup was initiated. patient was found with the above mentioned diagnosis. the following medications were ordered: please refer to order lists of meds and tests obtained by myself Dr. Larson. Patient ED course and VS have been stabilized. Patient has been reassessed in the ED and remained in a stable condition. Pertinent incidental findings were discussed with the patient and/or family. Patient/family voices understanding and is agreeable with plan. Patient has been observed in the ED adequate length of time to insure improvement/stability. Escalation of care considered: Consideration of escalation to observation or admission CT scan report was reviewed. Patient denies any respiratory symptoms. Patient was DISCHARGED home in a stable condition. All the reports of any imaging studies that were ordered by myself were reviewed by myself. SEPSIS Sepsis Screen Date sepsis recognized/suspect: Dec 10, 2024 Time Sepsis recognized/suspect: 1908 Recent Procedure: No On Antibiotic Therapy: No Respiratory Rate >20: No Heart Rate >90: No Temp<36 C (96.8 F) or >38.3 C: Yes SBP <90 or MAP <65 mmHG: No New Acute Mental Status Change: No Is the patient on CPAP, BIPAP,: No Physician Orders Ct Ab Pel Wo Con-No Oral Or Iv (12/10/24 18:55) Dry Finisher (12/10/24 ) Urinalysis (12/10/24 20:15) Vital Signs Date Time Temp Pulse Resp B/P (MAP) Pulse Ox O2 Delivery O2 Flow Rate FiO2 12/10/24 21:48 99.7 87 16 102/63 (76) 95 99.7 12/10/24 19:24 100.6 88 18 114/67 96 100.6 Laboratory Tests Test 12/10/24 20:37 Lactic Acid Level 1.6 mmol/L (0.4-2.0) White Blood Count 10.7 10^3/uL (4.4-10.8) Departure 1 Departure Time of Disposition: 22:41 Impression: Primary Impression: Chronic abdominal pain Disposition: 01 HOME / SELF CARE / HOMELESS Condition: Stable Additional Instructions: Additional instructions: Please read all instructions provided in this packet carefully. You MUST follow-up with your primary care/family doctor in 1 to 2 days. If you are unable to see your primary care/family doctor, please return to our emergency room for re-assessment and re-evaluation in 1 to 2 days. Return to the emergency room here in our facility or to the nearest ER [facility] if your symptoms change or worsen. CONSULTATIONS: you MUST Follow-up for consultation as soon as possible with: gastroenterology in 1-2 days. Please call for appointment. You MUST call the consultants office yourself to make an appointment. You may need to arrange that through your insurance and/or your primary/family doctor. If you are unable to see the sap pp consultant in 1 to 2 days, you must return to our emergency room (or any other ER of your choice) for re-assessment and re-michell luation. Adequate fluid hydration. Although you have been discharged from the Emergency Department, this does not mean that you have a "clean bill of health". No definitive diagnosis for your symptoms has been made today. It is possible that you are in the process of developing a serious illness. This is why you must return to the ED without fail if any new or worsening symptoms develop. Avoid fatty greasy spicy food. Avoid caffeinated products. Avoid NSAIDs. Below is a copy of your radiological report for follow up: [place] [address] Ph: [phone] DIAGNOSTIC IMAGING Diagnostic Imaging Report : [id number] Signed PATIENT: DAMION BOWMAN ACCT: [id number] UNIT: [id number] : 1955 LOC: ER ROOM / BED: / AGE / SEX: 69 / M ADM STATUS: REG ER SERVICE [id number] ORDERING PHYSICIAN: MARIE LARSON DO PROCEDURE(s): ABPL - CT AB PEL WO CON-NO ORAL OR IV REASON: abd pain ORDER NUMBER(s): [id number], ACCESSION NUMBER(s): [id number] Exam: CT CT AB PEL WO CON-NO ORAL OR IV History: abd pain Comparison Study: CT CT AB PEL WO CON-NO ORAL OR IV on DOS: 10/04/24, CT CT AB PEL WO CON-NO ORAL OR IV on DOS: 03/18/24, CT CT AB PEL WO CON-NO ORAL OR IV on DOS: 12/21/23, CT ABD PELVIS WO CONTRAST on DOS: 06/19/19 TECHNIQUE: Multidetector CT of the abdomen and pelvis was performed from lung bases to pubic symphysis. Imaging was performed without IV contrast. Axial, coronal, and sagittal multiplanar reformats were obtained from the axial data set by the technologist. RADIATION DOSE: CTDI vol 5.97 mGy. DLP 289.63 mGy.cm Findings: Limited evaluation of the solid organs in the absence of IV contrast. Evaluation is also degraded by streak artifact about the anterior pelvis. Lungs: Incompletely assessed patchy opacities within the lung bases. Liver: Too small to characterize right hepatic lesion. Nonspecific punctate ri ght hepatic calcification. Spleen: Unremarkable. Pancreas: Unremarkable. Gallbladder: Contracted in appearance. Adrenals: Unremarkable Kidneys: Unremarkable. Pelvic Viscera: Unremarkable. Vasculature: Atherosclerotic aortoiliac calcification. Retroperitoneum: Unremarkable. Bowel: No bowel obstruction. Musculoskeletal: Degenerative changes of the thoracolumbar spine. S-shape scoliosis. Soft tissues: Unremarkable Impression: 1. Incompletely assessed patchy opacities within the lung bases may reflect an infectious/inflammatory process in the appropriate clinical setting. 2. Incidental findings as detailed. ATED BY: ELIAS FRASER MD DICTATED DATE/TIME: 12/10/241942 SIGNED BY: ELIAS FRASER MD SIGNED DATE/TIME: 12/10/241942 CC: Discharged With: Self Critical Care Note Critical Care Time?: No I personally scribed for MARIE LARSON DO ([email or web address]) on 12/10/24 at 21:40. Electronically submitted by Alia Metz ([email or web address]). I personally scribed for MARIE LARSON DO ([email or web address]) on 12/10/24 at 21:50. Electronically submitted by Alia Metz ([email or web address]). I personally scribed for MARIE LARSON DO ([email or web address]) on 12/10/24 at 21:52. Electronically submitted by Alia Metz ([email or web address]). I personally scribed for MARIE LARSON DO ([email or web address]) on 12/10/24 at 22:02. El ectronically submitted by Alia Metz ([email or web address]). MARIE LARSON DO Dec 10, 2024 21:40
[2024-12-10 21:48] VITALS: BP 102/63; PULSE 87; RESP 16; TEMP 99.7; O2SAT 95
[2024-12-10] MEDS: PANTOPRAZOLE 40 MG TAB PO ONE (22:00)
[2024-12-10] MEDS: SUCRALFATE 1 GM TAB PO ONE (22:01)
[2024-12-10] MEDS: LIDOCAINE VISCOUS 2% 15ML UD PO ONE (22:01)
== END 2024-12-10 22:59 | disposition home or self-care (01) ==
LOC: EDBD 18:48 → ER 18:54
DX: G89.29 Other chronic pain (principal); R10.9 Unspecified abdominal pain
CPT/HCPCS: 36415; 74176; 80053; 83605; 83690; 84484; 85025

== ENCOUNTER 2025-01-07 21:30 | Emergency (ER) | payer MEDICARE, MEDICAID ==
[~2025-01-07] VITALS: Ht 167.6 cm; Wt 55.9 kg
--- NOTE | 2025-01-07 22:36 | ED.PDOC ---
GI ASSESSMENT HPI Comments 69-year-old male with a past medical history of rolling hernia, hypertension has come to the ER due to abdominal pain. Patient reports that he has had rolling hernia for the past 14 months and takes pantoprazole twice a day, but recently for the past 7 days, his epigastric abdominal pain has been worsening, 7/10 in intensity, sharp, nonradiating, with no aggravating or relieving factors, associated with decreased appetite. Patient denies any nausea, vomiting, GERD symptoms, fever, chills, travel history or recent sick contacts. On inquiry, patient states that endoscopy was done 8 months ago and he was told he had no cancer or other abnormalities. Patient also states that he is noncompliant with his hypertensive medication as he does not want to take any pills decides Protonix for his pain. Patient had come last month to this facility for similar complaints and a CT abdomen and pelvis showed no significant pathology. On initial assessment, patient looks cachectic, vitals are stable, and there is mild epigastric tenderness on palpation. Chief Complaint: Abdominal Pain Time Seen by MD: 22:10 Primary Care Provider: CLEMENT Herrera Reviewed Notes: Allergies Allergies: Coded Allergies: No Known Drug Allergy (Verified Allergy, Unknown, 12/07/24) Home Meds Active Scripts Pantoprazole Sodium Sesquihydr (Protonix) 40 Mg Tab, 40 MG PO DAILY, #30 TAB Prov:MARVEL MANN MD 01/07/25 Pantoprazole Sodium Sesquihydr (Protonix) 40 Mg Tab, 40 MG PO BID for 30 Days, #60 TAB 0 Refills Prov:DIMITRI SOLOMON 12/07/24 Pantoprazole Sodium Sesquihydr (Protonix) 40 Mg Tab, 40 MG PO DAILY, #30 TAB Prov:JAMI SANTIAGO MD 11/25/24 Sucralfate (Carafate) 1 Gm/10 Ml Loli, 1 GM PO BID for 30 Days, #600 ML 0 Refills Prov:LUIS IGNACIO RESIDENT 03/19/24 Amlodipine Besylate (NORVASC TABLET) 5 Mg Tb, 5 MG PO DAILY for 30 Days, #30 TAB Prov:JOEY CHEUNG RESIDENT 03/08/24 Information Source: Patient Mode of Arrival: Ambulatory Timing: Weeks Duration: Days Prehospital treatment: None Quality: Sharp Past Medical History PAST MEDICAL HISTORY: GERD, HTN Surgical History: Denies all surgeries Family History Family History: Reviewed,noncontributory to illness Social History Smoker: Cigarettes Alcohol: Heavy Drugs: Methamphetamine Lives In: Homeless Constitutional: denies: chills, diaphoresis, fatigue, fever, malaise, sweats, weakness, others EENTM: denies: blurred vision, double vision, ear bleeding, ear discharge, ear drainage, ear pain, ear ringing, eye pain, eye redness, hearing loss, mouth pain, mouth swelling, nasal discharge, nose bleeding, nose congestion, nose pain, photophobia, tearing, throat pain, throat swelling, voice changes, others Respiratory: denies: cough, hemoptysis, orthopnea, SOB at rest, shortness of breath, SOB with excertion, stridor, wheezing, others Cardiovascular: denies: chest pain, dizzy spells, diaphoresis, Dyspnea on exertion, edema, irregular heart beat, left arm pain, lightheadedness, palpitations, PND, syncope, others Gastrointestinal: reports: abdominal pain, poor appetite; denies: abdomen distended, blood streaked bowels, constipated, diarrhea, dysphagia, difficulty swallowing, hematemesis, melena, nausea, poor fluid intake, rectal bleeding, rectal pain, vomiting, others Genitourinary: denies: burning, dysuria, flank pain, frequency, hematuria, incontinence, penile discharge, penile sore, pain, testicle pain, testicle swelling, urgency, others Neurological: denies: dizziness, fainting, headache, left sided numbness, left sided weakness, numbness, paresthesia, pre-existing deficit, right sided numbness, right sided weakness, seizure, speech problems, tingling, tremors, weakness, others Musculoskeletal: denies: back pain, gout, joint pain, joint swelling, muscle pain, muscle stiffness, neck pain, others Integumetry: denies: bruises, change in color, change in hair/nails, dryness, laceration, lesions, lumps, rash, wounds, others Allergic/Immunocompromised: denies: Difficulty Healing, Frequent Infections, Hives, Itching, others Hematologic/Lymphatic: denies: anemia, blood clots, easy bleeding, easy bruising, swollen glands, others Endocrine: denies: excessive hunger, excessive sweating, excessive thirst, excessive urination, flushing, intolerance to cold, intolerance to heat, unexplained weight gain, unexplained weight loss, others Psychiatric: denies: anxiety, bipolar disorder, depression, hopeless, panic disorder, schizophrenia, sleepless, suicidal, others Physical Exam General Appearance: Cachectic HEENT: PERRL/EOMI Neck: None Respiratory: None Cardiovascular: None Breast Exam: Deferred Gastrointestinal: Epigastric, Normal Bowel Sounds Genitalia: Deferred Pelvic: Deferred Rectal: Deferred Extremities: None Neurologic: None Cerebellar Function: Normal Reflexes: Normal Skin: Normal Color Lymphatic: None Was a procedure done? Was a procedure done?: No GI differential Dx Differential Diagnosis: Gastritis/PUD, Hernia X-Ray, Labs, Meds, VS Vital Signs Date Time Temp Pulse Resp B/P (MAP) Pulse Ox O2 Delivery O2 Flow Rate FiO2 01/07/25 23:45 98.1 104 20 161/89 (113) 92 98.1 01/07/25 23:38 Room Air* 0 21 01/07/25 21:32 98.0 87 16 156/103 98 98.0 Current Medications Medications (Trade) Dose Ordered Sig/Sarah Route Start Time Stop Time Status Last Admin Pantoprazole Sodium (Protonix) 40 mg ONCE ONCE IV 01/07/25 23:30 01/07/25 23:31 DC 01/07/25 23:43 Sucralfate (Carafate Susp) 1 gm ONCE ONCE PO 01/07/25 23:30 01/07/25 23:31 DC 01/07/25 23:44 Ketorolac Tromethamine (Toradol Injection) 30 mg ONCE ONCE IV 01/07/25 23:30 01/07/25 23:31 DC 01/07/25 23:43 Labs were ordered in account [id number] and reviewed: WBC 8.0 NRBC 0.1 Neutro 5.4 lymphs 1.8 monos 0.6 eosinophils 0.1 basophils 0.1 RBC 4.91 hemoglobin 14.1 HCT 42.5 MCV 86.4 MCH 28.7 MCHC 33.2 RDW 15.2 PLT 2 326 Na 142 K 4.8 Cl 105 CO2 25 Anion gap 12 Glucose 89 BUN 23 Creatinine 1.09 ALP 117 AST/SGOT 32 ALT/SGPT 23 Ca 9.8 Total bilirubin 1.4 TP 7.9 Albumin 4.5 BUN/creatinine ratio 21.1 Lipase 19 GFR 73 Lactic acid 1.3 Images Reviewed?: Images reviewed and evaluated by me Time of 1ST Reevaluation: 23:45 Reevaluation 1ST: Improved Patient Education/Counseling: Diagnosis, Treatment Family Education/Counseling: No Family Present SEPSIS Sepsis Screen Date sepsis recognized/suspect: Jan 07, 2025 Time Sepsis recognized/suspect: 2131 Recent Procedure: No On Antibiotic Therapy: No Respiratory Rate >20: No Heart Rate >90: No Temp<36 C (96.8 F) or >38.3 C: No SBP <90 or MAP <65 mmHG: No New Acute Mental Status Change: No Is the patient on CPAP, BIPAP,: No Physician Orders Electrocardigram (01/07/25 23:24) Vital Signs Date Time Temp Pulse Resp B/P (MAP) Pulse Ox O2 Delivery O2 Flow Rate FiO2 01/07/25 23:45 98.1 104 20 161/89 (113) 92 98.1 01/07/25 23:38 Room Air* 0 21 01/07/25 21:32 98.0 87 16 156/103 98 98.0 Departure 1 Departure Time of Disposition: 00:08 Impression: Primary Impression: Intractable abdominal pain Additional Impressions: Methamphetamine abuse Alcoholic gastritis Disposition: 01 HOME / SELF CARE / HOMELESS Condition: Stable e-Prescriptions Pantoprazole Sodium Sesquihydr (Protonix) 40 Mg Tab 40 MG PO DAILY, #30 TAB Prov: MARVEL MANN MD 01/07/25 Comments Attestation: I personally saw and evaluated the patient. I agree with the findings and plan of care as documented by the resident note. MARVEL MANN MD Critical Care Note Critical Care Time?: No Stability Stability form required: No Heart Score Heart Score: Heart Score Response (Comments) Value History N/A 0 EKG N/A 0 Age N/A 0 Risk Factors N/A 0 Troponin N/A 0 Total 0 LESLEY CM RESIDENT Jan 07, 2025 22:36 MARVEL MANN MD Jan 07, 2025 23:58
[2025-01-07] MEDS: KETOROLAC TROMETH 30 MG/ML 1ML VIAL IV ONE (23:43)
[2025-01-07] MEDS: PANTOPRAZOLE 40 MG/10 ML VIAL INJ IV ONE (23:43)
[2025-01-07] MEDS: ACETAMINOPHEN 325 MG TAB PO ONE (23:44)
[2025-01-07] MEDS: SUCRALFATE 1 GM/10 ML ORAL SUSP PO ONE (23:44)
[2025-01-07 23:45] VITALS: BP 161/89; PULSE 104; RESP 20; TEMP 98.1; O2SAT 92
[2025-01-07] MEDS ORDERED: PANT40TA2 PO (23:58)
== END 2025-01-08 00:17 | disposition home or self-care (01) ==
LOC: ER 21:30
DX: K29.20 Alcoholic gastritis without bleeding (principal); I10 Essential (primary) hypertension; F15.10 Other stimulant abuse, uncomplicated; F17.210 Nicotine dependence, cigarettes, uncomplicated; Z79.899 Other long term (current) drug therapy; Y90.9 Presence of alcohol in blood, level not specified
CPT/HCPCS: 96374; 96375; 99284; J1885; J2470

== ENCOUNTER 2025-01-10 21:23 | Emergency (ER) | payer MEDICARE, MEDICAID ==
[~2025-01-10] VITALS: Ht 170.2 cm; Wt 67.0 kg
[2025-01-10 22:44] LABS: Hematocrit 40.8 % (41.0-53.0); Hemoglobin 13.2 g/dL (13.5-17.5); Mean Corpuscular Hemoglobin 28.1 pg (28.0-32.0); Mean Corpuscular Volume 86.6 fL (80.0-100.0); Nucleated Red Blood Cells % 0.4 %
[2025-01-10 22:55] LABS: Alanine Aminotransferase 23 U/L (7-40); Albumin 4.1 g/dL (3.2-4.8); Alkaline Phosphatase 111 U/L (46-116); Anion Gap 10 (5-15); BUN/Creatinine Ratio 19.1 (10.0-20.0); Bilirubin, Total 0.9 mg/dL (0.2-1.0); Blood Urea Nitrogen 17 mg/dL (9-23); Calcium 9.5 mg/dL (8.7-10.4); Carbon Dioxide 23 mmol/L (20-31); Glucose 102 mg/dL (74-106); Lipase 26 U/L (12-53); Potassium 4.4 mmol/L (3.5-5.1); Sodium 141 mmol/L (136-145); Total Protein 7.6 g/dL (5.7-8.2)
[2025-01-10 22:56] LABS: Chloride 108 mmol/L (98-107)
--- NOTE | 2025-01-10 23:09 | DVH ---
Exam: CT CT AB PEL WO CON-NO ORAL OR IV History: abd pain n/v Comparison Study: CT CT AB PEL WO CON-NO ORAL OR IV on DOS: 12/10/24, CT CT AB PEL WO CON-NO ORAL OR IV on DOS: 10/04/24, CT CT AB PEL WO CON-NO ORAL OR IV on DOS: 03/18/24, CT CT AB PEL WO CON-NO ORAL OR IV on DOS: 12/21/23, CT ABD PELVIS WO CONTRAST on DOS: 06/19/19 Technique: Multidetector spiral CT of the abdomen was performed from lung bases to pubic symphysis. Imaging was performed without IV contrast. Axial, coronal and sagittal multiplanar reformats were obtained from the axial data set by the technologist. Radiation Dose : 1. Abdomen/Pelvis: CTDIvol 5.07 mGy, DLP 258.99 mGy*cm. Findings: Evaluation of solid organs is limited due to lack of intravenous contrast use. Lung Bases: No acute or significant lung base finding. Normal heart size. No pleural or pericardial effusion. Liver: The liver is normal in size. No focal lesions. Gallbladder and Biliary Tree: Unremarkable Spleen: Unremarkable Pancreas: The pancreas is grossly normal in appearance. Adrenal Glands: Unremarkable Kidneys: Kidneys are grossly normal without calculi or hydronephrosis. Bladder: Grossly unremarkable for degree of distention. Bowel: The stomach is grossly normal in appearance. Small bowel and colon are normal in caliber and distribution. Normal appendix is visualized in the right lower quadrant without findings of appendicitis. Ascites: Absent Lymphadenopathy: No mesenteric, retroperitoneal or periportal lymphadenopathy. Abdominal Wall and Mesentery: Unremarkable. Vasculature: The visualized abdominal aorta is normal in size and caliber. Evaluation of abdominal and pelvic vessels is limited due to lack of intravenous contrast. Pelvic Organs: Unremarkable Musculoskeletal: No aggressive focal bony lesions, acute fractures or dislocation. IMPRESSION: No acute abdominal or pelvic findings. Radiation optimization: All CT scans at this facility use at least one of these dose optimization techniques: automated exposure control mA and/or kV adjustment per patient size (includes targeted exams where dose is matched to clinical indication) or iterative reconstruction.
--- NOTE | 2025-01-10 23:36 | ED.PDOC ---
GI ASSESSMENT HPI Comments 69-year-old male with a PMH of polysubstance abuse (alcohol, cannabis, and methamphetamine), gait abnormality (uses walker), bilateral foot cellulitis, left foot gangrene, esophagitis, hypertension, hepatitis-C, sliding type hiatal hernia (diagnosed in Feb 2024) has come to the ER with chief complaints of abdominal pain. Patient had visited this facility 3 days ago for similar complaints and was discharged with Protonix (reports he got them today from the pharmacy). Today the patient reports of acute onset of left upper quadrant abdominal pain, stabbing in nature, 10/10 intensity, nonradiating, relieved slightly by Protonix, aggravated by food, lasting 1 hour, associated with nausea and 10 episodes of watery, nonbloody emesis. Patient states that he still has difficulty swallowing solids since his diagnosis of esophagitis and sliding hernia at the beginning of this year and eats very little. He admits that he has increased his cigarette smoking to 6-7 packs/day, and today snorted 0.5 g methamphetamine, last alcohol intake was Monday. He is noncompliant with his antihypertensive medications as he does not want to take any other pill except Protonix for his abdomen. On inquiry, he denies chest pain, shortness of breath, palpitations, urinary symptoms, GERD symptoms, change in bowel habits or intake of any food that could have caused emesis. Patient also states that he has found a new PCP, and has an appointment for 01/22/2025. On initial assessment, AOX4 and in mild distress. Attestation note: Dr. Larson: I was the supervising attending for this ED encounter. Please see the resident's notes. I was available for questions and consultations. Differential diagnosis: DDX include but not limited to diverticulitis, colitis, gastroenteritis, acute abdomen, SBO, enteritis, constipation, volvulus, appendicitis, Gallbladder dise ase, choledocolithiasis, ascending cholangitis, pancreatitis, intraAbdominal mass/neoplasm, hepatitis, UTI, pylonephritis, kidney stone, aneurysm, dissection, Inflammatory bowel disease, gastroparesis, ischemic bowel. Food poisoning, bacterial/parasitic/viral etiology, trauma, diabetes DKA, MDM: MDM: patient presented with the above HPI.---chronic abdominal pain---workup was initiated. patient was found with the above mentioned diagnosis. the following medications were ordered: please refer to order lists of meds and tests obtained by myself Dr. Larson. Patient ED course and VS have been stabilized. Patient has been reassessed in the ED and remained in a stable condition. Pertinent incidental findings were discussed with the patient and/or family. Patient/family voices understanding and is agreeable with plan. Patient has been observed in the ED adequate length of time to insure improvement/stability. Escalation of care considered: Consideration of escalation to observation or admission Patient was DISCHARGED home in a stable condition. All the reports of any imaging studies that were ordered by myself were reviewed by myself. Chief Complaint: Abdominal Pain Time Seen by MD: 22:00 Primary Care Provider: CLEMENT Herrera Reviewed Notes: Medications, Allergies Allergies: Coded Allergies: No Known Drug Allergy (Verified Allergy, Unknown, 12/07/24) Home Meds Active Scripts Pantoprazole Sodium Sesquihydr (Protonix) 40 Mg Tab, 40 MG PO DAILY, #30 TAB Prov:MARVEL MANN MD 01/07/25 Pantoprazole Sodium Sesquihydr (Protonix) 40 Mg Tab, 40 MG PO BID for 30 Days, #60 TAB 0 Refills Prov:DIMITRI SOLOMON 12/07/24 Pantoprazole Sodium Sesquihydr (Protonix) 40 Mg Tab, 40 MG PO DAILY, #30 TAB Prov:JAMI SANTIAGO MD 11/25/24 Sucralfate (Carafate) 1 Gm/10 Ml Loli, 1 GM PO BID for 30 Days, #600 ML 0 Refills Prov:LUIS IGNACIO RESIDENT 03/19/24 Amlodipine Besylate (NORVASC TABLET) 5 Mg Tb, 5 MG PO DAILY for 30 Days, #30 TAB Prov:JOEY CHEUNG RESIDENT 03/08/24 Information Source: Patient Mode of Arrival: Ambulatory Timing: Hours Duration: Intermittent Prehospital treatment: None Quality: Sharp, Stabbing Vomitus: Watery Stool: Normal Severity: Moderate Recent: Ingestion of ETOH, Other (Cigarette smoking, snorted 0.5 g methamphetamine) Recent Hx of: None Pain Location: Epigastric, LUQ Modifying Factors: Antacids Associated sign and symptoms: Nausea, Vomiting, Abdominal Pain Past Medical History PAST MEDICAL HISTORY: GERD, HTN Past Medical History (Other): Bilateral foot cellulitis, left foot gangrene, esophagitis, sliding hiatal hernia Surgical History: Denies all surgeries Family History Family History: Reviewed,noncontributory to illness Social History Smoker: Cigarettes Alcohol: Heavy Drugs: Methamphetamine Lives In: Homeless Constitutional: denies: chills, diaphoresis, fatigue, fever, malaise, sweats, weakness, others EENTM: denies: blurred vision, double vision, ear bleeding, ear discharge, ear drainage, ear pain, ear ringing, eye pain, eye redness, hearing loss, mouth pain, mouth swelling, nasal discharge, nose bleeding, nose congestion, nose pain, photophobia, tearing, throat pain, throat swelling, voice changes, others Respiratory: denies: cough, hemoptysis, orthopnea, SOB at rest, shortness of breath, SOB with excertion, stridor, wheezing, others Cardiovascular: denies: chest pain, dizzy spells, diaphoresis, Dyspnea on exertion, edema, irregular heart beat, left arm pain, lightheadedness, palpitations, PND, syncope, others Gastrointestinal: reports: abdominal pain, difficulty swallowing, nausea, poor appetite, vomiting; denies: abdomen distended, blood streaked bowels, constipated, diarrhea, dysphagia, hematemesis, melena, poor fluid intake, rectal bleeding, rectal pain, others Genitourinary: denies: burning, dysuria, flank pain, frequency, hematuria, incontinence, penile discharge, penile sore, pain, testicle pain, testicle swelling, urgency, others Neurological: reports: others (Unstable gait, requires walker); denies: dizziness, fainting, headache, left sided numbness, left sided weakness, numbness, paresthesia, pre-existing deficit, right sided numbness, right sided weakness, seizure, speech problems, tingling, tremors, weakness Musculoskeletal: denies: back pain, gout, joint pain, joint swelling, muscle pain, muscle stiffness, neck pain, others Integumetry: denies: bruises, change in color, change in hair/nails, dryness, laceration, lesions, lumps, rash, wounds, others Allergic/Immunocompromised: denies: Difficulty Healing, Frequent Infections, Hives, Itching, others Endocrine: denies: excessive hunger, excessive sweating, excessive thirst, excessive urination, flushing, intolerance to cold, intolerance to heat, unexplained weight gain, unexplained weight loss, others Psychiatric: denies: anxiety, bipolar disorder, depression, hopeless, panic disorder, schizophrenia, sleepless, suicidal, others Physical Exam General Appearance: Cachectic, Mild Distress, Thin HEENT: Other (Absence of pallor, icterus) Neck: Other (No JVD, no accessory muscles of respiration used, no enlarged lymph nodes palpated) Respiratory: Decreased Breath Sounds, No Accessory Muscle Use, Other (Absence of wheezing, rhonchi, stridor or rales) Cardiovascular: No Murmur, Regular Rate/Rhythm, Other (No JVD noted) Breast Exam: Deferred Gastrointestinal: Epigastric, LUQ, Tenderness, Other (No guarding, no rebound tenderness, no masses or organomegaly on palpation) Genitalia: Deferred Pelvic: Deferred Rectal: Deferred Extremities: No calf tenderness, Normal range of motion, Other (Absence of pitting pedal edema, rashes, scabs, bruises up to knee level) Neurologic: Alert, Other (Patient has unstable gait, chronic, uses walker to ambulate, absence of facial drooping, maintains eye contact) Cerebellar Function: Unable to Test Reflexes: Normal Skin: Normal Color, Other (No pallor, icterus, rashes) Lymphatic: Other (No cervical adenopathy) Was a procedure done? Was a procedure done?: No GI differential Dx Differential Diagnosis: Esophagitis, Gastritis/PUD, Hernia X-Ray, Labs, Meds, VS Vital Signs Date Time Temp Pulse Resp B/P (MAP) Pulse Ox O2 Delivery O2 Flow Rate FiO2 01/11/25 00:14 98.6 87 18 120/68 (85) 97 98.6 01/10/25 23:09 81 01/10/25 21:29 97.7 97 20 120/95 95 97.7 Lab Test 01/10/25 23:45 01/10/25 22:29 01/10/25 22:16 Range/Units Troponin I High Sensitivity 5 4 </=54 ng/L White Blood Count 6.5 4.4-10.8 10^3/uL Red Blood Count 4.70 4.5-5.90 10^6/uL Hemoglobin 13.2 L 13.5-17.5 g/dL Hematocrit 40.8 L 41.0-53.0 % Mean Corpuscular Volume 86.6 80.0-100.0 fL Mean Corpuscular Hemoglobin 28.1 28.0-32.0 pg Mean Corpuscular Hemoglobin Concent 32.4 32.0-36.0 g/dL Red Cell Distribution Width 15.4 H 11.8-14.3 % Platelet Count 251 140-450 10^3/uL Mean Platelet Volume 8.2 6.9-10.8 fL Neutrophils (%) (Auto) 66.1 37.0-80.0 % Lymphocytes (%) (Auto) 22.7 10.0-50.0 % Monocytes (%) (Auto) 6.2 0.0-12.0 % Eosinophils (%) (Auto) 4.4 0.0-7.0 % Basophils (%) (Auto) 0.6 0.0-2.0 % Neutrophils # (Auto) 4.3 1.6-8.6 10 ^3/uL Lymphocytes # (Auto) 1.5 0.4-5.4 10 ^3/uL Monocytes # (Auto) 0.4 0-1.3 10 ^3/uL Eosinophils # (Auto) 0.3 0-0.8 10 ^3/uL Basophils # (Auto) 0 0-0.2 10 ^3/uL Nucleated Red Blood Cells 0.4 % Platelet Estimate Adequate Sodium Level 141 136-145 mmol/L Potassium Level 4.4 3.5-5.1 mmol/L Chloride Level 108 H 98-107 mmol/L Carbon Dioxide Level 23 20-31 mmol/L Anion Gap 10 5-15 Blood Urea Nitrogen 17 9-23 mg/dL Creatinine 0.89 0.700-1.30 mg/dL Glomerular Filtration Rate Calc 93 >90 mL/min BUN/Creatinine Ratio 19.1 10.0-20.0 Serum Glucose 102 74-106 mg/dL Lactic Acid Level 0.7 0.4-2.0 mmol/L Calcium Level 9.5 8.7-10.4 mg/dL Total Bilirubin 0.9 0.2-1.0 mg/dL Aspartate Amino Transferase (AST) 34 13-40 U/L Alanine Aminotransferase (ALT) 23 7-40 U/L Alkaline Phosphatase 111 46-116 U/L Total Protein 7.6 5.7-8.2 g/dL Albumin 4.1 3.2-4.8 g/dL Lipase 26 12-53 U/L Urine Color Yellow Yellow Urine Clarity Clear Clear Urine pH 6.0 5.0-9.0 Urine Specific [place] 1.030 1.001-1.035 Urine Protein Trace H Negative Urine Ketones Negative Negative Urine Blood Negative Negative /uL Urine Nitrite Negative Negative Urine Bilirubin Negative Negative Urine Urobilinogen 3 H Negative mg/dL Urine Leukocyte Esterase Negative Negative /uL Urine RBC 3 0 - 3 /hpf Urine Microscopic WBC 1 0-3 /HPF Urine Squamous Epithelial Cells None seen <5 /hpf Urine Bacteria None seen None Seen /hpf Urine Glucose Normal Normal mg/dL Urine Opiates Screen Neg NEGATIVE Urine Fentanyl Screen Neg NEGATIVE Urine Barbiturates Screen Neg NEGATIVE Urine Phencyclidine Screen Neg NEGATIVE Urine Amphetamines Screen Pos NEGATIVE Urine Benzodiazepines Screen Neg NEGATIVE Urine Cocaine Screen Neg NEGATIVE Urine Cannabinoids Screen Pos NEGATIVE Images Reviewed?: Images reviewed and evaluated by me Time of 1ST Reevaluation: 23:28 Reevaluation 1ST: Improved Patient Education/Counseling: Diagnosis, Treatment Family Education/Counseling: No Family Present SEPSIS Sepsis Screen Date sepsis recognized/suspect: Jan 10, 2025 Time Sepsis recognized/suspect: 2131 Recent Procedure: No On Antibiotic Therapy: No Respiratory Rate >20: No Heart Rate >90: No Temp<36 C (96.8 F) or >38.3 C: No SBP <90 or MAP <65 mmHG: No New Acute Mental Status Change: No Is the patient on CPAP, BIPAP,: No Physician Orders Agency Service Representative (01/10/25 ) Ct Ab Pel Wo Con-No Oral Or Iv (01/10/25 22:16) Electrocardigram (01/10/25 22:16) Vital Signs Date Time Temp Pulse Resp B/P (MAP) Pulse Ox O2 Delivery O2 Flow Rate FiO2 01/11/25 00:14 98.6 87 18 120/68 (85) 97 98.6 01/10/25 23:09 81 01/10/25 21:29 97.7 97 20 120/95 95 97.7 Laboratory Tests Test 01/10/25 22:29 Lactic Acid Level 0.7 mmol/L (0.4-2.0) White Blood Count 6.5 10^3/uL (4.4-10.8) Departure 1 Departure Time of Disposition: 23:47 Impression: Primary Impression: Chronic abdominal pain Additional Impressions: Homeless Methamphetamine abuse Disposition: 01 HOME / SELF CARE / HOMELESS Condition: Stable Additional Instructions: Additional instructions: Please read all instructions provided in this packet carefully. You MUST follow-up with your primary care/family doctor in 1 to 2 days. If you are unable to see your primary care/family doctor, please return to our emergency room for re-assessment and re-evaluation in 1 to 2 days. Return to the emergency room here in our facility or to the nearest ER [facility] if your symptoms change or worsen. CONSULTATIONS: you MUST Follow-up for consultation as soon as possible with: -gastroenterology in 1-2 days. Please call for appointment You MUST call the consultants office yourself to make an appointment. You may need to arrange that through your insurance and/or your primary/family doctor. If you are unable to see the loss control consultant in 1 to 2 days, you must return to our emergency room (or any other ER of your choice) for re-assessment and re- evaluation. Adequate fluid hydration. Although you have been discharged from the Emergency Department, this does not mean that you have a "clean bill of health". No definitive diagnosis for your symptoms has been made today. It is possible that you are in the process of developing a serious illness. This is why you must return to the ED without fail if any new or worsening symptoms develop. Avoid fatty greasy spicy food. Avoid caffeinated products. Avoid NSAIDs. Below is a copy of your radiological report for follow up: [place] [id number] Ph: [phone] DIAGNOSTIC IMAGING Diagnostic Imaging Report : [id number] Signed PATIENT: DAMION BOWMAN ACCT: [id number] UNIT: [id number] : 1955 LOC: ER ROOM / BED: / AGE / SEX: 69 / M ADM STATUS: REG ER SERVICE 15 ORDERING PHYSICIAN: MARIE LARSON DO PROCEDURE(s): ABPL - CT AB PEL WO CON-NO ORAL OR IV REASON: abd pain n/v ORDER NUMBER(s): [id number], ACCESSION NUMBER(s): [id number] Exam: CT CT AB PEL WO CON-NO ORAL OR IV History: abd pain n/v Comparison Study: CT CT AB PEL WO CON-NO ORAL OR IV on DOS: 12/10/24, CT CT AB PEL WO CON-NO ORAL OR IV on DOS: 10/04/24, CT CT AB PEL WO CON-NO ORAL OR IV on DOS: 03/18/24, CT CT AB PEL WO CON-NO ORAL OR IV on DOS: 12/21/23, CT ABD PELVIS WO CONTRAST on DOS: 06/19/19 Technique: Multidetector spiral CT of the abdomen was performed from lung bases to pubic symphysis. Imaging was performed without IV contrast. Axial, coronal and sagittal multiplanar reformats were obtained from the axial data set by the technologist. Radiation Dose : 1. Abdomen/Pelvis: CTDIvol 5.07 mGy, DLP 258.99 mGy*cm. Findings: Evaluation of solid organs is limited due to lack of intravenous contrast use. Lung Bases: No acute or significant lung base finding. Normal heart size. No pleural or pericardial effusion. Liver: The liver is normal in size. No focal lesions. Gallbladder and Biliary Tree: Unremarkable Spleen: Unremarkable Pancreas: The pancreas is grossly normal in appearance. Adrenal Glands: Unremarkable Kidneys: Kidneys are grossly normal without calculi or hydronephrosis. Bladder: Grossly unremarkable for degree of distention. Bowel: The stomach is grossly normal in appearance. Small bowel and colon are normal in caliber and distribution. Normal appendix is visualized in the right lower quadrant without findings of appendicitis. Ascites: Absent Lymphadenopathy: No mesenteric, retroperitoneal or periportal lymphadenopathy. Abdominal Wall and Mesentery: Unremarkable. Vasculature: The visualized abdominal aorta is normal in size and caliber. Evaluation of abdominal and pelvic vessels is limited due to lack of intravenous contrast. Pelvic Organs: Unremarkable Musculoskeletal: No aggressive focal bony lesions, acute fractures or dislocation. IMPRESSION: No acute abdominal or pelvic findings. Radiation optimization: All CT scans at this facility use at least one of these dose optimization techniques: automated exposure control mA and/or kV adjustment per patient size (includes targeted exams where dose is matched to clinical indication) or iterative reconstruction. ATED BY: ANH MORGAN MD DICTATED DATE/TIME: 01/10/252305 SIGNED BY: ANH MORGAN MD SIGNED DATE/TIME: 11/21/25 2306 CC: Discharged With: Self Comments Patient came to the ER for abdominal pain which had improved after taking Protonix tablet. A CBC and BMP was done which came back WNL. Lipase was normal as well- 26. EKG shows sinus rhythm and Troponins negative. A CT abdomen and pelvis without contrast showed 'No acute abdominal or pelvic findings.' We have counseled the patient extensively on cessation of methamphetamine which he snorts, alcohol abuse as well as cigarette smoking. Patient advised to visit his primary care physician on the scheduled date he already has- 01/22/2025. Patient is stable and is being discharged. Critical Care Note Critical Care Time?: No Stability Stability form required: No Heart Score Heart Score: Heart Score Response (Comments) Value History N/A 0 EKG N/A 0 Age N/A 0 Risk Factors N/A 0 Troponin N/A 0 Total 0 I personally scribed for MARIE LARSON DO ([email or web address]) on 01/11/25 at 01:18. Electronically submitted by Dank Florez ([email or web address]). LESLEY CM RESIDENT Jan 10, 2025 23:36 MARIE LARSON DO Jan 11, 2025 01:18
[2025-01-11 01:22] LABS: Urine Protein, UAD TRACE (Negative)
[2025-01-11 01:31] LABS: Amphetamine Screen, Urine Pos (NEGATIVE); Barbiturate Scree,Urine Neg (NEGATIVE); Benzodiazephine Screen, Urine Neg (NEGATIVE); Cannabinoid Screen, Urine Pos (NEGATIVE); Cocaine Screen, Urine Neg (NEGATIVE); Opiate Scree,Urine Neg (NEGATIVE)
[2025-01-11 01:32] LABS: Phencyclidine Screen, Urine Neg (NEGATIVE)
[2025-01-11 02:19] VITALS: BP 173/91; PULSE 91; RESP 20; TEMP 98.2; O2SAT 96
== END 2025-01-11 02:35 | disposition home or self-care (01) ==
LOC: ER 21:23
DX: G89.29 Other chronic pain (principal); R10.12 Left upper quadrant pain; F15.10 Other stimulant abuse, uncomplicated; I10 Essential (primary) hypertension; K21.9 Gastro-esophageal reflux disease without esophagitis; F17.210 Nicotine dependence, cigarettes, uncomplicated; Z86.19 Personal history of other infectious and parasitic diseases; Z91.148 Patient's other noncompliance with medication regimen for other reason; Z79.899 Other long term (current) drug therapy
CPT/HCPCS: 36415; 74176; 80053; 80307; 81001; 83605; 83690; 84484; 85025

== ENCOUNTER 2025-01-14 16:15 | Inpatient (IN) | payer MEDICARE, MEDICAID ==
[~2025-01-14] VITALS: Ht 170.2 cm; Wt 56.7 kg
--- NOTE | 2025-01-14 16:57 | ED.PDOC ---
GI ASSESSMENT HPI Comments 69 year old male presents to the ED via EMS with a chief complaint of abdominal pain onset 1 week. Per EMS, patient has been experiencing lower abdominal pain for the past week as well as nausea, vomiting, worsened today, called 911. Was given Zofran in route to ED by EMS. He currently rates pain 09/29. Denies fever, chills, hematemesis, dysuria, hematuria, chest pain, shortness of breath, headache, dizziness, melena, blood in stool. No other symptoms or modifying factors present at this time. Chief Complaint: Abdominal Pain Time Seen by MD: 16:40 Primary Care Provider: CLEMENT Herrera Reviewed Notes: Medications, Allergies Allergies: Coded Allergies: No Known Drug Allergy (Verified Allergy, Unknown, 12/07/24) Home Meds Active Scripts Pantoprazole Sodium Sesquihydr (Protonix) 40 Mg Tab, 40 MG PO DAILY, #30 TAB Prov:MARVEL MANN MD 01/07/25 Pantoprazole Sodium Sesquihydr (Protonix) 40 Mg Tab, 40 MG PO BID for 30 Days, #60 TAB 0 Refills Prov:DIMITRI SOLOMON 12/07/24 Pantoprazole Sodium Sesquihydr (Protonix) 40 Mg Tab, 40 MG PO DAILY, #30 TAB Prov:JAMI SANTIAGO MD 11/25/24 Sucralfate (Carafate) 1 Gm/10 Ml Loli, 1 GM PO BID for 30 Days, #600 ML 0 Refills Prov:LUIS IGNACIO RESIDENT 03/19/24 Amlodipine Besylate (NORVASC TABLET) 5 Mg Tb, 5 MG PO DAILY for 30 Days, #30 TAB Prov:JEOY CHEUNG RESIDENT 03/08/24 Information Source: Patient, Emergency Med Personnel Mode of Arrival: EMS Timing: Weeks Duration: Since onset Prehospital treatment: Other (zofran) Quality: Sharp Severity: Moderate Recent: None Recent Hx of: None Pain Location: LLQ Modifying Factors: Nothing Associated sign and symptoms: Nausea, Vomiting, Abdominal Pain Past Medical History PAST MEDICAL HISTORY: GERD, HTN Surgical History: Denies all surgeries Family History Family History: Reviewed,noncontributory to illness Social History Smoker: Cigarettes Alcohol: Heavy Drugs: Methamphetamine Lives In: Homeless Constitutional: denies: chills, diaphoresis, fatigue, fever, malaise, sweats, weakness, others EENTM: denies: blurred vision, double vision, ear bleeding, ear discharge, ear drainage, ear pain, ear ringing, eye pain, eye redness, hearing loss, mouth pain, mouth swelling, nasal discharge, nose bleeding, nose congestion, nose pain, photophobia, tearing, throat pain, throat swelling, voice changes, others Respiratory: denies: cough, hemoptysis, orthopnea, SOB at rest, shortness of breath, SOB with excertion, stridor, wheezing, others Cardiovascular: denies: chest pain, dizzy spells, diaphoresis, Dyspnea on exertion, edema, irregular heart beat, left arm pain, lightheadedness, palpitations, PND, syncope, others Gastrointestinal: reports: abdominal pain, nausea, vomiting; denies: abdomen distended, blood streaked bowels, constipated, diarrhea, dysphagia, difficulty swallowing, hematemesis, melena, poor appetite, poor fluid intake, rectal bleeding, rectal pain, others Genitourinary: denies: burning, dysuria, flank pain, frequency, hematuria, incontinence, penile discharge, penile sore, pain, testicle pain, testicle swelling, urgency, others Neurological: denies: dizziness, fainting, headache, left sided numbness, left sided weakness, numbness, paresthesia, pre-existing deficit, right sided numbness, right sided weakness, seizure, speech problems, tingling, tremors, we akness, others Musculoskeletal: denies: back pain, gout, joint pain, joint swelling, muscle pain, muscle stiffness, neck pain, others Integumetry: denies: bruises, change in color, change in hair/nails, dryness, laceration, lesions, lumps, rash, wounds, others Allergic/Immunocompromised: denies: Difficulty Healing, Frequent Infections, Hives, Itching, others Hematologic/Lymphatic: denies: anemia, blood clots, easy bleeding, easy bruising, swollen glands, others Endocrine: denies: excessive hunger, excessive sweating, excessive thirst, excessive urination, flushing, intolerance to cold, intolerance to heat, unexplained weight gain, unexplained weight loss, others Psychiatric: denies: anxiety, bipolar disorder, depression, hopeless, panic disorder, schizophrenia, sleepless, suicidal, others All Other Systems: Reviewed and Negative Physical Exam General Appearance: Moderate Distress, Normal HEENT: Normal ENT Inspection, Pharynx Normal, TMs Normal Neck: Full Range of Motion, Non-Tender, Normal, Normal Inspection Respiratory: Chest Non-Tender, Lungs Clear, No Accessory Muscle Use, No Respiratory Distress, Normal Breath Sounds Cardiovascular: No Edema, No JVD, No Murmur, No Gallop, Normal Peripheral Pulses, Regular Rate/Rhythm Breast Exam: Deferred Gastrointestinal: No Organomegaly, Non Tender, No Pulsatile Mass, Normal Bowel Sounds, Soft Genitalia: Deferred Pelvic: Deferred Rectal: Deferred Extremities: No calf tenderness, Normal capillary refill, Normal inspection, Normal range of motion, Non-tender, No pedal edema Musculoskeletal : Apperance: Normal Neurologic: Alert, commutator inspector II-XII nml as Tested, No Motor Deficits, Normal Affect, Normal Mood, No Sensory Deficits Cerebellar Function: Normal Reflexes: Normal Skin: Dry, Normal Color, Warm Peripheral Pulses: 3+ Radial (R), 3+ Radial (L) Lymphatic: No Adenopathy Was a procedure done? Was a procedure done?: No GI differential Dx Differential Diagnosis: Constipation, Diverticular disease, Esophagitis, Gastritis/PUD, Gastroenteritis X-Ray, Labs, Meds, VS Vital Signs Date Time Temp Pulse Resp B/P (MAP) Pulse Ox O2 Delivery O2 Flow Rate FiO2 01/14/25 16:30 98.3 67 20 148/84 95 98.3 Patient alert. Complaining of abdominal discomfort. Vitals stable. Answering all questions. He does not take care himself. Abdomen is soft nontender. No sign of any distress. No leg swelling. Ambulating. Chronic condition. Establish intravenous access. Was given fluids. Explained to the patient. Continue monitoring. Time of 1ST Reevaluation: 17:10 Reevaluation 1ST: Unchanged Patient Education/Counseling: Diagnosis, Treatment, Prognosis Family Education/Counseling: No Family Present SEPSIS Sepsis Screen Physician Orders Troponin-I Hs (01/14/25 16:40) Complete Blood Count (01/14/25 16:40) Chest Portable (01/14/25 16:40) Urinalysis (01/14/25 16:40) Basic Metabolic Panel (01/14/25 16:40) Electrocardigram (01/14/25 16:15) Ct Ab Pel Wo Con-No Oral Or Iv (01/14/25 17:17) 1 Liter Bolus Of 0.9% Ns (01/14/25 17:30) Ondansetron Hcl (Zofran) (01/14/25 17:30) Morphine Sulfate Injection (01/14/25 17:30) Vital Signs Date Time Temp Pulse Resp B/P (MAP) Pulse Ox O2 Delivery O2 Flow Rate FiO2 01/14/25 16:30 98.3 67 20 148/84 95 98.3 Departure 1 Departure Time of Disposition: 17:16 Impression: Primary Impression: Abdominal pain of unknown etiology Additional Impression: Non-specific colitis Disposition: ADMITTED INPATIENT Admit to: Med Surg Condition: Guarded Critical Care Note Critical Care Time?: No Stability Stability form required: No Heart Score Heart Score: Heart Score Response (Comments) Value History N/A 0 EKG N/A 0 Age N/A 0 Risk Factors N/A 0 Troponin N/A 0 Total 0 I personally scribed for KADY TORRE MD ([email or web address]) on 01/14/25 at 16:57. Electronically submitted by Falguni Avery ([email or web address]). KADY TORRE MD Jan 14, 2025 16:57
--- NOTE | 2025-01-14 17:19 | ECG ---
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
--- NOTE | 2025-01-14 17:29 | DVH ---
CHEST RADIOGRAPH Indication: sob Technique: Single frontal view of the chest was obtained Comparison: XY CHEST PORTABLE on DOS: 06/29/24, XY CHEST PORTABLE on DOS: 06/08/24, XY CHEST XRAY 1 VIEW on DOS: 03/03/24 FINDINGS: Lines and Tubes: None Lungs: Findings of both lung bases appear similar to the 06/29/2024.. Pleura: No effusion. No pneumothorax. Cardiomediastinal contours: Unremarkable Bones: No acute osseous abnormality. IMPRESSION: 1. Probable chronic changes in the lung bases bilaterally compared to 06/29/2024
[2025-01-14 18:12] LABS: Hematocrit 44.6 % (41.0-53.0); Hemoglobin 15.2 g/dL (13.5-17.5); Mean Corpuscular Hemoglobin 29.1 pg (28.0-32.0); Mean Corpuscular Volume 85.7 fL (80.0-100.0); Nucleated Red Blood Cells % 0.1 %
[2025-01-14 18:13] LABS: Chloride 106 mmol/L (98-107); Potassium 4.8 mmol/L (3.5-5.1); Sodium 139 mmol/L (136-145)
[2025-01-14 18:14] LABS: Anion Gap 9 (5-15); Calcium 9.4 mg/dL (8.7-10.4); Carbon Dioxide 24 mmol/L (20-31)
[2025-01-14 18:19] LABS: BUN/Creatinine Ratio 17.6 (10.0-20.0); Blood Urea Nitrogen 15 mg/dL (9-23); Glucose 91 mg/dL (74-106)
--- NOTE | 2025-01-14 18:24 | DVH ---
Exam: CT CT AB PEL WO CON-NO ORAL OR IV History: colitis Comparison Study: CT CT AB PEL WO CON-NO ORAL OR IV on DOS: 01/10/25, CT CT AB PEL WO CON-NO ORAL OR IV on DOS: 12/10/24, CT CT AB PEL WO CON-NO ORAL OR IV on DOS: 10/04/24 TECHNIQUE: Multidetector CT of the abdomen AND PELVIS without IV contrast. Axial, coronal and sagittal multiplanar reformats were obtained from the axial data set by the technologist. Radiation Dose Information: CT Dose: CTDI volume is 5.11 mGy. Dose-length product is 3.92 mGy*cm FINDINGS: Bibasilar fibrotic changes. Partially visualized heart is unremarkable. Liver, spleen, gallbladder, pancreas and adrenal glands are unremarkable. Punctate nonobstructing left renal calculus. Otherwise, kidneys,and ureters unremarkable. Mild wall thickening of the Urinary bladder. Prostate is enlarged measuring 3.7 x 5 x 3.2 cm. Small hiatal hernia. Mild gastric wall thickening. Small bowel loops unremarkable. Appendix is not definitely visualized. Without visualization of the Appendix, can not exclude acute appendicitis. Moderate amount of fecal material within the colon. Rectal wall thickening. No evidence of intraperitonea l free air. No evidence of aortic aneurysm. Mild atherosclerotic calcification of the aorta. No significant lymphadenopathy. The soft tissues unremarkable. No evidence of acute osseous abnormalities. Multilevel severe degenerative changes of the lumbar spine. IMPRESSION: Mild wall thickening of the Urinary bladder which may be due to inadequate distention. Correlation with urinalysis is recommended to exclude cystitis. Rectal wall thickening which may be due to inadequate distention/proctitis. Moderate amount of fecal material within the colon. Small hiatal hernia. Mild gastric wall thickening which is most likely from inadequate distention.
[2025-01-14] MEDS: SODIUM CHLORIDE 0.9% 1,000 ML IV ONE (19:34)
[2025-01-14] MEDS: ONDANSETRON HCL 4 MG/2 ML VIAL IV ONE (20:13)
[2025-01-14] MEDS: MORPHINE SULFATE 4 MG/ML SYR/VIAL IV ONE (20:14)
[2025-01-14 20:15] LABS: Urine Protein, UAD TRACE (Negative)
[2025-01-14] MEDS ORDERED: ONDANSETRON HCL 4 MG/2 ML VIAL IV PRN (21:15)
[2025-01-14] MEDS: SODIUM CHLORIDE 0.9% 1,000 ML IV SCH (21:15)
--- NOTE | 2025-01-14 21:20 | DVHHPRES ---
History of Present Illness Resident Creating Document: LUCRECIA BACK RESIDENT History of Present Illness This is a 69-year-old male with past medical history of hypertension, GERD, current smoker, substance abuse, homeless brought by EMS due to abdominal pain for 1 week which is worsen today associated with nausea and vomiting. The abdominal pain is epigastric region, localized, 7/10 intensity, localized, intermittent associated with nausea, vomiting and occasional difficulty swallow both liquid and solid. Patient had long history of substance abuse including cannabis and amphetamine but denies any EtOH use. No EGD or colonoscopy done before. Noncompliance with medication. Currently denies any fever, SOB, chest pain, dysuria or any other acute distress. Past medical history: As above Past surgical history: Nothing contributory Personal history: Smokes cigarettes 3 packet daily, smokes marijuana daily, use methamphetamine > 50 year , EtOH Family history: Nothing contributory Social history: Homeless PCP: Not selected Allergy: No known allergy Home medication: amlodipine, pantoprazole, sucralfate. Review of Systems Constitutional: Yes: Malaise; No: Fever, Chills, Sweats, Weakness, Other Eyes: No: Pain, Vision change, Conjunctivae inflammation, Eyelid inflammation, Other, Redness ENT: No: Ear pain, Ear discharge, Nose pain, Nose discharge, Nose congestion, Mouth pain, Mouth swelling, Throat pain, Throat swelling, Other Respiratory: No: Cough, Dry, Shortness of breath, SOB with excertion, Wheezing, Hemoptysis, Pleuritic Pain, Sputum, Wheezing, Other Cardiovascular: No: Chest Pain, Palpitations, Orthopnea, Paroxysmal Noc. Dyspnea, Edema, Lt Headedness, Other Gastrointestinal: Nausea, Vomiting, Abdominal Pain, Constipation; No: Diarrhea, Melena, Hematochezia, Other Genitourinary: No Dysuria, No Frequency, No Incontinence, No Hematuria, No Retention, No Other Musculoskeletal: No: other, neck pain, shoulder pain, arm pain, back pain, hand pain, leg pain, foot pain Skin: No: Rash, Lesions, Jaundice, Bruising, Other Neurological: No: Weakness, Numbness, Incoordination, Change in speech, Confusion, Seizures, Other Allergies: Coded Allergies: No Known Drug Allergy (Verified Allergy, Unknown, 12/07/24) Exam Vital Signs Vital Signs Date Time Temp Pulse Resp B/P (MAP) Pulse Ox O2 Delivery O2 Flow Rate FiO2 01/14/25 20:14 83 18 120/91 01/14/25 18:20 98.3 96 98.3 General Appearance: Alert, Oriented X3, mild distress, Other (Non cooperative) HEENT: Atraumatic, PERRLA, EOMI Respiratory: Clear to auscultation, Normal air movement Cardiovascular: Regular rate, Normal S1, Normal S2, No murmurs Abdominal: Normal bowel sounds, No tenderness, No hepatospenomegaly, Other (Epigastric region tender on deep palpation) Extremities: No clubbing, No cyanosis, No edema, Normal pulses Skin: No rashes, No breakdown, No significant lesion Neuro: Normal gait, Normal speech, Normal tone, Sensation intact Psych/Mental Status: Other (Looks anxious) Labs/Xrays Labs Test 01/14/25 17:45 01/14/25 17:41 Range/Units Urine Color Yellow Yellow Urine Clarity Clear Clear Urine pH 6.5 5.0-9.0 Urine Specific [place] 1.023 1.001-1.035 Urine Protein Trace H Negative Urine Ketones Negative Negative Urine Blood Negative Negative /uL Urine Nitrite Negative Negative Urine Bilirubin Negative Negative Urine Urobilinogen 4 H Negative mg/dL Urine Leukocyte Esterase Negative Negative /uL Urine RBC 1 0 - 3 /hpf Urine Microscopic WBC 2 0-3 /HPF Urine Squamous Epithelial Cells Few <5 /hpf Urine Bacteria None seen None Seen /hpf Urine Mucus Few None Seen Urine Glucose Normal Normal mg/dL White Blood Count 9.8 # 4.4-10.8 10^3/uL Red Blood Count 5.21 4.5-5.90 10^6/uL Hemoglobin 15.2 # 13.5-17.5 g/dL Hematocrit 44.6 41.0-53.0 % Mean Corpuscular Volume 85.7 80.0-100.0 fL Mean Corpuscular Hemoglobin 29.1 28.0-32.0 pg Mean Corpuscular Hemoglobin Concent 34.0 32.0-36.0 g/dL Red Cell Distribution Width 15.7 H 11.8-14.3 % Platelet Count 231 140-450 10^3/uL Mean Platelet Volume 8.6 6.9-10.8 fL Neutrophils (%) (Auto) 75.4 37.0-80.0 % Lymphocytes (%) (Auto) 12.3 10.0-50.0 % Monocytes (%) (Auto) 6.0 0.0-12.0 % Eosinophils (%) (Auto) 5.9 0.0-7.0 % Basophils (%) (Auto) 0.4 0.0-2.0 % Neutrophils # (Auto) 7.4 1.6-8.6 10 ^3/uL Lymphocytes # (Auto) 1.2 0.4-5.4 10 ^3/uL Monocytes # (Auto) 0.6 0-1.3 10 ^3/uL Eosinophils # (Auto) 0.6 0-0.8 10 ^3/uL Basophils # (Auto) 0 0-0.2 10 ^3/uL Nucleated Red Blood Cells 0.1 % Sodium Level 139 136-145 mmol/L Potassium Level 4.8 3.5-5.1 mmol/L Chloride Level 106 98-107 mmol/L Carbon Dioxide Level 24 20-31 mmol/L Anion Gap 9 5-15 Blood Urea Nitrogen 15 9-23 mg/dL Creatinine 0.85 0.700-1.30 mg/dL Glomerular Filtration Rate Calc 94 >90 mL/min BUN/Creatinine Ratio 17.6 10.0-20.0 Serum Glucose 91 74-106 mg/dL Calcium Level 9.4 8.7-10.4 mg/dL Troponin I High Sensitivity 4 </=54 ng/L SEPSIS Sepsis Screen Date sepsis recognized/suspect: Jan 14, 2025 Time Sepsis recognized/suspect: 1629 Recent Procedure: No On Antibiotic Therapy: No Respiratory Rate >20: No Heart Rate >90: No Temp<36 C (96.8 F) or >38.3 C: No SBP <90 or MAP <65 mmHG: No New Acute Mental Status Change: No Is the patient on CPAP, BIPAP,: No Physician Orders Chest Portable (01/14/25 16:40) Ct Ab Pel Wo Con-No Oral Or Iv (01/14/25 17:17) Admit (01/14/25 21:10) Code Status (01/14/25 21:10) 0.9% Ns 1000 Ml (01/14/25 21:15) Ondansetron Hcl (Zofran) (01/14/25 21:15) Echo 2d Mode Cardiac Dop (01/14/25 21:10) Clear Liq Diet (01/15/25 Breakfast) Notify Md Of Changes From Base (01/14/25 21:10) Amlodipine Tablet (Norvasc Tablet) (01/15/25 10:00) Pantoprazole Tablet (Protonix Tablet) (01/15/25 06:00) Vital Signs Date Time Temp Pulse Resp B/P (MAP) Pulse Ox O2 Delivery O2 Flow Rate FiO2 01/14/25 20:14 83 18 120/91 01/14/25 18:20 98.3 65 17 146/84 (104) 96 98.3 01/14/25 16:30 98.3 67 20 148/84 95 98.3 01/14/25 16:19 64 Laboratory Tests Test 01/14/25 17:41 White Blood Count 9.8 10^3/uL (4.4-10.8) # Medications Medications Dose Ordered Sig/Sarah Route Start Time Stop Time Status Last Admin Dose Admin Morphine Sulfate 4 mg ONCE ONCE IV 01/14/25 17:30 01/14/25 17:31 DC 01/14/25 20:14 4 MG Ondansetron HCl 4 mg ONCE ONCE IV 01/14/25 17:30 01/14/25 17:31 DC 01/14/25 20:13 4 MG Sodium Chloride 1,000 ml @ 1,000 mls/hr Q1H ONCE IV 01/14/25 17:30 01/14/25 18:29 DC 01/14/25 19:34 1,000 MLS/HR Assessment/Plan Assessment/Plan Intractable abdominal pain due to acute gastritis Dysphagia likely due to esophagitis Cannabis induced hyperemesis GERD Home medication pantoprazole, sucralfate Patient came with abdominal pain, nausea Troponin for ER patient received morphine, ondansetron, NSS CXR: chronic changes in the lung bases bilaterally EKG: sinus rhythm, HS 64, QTC 461 CT abdomen and pelvis without contrast:Small hiatal hernia. Mild gastric wall thickening which is most likely from inadequate distention. Clear liquid diet Pantoprazole Antiemetic Pain management IVF EGD/ colonoscopy as per primary Essential hypertension Amlodipine Monitor blood pressure Proctitis CT abdomen shows- Rectal wall thickening which may be due to inadequate distention/proctitis. Questionable cystitis CT abdomen showed CT abdomen and pelvis without contrast: Mild wall thickening of the Urinary bladder which may be due to inadequate distention. UA negative Hyperbilirubinemia total bilirubin 1.2 monitor labs Polysubstance abuse Current smoker UDS positive for amphetamine and cannabis More than 13 minute spent for counseling. DIET: Clear liquid advanced accordingly DVT prophylax: Lovenox GI prophylaxis: Pantoprazole More than 29 minute spent with patient. Goals of care discussion. DNR-status. Case discussed with Dr. Flaherty. Plan discussed with: Patient, Other (Nurse) My Orders Orders - LUCRECIA BACK Procedure Category Date Status Time Admit ADMIT 01/14/25 Transmitted 21:10 Code Status CODE 01/14/25 Transmitted 21:10 0.9% Ns 1000 Ml PHA 01/14/25 Transmitted 21:15 Ondansetron Hcl PHA 01/14/25 Transmitted (Zofran) 21:15 Echo 2d Mode Cardiac US 01/14/25 Transmitted DOP 21:10 Clear Liq Diet DIET 01/15/25 Transmitted Breakfast Notify Md Of Changes HANSA 01/14/25 Transmitted From Base 21:10 Amlodipine Tablet PHA 01/15/25 Transmitted (Norvasc Tablet) 10:00 Pantoprazole Tablet PHA 01/15/25 Transmitted (Protonix Tablet) 06:00 Date of Service: Jan 14, 2025 Billing Provider: SHAYLEE FLAHERTY MD Common Visit Codes: [id number] INP/OBS CARE (HIGH) Secondary Visit Codes: [id number] CARE PLAN 30 MINUTES LUCRECIA BACK Jan 14, 2025 21:20
[2025-01-14 21:56] LABS: Amphetamine Screen, Urine Pos (NEGATIVE); Barbiturate Scree,Urine Neg (NEGATIVE); Benzodiazephine Screen, Urine Neg (NEGATIVE); Cannabinoid Screen, Urine Pos (NEGATIVE); Cocaine Screen, Urine Neg (NEGATIVE); Opiate Scree,Urine Neg (NEGATIVE); Phencyclidine Screen, Urine Neg (NEGATIVE)
[2025-01-14 22:25] LABS: Alanine Aminotransferase 16.0 U/L (7-40); Albumin 3.7 g/dL (3.2-4.8); Alkaline Phosphatase 102.0 U/L (46-116); Bilirubin, Total 1.2 mg/dL (0.2-1.0); Total Protein 6.7 g/dL (5.7-8.2)
[2025-01-14 22:26] LABS: Bilirubin, Direct 0.4 mg/dL (<0.3)
[2025-01-14 22:36] LABS: Lipase 22.0 U/L (12-53)
[2025-01-14 23:13] VITALS: BP 119/90; PULSE 98; RESP 18; TEMP 98.6; O2SAT 97
[2025-01-14] MEDS ORDERED: KETOROLAC TROMETH 30 MG/ML 1ML VIAL IV PRN (23:15)
[2025-01-15] VITALS (7 sets, daily range): BP systolic 95–130; BP diastolic 56–83; PULSE 59–81; RESP 2–84; TEMP 97.7–98.6; O2SAT 95–98
[2025-01-15] MEDS: PANTOPRAZOLE 40 MG TAB PO SCH (05:55)
[2025-01-15 07:24] LABS: Hematocrit 37.6 % (41.0-53.0); Hemoglobin 12.5 g/dL (13.5-17.5); Mean Corpuscular Hemoglobin 28.7 pg (28.0-32.0); Mean Corpuscular Volume 86.2 fL (80.0-100.0); Nucleated Red Blood Cells % 0.1 %
[2025-01-15 07:38] LABS: INR 0.99 (0.9-1.15); Partial Thromboplastin Time 25.4 SEC (24.5-34.5); Prothrombin Time 10.5 sec (9.3-11.8)
[2025-01-15 07:53] LABS: Calcium 8.9 mg/dL (8.7-10.4); Carbon Dioxide 26 mmol/L (20-31)
[2025-01-15 07:58] LABS: BUN/Creatinine Ratio 16.5 (10.0-20.0); Blood Urea Nitrogen 14 mg/dL (9-23); Glucose 86 mg/dL (74-106)
[2025-01-15 08:33] LABS: Anion Gap 7 (5-15); Chloride 107 mmol/L (98-107); Potassium 4.3 mmol/L (3.5-5.1); Sodium 140 mmol/L (136-145)
[2025-01-15 08:39] LABS: Triglycerides 70 mg/dL (< 150)
[2025-01-15 08:41] LABS: Cholesterol 125 mg/dL (< 200); HDL Cholesterol 42 mg/dL (40-59)
[2025-01-15] MEDS ORDERED: PANTOPRAZOLE 40 MG/10 ML VIAL INJ IV ONE (10:30)
--- NOTE | 2025-01-15 10:35 | DVHPN2 ---
Progress Note Date Seen: Jan 15, 2025 Medical Necessity Reason Pt with a Central, PICC or Fol: No Subjective Patient reports: No new complaints Review of Systems: HEENT:Normal, CVS:Normal, RESPIRATORY:Normal, GI:Normal, :Normal, MSK:Normal, NEURO:Normal Objective vital signs Vital Sign Date Time Temp Pulse Resp B/P (MAP) Pulse Ox O2 Delivery O2 Flow Rate FiO2 01/15/25 10:16 130/62 01/15/25 09:16 98.6 59 17 98 98.6 01/14/25 23:13 Room Air* 0 21 Total Intake and Output 01/14/25 01/14/25 01/15/25 15:00 23:00 07:00 Intake Total 0 ml Balance 0 ml medications Current Medications Medications Dose Ordered Sig/Sarah Route Start Time Stop Time Status Last Admin Dose Admin Sodium Chloride 1,000 ml @ 60 mls/hr [id number] IV 01/14/25 21:15 01/14/25 21:15 60 MLS/HR Ondansetron HCl 4 mg Q4HP PRN IV 01/14/25 21:15 Amlodipine Besylate 5 mg DAILY PO 01/15/25 10:00 01/15/25 10:16 5 MG Pantoprazole Sodium 40 mg DAILY@0600 PO 01/15/25 06:00 01/15/25 05:55 40 MG Ketorolac Tromethamine 15 mg Q6HPRN PRN IV 01/14/25 23:15 01/19/25 23:14 Examination: GENERAL:Normal, HEENT:Normal, NECK:Normal, LUNGS:Normal, CVS:Normal, ABDOMEN:Normal, MSK:Normal, SKIN:Normal, NEURO:Normal, :Normal laboratory and microbiology Laboratory Tests 01/15/25 06:57 Test 01/15/25 06:57 Range/Units Serum Glucose 86 74-106 mg/dL Problem List/Assessment/Plan Problem List/Assessment/Plan #1 abd pain ?gastritis: ppi, carafate #2 drug abuse with amphetamines #3 h/o alcohol abuse #4 hep C #5 htn #6 non compliance advance care planning-dnr- time spent 18 mins Plan discussed with: Patient My Orders My Orders Orders - MARÍA ELENA OSCAR MD Procedure Category Date Status Time Full Liq Diet DIET 01/15/25 Verified Lunch Pantoprazole PHA 01/15/25 Verified (Protonix) 10:30 Pantoprazole PHA 01/16/25 Verified (Protonix) 10:00 Sucralfate Susp PHA 01/15/25 Verified (Carafate Susp) 10:30 Sucralfate Susp PHA 01/15/25 Verified (Carafate Susp) 11:30 Thiamine Tab PHA 01/15/25 Verified 10:30 Thiamine Tab PHA 01/16/25 Verified 10:00 Date of Service: Jan 15, 2025 Billing Provider: MARÍA ELENA OSCAR MD Common Visit Codes: [id number] INP/OBS CARE(HIGH) Secondary Visit Codes: [id number] CARE PLAN 30 MINUTES MARÍA ELENA OSCAR MD Jan 15, 2025 10:35
[2025-01-15] MEDS: SUCRALFATE 1 GM/10 ML ORAL SUSP PO SCH (11:30)
[2025-01-15] MEDS: SUCRALFATE 1 GM/10 ML ORAL SUSP PO ONE (12:53)
[2025-01-15] MEDS: THIAMINE HCL 100 MG TAB PO ONE (12:53)
--- NOTE | 2025-01-15 18:47 | DVHSR ---
APPROVED REPORT EXAM: Two-dimensional and M-mode echocardiogram with Doppler and color Doppler. Blood Pressure: 113/72 mmHg INDICATION R/O cardiac disease RISK FACTORS Height: 5'7", Weight: 122 DIMENSIONS LVDd 4.5 (3.8-5.7cm) LA (2D) 3.2 (1.9-4.0cm) Aortic Root 3.3 (2.0-3.7cm) LVDs 2.9 (2.5-4.0cm) LA (MM) (1.9-4.0cm) Aortic Cusp Exc 1.6 (1.5-2.0cm) EF (%) 65.0 (55-70%) Rt. Atrium 4.2 (1.9-4.0cm) Asc. Aorta 2.5 cm IVSd 1.1 (0.7-1.1cm) RV (D) 3.2 (1.8-2.4cm) PWd 1.2 (0.7-1.1cm) Mitral Valve Mitral Mitral Stenosis E wave 0.57m/s MV Mean GR. mmHg A wave 0.83m/s MV Peak GR. mmHg E/A ratio 0.7 2D MVA cm2 DECEL Time 270ms PRESS 1/2 Time ms Aortic Valve Aortic Valve Aortic Stenosis V1 1.04m/s AO Mean GR. 3mmHg V2 1.15m/s AO Peak GR. 5mmHg LVOT Diameter 1.8 (1.8-2.4cm) Doppler VERONIKA 2.30cm2 Pulmonic Valve V2 1.02m/s Tricuspid Valve TR Velocity 2.18m/s RVSP 22mmHg Conclusion Technically good study sinus rhythm. Concentric LVH with right atrial and RV enlargement. Aortic root enlargement. Mild aortic sclerosis without stenosis. Valves are normal. EF of 60% with normal RV function. Dopplers unremarkable. No pericardial effusion masses or vegetations.
[2025-01-16 05:00] VITALS: BP 113/70; PULSE 72; RESP 18; TEMP 97; O2SAT 94
[2025-01-16 08:00] VITALS: PULSE 79; RESP 19; O2SAT 95
[2025-01-16] MEDS: THIAMINE HCL 100 MG TAB PO SCH (09:14)
[2025-01-16] MEDS: PANTOPRAZOLE 40 MG/10 ML VIAL INJ IV SCH (09:14)
[2025-01-16 12:39] VITALS: BP 138/81; PULSE 64; RESP 18; TEMP 97; O2SAT 98
--- NOTE | 2025-01-16 16:47 | DVHPNRES ---
Progress Note Date Seen: Jan 16, 2025 Resident Creating Document: ONOFRE POWELL RESIDENT Has the PT tested + for MRSA If YES, has PT been informed?: No Medical Necessity Reason Pt with a Central, PICC or Fol: No Subjective Review of Systems Patient seen and examined at bedside. Patient is homeless, noncompliant with his medication and very slightly combative but follows commands. Chest x-ray was reviewed and was grossly unremarkable. CT scan of the abdomen is showing rectal wall thickening possible proctitis moderate amount of fecal material within the colon. Patient does not complain of any abdominal pain, chest pain, fever/chills or any other associated symptoms. Echocardiogram was showing an LVEF of 60%. Hemoglobin is 12.5 for which we ordered stool occult test. Pending those results we will consider GI consult. Diet was advanced to mechanical soft since the patient was hungry and was able to tolerate foot. Physical exam was grossly unremarkable. ROS Constitutional: Denies weight loss, fever and chills. HEENT: Denies changes in vision and hearing. Respiratory: Denies shortness of breath and cough Cardiovascular: Denies chest discomfort or palpitations GI: Denies abdominal pain, nausea, vomiting and diarrhea. : Denies dysuria and urinary frequency. Musculoskeletal: Denies myalgias and joint pain Skin: Denies rash and pruritus. Neurological: Denies dizziness, headache, vision or hearing problems Objective vital signs Vital Sign Date Time Temp Pulse Resp B/P (MAP) Pulse Ox O2 Delivery O2 Flow Rate FiO2 01/16/25 12:39 97.0 64 18 138/81 (100) 98 97.0 01/16/25 08:00 Room Air* 0 21 Total Intake and Output 01/15/25 01/15/25 01/16/25 15:00 23:00 07:00 Intake Total 900 ml 300 ml Balance 900 ml 300 ml medications Current Medications Medications Dose Ordered Sig/Sarah Route Start Time Stop Time Status Last Admin Dose Admin Sodium Chloride 1,000 ml @ 60 mls/hr [id number] IV 01/14/25 21:15 01/15/25 13:55 60 MLS/HR Ondansetron HCl 4 mg Q4HP PRN IV 01/14/25 21:15 Amlodipine Besylate 5 mg DAILY PO 01/15/25 10:00 01/16/25 10:13 5 MG Ketorolac Tromethamine 15 mg Q6HPRN PRN IV 01/14/25 23:15 01/19/25 23:14 Sucralfate 1 gm QID@0600,1130,1700,2200 PO 01/15/25 11:30 01/16/25 10:13 1 GM Thiamine HCl 100 mg DAILY PO 01/16/25 10:00 Pantoprazole Sodium 40 mg DAILY@0600 PO 01/17/25 06:00 Examination Physical Examination General: Patient alert and oriented in person, place and time. Patient following commands. HEENT: Normocephalic, atraumatic, moist mucous membranes Respiratory/pulmonary: Clear lungs bilaterally, no associated crackles or wheezes. Cardiovascular: Normal heart sounds S1 and S2 with no associated murmurs Abdomen: Abdomen nondistended, there is no pain to palpation in any of the abdominal quadrants, no palpable masses. Extremities: There is no peripheral edema present at the lower extremities. Skin: No rashes or pruritus, there is no sacral edema present at this time. Neurological: Intact cranial nerves with no focal neurologic deficits laboratory and microbiology Laboratory Tests 01/15/25 06:57 Test 01/15/25 06:57 Range/Units Serum Glucose 86 74-106 mg/dL Labs and/or images reviewed: Labs reviewed by me, Image(s) reviewed by me Problem List/Assessment/Plan Problem List/Assessment/Plan Assessment/Plan Acute abdominal pain likely due to acute gastritis Possible acute gastritis R/O PUD Drug overdose with amphetamines Chronic alcohol abuser Primary hypertension History of hepatitis-C Non medication compliance Plan -patient is non cooperative, homeless, nonadherent to medication and seems not to care about his health. -patient was refusing pantoprazole IV so it was switched to p.o. 40 mg b.i.d. -continue sucralfate 1 g q.i.d. -continue thiamine, multivitamins. -hold NSAIDs/ketorolac due to concerns of bleeding. -continue amlodipine 5 mg daily -hemoglobin is 12.5, ordered stool occult blood test depending on results we will consider GI consult -counseled for 16 minutes for alcohol/marijuana/methamphetamine use cessation Goals of care discussed with the patient at bedside for 20 minutes; full code. Plan discussed with Plan discussed with: Patient, Other (Nurse) My Orders My Orders Orders - ONOFRE POWELL Procedure Category Date Status Time Stool Occult Blood LAB 01/16/25 Logged 09:26 Communication Order ORDERS 01/16/25 Transmitted 09:26 Pantoprazole Tablet PHA 01/17/25 In Process (Protonix Tablet) 06:00 Date of Service: Jan 16, 2025 Billing Provider: RADHA SANCHEZ MD Common Visit Codes: 40749-[id number] INP/OBS CARE(HIGH) Secondary Visit Codes: 72794-[id number] CHNG SMOKING >10MIN (counseled for 16 minutes for alcohol/marijuana/methamphetamine use cessation), [id number] CARE PLAN 30 MINUTES (20 minutes) ONOFRE POWELL RESIDENT Jan 16, 2025 16:47 RADHA SANCHEZ MD Jan 19, 2025 13:53
[2025-01-16] MEDS: PANTOPRAZOLE 40 MG TAB PO ONE (16:59)
[2025-01-16 17:00] VITALS: BP 115/71; PULSE 89; RESP 20; TEMP 97.4; O2SAT 95
[2025-01-16 20:00] VITALS: RESP 18; O2SAT 95
[2025-01-16 21:00] VITALS: BP 126/84; PULSE 72; RESP 20; TEMP 98.2; O2SAT 97
[2025-01-17] VITALS (7 sets, daily range): BP systolic 91–145; BP diastolic 64–87; PULSE 65–84; RESP 17–18; TEMP 97.6–98.1; O2SAT 97–98
[2025-01-17] MEDS: PANTOPRAZOLE 40 MG TAB PO SCH (05:14)
[2025-01-17 06:34] LABS: Hematocrit 38.5 % (41.0-53.0); Hemoglobin 13.0 g/dL (13.5-17.5); Mean Corpuscular Hemoglobin 28.7 pg (28.0-32.0); Mean Corpuscular Volume 85.0 fL (80.0-100.0); Nucleated Red Blood Cells % 0.1 %
[2025-01-17 06:42] LABS: Anion Gap 8 (5-15); Carbon Dioxide 27 mmol/L (20-31); Chloride 106 mmol/L (98-107); Potassium 4.0 mmol/L (3.5-5.1); Sodium 141 mmol/L (136-145)
[2025-01-17 06:43] LABS: Calcium 9.6 mg/dL (8.7-10.4)
[2025-01-17 06:48] LABS: BUN/Creatinine Ratio 20.2 (10.0-20.0); Blood Urea Nitrogen 18 mg/dL (9-23); Glucose 85 mg/dL (74-106)
[2025-01-17] MEDS ORDERED: PANT40T PO (11:22)
[2025-01-17] MEDS ORDERED: SUCR1TAB PO (11:22)
--- NOTE | 2025-01-17 11:28 | DVHDSRES ---
Discharge Summary Date of Admission Resident Creating Document: ONOFRE POWELL RESIDENT Jan 14, 2025 at 21:10 Date of Discharge: Jan 18, 2025 (The patient did not leave) Admitting Diagnosis Acute abdominal pain Wounds: No wounds present at this time. Labs/Diagnostic Data: Laboratory Results Test 01/17/25 05:37 01/15/25 06:57 01/14/25 21:49 01/14/25 17:45 White Blood Count 4.4 10^3/uL (4.4-10.8) Red Blood Count 4.53 10^6/uL (4.5-5.90) Hemoglobin 13.0 g/dL (13.5-17.5) Hematocrit 38.5 % (41.0-53.0) Mean Corpuscular Volume 85.0 fL (80.0-100.0) Mean Corpuscular Hemoglobin 28.7 pg (28.0-32.0) Mean Corpuscular Hemoglobin Concent 33.7 g/dL (32.0-36.0) Red Cell Distribution Width 15.1 % (11.8-14.3) Platelet Count 242 10^3/uL (140-450) Mean Platelet Volume 7.5 fL (6.9-10.8) Neutrophils (%) (Auto) 52.6 % (37.0-80.0) Lymphocytes (%) (Auto) 26.3 % (10.0-50.0) Monocytes (%) (Auto) 10.7 % (0.0-12.0) Eosinophils (%) (Auto) 9.8 % (0.0-7.0) Basophils (%) (Auto) 0.6 % (0.0-2.0) Neutrophils # (Auto) 2.3 10 ^3/uL (1.6-8.6) Lymphocytes # (Auto) 1.1 10 ^3/uL (0.4-5.4) Monocytes # (Auto) 0.5 10 ^3/uL (0-1.3) Eosinophils # (Auto) 0.4 10 ^3/uL (0-0.8) Basophils # (Auto) 0 10 ^3/uL (0-0.2) Nucleated Red Blood Cells 0.1 % Sodium Level 141 mmol/L (136-145) Potassium Level 4.0 mmol/L (3.5-5.1) Chloride Level 106 mmol/L (98-107) Carbon Dioxide Level 27 mmol/L (20-31) Anion Gap 8 (5-15) Blood Urea Nitrogen 18 mg/dL (9-23) Creatinine 0.89 mg/dL (0.700-1.30) Glomerular Filtration Rate Calc 92 mL/min (>90) BUN/Creatinine Ratio 20.2 (10.0-20.0) Serum Glucose 85 mg/dL (74-106) Calcium Level 9.6 mg/dL (8.7-10.4) Prothrombin Time 10.5 sec (9.3-11.8) Prothrombin Time INR 0.99 (0.9-1.15) Activated Partial Thromboplast Time 25.4 SEC (24.5-34.5) Hemoglobin A1c 5.3 % A1C (<5.7) Triglycerides Level 70 mg/dL (< 150) Cholesterol Level 125 mg/dL (< 200) LDL Cholesterol 71 mg/dL (< 100) HDL Cholesterol 42 mg/dL (40-59) Vitamin B12 Level 233 pg/mL (211-911) Vitamin D 25-Hydroxy 47.8 ng/mL (30.0-100) Total Bilirubin 1.2 mg/dL (0.2-1.0) Direct Bilirubin 0.4 mg/dL (<0.3) Aspartate Amino Transferase (AST) 20 U/L (13-40) Alanine Aminotransferase (ALT) 16 U/L (7-40) Alkaline Phosphatase 102 U/L (46-116) Total Protein 6.7 g/dL (5.7-8.2) Albumin 3.7 g/dL (3.2-4.8) Lipase 22 U/L (12-53) Thyroid Stimulating Hormone (TSH) 0.89 uIU/mL (0.55-4.78) Urine Color Yellow (Yellow) Urine Clarity Clear (Clear) Urine pH 6.5 (5.0-9.0) Urine Specific [place] 1.023 (1.001-1.035) Urine Protein Trace (Negative) Urine Ketones Negative (Negative) Urine Blood Negative /uL (Negative) Urine Nitrite Negative (Negative) Urine Bilirubin Negative (Negative) Urine Urobilinogen 4 mg/dL (Negative) Urine Leukocyte Esterase Negative /uL (Negative) Urine RBC 1 /hpf (0 - 3) Urine Microscopic WBC 2 /HPF (0-3) Urine Squamous Epithelial Cells Few /hpf (<5) Urine Bacteria None seen /hpf (None Seen) Urine Mucus Few (None Seen) Urine Glucose Normal mg/dL (Normal) Urine Opiates Screen Neg (NEGATIVE) Urine Fentanyl Screen Neg (NEGATIVE) Urine Barbiturates Screen Neg (NEGATIVE) Urine Phencyclidine Screen Neg (NEGATIVE) Urine Amphetamines Screen Pos (NEGATIVE) Urine Benzodiazepines Screen Neg (NEGATIVE) Urine Cocaine Screen Neg (NEGATIVE) Urine Cannabinoids Screen Pos (NEGATIVE) Test 01/14/25 17:41 Troponin I High Sensitivity 4 ng/L (</=54) Other Laboratory Tests 01/17/25 05:37 Brief Hx & Hospital Course: This is a 69-year-old male with past medical history of hypertension, GERD, current smoker, substance abuse, homeless and noncompliant with his medications. Patient presented to the ED with the acute abdominal pain that was going on for the past week that worsened the day that he came to the ED associated with nausea and vomiting. The patient stated the abdominal pain was localized at the epigastric region and rated as a 7/10 on the pain scale localized without any pattern of radiation. Patient also reported associated nausea and vomiting with the occasional difficulty swallowing both liquids and solids. Patient has long history of substance abuse including cannabis and amphetamines which came back both positive on toxicology. Initial labs were grossly unremarkable except for very mild anemia with an hemoglobin of 12.5. Initial chest x-ray was grossly unremarkable and CT of the abdomen showed rectal wall thickening with possible proctitis and moderate amount of fecal material within the colon but no acute abnormalities. Last echocardiogram showed an LVEF of 60%. Patient was started on pantoprazole 40 mg IV b.i.d. but patient refused at some point so we switched to pantoprazole 40 mg daily p.o.. Patient was also started on sucralfate 1 g q.i.d., thiamine and blood pressure medications. During hospitalization stay patient started refusing care, refusing medications and only accepting pantoprazole and sucralfate. Legal Document Assistant was consulted due to homeless for giving some resources. Patient was repetitive non cooperative during hospitalization stay. Today patient was re-evaluated, refusing care and refusing medications. There is no significant abdominal tenderness to palpation at this time. Diet was advanced to regular diet and patient is tolerating without complications. Patient denies vomiting or nausea at this time. We will discharge the patient on pantoprazole 40 mg daily and sucralfate 1 g t.i.d. for 20 days. Patient agreed with the plan. ROS Constitutional: Denies weight loss, fever and chills. HEENT: Denies changes in vision and hearing. Respiratory: Denies shortness of breath and cough Cardiovascular: Denies chest discomfort or palpitations GI: Denies abdominal pain, nausea, vomiting and diarrhea. : Denies dysuria and urinary frequency. Musculoskeletal: Denies myalgias and joint pain Skin: Denies rash and pruritus. Neurological: Denies dizziness, headache, vision or hearing problems Physical Examination on January 17, 2025: General: Patient alert and oriented in person, place and time. Patient following commands. HEENT: Normocephalic, atraumatic, moist mucous membranes Respiratory/pulmonary: Clear lungs bilaterally, no associated crackles or wheezes. Cardiovascular: Normal heart sounds S1 and S2 with no associated murmurs Abdomen: Abdomen nondistended, there is no pain to palpation in any of the abdominal quadrants, no palpable masses. Extremities: There is no peripheral edema present at the lower extremities. Skin: No rashes or pruritus, there is no sacral edema present at this time. Neurological: Intact cranial nerves with no focal neurologic deficits Discussed with Dr. Sanchez Consults/Reason for consult Legal Document Assistant for homeless resources Operations or Procedures CHEST RADIOGRAPH Indication: sob Technique: Single frontal view of the chest was obtained Comparison: XY CHEST PORTABLE on DOS: 06/29/24, XY CHEST PORTABLE on DOS: 06/08/24, XY CHEST XRAY 1 VIEW on DOS: 03/03/24 FINDINGS: Lines and Tubes: None Lungs: Findings of both lung bases appear similar to the 06/29/2024.. Pleura: No effusion. No pneumothorax. Cardiomediastinal contours: Unremarkable Bones: No acute osseous abnormality. IMPRESSION: 1. Probable chronic changes in the lung bases bilaterally compared to 06/29/2024 Exam: CT CT AB PEL WO CON-NO ORAL OR IV History: colitis Comparison Study: CT CT AB PEL WO CON-NO ORAL OR IV on DOS: 01/10/25, CT CT AB PEL WO CON-NO ORAL OR IV on DOS: 12/10/24, CT CT AB PEL WO CON-NO ORAL OR IV on DOS: 10/04/24 TECHNIQUE: Multidetector CT of the abdomen AND PELVIS without IV contrast. Axial, coronal and sagittal multiplanar reformats were obtained from the axial data set by the technologist. Radiation Dose Information: CT Dose: CTDI volume is 5.11 mGy. Dose-length product is 3.92 mGy*cm FINDINGS: Bibasilar fibrotic changes. Partially visualized heart is unremarkable. Liver, spleen, gallbladder, pancreas and adrenal glands are unremarkable. Punctate nonobstructing left renal calculus. Otherwise, kidneys,and ureters unremarkable. Mild wall thickening of the Urinary bladder. Prostate is enlarged measuring 3.7 x 5 x 3.2 cm. Small hiatal hernia. Mild gastric wall thickening. Small bowel loops unremarkable. Appendix is not definitely visualized. Without visualization of the Appendix, can not exclude acute appendicitis. Moderate amount of fecal material within the colon. Rectal wall thickening. No evidence of intraperitoneal free air. No evidence of aortic aneurysm. Mild atherosclerotic calcification of the aorta. No significant lymphadenopathy. The soft tissues unremarkable. No evidence of acute osseous abnormalities. Multilevel severe degenerative changes of the lumbar spine. IMPRESSION: Mild wall thickening of the Urinary bladder which may be due to inadequate distention. Correlation with urinalysis is recommended to exclude cystitis. Rectal wall thickening which may be due to inadequate distention/proctitis. Moderate amount of fecal material within the colon. Small hiatal hernia. Mild gastric wall thickening which is most likely from inadequate distention. Condition at Discharge: Stable Final Diagnosis/Problems List Acute abdominal pain likely due to acute gastritis Possible acute gastritis R/O PUD Drug overdose with amphetamines Chronic alcohol abuser Primary hypertension History of hepatitis-C Non medication compliance Discharge Disposition: Home Discharge Instruct/Medications Diet: Regular Diet comment: Avoid spicy food Activity: No Restrictions, As Tolerated Follow Up/Referral: Follow-up with his PCP as an outpatient Medications: Pantoprazole 40 mg daily Sucralfate 1 gram TID for 20 days Scheduled Amlodipine Besylate (Norvasc Tablet), 5 MG PO DAILY Pantoprazole Sodium Sesquihydr (Protonix), 40 MG PO DAILY Pantoprazole Sodium Sesquihydr (Protonix), 40 MG PO BID Pantoprazole Sodium Sesquihydr (Protonix), 40 MG PO DAILY Pantoprazole Sodium Sesquihydr (Pantoprazole Sodium), 40 MG PO DAILY Sucralfate (Carafate), 1 GM PO BID Sucralfate (Sucralfate), 1 GM PO TID Discharge Statement: "Patient was advised to return to the ER or call 911 if any headaches, dizziness, shortness of breath, chest pain, abdominal pain, bleeding, fevers, or worsening of medical condition. Patient was counseled about treatment plan, medications, possible side effects, patientverbalized understanding. All questions were answered to the best of my ability. This discharge took greater then 30 minutes in planning, reviewing documentation, counseling the patient, and discussing with other team members." ASSESSMENT ASSESSMENT Assessment Acute abdominal pain likely due to acute gastritis Possible acute gastritis R/O PUD Drug overdose with amphetamines Chronic alcohol abuser Primary hypertension History of hepatitis-C Non medication compliance Date of Service: Jan 17, 2025 Billing Provider: RADHA SANCHEZ MD Common Visit Codes: [id number] INP/OBS CARE(HIGH) ONOFRE POWELL RESIDENT Jan 17, 2025 11:28 RADHA SANCHEZ MD Jan 19, 2025 13:54
[2025-01-17] MEDS: HYDROcodone-ACET 5/325MG TAB PO PRN (15:40)
[2025-01-18 01:00] VITALS: BP 106/69; PULSE 69; RESP 17; TEMP 98; O2SAT 97
[2025-01-18 05:00] VITALS: BP 117/75; PULSE 62; RESP 17; TEMP 97.6; O2SAT 97
[2025-01-18 09:00] VITALS: BP 132/77; PULSE 61; RESP 16; TEMP 97.9; O2SAT 96
--- NOTE | 2025-01-18 11:37 | DVHPN2 ---
Subjective Ready for discharge Reviewed: Care Plan, H&P, Labs, Medications, Previous Orders, Radiology Changes from previous H/P or p: Changes Objective Vitals Vital Signs Date Time Temp Pulse Resp B/P (MAP) Pulse Ox O2 Delivery O2 Flow Rate FiO2 01/18/25 09:00 97.9 61 16 132/77 (95) 96 97.9 01/17/25 19:45 Room Air* 0 21 Intake/Output Intake and Output 01/18/25 07:00 Intake Total 2709 ml Balance 2709 ml Intake Oral 2709 ml # Voids 8 General Appearance: Alert, Oriented X3, Cooperative, No acute distress, Other (Cachectic) HEENT: Atraumatic Cardiovascular: Regular rate, Normal S1, Normal S2 Abdomen: Normal bowel sounds, Soft, No tenderness Neuro: Normal speech, Cranial nerves 3-12 NL Psych/Mental Status: Mental status NL, Mood NL Laboratory Results Laboratory Tests 01/17/25 05:37 Urinalysis Test 01/14/25 17:45 Urine Color Yellow (Yellow) Urine Clarity Clear (Clear) Urine pH 6.5 (5.0-9.0) Urine Specific [place] 1.023 (1.001-1.035) Urine Protein Trace (Negative) H Urine Ketones Negative (Negative) Urine Blood Negative /uL (Negative) Urine Nitrite Negative (Negative) Urine Bilirubin Negative (Negative) Urine Urobilinogen 4 mg/dL (Negative) H Urine Leukocyte Esterase Negative /uL (Negative) Urine RBC 1 /hpf (0 - 3) Urine Microscopic WBC 2 /HPF (0-3) Urine Squamous Epithelial Cells Few /hpf (<5) Urine Bacteria None seen /hpf (None Seen) Urine Mucus Few (None Seen) Urine Glucose Normal mg/dL (Normal) Labs and/or images reviewed: Labs reviewed by me, Image(s) reviewed by me Assessment/Plan Assessment/Plan Covering Dr. 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 This medical document was created using an electronic medical record system with computerized dictation system. Although this document has been carefully reviewed, there might still be some phonetic and typographical errors. These areas are purely typographical due to imperfections of the software programs, and do not reflect any compromise in the patient's medical care. Plan discussed with: Patient, Other (Nurse) Date of Service: Jan 18, 2025 Billing Provider: RADHA SANCHEZ MD Common Visit Codes: 27212-AIA/OBS DISCH DAY >30min RADHA SANCHEZ MD Jan 18, 2025 11:37
== END 2025-01-18 10:13 | disposition home or self-care (01) | DRG 391 ==
LOC: EDBD 16:15 → ER 16:15 → OVERFLOW 21:10 → CENTRAL 23:20
PROVIDERS: ADMIT Internal Medicine; ATTEND Internal Medicine
DX: K29.00 Acute gastritis without bleeding (principal); E43 Unspecified severe protein-calorie malnutrition; I10 Essential (primary) hypertension; F12.10 Cannabis abuse, uncomplicated; B19.20 Unspecified viral hepatitis C without hepatic coma; K27.9 Peptic ulcer, site unspecified, unspecified as acute or chronic, without hemorrhage or perforation; Z59.00 Homelessness unspecified; Z68.1 Body mass index [BMI] 19.9 or less, adult; K52.9 Noninfective gastroenteritis and colitis, unspecified; F17.210 Nicotine dependence, cigarettes, uncomplicated; K21.9 Gastro-esophageal reflux disease without esophagitis; T43.651A Poisoning by methamphetamines accidental (unintentional), initial encounter; F19.10 Other psychoactive substance abuse, uncomplicated; Z79.899 Other long term (current) drug therapy; Z91.148 Patient's other noncompliance with medication regimen for other reason; Y92.89 Other specified places as the place of occurrence of the external cause
CPT/HCPCS: 36415; 71045; 74176; 80048; 80061; 80076; 80307; 81001; 82306; 82607; 83036; 83690; 84443; 84484; 85025; 85610; 85730; 93005; 93306; 96361; 96374; 96375; G0378; J2405

== ENCOUNTER 2025-02-17 14:19 | Emergency (ER) | payer MEDICARE, MEDICAID ==
[~2025-02-17] VITALS: Ht 170.2 cm; Wt 55.4 kg
[~2025-02-17 14:19] MED LIST changes: +PANT40T PO; +SUCR1TAB PO
--- NOTE | 2025-02-17 14:36 | ED.PDOC ---
GI ASSESSMENT HPI Comments 70 year old male with PMHx HTN presents to the ED via EMS with a chief complaint of abdominal pain onset 15 months. Per EMS, patient called 911 due to lower abdominal pain for the past 15 months, pending hernia repair surgery. Patient states he ran out of pain medication, did not have a ride to the ED, called 911. He experienced 2 emesis episodes yesterday. Denies fever, chills, diarrhea, headache, shortness of breath, chest pain, dysuria, hematuria. No other symptoms or modifying factors present at this time. Chief Complaint: Abdominal Pain Time Seen by MD: 14:30 Primary Care Provider: CLEMENT Herrera Reviewed Notes: Medications, Allergies Allergies: Coded Allergies: No Known Drug Allergy (Verified Allergy, Unknown, 12/07/24) Home Meds Active Scripts Sucralfate (Sucralfate) 1 Gm Tab, 1 GM PO TID for 20 Days, #60 TAB Prov:ONOFRE POWELL 01/17/25 Pantoprazole Sodium Sesquihydr (Pantoprazole Sodium) 40 Mg Tab, 40 MG PO DAILY for 30 Days, #30 TAB Prov:ONOFRE POWELL 01/17/25 Pantoprazole Sodium Sesquihydr (Protonix) 40 Mg Tab, 40 MG PO DAILY, #30 TAB Prov:MARVEL MANN MD 01/07/25 Pantoprazole Sodium Sesquihydr (Protonix) 40 Mg Tab, 40 MG PO BID for 30 Days, #60 TAB 0 Refills Prov:DIMITRI SOLOMON 12/07/24 Pantoprazole Sodium Sesquihydr (Protonix) 40 Mg Tab, 40 MG PO DAILY, #30 TAB Prov:JAMI SANTIAGO MD 11/25/24 Sucralfate (Carafate) 1 Gm/10 Ml Loli, 1 GM PO BID for 30 Days, #600 ML 0 Refills Prov:LUIS IGNACIO RESIDENT 03/19/24 Amlodipine Besylate (NORVASC TABLET) 5 Mg Tb, 5 MG PO DAILY for 30 Days, #30 TAB Prov:JOEY CHEUNG RESIDENT 03/08/24 Information Source: Patient, Emergency Med Personnel Mode of Arrival: EMS Timing: Months Duration: Since onset Prehospital treatment: None Quality: Sharp Severity: Moderate Recent: None Recent Hx of: None Pain Location: None (lower) Modifying Factors: Nothing Associated sign and symptoms: Abdominal Pain Past Medical History PAST MEDICAL HISTORY: GERD, HTN Surgical History: Denies all surgeries Family History Family History: Reviewed,noncontributory to illness Social History Smoker: Cigarettes Alcohol: Heavy Drugs: Methamphetamine Lives In: Homeless Constitutional: denies: chills, diaphoresis, fatigue, fever, malaise, sweats, weakness, others EENTM: denies: blurred vision, double vision, ear bleeding, ear discharge, ear drainage, ear pain, ear ringing, eye pain, eye redness, hearing loss, mouth pain, mouth swelling, nasal discharge, nose bleeding, nose congestion, nose pain, photophobia, tearing, throat pain, throat swelling, voice changes, others Respiratory: denies: cough, hemoptysis, orthopnea, SOB at rest, shortness of breath, SOB with excertion, stridor, wheezing, others Cardiovascular: denies: chest pain, dizzy spells, diaphoresis, Dyspnea on exertion, edema, irregular heart beat, left arm pain, lightheadedness, palpitations, PND, syncope, others Gastrointestinal: reports: abdominal pain, nausea, vomiting; denies: abdomen distended, blood streaked bowels, constipated, diarrhea, dysphagia, difficulty swallowing, hematemesis, melena, poor appetite, poor fluid intake, rectal bleeding, rectal pain, others Genitourinary: denies: burning, dysuria, flank pain, frequency, hematuria, incontinence, penile discharge, penile sore, pain, testicle pain, testicle swelling, urgency, others Neurological: denies: dizziness, fainting, headache, left sided numbness, left sided weakness, numbness, paresthesia, pre-existing deficit, right sided numbness, right sided weakness, seizure, speech problems, tingling, tremors, weakness, others Musculoskeletal: denies: back pain, gout, joint pain, joint swelling, muscle pain, muscle stiffness, neck pain, others Integumetry: denies: bruises, change in color, change in hair/nails, dryness, laceration, lesions, lumps, rash, wounds, others Allergic/Immunocompromised: denies: Difficulty Healing, Frequent Infections, Hives, Itching, others Hematologic/Lymphatic: denies: anemia, blood clots, easy bleeding, easy bruising, swollen glands, others Endocrine: denies: excessive hunger, excessive sweating, excessive thirst, excessive urination, flushing, intolerance to cold, intolerance to heat, unexplained weight gain, unexplained weight loss, others Psychiatric: denies: anxiety, bipolar disorder, depression, hopeless, panic disorder, schizophrenia, sleepless, suicidal, others All Other Systems: Reviewed and Negative Physical Exam General Appearance: Moderate Distress, Normal HEENT: Normal ENT Inspection, Pharynx Normal, TMs Normal Neck: Full Range of Motion, Non-Tender, Normal, Normal Inspection Respiratory: Chest Non-Tender, Lungs Clear, No Accessory Muscle Use, No Respiratory Distress, Normal Breath Sounds Cardiovascular: No Edema, No JVD, No Murmur, No Gallop, Normal Peripheral Pulses, Regular Rate/Rhythm Breast Exam: Deferred Gastrointestinal: No Organomegaly, No Pulsatile Mass, Normal Bowel Sounds, Soft, Other (Hernia left inguinal) Genitalia: Deferred Pelvic: Deferred Rectal: Deferred Extremities: No calf tenderness, Normal capillary refill, Normal inspection, Normal range of motion, Non-tender, No pedal edema Musculoskeletal : Apperance: Normal Neurologic: Alert, occupational therapy assistant II-XII nml as Tested, No Motor Deficits, Normal Affect, Normal Mood, No Sensory Deficits Cerebellar Function: Normal Reflexes: Normal Skin: Dry, Normal Color, Warm Peripheral Pulses: 3+ Radial (R), 3+ Radial (L) Lymphatic: No Adenopathy Was a procedure done? Was a procedure done?: No GI differential Dx Differential Diagnosis: Constipation, Diverticular disease, Esophagitis, Gastritis/PUD, Gastroenteritis X-Ray, Labs, Meds, VS Vital Signs Date Time Temp Pulse Resp B/P (MAP) Pulse Ox O2 Delivery O2 Flow Rate FiO2 02/17/25 17:01 98.0 75 18 169/74 (105) 97 98.0 02/17/25 14:20 98.2 75 16 137/78 97 98.2 Lab Test 02/17/25 15:18 Range/Units White Blood Count 3.9 L 4.4-10.8 10^3/uL Red Blood Count 4.73 4.5-5.90 10^6/uL Hemoglobin 13.4 L 13.5-17.5 g/dL Hematocrit 40.2 L 41.0-53.0 % Mean Corpuscular Volume 85.0 80.0-100.0 fL Mean Corpuscular Hemoglobin 28.4 28.0-32.0 pg Mean Corpuscular Hemoglobin Concent 33.3 32.0-36.0 g/dL Red Cell Distribution Width 14.7 H 11.8-14.3 % Platelet Count 286 140-450 10^3/uL Mean Platelet Volume 7.0 6.9-10.8 fL Neutrophils (%) (Auto) 60.5 37.0-80.0 % Lymphocytes (%) (Auto) 27.5 10.0-50.0 % Monocytes (%) (Auto) 9.4 0.0-12.0 % Eosinophils (%) (Auto) 1.9 0.0-7.0 % Basophils (%) (Auto) 0.7 0.0-2.0 % Neutrophils # (Auto) 2.3 1.6-8.6 10 ^3/uL Lymphocytes # (Auto) 1.1 0.4-5.4 10 ^3/uL Monocytes # (Auto) 0.4 0-1.3 10 ^3/uL Eosinophils # (Auto) 0.1 0-0.8 10 ^3/uL Basophils # (Auto) 0 0-0.2 10 ^3/uL Nucleated Red Blood Cells 0.1 % Sodium Level 143 136-145 mmol/L Potassium Level 4.3 3.5-5.1 mmol/L Chloride Level 108 H 98-107 mmol/L Carbon Dioxide Level 28 20-31 mmol/L Anion Gap 7 5-15 Blood Urea Nitrogen 9 9-23 mg/dL Creatinine 0.98 0.700-1.30 mg/dL Glomerular Filtration Rate Calc 83 >90 mL/min BUN/Creatinine Ratio 9.2 L 10.0-20.0 Serum Glucose 107 H 74-106 mg/dL Calcium Level 9.2 8.7-10.4 mg/dL Patient alert. Complaining of abdominal pain. Vitals stable. Answering questions. Saturation pristine on room air. Abdomen is soft. Establish intravenous access. Was given fluids. CT scan of the abdomen shows gastritis. Was given Protonix. Explained to the patient. Continue monitoring. Time of 1ST Reevaluation: 15:00 Reevaluation 1ST: Unchanged Patient Education/Counseling: Diagnosis, Treatment, Prognosis Family Education/Counseling: No Family Present SEPSIS Sepsis Screen Date sepsis recognized/suspect: Feb 17, 2025 Time Sepsis recognized/suspect: 1420 Recent Procedure: No On Antibiotic Therapy: No Respiratory Rate >20: No Heart Rate >90: No Temp<36 C (96.8 F) or >38.3 C: No SBP <90 or MAP <65 mmHG: No New Acute Mental Status Change: No Is the patient on CPAP, BIPAP,: No Physician Orders Ct Ab Pel Wo Con-No Oral Or Iv (02/17/25 14:41) Urinalysis (02/17/25 14:41) Vital Signs Date Time Temp Pulse Resp B/P (MAP) Pulse Ox O2 Delivery O2 Flow Rate FiO2 02/17/25 17:01 98.0 75 18 169/74 (105) 97 98.0 02/17/25 14:20 98.2 75 16 137/78 97 98.2 Laboratory Tests Test 02/17/25 15:18 White Blood Count 3.9 10^3/uL (4.4-10.8) L Departure 1 Departure Time of Disposition: 14:44 Impression: Primary Impression: Abdominal pain of unknown etiology Additional Impression: Gastritis Qualified Codes: K29.00 - Acute gastritis without bleeding Disposition: ADMITTED INPATIENT Admit to: Med Surg Condition: Guarded Critical Care Note Critical Care Time?: No Stability Stability form required: No Heart Score Heart Score: Heart Score Response (Comments) Value History N/A 0 EKG N/A 0 Age N/A 0 Risk Factors N/A 0 Troponin N/A 0 Total 0 I personally scribed for KADY TORRE MD ([email or web address]) on 02/17/25 at 14:35. Electronically submitted by Falguni Avery ([email or web address]). KADY TORRE MD Feb 17, 2025 14:35
--- NOTE | 2025-02-17 15:39 | DVH ---
EXAM: CT CT AB PEL WO CON-NO ORAL OR IV INDICATION: gastritis TECHNIQUE: Volumetric multidetector CT images of the abdomen and pelvis were obtained without contrast. All CT scans at this facility use dose modulation, iterative reconstruction, and/or weight based dosing when appropriate to reduce radiation dose to as low as reasonably achievable. COMPARISON: CT CT AB PEL WO CON-NO ORAL OR IV on DOS: 01/14/25 FINDINGS: [LOWER CHEST]: Inconspicuous peribronchial thickening in bilateral lung bases which may be seen in the setting chronic bronchitis. The cardiac size is normal without pericardial effusion. Coronary artery calcifications. [LIVER]: Calcific granulomas in the liver. Normal hepatic size without suspicious focal lesion. [GALLBLADDER AND BILIARY TREE]: No cholelithiasis. [SPLEEN]: Unremarkable. [PANCREAS]: Unremarkable. [ADRENAL GLANDS]: Unremarkable [KIDNEYS]: No hydronephrosis. No nephroureterolithiasis. No suspicious focal lesion. [BLADDER]: Circumferential prominent bladder wall thickening correlate with urinalysis for chronic cystitis. [REPRODUCTIVE ORGANS]: Partially visualized minimal gynecomastia. [BOWEL/MESENTERY]: Possible distal circumferential esophageal wall thickening which may be seen in the setting of chronic reflux/ esophagitis. Slight stomach distention of the stomach with the air-fluid level correlate for acute gastritis with the appropriate clinical setting. [id number] stool burden correlate for constipation. No CT evidence of bowel obstruction. [ASCITES]: Absent [LYMPHADENOPATHY]: No pathologically enlarged lymph nodes by CT size criteria [VASCULATURE]: No aneurysmal dilatation. [ABDOMINAL WALL]: Unremarkable. [MUSCULOSKELETAL]: No acute fracture or aggressive focal osseous lesion. Multifocal degenerative change of the visualized spine. IMPRESSION: 1. Slight stomach distention of the stomach with the air-fluid level correlate for acute gastritis with the appropriate clinical setting. 2. Circumferential prominent bladder wall thickening correlate with urinalysis for chronic cystitis. 3. [id number] stool burden correlate for constipation.
[2025-02-17 15:43] LABS: Hematocrit 40.2 % (41.0-53.0); Hemoglobin 13.4 g/dL (13.5-17.5); Mean Corpuscular Hemoglobin 28.4 pg (28.0-32.0); Mean Corpuscular Volume 85.0 fL (80.0-100.0); Nucleated Red Blood Cells % 0.1 %
[2025-02-17 15:51] LABS: Potassium 4.3 mmol/L (3.5-5.1); Sodium 143 mmol/L (136-145)
[2025-02-17 15:52] LABS: Anion Gap 7 (5-15); Calcium 9.2 mg/dL (8.7-10.4); Carbon Dioxide 28 mmol/L (20-31)
[2025-02-17 15:57] LABS: BUN/Creatinine Ratio 9.2 (10.0-20.0)
[2025-02-17 15:58] LABS: Blood Urea Nitrogen 9 mg/dL (9-23); Chloride 108 mmol/L (98-107); Glucose 107 mg/dL (74-106)
[2025-02-17 17:01] VITALS: BP 169/74; PULSE 75; RESP 18; TEMP 98; O2SAT 97
[2025-02-17] MEDS: PANTOPRAZOLE 40mg/50ML NS AE 50 ML IV ONE (17:15)
[2025-02-17] MEDS: SODIUM CHLORIDE 0.9% 1,000 ML IV ONE (17:35)
[2025-02-18] MEDS ORDERED: FAMO20TA10 PO (00:30)
== END 2025-02-18 01:20 | disposition home or self-care (01) ==
LOC: EDUNIT# 14:19 → EDBD 14:19 → ER 14:19
DX: K29.70 Gastritis, unspecified, without bleeding (principal); K21.9 Gastro-esophageal reflux disease without esophagitis; I10 Essential (primary) hypertension; F17.210 Nicotine dependence, cigarettes, uncomplicated; F15.90 Other stimulant use, unspecified, uncomplicated; F10.90 Alcohol use, unspecified, uncomplicated; Y90.9 Presence of alcohol in blood, level not specified
CPT/HCPCS: 36415; 74176; 80048; 85025; 96360; 96361; 99284; J7030